=== PATIENT | male | born 1950 | race Caucasian/White ===

== ENCOUNTER 2016-06-09 01:06 | Inpatient (IN) | payer OTHER, MEDICARE ==
[~2016-06-09] VITALS: Ht 180.3 cm; Wt 98.0 kg
[2016-06-09] VITALS (26 sets, daily range): BP systolic 91–142; BP diastolic 56–92; PULSE 80–127; RESP 14–22; TEMP 94.3–101; O2SAT 91–99
[~2016-06-09 01:06] MED LIST: CLOP75 NG; GABA300 PO; HUMSS SQ; LANTUS2P SC; LISI10 PO; MORP30 PO; PERC10TA27 PO; PRAV80 PO
[2016-06-09] MEDS ORDERED: LANTUS2P SQ (01:19)
[2016-06-09] MEDS ORDERED: PERC10TA27 PO (01:19)
[2016-06-09] MEDS ORDERED: PLAV75TA29 PO (01:19)
[2016-06-09] MEDS ORDERED: GABA300C5 PO (01:19)
[2016-06-09] MEDS ORDERED: LISI10TA3 PO (01:19)
[2016-06-09] MEDS ORDERED: PRAV80TA2 PO (01:19)
[2016-06-09] MEDS ORDERED: HUMALOG SQ (01:19)
[2016-06-09] MEDS ORDERED: NITROGLYCERIN 2% OINT 1 GM PACKET TOPICAL ONE (01:30)
[2016-06-09] MEDS ORDERED: LORazepam 2 MG/ML VIAL IM ONE (01:30)
[2016-06-09] MEDS ORDERED: FUROSEMIDE 100 MG/10 ML VIAL IV PUSH ONE (01:30)
[2016-06-09] MEDS ORDERED: ASPIRIN 81 MG CHEW TAB CHEW ONE (01:30)
[2016-06-09 01:34] LABS: AUTOMATED NEUTROPHIL # 16.2 TH/MM3 (1.8-7.7); BASOPHIL # 0.4 TH/MM3 (0-0.2); BASOPHIL % 1.2 % (0.0-2.0); EOSINOPHIL # 0.3 TH/MM3 (0-0.4); EOSINOPHIL % 0.9 % (0.0-4.0); HEMATOCRIT 41.4 % (39.0-51.0); I-STAT POTASSIUM 3.5 MMOL/L (3.5-4.9); LYMPH % 37.1 % (9.0-44.0); LYMPHOCYTE # 10.8 TH/MM3 (1.0-4.8); MEAN CELL VOLUME 96.4 FL (80.0-100.0); MEAN CORPUSCULAR HEMOGLOBIN 31.7 PG (27.0-34.0); MEAN CORPUSCULAR HGB CONC 32.9 % (32.0-36.0); MONO % 5.6 % (0.0-8.0); NEUT % 55.2 % (16.0-70.0); PLATELET COUNT 279 TH/MM3 (150-450); RED BLOOD COUNT 4.29 MIL/MM3 (4.50-5.90); RED CELL DISTRIBUTION WIDTH 13.9 % (11.6-17.2); WHITE BLOOD COUNT 29.2 TH/MM3 (4.0-11.0)
[2016-06-09 01:35] LABS: HEMO FLAGS AUTO DIFF
--- NOTE | 2016-06-09 01:37 | PD ---
HPI Chief Complaint: Respiratory Distress Time Seen by Provider: 01:12 Travel History International Travel<30 days: No Contact w/Intl Traveler<30days: No Traveled to known affect area: No History of Present Illness HPI The patient is a 65 year old male who presents to the [facility] emergency department with a history of being called as a STEMI alert prior to arrival by ambulance services due to a left bundle branch block and shortness of breath with diaphoresis. The patient denies having a history of an irregular heart rhythm. He does however report having a history of 2 prior myocardial infarctions. The patient on arrival to this facility has conversational dyspnea and tripoding. The patient denies having any chest pain. The patient is having difficulty providing much other history. The patient arrives with an O2 saturation in the 60s. The patient initially was refusing to have nasal cannula oxygen or a nonrebreather placed by ambulance services due to anxiety. Once the patient was placed on supplemental oxygen, the patient was able to provide more history and reports that he has had a productive sounding cough although he has not been bringing anything up. He denies having any fevers. He denies having any worsening lower extremity edema. He denies having any known history of congestive heart failure, however from reviewing the electronic medical record, the patient does have a history of a similar presentation with pulmonary edema and shortness of breath requiring use of BiPAP in June 2015. On the EKG done prior to arrival by ambulance services the patient was noted to have a left bundle branch block. The patient reports that he was wearing to go to bed a couple of hours prior to arrival when he had sudden onset of shortness of breath and diaphoresis. [facility] Past Medical History Narrative Medical The patient's past medical history is significant for coronary artery disease, hypertension, diabetes mellitus, history of congestive heart failure, peripheral vascular disease. Anxiety: No Depression: No Cancer: No Cardiac Catheterization: Yes (X2) Cardiovascular Problems: Yes ([place] X 2) High Cholesterol: Yes Chest Pain: Yes Coronary Artery Disease: Yes Diabetes: Yes Patient Takes Glucophage: No Diminished Hearing: No Endocrine: Yes (HYPERPARATHYROIDISM) Genitourinary: Yes (ACUTE KIDNEY INJURY) Hypertension: Yes Immune Disorder: No Musculoskeletal: No Neurologic: No Psychiatric: No Reproductive: No Respiratory: No Integumentary: Yes (NECROTIC RIGHT FOOT) Myocardial Infarction: Yes Thyroid Disease: No Tetanus Vaccination: < 5 Years Influenza Vaccination: No Past Surgical History Narrative Surgical The patient's past surgical history is significant for a hernia repair, appendectomy, femoral popliteal bypass, history of a toe amputation. Abdominal Surgery: Yes (HERNIA REPAIR) Appendectomy: Yes Cardiac Surgery: No Coronary Stent: Yes (X2) Ear Surgery: No Endocrine Surgery: No Eye Surgery: No Genitourinary Surgery: No Gynecologic Surgery: No Oral Surgery: No Thoracic Surgery: No Other Surgery: Yes (SVT CARDIOVERSION, STENT IN RIGHT LEG) Social History Alcohol Use: No Tobacco Use: No (quit 04/23) Substance Use: No Allergies-Medications (Allergen,Severity, Reaction): Coded Allergies: No Known Allergies (Unverified , 06/09/16) Reported Meds & Prescriptions Reported Meds & Active Scripts Active Reported Pravastatin 80 Mg Tab 80 Mg PO HS Percocet (Oxycodone-Acetaminophen) 10-325 mg Tab 1 Tab PO Q6H PRN Lisinopril 10 Mg Tab 10 Mg PO BID Lantus Inj (Insulin Glargine) 1,000 Unit/10 Ml Vial 5 Units SQ HS Humalog Inj (Insulin Human Lispro) 1,000 Unit/10 Ml Vial 5 Units SQ HS Gabapentin 300 Mg Cap 300 Mg PO TID Plavix (Clopidogrel Bisulfate) 75 Mg Tab 75 Mg PO DAILY Review of Systems Except as stated in HPI: all other systems reviewed are Neg General / Constitutional: No: Fever Eyes: No: Visual changes HENT: No: Headaches Cardiovascular: Positive: Dyspnea on exertion, Edema, No: Chest Pain or Discomfort Respiratory: Positive: Cough, Shortness of Breath Gastrointestinal: No: Nausea, Vomiting, Diarrhea, Abdominal Pain Genitourinary: No: Dysuria Musculoskeletal: No: Pain Skin: No Rash Neurologic: Positive: Weakness (generalized weakness related to shortness of breath), No: Focal Abnormalities, Change in Mentation, Slurred Speech, Sensory Disturbance Psychiatric: No: Depression Endocrine: No: Polydipsia Hematologic/Lymphatic: No: Easy Bruising Physical Exam Narrative General: The patient is a well-developed well-nourished male, arrives with respiratory distress, diaphoretic, tripoding. Head and Neck exam: Head is normocephalic atraumatic. Eyes: Pupils are equal round and reactive to light. Nose: Midline septum with pink mucous membranes Mouth: Dentition unremarkable. Moist mucus membranes. Posterior oropharynx is not erythematous. No tonsillar hypertrophy. Uvula midline. Airway patent. Neck: No palpable lymphadenopathy. No nuchal rigidity. No thyromegaly. Cardiovascular: Irregularly irregular with a rate in the low 100s without murmurs, gallops, or rubs. Lungs: Decreased breath sounds in bilateral bases with crackles audible bilaterally. No wheezes or rhonchi. Abdomen: Soft, without tenderness to palpation in all 4 quadrants of the abdomen. No guarding, rebound, or rigidity. Normal bowel sounds are audible. Extremities: No clubbing or cyanosis. The patient has 1+ nonpitting edema. No calf tenderness on palpation. The patient has hyperpigmentation of his extremities consistent with venous stasis changes. Back: No spinous process tenderness to palpation. No costovertebral angle tenderness to palpation. Neurologic Exam: Grossly nonfocal. The patient is moving all extremities with 5 over 5 strength. The patient has no evidence of facial asymmetry. Skin Exam: No rash noted. Intact skin that cool and diaphoretic. Data Data Last Documented VS Vital Signs Date Time Temp Pulse Resp B/P Pulse Ox O2 Delivery O2 Flow Rate FiO2 06/09/16 02:14 80 14 101/59 97 Auto-Vent 06/09/16 01:59 100 06/09/16 01:24 15 06/09/16 01:09 97.8 Orders Troponin I (06/09/16 01:20) Ckmb (Isoenzyme) Profile (06/09/16 01:20) Complete Blood Count With Diff (06/09/16 01:20) I-Stat Profile (06/09/16 01:20) I-Stat Creatinine (06/09/16 01:20) Calcium (06/09/16 01:20) Magnesium (Mg) (06/09/16 01:20) Prothrombin Time / Inr (Pt) (06/09/16 01:20) Act Partial Throm Time (Ptt) (06/09/16 01:20) B-Type Natriuretic Peptide (06/09/16 01:20) Chest, Single Ap (06/09/16 01:20) Electrocardiogram (06/09/16 01:20) Oxygen Administration (06/09/16 01:20) Iv Access Insert/Monitor (06/09/16 01:20) Oximetry (06/09/16 01:20) Hepatic Functional Panel (06/09/16 01:20) Lipase (06/09/16 01:20) Urinalysis - C+S If Indicated (06/09/16 01:20) Ecg Monitoring (06/09/16 01:20) Resp Bipap / Cpap Non Invas Vt (06/09/16 ) Nitroglycerin 2% Oint (Nitroglycerin 2% (06/09/16 01:30) Furosemide Inj (Lasix Inj) (06/09/16 01:30) Aspirin Chew (Aspirin Chew) (06/09/16 01:30) Lorazepam Inj (Ativan Inj) (06/09/16 01:30) Urinary Catheter Insert/Apply (06/09/16 01:27) Ng Gastric Tube Insert/Monitor (06/09/16 01:46) Etomidate Inj (Amidate Inj) (06/09/16 02:00) Succinylcholine Inj (Quelicin Inj) (06/09/16 02:00) Albuterol-Ipratropium Neb (Duoneb Neb) (06/09/16 02:00) Sodium Chloride 0.9% Flush (Ns Flush) (06/09/16 02:00) Restraints Non-Violent DIONNA.Q3H (06/09/16 01:46) Succinylcholine Inj (Quelicin Inj) (06/09/16 01:48) Propofol 1000 Mg/100 Ml Inj (Diprivan 10 (06/09/16 02:00) ^ Infusion (06/09/16 01:48) RASS (06/09/16 01:48) Neurological Rass Scale DIONNA.Q2H (06/09/16 01:48) Etomidate Inj (Amidate Inj) (06/09/16 01:49) Propofol 1000 Mg/100 Ml Inj (Diprivan 10 (06/09/16 01:50) CKMB (06/09/16 01:15) CKMB% (06/09/16 01:15) Chest, Single Ap (06/09/16 02:06) Dopamine Inj Premix (Dopamine Inj Premix (06/09/16 02:25) Admit Order (Ed Use Only) (06/09/16 02:31) Labs Laboratory Tests Test 06/09/16 06/09/16 01:15 01:25 White Blood Count 29.2 TH/MM3 Red Blood Count 4.29 MIL/MM3 Hemoglobin 13.6 GM/DL Bedside Hemoglobin 14.3 G/DL Hematocrit 41.4 % Bedside Hematocrit 42.0 % Mean Corpuscular Volume 96.4 FL Mean Corpuscular Hemoglobin 31.7 PG Mean Corpuscular Hemoglobin 32.9 % Concent Red Cell Distribution Width 13.9 % Platelet Count 279 TH/MM3 Mean Platelet Volume 10.1 FL Neutrophils (%) (Auto) 55.2 % Lymphocytes (%) (Auto) 37.1 % Monocytes (%) (Auto) 5.6 % Eosinophils (%) (Auto) 0.9 % Basophils (%) (Auto) 1.2 % Neutrophils # (Auto) 16.2 TH/MM3 Lymphocytes # (Auto) 10.8 TH/MM3 Monocytes # (Auto) 1.6 TH/MM3 Eosinophils # (Auto) 0.3 TH/MM3 Basophils # (Auto) 0.4 TH/MM3 CBC Comment AUTO DIFF Differential Total Cells 100 Counted Neutrophils % (Manual) 53 % Band Neutrophils % 9 % Lymphocytes % 30 % Monocytes % 7 % Basophils % 1 % Neutrophils # (Manual) 18.1 TH/MM3 Differential Comment FINAL DIFF MANUAL Platelet Estimate NORMAL Platelet Morphology Comment NORMAL Prothrombin Time 10.4 SEC Prothromb Time International 0.9 RATIO Ratio Activated Partial 30.1 SEC Thromboplast Time Bedside Sodium 136 MMOL/L Bedside Potassium 3.5 MMOL/L Bedside Chloride 105 MMOL/L Bedside Blood Urea Nitrogen 23 MG/DL Bedside Creatinine 1.1 MG/DL Bedside Glucose 500 MG/DL Calcium Level 8.2 MG/DL Magnesium Level 2.2 MG/DL Total Bilirubin 0.5 MG/DL Direct Bilirubin 0.1 MG/DL Indirect Bilirubin 0.4 MG/DL Aspartate Amino Transf 157 U/L (AST/SGOT) Alanine Aminotransferase 34 U/L (ALT/SGPT) Alkaline Phosphatase 128 U/L Total Creatine Kinase 773 U/L Creatine Kinase MB 35.8 NG/ML Creatine Kinase MB % 4.6 % Troponin I 18.40 NG/ML B-Type Natriuretic Peptide 580 PG/ML Total Protein 6.5 GM/DL Albumin 3.1 GM/DL Lipase 89 U/L Urine Color YELLOW Urine Turbidity CLEAR Urine pH 6.0 Urine Specific Milam 1.021 Urine Protein 300 mg/dL Urine Glucose (UA) 1000 mg/dL Urine Ketones NEG mg/dL Urine Occult Blood SMALL Urine Nitrite NEG Urine Bilirubin NEG Urine Urobilinogen LESS THAN 2.0 MG/DL Urine Leukocyte Esterase NEG Urine RBC 1 /hpf Urine WBC 2 /hpf Urine Squamous Epithelial <1 /hpf Cells Urine Renal Epithelial Cells <1 /hpf Urine Amorphous Sediment RARE Urine Bacteria OCC /hpf Microscopic Urinalysis Comment CULT NOT INDICATED MDM Medical Decision Making Medical Screen Exam Complete: Yes Emergency Medical Condition: Yes Medical Record Reviewed: Yes Interpretation(s) Last Impressions Chest X-Ray 06/09/16205 Signed Impressions: Service Date/Time: Thursday, June 09, 2016 02:06 - CONCLUSION: 1. Airspace opacities of both bases and the left midlung worsening. 2. Endotracheal tube tip is about 4 cm above the elizabeth. Nasogastric tube courses below the diaphragm, sidehole nor tip included on the study. Anthony Carroll MD Chest X-Ray 06/09/16119 Signed Impressions: Service Date/Time: Thursday, June 09, 2016 01:09 - CONCLUSION: Early/ mild pulmonary edema. Anthony Carroll MD Differential Diagnosis Congestive heart failure exacerbation, versus pneumonia, versus acute coronary syndrome, versus pulmonary edema related to renal failure Narrative Course During the course of the patients emergency department visit, the patients history, examination, and differential diagnosis were reviewed with the patient. The patient had IV access obtained and blood work sent for analysis. The patient was placed on a director of cardiac cath lab with oximetry and blood pressure monitoring. An EKG was done on arrival which revealed atrial fibrillation with RVR, heart rate of 110 with a left bundle branch block appearing similar to a prior EKG with the exception of no atrial fibrillation rate. Prior to arrival ambulance services provided aspirin 162 mg by mouth 1. The patient was given nitroglycerin sublingual 3, morphine 4 mg IV. On arrival the patient is tripoding, dyspneic, O2 saturations in the 60s, however the patient was refusing to wear nasal cannula O2 or mask O2 initially for ambulance services. I applied nasal cannula O2 to the patient as well as a nonrebreather mask and the patient's O2 saturation began to come up. Respiratory therapy was called to place the patient on BiPAP. The patient was provided an additional aspirin 162 mg by mouth, nitroglycerin 1 inch to the chest wall, Lasix 80 mg IV, Ativan 0.5 mg IV for anxiety related to wearing the mask for BiPAP. The patient was monitored closely. The patient was not tolerating BiPAP well. The patient had a rhythm change and a repeat EKG was done. The patient's EKG looked more consistent with a STEMI with a idioventricular rhythm at 51, ST segment elevation in the inferior leads. A call was placed out to the director of home care hospice on-call again at 1:50 AM. The patient' s first and second EKGs images were sent to her for review. She called me back to discuss this. She explained that the patient's EKG findings were most likely related to his respiratory distress. The patient was not tolerating BiPAP well and was prepared for RSI. The patient was intubated without difficulty. The patient was placed on propofol for sedation. The patient's blood pressure dropped into the 80s and his heart rate was in the 40s. The patient was started on dopamine for pressure support and for the bradycardia. The patient had a troponin came back at 2 AM of 18. The director of home care hospice was again called to update her regarding the patient's troponin. She reports that she does not plan to take the patient to the cardiac catheterization lab this evening. The patients laboratory studies were reviewed and remarkable for a white count of 29.2, hemoglobin 13.6, platelets 279 with 53 neutrophils, bands 9, CMP is remarkable for sodium of 136, glucose 500, AST 157, alkaline phosphatase 128, CPK 773 with 4.6 MB percent, troponin I 18.40, BNP 580, lipase 89, PT PTT unremarkable, urinalysis shows 300 protein is without glucose small occult blood occasional bacteria. Radiology studies were reviewed and remarkable for an initial chest x-ray that shows bilateral pulmonary edema. Repeat chest x-ray postintubation shows airspace opacities at both bases and the left midlung that are worsening. Given the patient's elevated white blood cell count and the possibility of an underlying pneumonia, the patient will also be given Rocephin 1 g IV, Zithromax 500 IV. The patient's case was discussed with the mixing operator who did agree to admit the patient for further evaluation and treatment at this time. He did see the patient down in the emergency department. The patient was started on heparin. The patient's blood sugar was reassessed. The patient's blood sugar was in the 467. Basic metabolic profile shows of the patient's CO2 is normal. The patient's beta hydroxybutyrate is negative. The patient was given regular insulin 10 units subcutaneously 1. The patients results were discussed with the patient, including the plan of care. I explained that further testing and/ or monitoring is indicated based on the patients history, examination, and/ or laboratory findings. Therefore, I recommended admission for additional evaluation. The patient expressed understanding and was agreeable with this plan. The patient was admitted to the hospital in critical condition and sent to a bed under the care of the mixing operator. Critical Care Narrative Aggregate critical care time was 44 minutes. Time to perform other separately billable procedures was not included in the critical care time. My time did not include minutes spent treating any other patients simultaneously or on activities that did not directly contribute to the patient's treatment. The services I provided to this patient were to treat and/or prevent clinically significant deterioration that could result in: Cardiovascular collapse, versus respiratory failure I provided critical care services requiring my management, as noted below: Chart data review, documentation time, medication orders and management, vital sign assessments/reviewing monitor data, ordering and reviewing lab tests, ordering and interpreting/reviewing x-rays and diagnostic studies, care of the patient and discussion of the patient with the admitting physicians. Physician Communication Physician Communication At 1:12 AM I spoke to Dr. Elizondo regarding this patient's case as the the patient was called as a STEMI alert prior to arrival by [facility]. While discussing the patient's case with her I did review the patient's electronic medical record. The patient's electronic medical record reveals that the patient does have a history of left bundle branch block and a similar appearing EKG from June 2015. The new finding on this EKG appears to be atrial fibrillation with a heart rate of 110. The STEMI alert was initially canceled as the patient 's ECG appears close to baseline ECG last done at this facility. The patient's case was discussed with Dr. Rodríguez who did see the patient in the emergency department and accept the patient for admission to the intensive care unit. Diagnosis Primary Impression: Myocardial infarction acute Qualified Code: I21.4 - Acute non-ST elevation myocardial infarction (NSTEMI) Additional Impressions: Acute exacerbation of congestive heart failure Qualified Code: I50.9 - Acute on chronic congestive heart failure, unspecified congestive heart failure type Leukocytosis Qualified Code: D72.825 - Bandemia Hyperglycemia Admitting Information Admitting Physician Requests: Admit Mariama Rocha MD Jun 09, 2016 01:36
[2016-06-09 01:38] LABS: BACTERIA, URINE OCC /hpf; BLOOD, URINE SMALL (NEG); COMMENT (UR) CULT NOT INDICATED; CULTURE IF INDICATED CULT NOT INDICATED; GLUCOSE,URINE 1000 mg/dL (NEG); KETONE, URINE NEG (NEG); NITRITE,URINE NEG (NEG); RENAL EPITHELIAL CELLS <1 /hpf; SQUAMOUS EPITHELIAL CELL URINE <1 /hpf (0-5); URINE COLOR YELLOW (YELLW/STRAW)
--- NOTE | 2016-06-09 01:42 | RADRPT ---
EXAM DATE/TIME: 06/09/2016 01:09 [facility] COMPARISON: CHEST SINGLE AP, June 11, 2015, 21:59. INDICATIONS : Stemi alert. MEDICAL HISTORY : Myocardial infarction. Hypercholesterolemia. Hypertension. Coronary artery disease. Angina. Hernia. N ecrotic right foot. SVT cardioversion. Diabetes mellitus. Hyperparathyroidism. SURGICAL HISTORY : Appendectomy. Cardiac stent placement, times 2. Right leg coronary stent. Cardiac catheter. Hernia re pair. ENCOUNTER: Initial ACUITY: 1 day PAIN SCORE: 7/10 LOCATION: Bilateral chest FINDINGS: Mild pulmonary parenchymal opacities are seen, primarily at the bases and most suggestive of mild pul monary edema. No focal lobar consolidation seen. No large effusion. No pneumothorax. Heart size stable, upper limits of normal. CONCLUSION: Early/mild pulmonary edema. Anthony Carroll MD on June 09, 2016 at 1:38 Board Certified Radiologist. This report was verified electronically.
[2016-06-09] MEDS ORDERED: SUCCINYLCHOLINE CHLORIDE 200 MG/10 ML VIAL ONE (01:48)
[2016-06-09 01:49] LABS: APTT (PATIENT) 30.1 SEC (24.3-30.1); INTERNATIONAL NORMALIZED RATIO 0.9 RATIO; PROTHROMBIN TIME - PATIENT 10.4 SEC (9.8-11.6)
[2016-06-09] MEDS ORDERED: ETOMIDATE 40 MG/20 ML VIAL ONE (01:49)
[2016-06-09 01:50] LABS: MAGNESIUM 2.2 MG/DL (1.5-2.5)
[2016-06-09] MEDS ORDERED: PROPOFOL 1000 MG/100 ML INJ 100 ML ONE (01:50)
[2016-06-09 01:53] LABS: INDIRECT BILIRUBIN 0.4 MG/DL (0.0-0.8); TOTAL BILIRUBIN ADULT 0.5 MG/DL (0.2-1.0)
[2016-06-09] MEDS ORDERED: PROPOFOL 1000 MG/100 ML INJ 100 ML IV SCH (02:00)
[2016-06-09] MEDS ORDERED: SUCCINYLCHOLINE CHLORIDE 200 MG/10 ML VIAL IVP ONE (02:00)
[2016-06-09] MEDS ORDERED: ETOMIDATE 20 MG/10 ML VIAL IVP ONE (02:00)
[2016-06-09] MEDS ORDERED: SODIUM CHLORIDE 0.9% FLUSH 5 ML FLUSH IVF PRN ×2 (02:00→15:00)
[2016-06-09 02:11] LABS: CKMB 35.8 NG/ML (0.5-3.6)
[2016-06-09 02:17] LABS: BANDS 9 % (0-6); BASOPHILS 1 % (0-2); NEUTROPHIL # MANUAL DIFF 18.1 TH/MM3 (1.8-7.7); PLATELET ESTIMATE SMEAR NORMAL (NORMAL); PLATELET MORPHOLOGY NORMAL (NORMAL); POLYS (SEG NEUTROPHILS) 53 % (16-70); SCAN/DIFF FINAL DIFF MANUAL; WBC DIFF SAMPLE 100
[2016-06-09] MEDS ORDERED: DOPamine INJ PREMIX 500 ML ONE (02:25)
[2016-06-09] MEDS: RESP: ALBUTEROL 2.5 MG/IPRATROPIUM 0.5 MG NEB (SCH) INH ×2 (02:32→02:37)
[2016-06-09] MEDS ORDERED: RESP: ALBUTEROL 2.5 MG/IPRATROPIUM 0.5 MG NEB (PRN) INH (02:45)
[2016-06-09] MEDS ORDERED: SODIUM CHLORIDE 0.9% FLUSH 5 ML FLUSH IV FLUSH PRN (02:45)
[2016-06-09] MEDS ORDERED: CHLORHEXIDINE GLUCONATE 2 % 1 PACK (2 CLOTHS) TOP PRN (02:45)
[2016-06-09] MEDS ORDERED: MIDAZOLAM 100 MG/ML INJ 100 ML IV SCH (02:45)
[2016-06-09] MEDS ORDERED: MISCELLANEOUS NURSING INFORMATION XX SCH (02:45)
[2016-06-09] MEDS ORDERED: MIDAZOLAM HCL 2 MG/2 ML VIAL IV PRN (02:45)
[2016-06-09] MEDS ORDERED: METOCLOPRAMIDE HCL 10 MG/2 ML VIAL IV PRN (02:45)
[2016-06-09] MEDS ORDERED: ONDANSETRON HCL 4 MG/2 ML VIAL IV PRN (02:45)
--- NOTE | 2016-06-09 02:52 | RADRPT ---
EXAM DATE/TIME: 06/09/2016 02:06 [facility] COMPARISON: No previous studies available for comparison. INDICATIONS : Post intubation. MEDICAL HISTORY : None. SURGICAL HISTORY : None. ENCOUNTER: Subsequent ACUITY: 1 day PAIN SCORE: Non-responsive. LOCATION: Bilateral chest FINDINGS: Patient is now intubated. Endotracheal tube tip is about 4 cm above the elizabeth. There is a nasogastri c tube coursing into the stomach. Worsening bibasilar and left midlung consolidation. CONCLUSION: 1. Airspace opacities of both bases and the left midlung worsening. 2. Endotracheal tube tip is about 4 cm above the elizabeth. Nasogastric tube courses below the diaphragm , sidehole nor tip included on the study. Anthony Carroll MD on June 09, 2016 at 2:49 Board Certified Radiologist. This report was verified electronically.
--- NOTE | 2016-06-09 02:52 | HHI.HP ---
HPI Service Critical Care Medicine Primary Care Physician Vonda [facility] Admission Diagnosis Acute DC, CHF exacerbation, respiratory failure Diagnosis: Travel History International Travel<30 Days: No Contact w/Intl Traveler <30 Da: No Traveled to Known Affected Are: No Review of Systems ROS Unable to obtain, patient is sedated and intubated Past Family Social History Allergies: Coded Allergies: No Known Allergies (Unverified , 06/09/16) Past Medical History HTN, CAD, DM, CHF (Echo 05/11/15 w/ EF 50-55%) PVD Past Surgical History Hernia Repair, Appendectomy, Femoropopliteal Bypass Reported Medications Pravastatin 80 Mg Tab 80 Mg PO HS Percocet (Oxycodone-Acetaminophen) 10-325 mg Tab 1 Tab PO Q6H PRN Lisinopril 10 Mg Tab 10 Mg PO BID Lantus Inj (Insulin Glargine) 1,000 Unit/10 Ml Vial 5 Units SQ HS Humalog Inj (Insulin Human Lispro) 1,000 Unit/10 Ml Vial 5 Units SQ HS Gabapentin 300 Mg Cap 300 Mg PO TID Plavix (Clopidogrel Bisulfate) 75 Mg Tab 75 Mg PO DAILY Active Ordered Medications Current Medications Medications (Trade) Dose Ordered Sig/Yoselin Route PRN Reason Start Time Stop Time Status Last Admin Dose Admin IV Flush 2 ml 2 ml UNSCH PRN IVF FLUSH AFTER USING IV ACCESS 06/09/16 02:00 Propofol 100 ml @ 0 mls/hr TITRATE IV 06/09/16 02:00 Midazolam HCl 100 ml @ 0 mls/hr TITRATE IV 06/09/16 02:45 Sodium Chloride (NS 1000 ml Inj) 1,000 ml @ 84 mls/hr [id number] IV 06/09/16 02:41 UNV IV Flush (NS Flush) 2 ml UNSCH PRN IV FLUSH FLUSH AFTER USING IV ACCESS 06/09/16 02:45 UNV IV Flush (NS Flush) 2 ml BID IV FLUSH 06/09/16 09:00 UNV Acetaminophen (Tylenol) 650 mg Q6H PRN PO PAIN 1-10 AND/OR FEVER >101F 06/09/16 02:45 UNV Morphine Sulfate (Morphine Inj) 2 mg Q2H PRN IV PAIN SCALE 6 TO 10 06/09/16 02:45 UNV Famotidine (Pepcid Inj) 20 mg Q12HR IV PUSH 06/09/16 09:00 UNV Midazolam HCl (Versed Inj) 2 mg Q1H PRN IV SEDATION 06/09/16 02:45 UNV Artificial Tears (Tears Naturale Opth Soln) 1 drop TID EACH EYE 06/09/16 09:00 UNV Ondansetron HCl (Zofran Inj) 4 mg Q6H PRN IV NAUSEA OR VOMITING 06/09/16 02:45 UNV Miscellaneous Information 1 Q361D XX 06/09/16 02:45 UNV Chlorhexidine Gluconate (Chlorhexidine 2% Cloth) 3 pack Taper DAILY@04 TOP 06/09/16 04:00 06/05/17 03:59 UNV Chlorhexidine Gluconate (Chlorhexidine 2% Cloth) 3 pack UNSCH PRN TOP HYGIENIC CARE 06/09/16 02:45 UNV Family History No h/o DM or CAD Social History Negative for alcohol or drugs. Smoker 1ppd. Physical Exam Vital Signs Vital Signs Date Time Temp Pulse Resp B/P Pulse Ox O2 Delivery O2 Flow Rate FiO2 06/09/16 02:46 94.3 101 14 139/78 97 Auto-Vent 06/09/16 02:14 80 14 101/59 97 Auto-Vent 06/09/16 01:50 85 22 124/75 94 BiPAP 06/09/16 01:24 96 Non-Rebreather 15 06/09/16 01:24 22 98 BiPAP 06/09/16 01:19 100 22 91 Non-Rebreather 15 06/09/16 01:09 98.4 110 22 141/89 91 Physical Exam GENERAL: Well-nourished, well-developed patient. SKIN: Warm and dry. HEAD: Normocephalic. EYES: No scleral icterus. No injection or drainage. NECK: Supple, trachea midline. No JVD or lymphadenopathy. CARDIOVASCULAR: Regular rate and rhythm without murmurs, gallops, or rubs. RESPIRATORY: Breath sounds equal bilaterally. No accessory muscle use. GASTROINTESTINAL: Abdomen soft, non-tender, nondistended. MUSCULOSKELETAL: No cyanosis, or edema. BACK: Nontender without obvious deformity. No CVA tenderness. Laboratory Laboratory Tests Test 06/09/16 06/09/16 01:15 01:25 White Blood Count 29.2 Red Blood Count 4.29 Hemoglobin 13.6 Bedside Hemoglobin 14.3 Hematocrit 41.4 Bedside Hematocrit 42.0 Mean Corpuscular Volume 96.4 Mean Corpuscular Hemoglobin 31.7 Mean Corpuscular Hemoglobin 32.9 Concent Red Cell Distribution Width 13.9 Platelet Count 279 Mean Platelet Volume 10.1 Neutrophils (%) (Auto) 55.2 Lymphocytes (%) (Auto) 37.1 Monocytes (%) (Auto) 5.6 Eosinophils (%) (Auto) 0.9 Basophils (%) (Auto) 1.2 Neutrophils # (Auto) 16.2 Lymphocytes # (Auto) 10.8 Monocytes # (Auto) 1.6 Eosinophils # (Auto) 0.3 Basophils # (Auto) 0.4 CBC Comment AUTO DIFF Differential Total Cells 100 Counted Neutrophils % (Manual) 53 Band Neutrophils % 9 Lymphocytes % 30 Monocytes % 7 Basophils % 1 Neutrophils # (Manual) 18.1 Differential Comment FINAL DIFF MANUAL Platelet Estimate NORMAL Platelet Morphology Comment NORMAL Prothrombin Time 10.4 Prothromb Time International 0.9 Ratio Activated Partial 30.1 Thromboplast Time Bedside Sodium 136 Bedside Potassium 3.5 Bedside Chloride 105 Bedside Blood Urea Nitrogen 23 Bedside Creatinine 1.1 Bedside Glucose 500 Calcium Level 8.2 Magnesium Level 2.2 Total Bilirubin 0.5 Direct Bilirubin 0.1 Indirect Bilirubin 0.4 Aspartate Amino Transf 157 (AST/SGOT) Alanine Aminotransferase 34 (ALT/SGPT) Alkaline Phosphatase 128 Total Creatine Kinase 773 Creatine Kinase MB 35.8 Creatine Kinase MB % 4.6 Troponin I 18.40 B-Type Natriuretic Peptide 580 Total Protein 6.5 Albumin 3.1 Lipase 89 Urine Color YELLOW Urine Turbidity CLEAR Urine pH 6.0 Urine Specific [place] 1.021 Urine Protein 300 Urine Glucose (UA) 1000 Urine Ketones NEG Urine Occult Blood SMALL Urine Nitrite NEG Urine Bilirubin NEG Urine Urobilinogen LESS THAN 2.0 Urine Leukocyte Esterase NEG Urine RBC 1 Urine WBC 2 Urine Squamous Epithelial <1 Cells Urine Renal Epithelial Cells <1 Urine Amorphous Sediment RARE Urine Bacteria OCC Microscopic Urinalysis Comment CULT NOT INDICATED Result Diagram: 06/09/16114 Imaging Last 24 hours Impressions Chest X-Ray 06/09/16119 Signed Impressions: Service Date/Time: Thursday, June 09, 2016 01:09 - CONCLUSION: Early/ mild pulmonary edema. MD Marcos Harvey Jan MD Jun 09, 2016 02:52
[2016-06-09] MEDS ORDERED: HEPARIN-D5W INJ 250 ML IV SCH ×2 (03:00→17:30)
[2016-06-09] MEDS ORDERED: SODIUM BICARBONATE 8.4% INJ 50 MEQ/50 ML SYR IV PUSH ONE ×2 (03:15)
[2016-06-09 03:28] LABS: BLOOD GAS BASE EXCESS -9.5 mmol/L (-2-2); BLOOD GAS CARBOXYHEMOGLOBIN 4.4 % (0-4); BLOOD GAS HCO3 19 mmol/L (22-26); BLOOD GAS METHEMOGLOBIN 2.3 % (0-2); BLOOD GAS O2 HGB SATURATION 93 % (90-100); BLOOD GAS OXYGEN CONTENT 18.5 Vol % (12.0-20.0); BLOOD GAS PCO2 61 mmHg (38-42); BLOOD GAS PO2 260 mmHG (61-120); BLOOD GAS TOTAL HGB 13.8 G/DL (12.0-16.0); CRITICAL VALUE YES; FIO2 100 %; OXYGEN DEVICE VENTILATOR; TEMP CORR TO 98.6
[2016-06-09 03:29] LABS: NUMBER OF ARTERIAL PUNCTURES 0; STAT YES
[2016-06-09] MEDS: CHLORHEXIDINE GLUCONATE 2 % 1 PACK (2 CLOTHS) TOP SCH (04:00)
[2016-06-09] MEDS: SODIUM CHLOR 0.9% 1000 ML INJ 1,000 ML IV SCH ×3 (04:17→21:01)
[2016-06-09] MEDS ORDERED: INSULIN HUMAN REGULAR 1,000 UNITS/10 ML VIAL SQ ONE (05:30)
[2016-06-09 06:04] LABS: HEMATOCRIT 36.6 % (39.0-51.0); MEAN CORPUSCULAR HEMOGLOBIN 31.1 PG (27.0-34.0); MEAN CORPUSCULAR HGB CONC 33.8 % (32.0-36.0); PLATELET COUNT 207 TH/MM3 (150-450); RED BLOOD COUNT 3.98 MIL/MM3 (4.50-5.90); RED CELL DISTRIBUTION WIDTH 13.1 % (11.6-17.2); REVIEW FLAG FINAL; WHITE BLOOD COUNT 23.2 TH/MM3 (4.0-11.0)
[2016-06-09 06:16] LABS: BETA-HYDROXYBUTYRATE 0.27 MMOL/L (0.00-0.39); BICARBONATE 23.1 MEQ/L (21.0-32.0)
[2016-06-09 06:34] LABS: BLOOD GAS BASE EXCESS -2.8 mmol/L (-2-2); BLOOD GAS CARBOXYHEMOGLOBIN 2.7 % (0-4); BLOOD GAS HCO3 22 mmol/L (22-26); BLOOD GAS O2 HGB SATURATION 95 % (90-100); BLOOD GAS OXYGEN CONTENT 17.6 Vol % (12.0-20.0); BLOOD GAS PCO2 41 mmHg (38-42); BLOOD GAS PO2 169 mmHG (61-120); TEMP CORR TO 98.6
[2016-06-09 06:35] LABS: CRITICAL VALUE NO; OXYGEN DEVICE VENTILATOR; VENT SETTINGS AC14/600 5 PEEP
[2016-06-09 06:36] LABS: DRAW SITE RT RADIAL; FIO2 80 %; NUMBER OF ARTERIAL PUNCTURES 1; STAT NO; ULNAR PULSE PRESENT
[2016-06-09 06:42] LABS: VENT SETTINGS AC/14/500 5 PEEP
[2016-06-09] MEDS ORDERED: AZITHROMYCIN INJ 500 MG in SODIUM CHLOR 0.9% 250 ML INJ 250 ML IV ONE (06:45)
[2016-06-09] MEDS ORDERED: cefTRIAXone INJ 1,000 MG in SODIUM CHLORIDE 0.9% INJ 100 ML IV ONE (06:45)
[2016-06-09] MEDS ORDERED: INSULIN REGULAR (IV INFUSION) 100 UNITS in SODIUM CHLORIDE 0.9% INJ 99 ML IV SCH (07:45)
[2016-06-09] MEDS ORDERED: MISC INFORMATION XX ONE ×2 (07:45→15:00)
[2016-06-09] MEDS ORDERED: DEXTROSE 50% IN WATER 50 ML VIAL(D50) IV PUSH PRN (07:45)
[2016-06-09 08:09] LABS: APTT (PATIENT) 30.8 SEC (24.3-30.1)
[2016-06-09] MEDS: DOCUSATE SODIUM 100 MG/10 ML UDC G-TUBE SCH ×2 (09:00→21:01)
[2016-06-09] MEDS ORDERED: HEPARIN SODIUM - IV 10,000 UNITS/10 ML VIAL IV PRN ×4 (09:00→23:30)
[2016-06-09] MEDS ORDERED: ASPIRIN 325 MG TAB TUBE SCH (09:00)
[2016-06-09] MEDS ORDERED: SODIUM CHLORIDE 0.9% FLUSH 5 ML FLUSH IV FLUSH SCH (09:00)
[2016-06-09] MEDS: ARTIFICIAL TEARS OPTH SOLN 15 ML BTL EACH EYE SCH ×3 (09:00→18:00)
[2016-06-09] MEDS: FAMOTIDINE 20 MG/2 ML VIAL IV PUSH SCH ×2 (09:00→21:56)
--- NOTE | 2016-06-09 09:15 | PD.PROCEDR ---
Central Line Procedure REASON FOR PROCEDURE Central venous access PROCEDURE PERFORMED Central line placement: R subclavian CVL CONSENT Emergency procedure for cardiogenic shock, pressor administration ANESTHESIA Local injection of 1% Lidocaine DESCRIPTION OF THE PROCEDURE The patient was placed in supine, mild Trendelenburg position. The area was exposed and cleansed with ChloraPrep, times two. Large sterile drape was used to cover the patient, with the site exposed, under sterile conditions including cap, face mask, sterile gown, and sterile gloves. On single attempt, the introducer needle was inserted with negative pressure in syringe and venous flash was obtained. The guide wire was then advanced without any restriction and the needle was removed. The dilator was used without any complications. Using Seldinger technique the 20 CM 7F triple lumen catheter was advanced over the guide wire to a depth of 17 centimeters. The guide wire was removed. All ports were aspirated with dark venous blood return and flushed easily with sterile saline. All ports were capped. Antibiotic disc was placed around central line at puncture site. The central line was secured to the skin with two interrupted 2.0 silk sutures. The area was bandaged with sterile see- through central line bandage. COMPLICATIONS: No apparent complications ESTIMATED BLOOD LOSS: Less than 1 cc. Barry Cruz MD Jun 09, 2016 09:15
--- NOTE | 2016-06-09 10:15 | RADRPT ---
EXAM DATE/TIME: 06/09/2016 09:29 [place] COMPARISON: CHEST SINGLE AP, May 26, 2016, 20:32. INDICATIONS : Dyspnea. MEDICAL HISTORY : Hypertension. Myocardial infarction. Pneumonia. SURGICAL HISTORY : CABG. ENCOUNTER: Subsequent ACUITY: 3 days PAIN SCORE: 0/10 LOCATION: Chest FINDINGS: ET tube, nasogastric tube and central venous catheter are in good position. Bibasilar parenchymal ch anges are noted. There is no pneumothorax. CONCLUSION: Right subclavian line in good position without pneumothorax. Nima Treadwell MD FACR on June 09, 2016 at 10:10 Board Certified Radiologist. This report was verified electronically.
--- NOTE | 2016-06-09 10:24 | MB ---
cc: FREDO ALVAREZ DATE OF CONSULTATION 06/09/2016 DATE OF 1950 REASON FOR CONSULTATION Elevated troponin's/Chest Pain/Respiratory failure HISTORY OF PRESENT ILLNESS 65-year-old male with a past medical history significant for coronary artery disease, hypertension, diabetes, severe peripheral vascular disease, left bundle branch block who came from home via [facility] around 2AM with complaints of shortness of breath. The patient denied chest pain or palpitations however per record had significantly SOB. In the emergency department, the patient SOB got worst, labored breathing despite O2 supplementation. He went into flash pulmonary edema and he was started on BiPaP, however he did not tolerated the BiPAP and was emergently intubated. EKG showing complete AV block high exit block and ST elevation in II, III and AvF. First troponin was 18. The director of exhibit development authorization nurse was consulted for emergent LHC/PCI but case was decline. Thus interventional cardiology has been re-consulted for further evaluation and management. Currently he remains critically ill, hemodynamically unstable on dopamine, and troponin's continue to trend up. REVIEW OF SYSTEMS Unobtainable. PAST MEDICAL HISTORY 1. Coronary artery disease 2. PCI's in the past 3. Hypertension 4. Diabetes 5. Congestive heart failure 6. Peripheral vascular disease 7. He has a recent echocardiogram showing a normal LV systolic function with an estimated ejection fraction of 60% 8. Hypothyroidism 9. Necrotic right foot. PAST SURGICAL HISTORY 1. Hernia repair 2. Appendectomy 3. Coronary stents 4. A stent in the both leg. SOCIAL HISTORY He is a former smoker and no history of alcohol or illicit drug use. ALLERGIES NO KNOWN DRUG ALLERGIES. HOME MEDICATIONS 1. Plavix 75 mg p.o. daily 2. Gabapentin 300 mg p.o. t.i.d. 3. Insulin subc 4. Lisinopril 10 mg p.o. daily 5. Percocet p.r.n. for pain 6. Pravastatin 80 mg p.o. daily PHYSICAL EXAM VITAL SIGNS: Temperature 96, pulse 87, blood pressure 131/71. He is on low- dose dopamine. He is vented and intubated. GENERAL: He is sedated, intubated in no acute distress. NECK: No JVD or carotid bruits. HEART: Regular rate and rhythm. No murmurs, rubs or gallops appreciated. LUNGS: Vented. No wheezes, rhonchi or rales. ABDOMEN: Obese. Positive bowel sounds, soft, nontender, and nondistended. EXTREMITIES: No cyanosis or edema. Warm to touch, decrease pulses throughout. LABORATORY DATA CBC white count 23, hemoglobin 12, hematocrit 36, platelet count 207, INR of 0.9. Chemistries, sodium 138, potassium 4, chloride 103, BUN 24, creatinine 1.38, troponins 18 and 38. Chest x-ray showed bilateral pulmonary edema. EKG sinus rhythm with a left bundle branch block. An echocardiogram done last year on May 11 shows normal LV systolic function with an EF of 50-37%. He has elevated PA pressures. There is no wall motion abnormalities. ASSESSMENT/PLAN 65-year-old male who presented with acute onset of shortness of breath found to be in pulmonary edema, now with elevated troponin's. EKG shows inferior ST elevation and questionable 3 degree high AV block. He is critically ill, Killip Class III and MARINO (STEMI) score is 9. Overall mortality high. Hypotensive on dopamine. I think at this point given his worsening clinical status and hemodynamic compromise we should take him immediately to the medical laboratory technical officer for emergent PCI. Bedside 2Decho done, shows significant LV systolic dysfunction with estimated EF 30% and inferior wall hypokinesis. Keep aggressive medical management for CAD and supportive management. Patient has a AV dissociation on EKG will need TVP immediate insertion. The case has been discussed with the director news and an echocardiogram should be performed stat. Recommendations: 1. Emergent LHC/PCI will need Impella LV assist device 2. Emergent Transvenous pacemaker insertion 2. Continue supportive therapy 3. Stat 2Decho 4. Continue Heparin drip Thank you for the opportunity to take part in the care of this patient. We will follow with you. MD MARIA LUISA Sales/CARLITOS /9:51 AM /10:10 AM SAVANNAH
[2016-06-09] MEDS ORDERED: HEPARIN-NS/PF INJ 500 ML ONE (11:44)
[2016-06-09] MEDS ORDERED: HEPARIN SODIUM - IV 10,000 UNITS/10 ML VIAL ONE ×2 (12:21→13:15)
--- NOTE | 2016-06-09 12:30 | HHI.CCPN ---
Subjective Remarks/Hospital Course 65 year old with past medical history is significant for coronary artery disease , hypertension, diabetes mellitus, history of congestive heart failure, peripheral vascular disease who was brought o the [facility] emergency department as a STEMI alert prior to arrival by ambulance services due to a left bundle branch block and shortness of breath with diaphoresis. Initial oxygen saturation was in the 60s, patient was very anxious. Chest x- ray showed pulmonary edema Initially placed on BiPAP with no significant improvement, and later was intubated and placed on mechanical ventilation. Patient ruled in for non-ST elevation MT with a troponin of 18. His blood sugar was in the 500s. Cardiology was consulted. Aspirin and IV heparin started, for cardiogenic shock patient was placed on dopamine CCM re evaluation: I evaluated the patient in the ED. Patient remains in shock on dopamine. I placed a left subclavian central line. Repeat troponin came back at 39. I discussed with Dr. Lay. He will take the patient for cardiac catheter given acute severe MT with cardiogenic shock and pulmonary edema. Patient was also started on insulin infusion. WBC count 23.2, most likely stress related. The patient insistence output the white count I will start on empiric Zosyn, send blood urine and sputum culture Objective Vital Signs Date Time Temp Pulse Resp B/P Pulse Ox O2 Delivery O2 Flow Rate FiO2 06/09/16 11:30 99.7 80 14 98/56 96 Ventilator 06/09/16 08:02 60 06/09/16 01:24 15 Result Diagram: 06/09/16 0545 06/09/16 0530 Other Results Laboratory Tests Test 06/09/16 06/09/16 02:50 06:20 Blood Gas Puncture Site RT RADIAL Blood Gas Patient Temperature 98.6 98.6 Blood Gas HCO3 19 mmol/L 22 mmol/L (22-26) (22-26) Blood Gas Base Excess -9.5 mmol/L -2.8 mmol/L (-2-2) (-2-2) Blood Gas Oxygen Saturation 93 % (90-100) 95 % (90-100) Arterial Blood pH 7.11 7.35 (7.380-7.420) (7.380-7.420) Arterial Blood Partial 61 mmHg (38-42) 41 mmHg (38-42) Pressure CO2 Arterial Blood Partial 260 mmHG 169 mmHG Pressure O2 (61-120) (61-120) Arterial Blood Oxygen Content 18.5 Vol % 17.6 Vol % (12.0-20.0) (12.0-20.0) Arterial Blood 4.4 % (0-4) 2.7 % (0-4) Carboxyhemoglobin Arterial Blood Methemoglobin 2.3 % (0-2) 2.0 % (0-2) Blood Gas Hemoglobin 13.8 G/DL 13.0 G/DL (12.0-16.0) (12.0-16.0) Oxygen Delivery Device VENTILATOR VENTILATOR Blood Gas Ventilator Setting AC/14/500 5 AC14/600 5 PEEP PEEP Blood Gas Inspired Oxygen 100 % 80 % Imaging Last 24 hours Impressions Chest X-Ray 06/09/16 0120 Signed Impressions: Service Date/Time: Thursday, June 09, 2016 01:09 - CONCLUSION: Early/ mild pulmonary edema. Anthony Carroll MD Objective Remarks GENERAL: Well-nourished, well-developed patient, critically ill intubated sedated SKIN: Warm and dry. HEAD: Normocephalic. EYES: No scleral icterus. No injection or drainage. NECK: Supple, trachea midline. No JVD or lymphadenopathy. CARDIOVASCULAR: Regular rate and rhythm without murmurs, gallops, or rubs. RESPIRATORY: Breath sounds equal bilaterally. No accessory muscle use. GASTROINTESTINAL: Abdomen soft, non-tender, nondistended. MUSCULOSKELETAL: No cyanosis, or edema. BACK: Nontender without obvious deformity. No CVA tenderness. NEURO: Intubated sedated with propofol. Moves extremities on holding sedation A/P Assessment and Plan Assessment and plan (by system Neuro: -Continue propofol and when necessary fentanyl for sedation and ventilator synchrony -No sedation hold until clinically more stable, cardiac catheterization completed Resp: Acute hypoxemic respiratory failure Pulmonary edema -Intubated for severe hypoxemia, continue with assist control mechanical ventilation -Unable to diurese due to hypotension. -No weaning until hemodynamically stable -DuoNeb every 6 hours and when necessary, ventilator bundle CVS NSTEMI Acute pulmonary edema Cardiogenic shock History of CAD History of peripheral arterial disease History of hypertension History of CHF - LBBB - old, latest troponin 39. Discussed with cardiology Dr. Lay, plan for cardiac catheterization and probable IABP placement - Holding beta blockers and MARGUERITE inhibitor due to shock - Continue IV heparin and aspirin - Dopamine to keep map above 65 - Further recommendation after cardiac catheterization - Previous Echo 05/11/15 w/ EF 50-55%. repeat Echo STAT GI: -IV Protonix, nothing by mouth -Start tube feeds in 24 hours if not extubated : Acute kidney insufficiency -Most likely ATN, Monitor renal function closely, IV Lasix once hemodynamically stable ENDO: DM with severe hyperglycemia -Placed on critical care IV insulin infusion per protocol -Electrolyte replacement per protocol DVT/GI prophylaxis - Heparin gtt/ Pepcid Critical Care: The total critical care time was 35 minutes. Time to perform other separately billable procedures was not included in the critical care time. Dispo: Patient is in very critical condition with acute MT causing cardiogenic shock, severely elevated troponin of 39. Most likely will need an emergency cardiac catheterization, possible PIC along with intra-aortic balloon pump placement. Barry Cruz MD Jun 09, 2016 12:30
[2016-06-09] MEDS ORDERED: MIDAZOLAM HCL 5 MG/5 ML VIAL ONE (13:19)
[2016-06-09] MEDS ORDERED: POTASSIUM CHLOR 40 MEQ PREMIX 100 ML IV PRN ×2 (14:15)
[2016-06-09] MEDS ORDERED: POTASSIUM PHOSPHATE MONOBASIC 500 MG TAB PO PRN (14:15)
[2016-06-09] MEDS ORDERED: POTASSIUM CL 40 MEQ/30 ML LIQ UDC PO/TUBE PRN ×2 (14:15)
[2016-06-09] MEDS ORDERED: MAGNESIUM SULFATE INJ 2 GM in SODIUM CHLORIDE 0.9% INJ 96 ML IV PRN (14:15)
[2016-06-09] MEDS ORDERED: POTASSIUM PHOSPHATE MONOBASIC 500 MG TAB PO/TUBE PRN (14:15)
[2016-06-09] MEDS ORDERED: MAGNESIUM OXIDE 400 MG TAB PO PRN (14:15)
[2016-06-09] MEDS ORDERED: SODIUM PHOSPHATE INJ 30 MMOL in SODIUM CHLOR 0.9% 250 ML INJ 240 ML IV PRN (14:15)
[2016-06-09] MEDS ORDERED: POTASSIUM PHOSPHATE INJ 30 MMOL in SODIUM CHLOR 0.9% 250 ML INJ 250 ML IV PRN (14:15)
[2016-06-09] MEDS ORDERED: POTASSIUM CHLOR 20 MEQ PREMIX 100 ML IV PRN ×2 (14:15)
[2016-06-09] MEDS ORDERED: MAGNESIUM SULFATE INJ 4 GM in SODIUM CHLORIDE 0.9% INJ 92 ML IV PRN (14:15)
[2016-06-09 14:24] LABS: BLOOD GAS BASE EXCESS -3.6 mmol/L (-2-2); BLOOD GAS CARBOXYHEMOGLOBIN 1.4 % (0-4); BLOOD GAS HCO3 21 mmol/L (22-26); BLOOD GAS METHEMOGLOBIN 1.2 % (0-2); BLOOD GAS O2 HGB SATURATION 96 % (90-100); BLOOD GAS OXYGEN CONTENT 15.8 Vol % (12.0-20.0); BLOOD GAS PCO2 38 mmHg (38-42); BLOOD GAS PO2 125 mmHg (61-120); BLOOD GAS TOTAL HGB 11.5 G/DL (12.0-16.0); CRITICAL VALUE NO; OXYGEN DEVICE VENTILATOR; TEMP CORR TO 98.6
[2016-06-09 14:25] LABS: DRAW SITE ALINE; FIO2 70 %; STAT YES; VENT SETTINGS AC14/600/5PEEP
[2016-06-09] MEDS ORDERED: TICAGRELOR 90 MG TAB PO ONE ×2 (14:36→15:30)
[2016-06-09] MEDS ORDERED: HEPARIN-D5W INJ 250 ML ONE (14:55)
[2016-06-09] MEDS: PIPERACIL-TAZO 3.375 GM PREMIX 50 ML IV SCH ×2 (15:00→21:56)
--- NOTE | 2016-06-09 15:24 | EKG ---
Date Performed: 06/09/2016 Time Performed: 01:09:39 PTAGE: 65 years EKG: ATRIAL FIBRILLATION WITH RAPID VENTRICULAR RESPONSE LEFT BUNDLE BRANCH BLOCK Compared to PREVIOUS TRACING , there is now evidence of an acute inferior infarction with an irregula r rhythm, cannot exclude atrial fibrillation ABNORMAL ECG INTERPRETATION BASED ON A DEFAULT AGE OF 40 YEARS PREVIOUS TRACIN06/11/2015 21.50 DOCTOR: Kirill Navarrete Interpretating Date/Time 06/09/2016 15:23:38
--- NOTE | 2016-06-09 15:25 | EKG ---
Date Performed: 06/09/2016 Time Performed: 01:38:22 PTAGE: 65 years EKG: IDIOVENTRICULAR RHYTHM MARKED ST ELEVATION, CONSIDER INFERIOR INJURY Acute inferior infarct ion, extending into the anterior wall. Clinical correlation is recommended PREVIOUS TRACING : 06/11/2015 21.50 DOCTOR: Kirill Navarrete Interpretating Date/Time 06/09/2016 15:24:15
--- NOTE | 2016-06-09 15:27 | EKG ---
Date Performed: 06/09/2016 Time Performed: 02:52:01 PTAGE: 65 years EKG: SINUS TACHYCARDIA WITH FIRST DEGREE AV BLOCK LEFT BUNDLE BRANCH BLOCK MARKED ST ELEVATION, CONSIDER INFERIOR INJURY Evidence of acute infarction extending into the lateral wall Underlying rhyt hm may be paced Clinical correlation is recommended PREVIOUS TRACING : 06/09/2016 01.38 DOCTOR: Kirill Navarrete Interpretating Date/Time 06/09/2016 15:25:41
[2016-06-09] MEDS ORDERED: IOHEXOL 350 MG/ML 100 ML BTL (for Cath Lab) OTHER ONE (16:12)
[2016-06-09] MEDS ORDERED: fentaNYL DRIP 250 ML ONE (16:19)
--- NOTE | 2016-06-09 17:18 | MA ---
cc: FREDO ALVAREZ DATE 06/09/2016 DATE OF 1950 PROCEDURES PERFORMED 1. Left heart catheterization. 2. Transvenous pacemaker placement thru the right femoral vein 3. Insertion of External Heart Assist System into the Heart, Percutaneous Approach 4. PCI / JOSÉ LUIS to distal right coronary artery. 5. PCI / JOSÉ LUIS to PDA. INDICATIONS FOR PROCEDURE 1. ST elevation myocardial infarction. 2. Cardiogenic shock. 3. Severe LV systolic dysfunction. 4. Elevated LVEDP 5. Assistance with Cardiac Output using Impeller Pump, Continuous. DESCRIPTION OF PROCEDURE The patient was emergently taken to the labor expediter in the setting of ST elevation inferior AL and hemodynamic compromise, on pressors, mechanically ventilated. Right and left groins were prepped and draped in sterile fashion. Using 1% lidocaine for local anesthesia and a micropuncture kit, a 6-Grenadian sheath was inserted into the right common femoral artery. Right common femoral artery angiography was performed to confirm positioning of the sheath. Then the right femoral vein access was obtained with a micropuncture kit and a 6-Grenadian sheath was inserted. Then temporary pacemaker was floated into the right ventricle. There was adequate capture and sensing, testing. Then using 1% lidocaine and a micropuncture kit, we got access into the left common femoral artery and then we put an 8-Grenadian sheath, followed by serial dilation with 10Fr, 12Fr then a 14-Grenadian sheath was inserted for Impella insertion. The Impella was successfully introduced over a wire to the left ventricle with adequate hemodynamics. Then selective right and left coronary angiography was performed with a JR-4 diagnostic catheter and a JL-4 diagnostic catheter. Angiography was performed in multiple views. The patient had acute occlusion of the right coronary artery distally with MARINO 0 flow. Thus we proceeded to fix this artery. We used IV heparin for anticoagulation. The right coronary artery was engaged with a JR-4 guide. Then the vessel was wired with a ChoICE PT extra- support over a 1.5 over the wire balloon. This successfully crossed the lesion and anchored the wire distally in the PDA. This was followed by several balloon inflations in the valgus area with a 2.0 balloon, 2.5 and a 3.0 balloons. There was successful reperfusion of the artery. This was followed by insertion and deployment of 3.0x30mm drug-eluting stent in the distal portion of the RCA and [id number] drug-eluting stent in the PDA. The stents were postdilated with a stent balloon to high atmospheres. Final angiographic views revealed good stent opposition and expansion with MARINO III flow and good myocardial blush. TMP 3. The patient tolerated the present procedure well without complications. Estimated blood loss less than 70 mL. Total contrast used 100 cc. The right side femoral artery access site was closed with a Perclose device. The pacemaker in the venous site was kept in and the Impella was also kept in. RESULTS: Left ventricle. The left ventricular pressure was 78/42 with an LVEDP of 22. The aortic pressure was 75/55 with a mean of 64. Left ventriculogram was not done. However, today's echo shows an ejection fraction of 30%. ANGIOGRAPHIC RESULTS 1. The right coronary artery dominant vessel. It has an acute 100% present occlusion distally within a stent. It has MARINO 0 flow. 2. The left main has a 30% percent lesion distally. It is calcified and MARINO III flow. 3. The LAD is a transapical vessel. It has minimal luminal irregularities throughout. It has 40% lesion proximally. It has what appears to be a stent after the first septal which has some ISR of about the 50%.The first diagonal has 80% lesion, however, this vessel is small. It has MARINO III flow. The second diagonal is patent with MARINO-III flow. The third diagonal is also patent with MARINO-III flow. 4. The left circumflex artery has 30% lesion proximally. It has minimal luminal irregularities. It has MARINO III flow and has ISR of the stent proximally of about 30%. CONCLUSION 1. STEMI. Culprit lesion right coronary artery and PDA . 2. Successful PCI / JOSÉ LUIS to RCA and PDA. 3. Successful insertion of Impella assist device. 4. Successful insertion of transvenous temporary pacemaker. 5. LV systolic dysfunction. 6. Elevated LVEDP. RECOMMENDATIONS 1. Admit to CCU/ICU 2. Continue aggressive medical management for CAD as permitted by blood pressure and heart rate. 3. Wean off dopamine as much as possible. 4. Continue Impella Assist device for 24 hours. 5. Continue transvenous pacemaker. 6. Continue dual antiplatelet agent with aspirin and Brilinta per ACC/AHA guidelines. The patient remains critical. The case has been discussed with ambulance attendant. MD MARIA LUISA Sales/GIO /2:58 PM /4:36 PM SAVANNAH
[2016-06-09] MEDS ORDERED: WATE OTHER PRN ×2 (17:30)
[2016-06-09] MEDS ORDERED: DEXTROSE 5% OTHER PRN ×2 (17:30)
[2016-06-09] MEDS ORDERED: HEPARIN OTHER PRN ×2 (17:30)
[2016-06-09 17:43] LABS: AUTOMATED NEUTROPHIL # 12.7 TH/MM3 (1.8-7.7); BASOPHIL # 0.1 TH/MM3 (0-0.2); BASOPHIL % 0.8 % (0.0-2.0); EOSINOPHIL % 0.1 % (0.0-4.0); HEMATOCRIT 34.2 % (39.0-51.0); HEMO FLAGS DIFF FINAL; LYMPH % 11.6 % (9.0-44.0); LYMPHOCYTE # 1.8 TH/MM3 (1.0-4.8); MEAN CELL VOLUME 91.7 FL (80.0-100.0); MEAN CORPUSCULAR HEMOGLOBIN 30.9 PG (27.0-34.0); MEAN CORPUSCULAR HGB CONC 33.6 % (32.0-36.0); MONO % 7.3 % (0.0-8.0); NEUT % 80.2 % (16.0-70.0); PLATELET COUNT 168 TH/MM3 (150-450); RED BLOOD COUNT 3.73 MIL/MM3 (4.50-5.90); RED CELL DISTRIBUTION WIDTH 13.3 % (11.6-17.2); WHITE BLOOD COUNT 15.8 TH/MM3 (4.0-11.0)
[2016-06-09 17:48] LABS: APTT (PATIENT) 70.9 SEC (24.3-30.1); PROTHROMBIN TIME - PATIENT 11.2 SEC (9.8-11.6)
[2016-06-09] MEDS ORDERED: SODIUM CHLORID 0.9% 500 ML INJ 500 ML IV ONE (18:15)
[2016-06-09 18:22] LABS: BICARBONATE 24.6 MEQ/L (21.0-32.0)
[2016-06-09] MEDS ORDERED: VANCOMYCIN 1,000 MG/NS 250 ML IV ONE ×2 (18:30)
[2016-06-09 18:33] LABS: POTASSIUM 3.8 MEQ/L (3.5-5.1)
[2016-06-09 18:45] LABS: CALCIUM-PROTEIN CORRECTED 8.1 MG/DL (8.5-10.1)
[2016-06-09 19:37] LABS: APTT (PATIENT) 44.8 SEC (24.3-30.1)
[2016-06-09] MEDS ORDERED: DEXTROSE 5% IV SCH ×2 (20:00)
[2016-06-09] MEDS ORDERED: WATE IV SCH ×2 (20:00)
[2016-06-09] MEDS ORDERED: HEPARIN IV SCH ×2 (20:00)
[2016-06-09 20:15] LABS: ALKALINE PHOSPHATASE 102 U/L (45-117); INDIRECT BILIRUBIN 0.4 MG/DL (0.0-0.8); TOTAL BILIRUBIN ADULT 0.5 MG/DL (0.2-1.0)
[2016-06-09 20:37] LABS: ALT (GPT) 55 U/L (12-78); AST (GOT) 448 U/L (15-37)
[2016-06-09] MEDS ORDERED: SODIUM CHLORID 0.9% 500 ML INJ 500 ML IV SCH (20:40)
[2016-06-09] MEDS: TICAGRELOR 90 MG TAB PO SCH (21:00)
[2016-06-09] MEDS: MIDAZOLAM 100 MG/ML INJ 100 ML IV SCH (21:02)
[2016-06-09] MEDS: SODIUM CHLORIDE 0.9% FLUSH 5 ML FLUSH IVF SCH (21:02)
[2016-06-09] MEDS: ACETAMINOPHEN 325 MG TAB PO PRN (21:02)
--- NOTE | 2016-06-09 21:02 | EC ---
Study Study Date:06/09/2016 STUDY CONCLUSIONS SUMMARY - Left ventricle: The cavity size was mildly dilated. Wall thickness was increased in a pattern of mild LVH. Systolic function was moderately reduced. The estimated ejection fraction was 35%. Hypokinesis of the anteroseptal myocardium. - Mitral valve: Mild regurgitation. - Right ventricle: The cavity size was mildly dilated. Wall thickness was normal. If LV function is below 40, please consider prescribing an ACEI or ARB or document rationale for non-use. PROCEDURE DATA STUDY STATUS: Elective. Procedure: Transthoracic echocardiography. Image quality was good. Scanning was performed from the parasternal, apical, and subcostal acoustic windows. Study completion: The patient tolerated the procedure well. Transthoracic echocardiography. M-mode, complete 2D, complete spectral Doppler, and color Doppler. Height: Height: 71in. Weight: Weight: 219.5lb. Body mass index: BMI: 30.7kg/m^2. Body surface area: BSA: 2.2m^2. Patient status: Inpatient. CARDIAC ANATOMY LEFT VENTRICLE: The cavity size was mildly dilated. Wall thickness was increased in a pattern of mild LVH. Systolic function was moderately reduced. The estimated ejection fraction was 35%. Regional wall motion abnormalities: Hypokinesis of the anteroseptal myocardium. AORTIC VALVE: Trileaflet; mildly thickened, mildly calcified leaflets. Doppler: Transvalvular velocity was within the normal range. There was no stenosis. No regurgitation. Valve area: 1.71cm^2(VTI). Indexed valve area: 0.78cm^2/m^2 (VTI). Valve area: 1.78cm^2 (Vmax). Indexed valve area: 0.81cm^2/m^2 (Vmax). Mean gradient: 3mm Hg (S). AORTA: Aortic root: The aortic root was normal in size. MITRAL VALVE: Structurally normal valve. Doppler: Transvalvular velocity was within the normal range. There was no evidence for stenosis. Mild regurgitation. Peak gradient: 3mm Hg (D). LEFT ATRIUM: The atrium was normal in size. RIGHT VENTRICLE: The cavity size was mildly dilated. Wall thickness was normal. PULMONIC VALVE: Doppler: Transvalvular velocity was within the normal range. There was no evidence for stenosis. No regurgitation. TRICUSPID VALVE: Structurally normal valve. Doppler: Transvalvular velocity was within the normal range. Trace regurgitation. PULMONARY ARTERY: The main pulmonary artery was normal-sized. Systolic pressure was within the normal range. RIGHT ATRIUM: The atrium was normal in size. PERICARDIUM: There was no pericardial effusion. SYSTEMIC VEINS: Inferior vena cava: The vessel was normal in size. Patient weight: 219.5lb _Ejection fraction:_ 65-75% _Fractional shortening:_ 32% up to 5Kg 5-11.5Kg 11.6-22.9Kg 23-45Kg 45-57Kg Aortic Root 7-13 <17 13-22 17-27 17-27 LA diam 6-13 <23 24-38 33-47 37-40 RVID 10-17 7-15 7-15 7-18 8-17 LVIDd 12-22 <32 24-38 33-47 37-40 LVPW 2-4 3-6 5-7 6-8 7-8 IVS 2-4 3-6 5-7 6-8 7-8 BASIC MEASUREMENTS ADULT NORMAL Left ventricle LV internal dimension, ED, chordal *55.9 mm 43-52 level, PLAX LV internal dimension, ES, chordal *45.8 mm 23-38 level, PLAX Fractional shortening, chordal level, *18 % >29 PLAX LV posterior wall thickness, ED 12.1 mm IVS/LVPW ratio, ED 1 <1.3 Volume, ED, MOD, 1-plane 158 ml Volume, ES, MOD, 1-plane 125 ml Ejection fraction, MOD, 1-plane 21 % Stroke volume, MOD, 1-plane 33 ml Volume index, ED, MOD, 1-plane 72 ml/m^2 Volume index, ES, MOD, 1-plane 57 ml/m^2 Stroke index, MOD, 1-plane 15 ml/m^2 Volume, ED, MOD, 2-plane 169 ml Volume, ES, MOD, 2-plane 124 ml Ejection fraction, MOD, 2-plane 27 % Stroke volume, MOD, 2-plane 45 ml Volume index, ED, MOD, 2-plane 77 ml/m^2 Volume index, ES, MOD, 2-plane 56 ml/m^2 Stroke index, MOD, 2-plane 20.5 ml/m^2 Ventricular septum Septal thickness, ED 12.1 mm Aortic valve Leaflet separation 21 mm 15-26 Aorta Root diameter, ED 32 mm BASIC MEASUREMENTS ADULT NORMAL Aortic valve Leaflet separation 21 mm 15-26 DOPPLER MEASUREMENTS ADULT NORMAL Aortic valve Peak velocity, S 112 cm/s Mean velocity, S 84.7 cm/s VTI, S 17.1 cm Mean gradient, S 3 mm Hg Valve area, VTI 1.71 cm^2 Valve area index, VTI 0.78 cm^2/m^2 Valve area, Vmax 1.78 cm^2 Valve area index, Vmax 0.81 cm^2/m^2 Mitral valve Peak E-wave velocity 87.9 cm/s Peak A-wave velocity 32.6 cm/s Deceleration time 183 ms 150-230 Peak gradient, D 3 mm Hg Peak E/A ratio 2.7 Pulmonic valve Peak velocity, S 80.5 cm/s LEGEND: Mean values are shown as u=mean value. Asterisk (*) em values outside specified normal range. Prepared and signed by Luis Carlos Moffett [id number]
[2016-06-09] MEDS ORDERED: DOPamine 800 MG/D5W PREMIX 500 ML IV SCH (21:15)
[2016-06-10] VITALS (18 sets, daily range): BP systolic 84–128; BP diastolic 47–63; PULSE 62–106; RESP 16–23; TEMP 98.6–100.7; O2SAT 95–99
[2016-06-10 01:40] LABS: APTT (PATIENT) 56.2 SEC (24.3-30.1)
[2016-06-10] MEDS: PIPERACIL-TAZO 3.375 GM PREMIX 50 ML IV SCH ×4 (03:23→21:58)
[2016-06-10] MEDS: CHLORHEXIDINE GLUCONATE 2 % 1 PACK (2 CLOTHS) TOP SCH (03:24)
[2016-06-10] MEDS: SODIUM CHLOR 0.9% 1000 ML INJ 1,000 ML IV SCH ×2 (03:24→06:23)
[2016-06-10 04:43] LABS: AUTOMATED NEUTROPHIL # 11.4 TH/MM3 (1.8-7.7); BASOPHIL # 0.1 TH/MM3 (0-0.2); BASOPHIL % 0.7 % (0.0-2.0); EOSINOPHIL % 0.2 % (0.0-4.0); HEMATOCRIT 29.8 % (39.0-51.0); HEMO FLAGS DIFF FINAL; LYMPH % 13.2 % (9.0-44.0); LYMPHOCYTE # 1.9 TH/MM3 (1.0-4.8); MEAN CELL VOLUME 91.1 FL (80.0-100.0); MEAN CORPUSCULAR HEMOGLOBIN 32.3 PG (27.0-34.0); MEAN CORPUSCULAR HGB CONC 35.5 % (32.0-36.0); NEUT % 77.9 % (16.0-70.0); PLATELET COUNT 136 TH/MM3 (150-450); RED BLOOD COUNT 3.27 MIL/MM3 (4.50-5.90); RED CELL DISTRIBUTION WIDTH 13.4 % (11.6-17.2); WHITE BLOOD COUNT 14.6 TH/MM3 (4.0-11.0)
[2016-06-10 05:14] LABS: BICARBONATE 20.1 MEQ/L (21.0-32.0); INDIRECT BILIRUBIN 0.8 MG/DL (0.0-0.8); MAGNESIUM 1.6 MG/DL (1.5-2.5); POTASSIUM 3.7 MEQ/L (3.5-5.1); TOTAL BILIRUBIN ADULT 0.9 MG/DL (0.2-1.0)
[2016-06-10 06:24] LABS: CALCIUM-PROTEIN CORRECTED 8.1 MG/DL (8.5-10.1)
[2016-06-10] MEDS: MIDAZOLAM 100 MG/ML INJ 100 ML IV SCH (07:34)
[2016-06-10] MEDS: ACETAMINOPHEN 325 MG TAB PO PRN (07:36)
[2016-06-10 08:48] LABS: PROTHROMBIN TIME - PATIENT 10.7 SEC (9.8-11.6)
[2016-06-10] MEDS: ARTIFICIAL TEARS OPTH SOLN 15 ML BTL EACH EYE SCH ×3 (09:00→17:48)
[2016-06-10 09:17] LABS: APTT (PATIENT) 45.2 SEC (24.3-30.1)
[2016-06-10] MEDS ORDERED: CALCIUM CHLORIDE 10% SOLN 1 GRAM/10 ML SYR ONE (09:22)
--- NOTE | 2016-06-10 09:23 | PD.CARD.PN ---
Subjective Subjective Remarks Critically Sedated Intubated Impella On Dopamine Objective Medications Current Medications Medications (Trade) Dose Ordered Sig/Yoselin Route Start Time Stop Time Status Last Admin Propofol 100 ml @ 0 mls/hr TITRATE IV 06/09/16 02:00 (NS 1000 ml Inj) 1,000 ml @ 84 mls/hr [id number] IV 06/09/16 02:41 06/10/16 06:23 (Tylenol) 650 mg Q6H PRN PO 06/09/16 02:45 06/09/16 21:02 (Morphine Inj) 2 mg Q2H PRN IV 06/09/16 02:45 (Pepcid Inj) 20 mg Q12HR IV PUSH 06/09/16 09:00 06/09/16 21:56 (Versed Inj) 2 mg Q1H PRN IV 06/09/16 02:45 (Tears Naturale Opth Soln) 1 drop TID EACH EYE 06/09/16 09:00 (Zofran Inj) 4 mg Q6H PRN IV 06/09/16 02:45 (Reglan Inj) 10 mg Q6H PRN IV 06/09/16 02:45 (Colace Liq) 100 mg Q12H G-TUBE 06/09/16 09:00 06/09/16 21:01 Miscellaneous Information 1 [id number] XX 06/09/16 02:45 (Chlorhexidine 2% Cloth) 3 pack Taper DAILY@04 TOP 06/09/16 04:00 06/05/17 03:59 06/10/16 03:24 Chlorhexidine Gluconate 3 pack 3 pack UNSCH PRN TOP 06/09/16 02:45 Midazolam HCl 100 ml @ 0 mls/hr TITRATE IV 06/09/16 02:45 06/10/16 07:34 (NovoLIN R (IV INFUSION)/NS Inj) 100 ml @ 0 mls/hr TITRATE IV 06/09/16 07:45 06/09/16 16:23 Dextrose 25 ml 25 ml UNSCH PRN IV PUSH 06/09/16 07:45 06/09/16 21:19 Potassium Chloride 100 ml @ 50 mls/hr Q2H PRN IV 06/09/16 14:15 (KCl 20 Meq Premix Inj) 100 ml @ 50 mls/hr Q2H PRN IV 06/09/16 14:15 Potassium Chloride 40 meq 40 meq UNSCH PRN PO/TUBE 06/09/16 14:15 Potassium Chloride 100 ml @ 25 mls/hr UNSCH PRN IV 06/09/16 14:15 Potassium Chloride 100 ml @ 50 mls/hr Q2H PRN IV 06/09/16 14:15 (Magnesium Sulfate Inj/NS Inj) 100 ml @ 50 mls/hr UNSCH PRN IV 06/09/16 14:15 Magnesium Oxide 800 mg 800 mg UNSCH PRN PO 06/09/16 14:15 (Magnesium Sulfate Inj/NS Inj) 100 ml @ 50 mls/hr UNSCH PRN IV 06/09/16 14:15 06/10/16 05:36 Potassium Phosphate 2000 mg 2,000 mg Q4H PRN PO 06/09/16 14:15 (Sodium Phosphate Inj/NS 250 ml Inj) 250 ml @ 42 mls/hr UNSCH PRN IV 06/09/16 14:15 (KCl 40 Meq/30 ml Liq) 40 meq UNSCH PRN PO/TUBE 06/09/16 14:15 Potassium Phosphate 2000 mg 2,000 mg UNSCH PRN PO/TUBE 06/09/16 14:15 Potassium Phosphate 30 mmol/ Sodium Chloride 260 ml @ 42 mls/hr UNSCH PRN IV 06/09/16 14:15 (Zosyn 3.375 Gm Premix) 50 ml @ 100 mls/hr Q6H IV 06/09/16 15:00 06/10/16 03:23 (NS Flush) 2 ml UNSCH PRN IVF 06/09/16 15:00 (NS Flush) 2 ml BID IVF 06/09/16 21:00 06/09/16 21:02 (Aspirin Chew) 81 mg DAILY PO 06/10/16 09:00 Ticagrelor 90 mg 90 mg BID PO 06/09/16 21:00 Fentanyl Citrate 250 ml @ 0 mls/hr TITRATE IV 06/09/16 17:15 (Heparin-D5W Inj) 250 ml @ 12 mls/hr TITRATE IV 06/09/16 17:30 (Heparin Inj) 5,000 units UNSCH PRN IV 06/09/16 23:30 Heparin Sodium (Porcine) 2500 units 2,500 units UNSCH PRN IV 06/09/16 23:30 Heparin Sodium (Porcine) 54844 units/Dextrose 502.5 ml @ 0 mls/hr UNSCH PRN OTHER 06/09/16 17:30 06/09/16 17:48 (DOPamine INJ PREMIX) 500 ml @ 0 mls/hr TITRATE IV 06/09/16 21:15 06/09/16 21:19 Vital Signs / I&O Vital Signs Date Time Temp Pulse Resp B/P Pulse Ox O2 Delivery O2 Flow Rate FiO2 06/10/16 07:49 98.6 71 16 84/63 98 06/10/16 07:49 72 06/10/16 07:47 71 06/10/16 07:46 60 06/10/16 07:30 98 60 06/10/16 04:00 60 06/10/16 04:00 99 06/10/16 04:00 99.1 92 16 99/62 98 06/10/16 04:00 92 06/10/16 03:07 98 60 06/10/16 00:00 60 06/10/16 00:00 102 06/10/16 00:00 99 06/10/16 00:00 100.7 106 20 113/61 97 06/09/16 23:44 97 60 06/09/16 20:30 99 06/09/16 20:15 98 60 06/09/16 20:00 90 06/09/16 20:00 60 06/09/16 20:00 91 06/09/16 20:00 101.0 91 18 102/63 98 91/56 06/09/16 18:00 96 06/09/16 16:20 92 06/09/16 15:30 99.4 82 19 134/92 97 06/09/16 15:30 82 06/09/16 15:30 60 06/09/16 15:25 95 60 06/09/16 11:50 96 06/09/16 11:30 99.7 80 14 98/56 96 Ventilator 06/09/16 10:49 96 60 I/O 06/09/16 06/09/16 06/09/16 06/10/16 06/10/16 06/10/16 07:00 15:00 23:00 07:00 15:00 23:00 Intake Total 700 ml 3388 ml Output Total 1000 ml 480 ml Balance -300 ml 2908 ml Intake Oral 700 ml 0 ml IV Total 3388 ml Output Urine Total 1000 ml 280 ml Gastric Drainage Total 200 ml # Bowel Movements 0 Physical Exam GENERAL: Sedated, intubated. SKIN: Warm and dry. HEAD: Normocephalic. EYES: No scleral icterus. No injection or drainage. NECK: Supple, trachea midline. No JVD or lymphadenopathy. CARDIOVASCULAR: Regular rate and rhythm without murmurs, gallops, or rubs. RESPIRATORY: Breath sounds equal bilaterally. No accessory muscle use. GASTROINTESTINAL: Abdomen soft, non-tender, nondistended. EXTREMITIES: No cyanosis, or edema. Laboratory Laboratory Tests Test 06/09/16 06/09/16 06/09/16 06/09/16 14:05 16:57 18:44 23:00 Blood Gas Puncture Site ÁNGEL Blood Gas Patient Temperature 98.6 Blood Gas HCO3 21 mmol/L Blood Gas Base Excess -3.6 mmol/L Blood Gas Oxygen Saturation 96 % Arterial Blood pH 7.36 Arterial Blood Partial 38 mmHg Pressure CO2 Arterial Blood Partial 125 mmHg Pressure O2 Arterial Blood Oxygen Content 15.8 Vol % Arterial Blood 1.4 % Carboxyhemoglobin Arterial Blood Methemoglobin 1.2 % Blood Gas Hemoglobin 11.5 G/DL Oxygen Delivery Device VENTILATOR Blood Gas Ventilator Setting AC14/600/5PEEP Blood Gas Inspired Oxygen 70 % White Blood Count 15.8 TH/MM3 Red Blood Count 3.73 MIL/MM3 Hemoglobin 11.5 GM/DL Hematocrit 34.2 % Mean Corpuscular Volume 91.7 FL Mean Corpuscular Hemoglobin 30.9 PG Mean Corpuscular Hemoglobin 33.6 % Concent Red Cell Distribution Width 13.3 % Platelet Count 168 TH/MM3 Mean Platelet Volume 10.0 FL Neutrophils (%) (Auto) 80.2 % Lymphocytes (%) (Auto) 11.6 % Monocytes (%) (Auto) 7.3 % Eosinophils (%) (Auto) 0.1 % Basophils (%) (Auto) 0.8 % Neutrophils # (Auto) 12.7 TH/MM3 Lymphocytes # (Auto) 1.8 TH/MM3 Monocytes # (Auto) 1.2 TH/MM3 Eosinophils # (Auto) 0.0 TH/MM3 Basophils # (Auto) 0.1 TH/MM3 CBC Comment DIFF FINAL Differential Comment Prothrombin Time 11.2 SEC Prothromb Time International 1.0 RATIO Ratio Activated Partial 70.9 SEC 44.8 SEC Thromboplast Time Sodium Level 140 MEQ/L Potassium Level 3.8 MEQ/L Chloride Level 107 MEQ/L Carbon Dioxide Level 24.6 MEQ/L Anion Gap 8 MEQ/L Blood Urea Nitrogen 28 MG/DL Creatinine 1.68 MG/DL Estimat Glomerular Filtration 41 ML/MIN Rate Random Glucose 231 MG/DL Calcium Level 7.3 MG/DL Protein Corrected Calcium 8.1 MG/DL Phosphorus Level 3.5 MG/DL Magnesium Level 1.9 MG/DL Total Bilirubin 0.5 MG/DL Direct Bilirubin 0.1 MG/DL Indirect Bilirubin 0.4 MG/DL Aspartate Amino Transf 448 U/L (AST/SGOT) Alanine Aminotransferase 55 U/L (ALT/SGPT) Alkaline Phosphatase 102 U/L Troponin I GREATER THAN 40.00 NG/ML Total Protein 5.7 GM/DL Albumin 2.4 GM/DL Nasal Screen MRSA (PCR) NEGATIVE Test 06/10/16 06/10/16 06/10/16 01:00 04:25 08:00 Activated Partial 56.2 SEC Thromboplast Time White Blood Count 14.6 TH/MM3 Red Blood Count 3.27 MIL/MM3 Hemoglobin 10.6 GM/DL Hematocrit 29.8 % Mean Corpuscular Volume 91.1 FL Mean Corpuscular Hemoglobin 32.3 PG Mean Corpuscular Hemoglobin 35.5 % Concent Red Cell Distribution Width 13.4 % Platelet Count 136 TH/MM3 Mean Platelet Volume 9.9 FL Neutrophils (%) (Auto) 77.9 % Lymphocytes (%) (Auto) 13.2 % Monocytes (%) (Auto) 8.0 % Eosinophils (%) (Auto) 0.2 % Basophils (%) (Auto) 0.7 % Neutrophils # (Auto) 11.4 TH/MM3 Lymphocytes # (Auto) 1.9 TH/MM3 Monocytes # (Auto) 1.2 TH/MM3 Eosinophils # (Auto) 0.0 TH/MM3 Basophils # (Auto) 0.1 TH/MM3 CBC Comment DIFF FINAL Differential Comment Sodium Level 143 MEQ/L Potassium Level 3.7 MEQ/L Chloride Level 114 MEQ/L Carbon Dioxide Level 20.1 MEQ/L Anion Gap 9 MEQ/L Blood Urea Nitrogen 33 MG/DL Creatinine 1.77 MG/DL Estimat Glomerular Filtration 39 ML/MIN Rate Random Glucose 146 MG/DL Calcium Level 7.1 MG/DL Protein Corrected Calcium 8.1 MG/DL Phosphorus Level 3.2 MG/DL Magnesium Level 1.6 MG/DL Total Bilirubin 0.9 MG/DL Direct Bilirubin 0.1 MG/DL Indirect Bilirubin 0.8 MG/DL Aspartate Amino Transf 528 U/L (AST/SGOT) Alanine Aminotransferase 54 U/L (ALT/SGPT) Alkaline Phosphatase 85 U/L Total Protein 5.2 GM/DL Albumin 2.0 GM/DL Prothrombin Time 10.7 SEC Prothromb Time International 1.0 RATIO Ratio Imaging Last Impressions Chest X-Ray 06/09/16 0206 Signed Impressions: Service Date/Time: Thursday, June 09, 2016 02:06 - CONCLUSION: 1. Airspace opacities of both bases and the left midlung worsening. 2. Endotracheal tube tip is about 4 cm above the elizabeth. Nasogastric tube courses below the diaphragm, sidehole nor tip included on the study. Anthony Carroll MD Assessment and Plan Problem List: (1) Myocardial infarction acute Assessment and Plan: Afebrile and hemodynamically stable Successful Impella removal this AM Continue supportive care Cont DAPT with ASA and Brillinta Wean off Dopamine as tolerated by BP Avoid electrolytes abnormalities Replete Calcium Cont broad spectrum antibiotics with Zosyn, 1gm of Vanco given yesterday EKG high AV block, keep TVP for now Get Chest Xray now MV management per Super[employer] (2) Acute exacerbation of congestive heart failure (3) PAD (peripheral artery disease) (4) Hyperglycemia (5) HTN (hypertension) (6) Tobacco abuse (7) DM (diabetes mellitus), type 2, uncontrolled Problem Qualifiers (1) Myocardial infarction acute: (2) Acute exacerbation of congestive heart failure: Qualified Code: I50.9 - Acute on chronic congestive heart failure, unspecified congestive heart failure type Rosanne-Gonsalo Moctezuma MD Jun 10, 2016 09:23
[2016-06-10] MEDS: ASPIRIN 81 MG CHEW TAB PO SCH (09:28)
[2016-06-10] MEDS: TICAGRELOR 90 MG TAB PO SCH ×2 (09:28→21:58)
[2016-06-10] MEDS: DOCUSATE SODIUM 100 MG/10 ML UDC G-TUBE SCH ×2 (09:28→21:58)
[2016-06-10] MEDS: FAMOTIDINE 20 MG/2 ML VIAL IV PUSH SCH ×2 (09:28→21:58)
[2016-06-10] MEDS: SODIUM CHLORIDE 0.9% FLUSH 5 ML FLUSH IVF SCH ×2 (09:30→21:58)
[2016-06-10] MEDS ORDERED: CALCIUM CHLORIDE 10% SOLN 1 GRAM/10 ML SYR IV ONE (10:15)
--- NOTE | 2016-06-10 10:23 | RADRPT ---
EXAM DATE/TIME: 06/10/2016 09:38 [facility] COMPARISON: CHEST SINGLE AP, June 09, 2016, 9:29. INDICATIONS : Short of breath. MEDICAL HISTORY : None. SURGICAL HISTORY : Coronary artery stent. ENCOUNTER: Initial ACUITY: 1 day PAIN SCORE: Non-responsive. LOCATION: Bilateral chest FINDINGS: A single view of the chest demonstrates minimal perihilar densities. No consolidation or effusion. Th e right subclavian, endotracheal tube and endotracheal tube are stable position. The cardiomediastina l contours are unremarkable. Osseous structures are intact. CONCLUSION: Lungs are almost clear with minimal perihilar densities improved from previous study. Hugh Byers MD on June 10, 2016 at 10:21 Board Certified Radiologist. This report was verified electronically.
[2016-06-10] MEDS ORDERED: SODIUM CHLORID 0.9% 500 ML INJ 500 ML IV ONE (10:30)
[2016-06-10] MEDS ORDERED: BUMETANIDE INJ 1 MG/4 ML VIAL IV PUSH ONE (11:00)
--- NOTE | 2016-06-10 11:06 | HHI.CCPN ---
Subjective Remarks/Hospital Course 65 year old with past medical history is significant for coronary artery disease , hypertension, diabetes mellitus, history of congestive heart failure, peripheral vascular disease who was brought o the [facility] emergency department as a STEMI alert prior to arrival by ambulance services due to a left bundle branch block and shortness of breath with diaphoresis. Initial oxygen saturation was in the 60s, patient was very anxious. Chest x- ray showed pulmonary edema Initially placed on BiPAP with no significant improvement, and later was intubated and placed on mechanical ventilation. Patient ruled in for non-ST elevation CT with a troponin of 18. His blood sugar was in the 500s. Cardiology was consulted. Aspirin and IV heparin started, for cardiogenic shock patient was placed on dopamine CCM re evaluation: I evaluated the patient in the ED. Patient remains in shock on dopamine. I placed a left subclavian central line. Repeat troponin came back at 39. I discussed with Dr. Lay. He will take the patient for cardiac catheter given acute severe CT with cardiogenic shock and pulmonary edema. Patient was also started on insulin infusion. WBC count 23.2, most likely stress related. The patient insistence output the white count I will start on empiric Zosyn, send blood urine and sputum culture SUBJ 06/10/16: Patient underwent cardiac catheterization and PCI with stent placement by Dr. Lay along with temporary transvenous pacemaker placement, and Impella placement.(PCI / JOSÉ LUIS to right coronary artery, PCI / JOSÉ LUIS to PDA). CVP 17 today, 7 kg wt gain with UO 30-40 ml per hour. Give Bumex 1 mg IV x1 Objective Vital Signs Date Time Temp Pulse Resp B/P Pulse Ox O2 Delivery O2 Flow Rate FiO2 06/10/16 10:11 97 45 06/10/16 07:49 98.6 71 16 84/63 06/09/16 11:30 Ventilator 06/09/16 01:24 15.00 Intake and Output 06/09/16 06/09/16 06/10/16 08:00 16:00 00:00 Intake Total 700 ml Output Total 1000 ml Balance -300 ml Result Diagram: 06/10/16 0425 06/10/16 0425 Other Results Laboratory Tests Test 06/09/16 14:05 Blood Gas Puncture Site ÁNGEL Blood Gas Patient Temperature 98.6 Blood Gas HCO3 21 mmol/L (22-26) Blood Gas Base Excess -3.6 mmol/L (-2-2) Blood Gas Oxygen Saturation 96 % (90-100) Arterial Blood pH 7.36 (7.380-7.420) Arterial Blood Partial 38 mmHg (38-42) Pressure CO2 Arterial Blood Partial 125 mmHg Pressure O2 (61-120) Arterial Blood Oxygen Content 15.8 Vol % (12.0-20.0) Arterial Blood 1.4 % (0-4) Carboxyhemoglobin Arterial Blood Methemoglobin 1.2 % (0-2) Blood Gas Hemoglobin 11.5 G/DL (12.0-16.0) Oxygen Delivery Device VENTILATOR Blood Gas Ventilator Setting AC14/600/5PEEP Blood Gas Inspired Oxygen 70 % Imaging Last 24 hours Impressions Chest X-Ray 06/09/16 0120 Signed Impressions: Service Date/Time: Tuesday, June 09, 2016 01:09 - CONCLUSION: Early/ mild pulmonary edema. Anthony Carroll MD Objective Remarks GENERAL: Well-nourished, well-developed patient, critically ill intubated heavily sedated SKIN: Warm and dry. HEAD: Normocephalic. EYES: No scleral icterus. No injection or drainage. NECK: Supple, trachea midline. No JVD or lymphadenopathy. CARDIOVASCULAR: Appears to be in junctional rhythm with only intermittent P waves, not paced RESPIRATORY: Breath sounds equal bilaterally. No accessory muscle use. GASTROINTESTINAL: Abdomen soft, non-tender, nondistended. MUSCULOSKELETAL: No cyanosis, or edema. No bleeding bilateral groin BACK: Nontender without obvious deformity. No CVA tenderness. NEURO: Intubated sedated with propofol. Moves extremities on holding sedation ( No sedation vacation for 3 hours as impella was just removed) A/P Assessment and Plan Assessment and plan (by system Neuro: -Continue propofol and when necessary fentanyl for sedation and ventilator synchrony -No sedation hold for 4 hours after Impella removal Resp: Acute hypoxemic respiratory failure Pulmonary edema -Intubated for severe hypoxemia, continue with assist control mechanical ventilation -Discontinue IV fluids, Bumex 1 mg 1 -DuoNeb every 6 hours and when necessary, ventilator bundle CVS STEMI Acute pulmonary edema Cardiogenic shock Status post Impella, and temporary pacer placement History of CAD History of peripheral arterial disease History of hypertension History of CHF - DTIC elevation CT and acute cardiogenic shock and respiratory failure patient was taken for emergency, underwent PCI with JOSÉ LUIS to RCA and PDA - s/p Impella and temp pacer placement. Impella removed today - Holding beta blockers and MARGUERITE inhibitor due to shock - Continue Brilinta and aspirin. DC IV Heparin - Dopamine to keep map above 65 - Previous Echo 05/11/15 w/ EF 50-55%. 06/09/16-Echo- Systolic function was moderately reduced. EF 35%. GI: -IV Protonix, nothing by mouth : Acute kidney insufficiency -Most likely ATN, Monitor renal function closely, IV Bumex 1 mg x1 ENDO: DM with severe hyperglycemia -Critical care IV insulin infusion per protocol -Electrolyte replacement per protocol DVT/GI prophylaxis - Heparin gtt-DC / Pepcid. Start Lovenox 30 mg sq daily Critical Care: The total critical care time was 35 minutes. Time to perform other separately billable procedures was not included in the critical care time. Dispo: Patient is in very critical condition with acute CT causing cardiogenic shock Barry Cruz MD Jun 10, 2016 11:06 Barry Cruz MD Jun 10, 2016 11:06
--- NOTE | 2016-06-10 11:58 | ECHLIM ---
Study Study Date:06/09/2016 STUDY CONCLUSIONS SUMMARY LEFT VENTRICLE: The cavity size was normal. Wall thickness was normal. Systolic function was severely reduced. The estimated ejection fraction was in the range of 25% to 30%. Diffuse hypokinesis. Impella Assits Device in good position. Ao-LV If LV function is below 40, please consider prescribing an ACEI or ARB or document rationale for non-use. PROCEDURE DATA Procedure: Transthoracic echocardiography. Image quality was good. Scanning was performed from the parasternal, apical, and subcostal acoustic windows. Study completion: The patient tolerated the procedure well. Transthoracic echocardiography. M-mode, limited 2D, limited spectral Doppler, and color Doppler. CARDIAC ANATOMY LEFT VENTRICLE: The cavity size was normal. Wall thickness was normal. Systolic function was severely reduced. The estimated ejection fraction was in the range of 25% to 30%. Diffuse hypokinesis. AORTIC VALVE: Trileaflet; normal thickness leaflets. Doppler: Transvalvular velocity was within the normal range. There was no stenosis. No regurgitation. AORTA: Aortic root: The aortic root was normal in size. MITRAL VALVE: Structurally normal valve. Doppler: Transvalvular velocity was within the normal range. There was no evidence for stenosis. No regurgitation. LEFT ATRIUM: The atrium was normal in size. RIGHT VENTRICLE: The cavity size was normal. Wall thickness was normal. PULMONIC VALVE: Doppler: Transvalvular velocity was within the normal range. There was no evidence for stenosis. No regurgitation. TRICUSPID VALVE: Structurally normal valve. Doppler: Transvalvular velocity was within the normal range. No regurgitation. PULMONARY ARTERY: The main pulmonary artery was normal-sized. Systolic pressure was within the normal range. RIGHT ATRIUM: The atrium was normal in size. PERICARDIUM: There was no pericardial effusion. SYSTEMIC VEINS: Inferior vena cava: The vessel was normal in size. Prepared and signed by Gonsalo Fu [id number]
[2016-06-10 12:54] LABS: BLOOD GAS BASE EXCESS -9.1 mmol/L (-2-2); BLOOD GAS CARBOXYHEMOGLOBIN 1.7 % (0-4); BLOOD GAS HCO3 16 mmol/L (22-26); BLOOD GAS METHEMOGLOBIN 1.5 % (0-2); BLOOD GAS O2 HGB SATURATION 93 % (90-100); BLOOD GAS OXYGEN CONTENT 15.9 Vol % (12.0-20.0); BLOOD GAS PCO2 32 mmHg (38-42); BLOOD GAS PO2 89 mmHg (61-120); CRITICAL VALUE YES; OXYGEN DEVICE VENTILATOR; TEMP CORR TO 98.6
[2016-06-10 12:55] LABS: DRAW SITE ART LINE; FIO2 45 %; NUMBER OF ARTERIAL PUNCTURES 0; STAT NO; ULNAR PULSE PRESENT; VENT SETTINGS CPAP/PEEP5/PS5
[2016-06-10] MEDS ORDERED: SODIUM BICARBONATE 8.4% INJ 50 ML ONE ×2 (13:07→17:51)
[2016-06-10] MEDS ORDERED: LORazepam 2 MG/ML VIAL ONE ×2 (16:29→16:40)
[2016-06-10] MEDS ORDERED: DEXMEDETOMIDINE INJ 50 ML ONE (16:38)
[2016-06-10] MEDS ORDERED: ETOMIDATE 20 MG/10 ML VIAL ONE ×2 (16:43→16:46)
--- NOTE | 2016-06-10 16:59 | PD.PROCEDR ---
Procedure Note Procedure After the risks and benefits were discussed the following procedure was performed: INTUBATION: The patient was put in optimal position for the procedure. Rapid sequence intubation was initiated by me using 20 milligrams of etomidate IV and 50 milligrams of rocuronium IV. DL with mac 4 blade Grade 1 view. The patient was intubated with a 8 cuffed endotracheal tube. Tube placement was confirmed by visualization of the tube and balloon passing through the cords, capnometry and subsequent chest x-ray. Breath sounds were equal and well aerated bilaterally postintubation. No breath sounds over stomach. Patient tolerated procedure well. Barry Cruz MD Jun 10, 2016 16:59
[2016-06-10] MEDS ORDERED: ETOMIDATE 20 MG/10 ML VIAL IV PUSH ONE ×2 (17:15→18:30)
[2016-06-10] MEDS ORDERED: ROCURONIUM INJ 50 MG/5 ML VIAL IV ONE ×2 (17:15→18:30)
[2016-06-10] MEDS ORDERED: GLUCAGON 1 MG/ML VIAL OTHER PRN (17:45)
[2016-06-10] MEDS ORDERED: DEXTROSE 50% IN WATER 50 ML VIAL(D50) IV PUSH PRN (17:45)
[2016-06-10] MEDS: LOW DOSE INSULIN NOVOLOG SUPPLEMENTAL SCALE SQ SCH (17:49)
--- NOTE | 2016-06-10 18:00 | RADRPT ---
EXAM DATE/TIME: 06/10/2016 17:08 [facility] COMPARISON: CHEST SINGLE AP, June 10, 2016, 9:38. INDICATIONS : Post intubation. MEDICAL HISTORY : Cardiovascular disease. SURGICAL HISTORY : CABG. ENCOUNTER: Subsequent ACUITY: 2 days PAIN SCORE: Non-responsive. LOCATION: Bilateral chest FINDINGS: Single AP view of the chest. Endotracheal tube is in place with the tip 4 cm above the elizabeth. Mild b ilateral pulmonary vasculature indistinctness. Lungs otherwise clear. No evidence of pleural effusion or pneumothorax. Cardiomediastinal silhouette within normal limits. CONCLUSION: Endotracheal tube in place. Mild pulmonary vascular congestion. Mir Reyna MD on June 10, 2016 at 17:54 Board Certified Radiologist. This report was verified electronically.
[2016-06-10] MEDS ORDERED: DEXMEDETOMIDINE 200 MCG/50 ML NS IV SCH (18:30)
[2016-06-10] MEDS ORDERED: LORazepam 2 MG/ML VIAL IV ONE ×2 (18:30)
--- NOTE | 2016-06-10 18:46 | PQ ---
Physician Query Response Document PATIENT: DIMPLE NASCIMENTO : 1950 ADMIT DATE: 06/09/2016 2:32 AM DISCH DATE: RESPONDING PROVIDER #: sjohn QUERY TEXT: CHF Acuity and Type Congestive Heart Failure is documented in the Medical Record. Please document the type and acuity (in cludes probable or suspected) Such as: Type: -- Systolic -- Diastolic -- Combined -- Other, please specify Acuity: -- Acute -- Chronic -- Acute on chronic -- Other, please specify The patient's Clinical Indicators include: PER PROGRESS NOTE 06/10/16 CVS STEMI Acute pulmonary edema Cardiogenic shock Status post Impella, and temporary pacer placement History of CHF- Previous Echo 05/11/15 w/ EF 50-55%. 06/09/16-Echo- Systolic function was moderately re duced. EF 35%. Query created by: Tabitha Culp on 06/10/2016 2:19 PM RESPONSE TEXT: Acute systolic heart failure with pulmonary edema Electronically signed by: Barry Cruz MD 06/10/2016 6:42 PM
--- NOTE | 2016-06-10 20:25 | MB ---
cc: MITCH SHEN M.D. DATE OF CONSULTATION 06/10/16 REASON FOR CONSULTATION AV block, myocardial infarction. HISTORY OF PRESENT ILLNESS Mr. Peralta is a 65-year-old gentleman with history of chronic smoking, just quit smoking a couple of months ago, high blood pressure, hyperlipidemia, diabetes mellitus, neuropathy, previous episode of ischemia, admitted to the emergency room due to acute GA. He had an inferior GA. Left heart catheterization done by Dr. Lay. The patient has complete AV block and stent was placed at the RCA and a temporary pacer was inserted. The patient, less than 48 hours after the procedure, continued with AV block. I was consulted for evaluation and management. The chart was reviewed. The patient was evaluated. Most information obtained from medical record because the patient is disoriented. ALLERGIES None reported. SOCIAL HISTORY As mentioned before, the patient just quit smoking less than a month ago. FAMILY HISTORY Noncontributory to his current medical condition. MEDICATIONS 1. Pravachol at home 80 mg a day. 2. Percocet. 3. Lisinopril 10 mg twice a day 4. Lantus Humalog 5. Neurontin. 6. Plavix. Here in the hospital he was on 1. Dopamine that has been DC'd. 2. Piperacillin Tazobactam 3. Potassium 4. Vancomycin REVIEW OF SYSTEMS Currently the patient refers no chest pain. The patient is disoriented. He is restrained. PHYSICAL EXAMINATION GENERAL: Alert, disoriented on restraint VITAL SIGNS: Blood pressure 190/47, pulse 62, respiratory rate 18 LUNGS: Ventilated. CARDIOVASCULAR: S1-S2 regular. There is a mild systolic ejection murmur. ABDOMEN: Soft. No mass. No bruit. EXTREMITIES: No edema. There is some central line in the right subclavian area. CARDIOLOGY STUDIES Electrocardiogram showed junctional rhythm. Apparent AV dissociation is what was seen on the monitor. Left bundle-branch block. LABORATORY DATA Hemoglobin is 10.6, white blood cell 14.6, potassium 3.7, creatinine 1.77. troponin is greater than 40. INR 1.0, APTT 45.2. ASSESSMENT AND RECOMMENDATIONS Mr. Peralta has AV block in the setting of inferior GA. He is doing better. He is not pacing right now. The gentleman is completely disoriented, white blood cell count is high. He has a temporary pacemaker for backup. At this point, my recommendation is observation for the next 24-48 hours. Also, if there is no sign of infection and there is continuous AV block then permanent pacemaker will be considered but at this point is observation. Repeat EKG daily. Case discussed with ____. I will follow him during hospitalization. MD MOHINDER Hicks/ /5:59 PM /8:10 PM
[2016-06-11] VITALS (15 sets, daily range): BP systolic 109–140; BP diastolic 47–58; PULSE 56–70; RESP 20–22; TEMP 97.6–98.6; O2SAT 96–100
[2016-06-11] MEDS: LOW DOSE INSULIN NOVOLOG SUPPLEMENTAL SCALE SQ SCH ×4 (00:39→18:03)
[2016-06-11] MEDS: SODIUM CHLOR 0.9% 1000 ML INJ 1,000 ML IV SCH (00:40)
[2016-06-11] MEDS: CHLORHEXIDINE GLUCONATE 2 % 1 PACK (2 CLOTHS) TOP SCH (03:48)
[2016-06-11] MEDS: PIPERACIL-TAZO 3.375 GM PREMIX 50 ML IV SCH ×4 (03:48→22:22)
[2016-06-11] MEDS: MIDAZOLAM 100 MG/ML INJ 100 ML IV SCH ×2 (03:49→17:22)
[2016-06-11 04:35] LABS: AUTOMATED NEUTROPHIL # 9.9 TH/MM3 (1.8-7.7); BASOPHIL # 0.1 TH/MM3 (0-0.2); BASOPHIL % 0.8 % (0.0-2.0); EOSINOPHIL # 0.1 TH/MM3 (0-0.4); EOSINOPHIL % 0.7 % (0.0-4.0); HEMATOCRIT 26.3 % (39.0-51.0); HEMO FLAGS DIFF FINAL; LYMPH % 12.2 % (9.0-44.0); LYMPHOCYTE # 1.5 TH/MM3 (1.0-4.8); MEAN CELL VOLUME 91.6 FL (80.0-100.0); MEAN CORPUSCULAR HEMOGLOBIN 31.4 PG (27.0-34.0); MEAN CORPUSCULAR HGB CONC 34.2 % (32.0-36.0); MONO % 6.3 % (0.0-8.0); PLATELET COUNT 120 TH/MM3 (150-450); RED BLOOD COUNT 2.88 MIL/MM3 (4.50-5.90); RED CELL DISTRIBUTION WIDTH 13.6 % (11.6-17.2); WHITE BLOOD COUNT 12.3 TH/MM3 (4.0-11.0)
[2016-06-11 05:04] LABS: CALCIUM-PROTEIN CORRECTED 8.4 MG/DL (8.5-10.1); MAGNESIUM 2.2 MG/DL (1.5-2.5); POTASSIUM 3.6 MEQ/L (3.5-5.1); TOTAL BILIRUBIN ADULT 0.6 MG/DL (0.2-1.0)
--- NOTE | 2016-06-11 06:19 | RADRPT ---
EXAM DATE/TIME: 06/11/2016 05:02 [facility] COMPARISON: CHEST SINGLE AP, June 10, 2016, 17:08. INDICATIONS : Shortness of breath. MEDICAL HISTORY : Cardiovascular disease. SURGICAL HISTORY : CABG. ENCOUNTER: Subsequent ACUITY: 3 days PAIN SCORE: Non-responsive. LOCATION: Bilateral chest FINDINGS: Portable AP views of the chest demonstrate a normal-sized cardiac silhouette. ETT, NG tube, and right subclavian central line remain present. There are stable small bibasilar pleural-parenchymal opaciti es. No pneumothorax is visualized. Bones and soft tissues demonstrate no acute finding. CONCLUSION: Stable chest x-ray with bibasilar opacities representing pleural effusions with associated volume los s and/or airspace consolidation. Anthony Tai MD on June 11, 2016 at 6:17 Board Certified Radiologist. This report was verified electronically.
--- NOTE | 2016-06-11 06:50 | EKG ---
Date Performed: 06/10/2016 Time Performed: 07:44:50 PTAGE: 65 years EKG: Sinus rhythm . Short AR interval Left bundle branch block Abnormal ECG PREVIOUS TRACING : 06/09/2016 07.38 Compared to prior tracing no significant change DOCTOR: Dale Shaikh Interpretating Date/Time 06/11/2016 06:46:55
--- NOTE | 2016-06-11 07:15 | EKG ---
Date Performed: 06/09/2016 Time Performed: 07:38:22 PTAGE: 65 years EKG: Probable Ventricular pacemaker rhythm ABNORMAL ECG PREVIOUS TRACING : 06/09/2016 02.52 DOCTOR: Dale Shaikh Interpretating Date/Time 06/11/2016 07:13:13
[2016-06-11] MEDS ORDERED: DOBUTamine PREMIX DRIP 250 ML ONE (08:03)
[2016-06-11] MEDS: DOBUTamine PREMIX DRIP 250 ML IV SCH (08:13)
[2016-06-11] MEDS ORDERED: methylPREDNISolone SOD SUCC 125 MG/2 ML VIAL IV PUSH ONE (08:30)
--- NOTE | 2016-06-11 08:48 | HHI.CCPN ---
Subjective Remarks/Hospital Course 65 year old with past medical history is significant for coronary artery disease , hypertension, diabetes mellitus, history of congestive heart failure, peripheral vascular disease who was brought o the [facility] emergency department as a STEMI alert prior to arrival by ambulance services due to a left bundle branch block and shortness of breath with diaphoresis. Initial oxygen saturation was in the 60s, patient was very anxious. Chest x- ray showed pulmonary edema Initially placed on BiPAP with no significant improvement, and later was intubated and placed on mechanical ventilation. Patient ruled in for non-ST elevation RI with a troponin of 18. His blood sugar was in the 500s. Cardiology was consulted. Aspirin and IV heparin started, for cardiogenic shock patient was placed on dopamine CCM re evaluation: I evaluated the patient in the ED. Patient remains in shock on dopamine. I placed a left subclavian central line. Repeat troponin came back at 39. I discussed with Dr. Lya. He will take the patient for cardiac catheter given acute severe RI with cardiogenic shock and pulmonary edema. Patient was also started on insulin infusion. WBC count 23.2, most likely stress related. The patient insistence output the white count I will start on empiric Zosyn, send blood urine and sputum culture SUBJ 06/10/16: Patient underwent cardiac catheterization and PCI with stent placement by Dr. Lay along with temporary transvenous pacemaker placement, and Impella placement.(PCI / JOSÉ LUIS to right coronary artery, PCI / JOSÉ LUIS to PDA). CVP 17 today, 7 kg wt gain with UO 30-40 ml per hour. Give Bumex 1 mg IV x1 06/11/16: Patient was extubated yesterday but emergently reintubated for acute hypoxemic respiratory failure at 5 PM. Overnight intermittent third-degree heart block, requiring temporary pacing. I have changed from dopamine to dobutamine today as a EF is only 25-30%. Dr. Rodríguez has seen for possible permanent pacemaker placement. Will d/w Dr. Lay about timing. Active smoker until recently, started on IV Solu-Medrol and breathing treatments Objective Vital Signs Date Time Temp Pulse Resp B/P Pulse Ox O2 Delivery O2 Flow Rate FiO2 06/11/16 08:20 99 40 06/11/16 07:21 97.7 66 20 126/58 06/10/16 13:56 Simple Mask 6.00 Intake and Output 06/10/16 06/10/16 06/11/16 08:00 16:00 00:00 Intake Total 3388 ml 1740 ml Output Total 480 ml 600 ml Balance 2908 ml 1140 ml Result Diagram: 06/11/16 0400 06/11/16 0400 Other Results Laboratory Tests Test 06/10/16 12:48 Blood Gas Puncture Site ART LINE Blood Gas Patient Temperature 98.6 Blood Gas HCO3 16 mmol/L (22-26) Blood Gas Base Excess -9.1 mmol/L (-2-2) Blood Gas Oxygen Saturation 93 % (90-100) Arterial Blood pH 7.32 (7.380-7.420) Arterial Blood Partial 32 mmHg (38-42) Pressure CO2 Arterial Blood Partial 89 mmHg Pressure O2 (61-120) Arterial Blood Oxygen Content 15.9 Vol % (12.0-20.0) Arterial Blood 1.7 % (0-4) Carboxyhemoglobin Arterial Blood Methemoglobin 1.5 % (0-2) Blood Gas Hemoglobin 12.0 G/DL (12.0-16.0) Oxygen Delivery Device VENTILATOR Blood Gas Ventilator Setting CPAP/PEEP5/PS5 Blood Gas Inspired Oxygen 45 % Imaging Last 24 hours Impressions Chest X-Ray 06/09/16 0120 Signed Impressions: Service Date/Time: Thursday, June 09, 2016 01:09 - CONCLUSION: Early/ mild pulmonary edema. Anthony Carroll MD Objective Remarks GENERAL: Well-nourished, well-developed patient, critically ill intubated heavily sedated with Versed and fentanyl SKIN: Warm and dry. HEAD: Normocephalic. EYES: No scleral icterus. No injection or drainage. ENT: Orotracheally intubated NECK: Supple, trachea midline. No JVD or lymphadenopathy. CARDIOVASCULAR: Appears to be in first-degree heart block today. Rhythm strips reveal intermittent third-degree heart block RESPIRATORY: Breath sounds equal bilaterally. No accessory muscle use. GASTROINTESTINAL: Abdomen soft, non-tender, nondistended. MUSCULOSKELETAL: No cyanosis, or edema. No bleeding bilateral groin BACK: Nontender without obvious deformity. No CVA tenderness. NEURO: Intubated sedated with Versed and fentanyl. Moves extremities on holding sedation A/P Assessment and Plan Assessment and plan (by system) Neuro: -Continue Versed and fentanyl for sedation and ventilator synchrony -Daily sedation vacation Resp: Acute hypoxemic respiratory failure Pulmonary edema -Intubated for severe hypoxemia in ER, extubated 06/10, but failed towards evening requiring reintubation-developed severe hypoxemia -Continue with assist control mechanical ventilation, daily CPAP trials -Continue Bumex 0.5 mg every 12 along with IV albumin 25 g every 12 for 3 days -DuoNeb every 6 hours and when necessary, ventilator bundle -IV Solu-Medrol 125 mg 1 and 60 every 12 -Start empiric cefepime 1 g every 12 CVS STEMI Acute pulmonary edema Cardiogenic shock Intermittent third-degree heart block Severe ischemic cardiomyopathy Status post Impella (removed 06/10), and temporary pacer placement History of CAD History of peripheral arterial disease History of hypertension History of CHF - ST elevation RI and acute cardiogenic shock and respiratory failure - s/p PCI with JOSÉ LUIS to RCA and PDA - s/p Impella removed 06/10 and temp pacer placement. - Discontinue dopamine, start dobutamine 2.5 g per KG per minute - Holding beta blockers and MARGUERITE inhibitor due to shock, third-degree heart block - Dr. Marcos seo for PPM placement - Continue Brilinta and aspirin. Lovenox 30 mg sq 24 - Previous Echo 05/11/15 w/ EF 50-55%. 06/09/16-Echo- Systolic function was sev reduced. EF 25-30%. GI: -IV Protonix, nothing by mouth, start tube feeds with Glucerna : Acute kidney injury Fluid overload -Most likely ATN, Monitor renal function closely, IV Bumex 0.5 mg q12 with IV Albumin for 3 days ID: MRSA in sputum, bilateral lung infiltrates indicating pneumonia. -Start Zyvox 600 mg IV every 12. Avoid vancomycin due to renal failure -Continue Cefepime ENDO: DM with severe hyperglycemia -Scheduled Levemir with sliding scale insulin -Electrolyte replacement per protocol DVT/GI prophylaxis - Pepcid. Lovenox 30 mg sq daily Critical Care: The total critical care time was 45 minutes. Time to perform other separately billable procedures was not included in the critical care time. Dispo: Patient is in very critical condition with acute RI causing cardiogenic shock, now with recurrent respiratory failure, cardiogenic shock Barry Cruz MD Jun 11, 2016 08:48
[2016-06-11] MEDS: TICAGRELOR 90 MG TAB PO SCH ×2 (09:00→22:23)
[2016-06-11] MEDS: BENEPROTEIN POWDER 1 PACK G-TUBE SCH ×3 (09:00→17:47)
[2016-06-11] MEDS: ARTIFICIAL TEARS OPTH SOLN 15 ML BTL EACH EYE SCH ×2 (09:00→17:47)
--- NOTE | 2016-06-11 09:07 | PD.CARD.PN ---
Subjective Subjective Remarks Extubated yesterday evening but emergently reintubated for acute hypoxemic respiratory failure in the afternoon. Intermittently third-degree heart block, requiring temporary pacing. Objective Medications Current Medications Medications (Trade) Dose Ordered Sig/Yoselin Route Start Time Stop Time Status Last Admin (Tylenol) 650 mg Q6H PRN PO 06/09/16 02:45 06/09/16 21:02 (Morphine Inj) 2 mg Q2H PRN IV 06/09/16 02:45 (Pepcid Inj) 20 mg Q12HR IV PUSH 06/09/16 09:00 06/10/16 21:58 (Versed Inj) 2 mg Q1H PRN IV 06/09/16 02:45 (Tears Naturale Opth Soln) 1 drop TID EACH EYE 06/09/16 09:00 (Zofran Inj) 4 mg Q6H PRN IV 06/09/16 02:45 (Reglan Inj) 10 mg Q6H PRN IV 06/09/16 02:45 (Colace Liq) 100 mg Q12H G-TUBE 06/09/16 09:00 06/10/16 21:58 Miscellaneous Information 1 Q361D XX 06/09/16 02:45 (Chlorhexidine 2% Cloth) 3 pack Taper DAILY@04 TOP 06/09/16 04:00 06/05/17 03:59 06/11/16 03:48 Chlorhexidine Gluconate 3 pack 3 pack UNSCH PRN TOP 06/09/16 02:45 Midazolam HCl 100 ml @ 0 mls/hr TITRATE IV 06/09/16 02:45 06/11/16 03:49 Potassium Chloride 100 ml @ 50 mls/hr Q2H PRN IV 06/09/16 14:15 (KCl 20 Meq Premix Inj) 100 ml @ 50 mls/hr Q2H PRN IV 06/09/16 14:15 Potassium Chloride 40 meq 40 meq UNSCH PRN PO/TUBE 06/09/16 14:15 Potassium Chloride 100 ml @ 25 mls/hr UNSCH PRN IV 06/09/16 14:15 Potassium Chloride 100 ml @ 50 mls/hr Q2H PRN IV 06/09/16 14:15 06/10/16 13:29 (Magnesium Sulfate Inj/NS Inj) 100 ml @ 50 mls/hr UNSCH PRN IV 06/09/16 14:15 Magnesium Oxide 800 mg 800 mg UNSCH PRN PO 06/09/16 14:15 (Magnesium Sulfate Inj/NS Inj) 100 ml @ 50 mls/hr UNSCH PRN IV 06/09/16 14:15 06/10/16 05:36 Potassium Phosphate 2000 mg 2,000 mg Q4H PRN PO 06/09/16 14:15 (Sodium Phosphate Inj/NS 250 ml Inj) 250 ml @ 42 mls/hr UNSCH PRN IV 06/09/16 14:15 (KCl 40 Meq/30 ml Liq) 40 meq UNSCH PRN PO/TUBE 06/09/16 14:15 Potassium Phosphate 2000 mg 2,000 mg UNSCH PRN PO/TUBE 06/09/16 14:15 Potassium Phosphate 30 mmol/ Sodium Chloride 260 ml @ 42 mls/hr UNSCH PRN IV 06/09/16 14:15 (Zosyn 3.375 Gm Premix) 50 ml @ 100 mls/hr Q6H IV 06/09/16 15:00 06/11/16 03:48 (NS Flush) 2 ml UNSCH PRN IVF 06/09/16 15:00 (NS Flush) 2 ml BID IVF 06/09/16 21:00 06/10/16 21:58 (Aspirin Chew) 81 mg DAILY PO 06/10/16 09:00 06/10/16 09:28 Ticagrelor 90 mg 90 mg BID PO 06/09/16 21:00 06/10/16 21:58 (fentaNYL DRIP) 250 ml @ 0 mls/hr TITRATE IV 06/09/16 17:15 (D50w (Vial) Inj) 25 ml UNSCH PRN IV PUSH 06/10/16 17:45 (Glucagon Inj) 1 mg UNSCH PRN OTHER 06/10/16 17:45 Insulin Aspart 1 1 Q6HR SQ 06/10/16 18:00 06/11/16 06:00 (DOBUTamine PREMIX DRIP) 250 ml @ 16.53 mls/ hr Q15H8M IV 06/11/16 08:13 06/11/16 08:13 (Albumin 25% Inj) 25 gm Q12H IV 06/11/16 09:00 06/13/16 08:59 (Bumex Inj) 0.5 mg BID@09,18 IV PUSH 06/11/16 09:00 06/13/16 08:59 (KCl 40 Meq/30 ml Liq) 40 meq DAILY NG 06/11/16 09:00 (Beneprotein Powder) 1 pack TID G-TUBE 06/11/16 09:00 Methylprednisolone Sodium Succinate 60 mg 60 mg Q12HR IV PUSH 06/11/16 21:00 (Maxipime Inj/NS Inj) 100 ml @ 200 mls/hr Q12H IV 06/11/16 09:00 Vital Signs / I&O Vital Signs Date Time Temp Pulse Resp B/P Pulse Ox O2 Delivery O2 Flow Rate FiO2 06/11/16 08:20 99 40 06/11/16 07:21 97.7 66 20 126/58 100 06/11/16 07:19 66 06/11/16 07:18 55 06/11/16 07:14 66 06/11/16 04:50 97 55 06/11/16 04:30 80 06/11/16 04:00 70 06/11/16 04:00 55 06/11/16 04:00 98.6 69 20 109/58 98 06/11/16 00:00 55 06/11/16 00:00 78 06/11/16 00:00 70 06/11/16 00:00 98.3 70 20 113/57 99 06/10/16 23:40 99 55 06/10/16 20:00 78 06/10/16 20:00 99.8 78 20 122/60 97 06/10/16 20:00 55 06/10/16 20:00 78 06/10/16 19:34 95 55 06/10/16 17:16 100 06/10/16 17:00 99 100 06/10/16 15:05 62 06/10/16 15:05 62 06/10/16 15:04 99.1 62 23 119/47 97 06/10/16 13:56 97 Simple Mask 6.00 06/10/16 13:05 97 Nasal Cannula 5.00 06/10/16 13:05 97 Nasal Cannula 5 06/10/16 12:15 97 45 06/10/16 12:15 45 06/10/16 11:11 67 06/10/16 11:11 67 06/10/16 11:10 45 06/10/16 11:09 98.7 67 16 128/57 97 06/10/16 10:11 97 45 I/O 06/10/16 06/10/16 06/10/16 06/11/16 06/11/16 06/11/16 07:00 15:00 23:00 07:00 15:00 23:00 Intake Total 3388 ml 1740 ml 921 ml Output Total 480 ml 600 ml 615 ml Balance 2908 ml 1140 ml 306 ml Intake Oral 0 ml 0 ml IV Total 3388 ml 1740 ml 921 ml Output Urine Total 280 ml 550 ml 565 ml Gastric Drainage Total 200 ml 50 ml 50 ml # Bowel Movements 0 0 0 Physical Exam GENERAL: Sedated, intubated. SKIN: Warm and dry. HEAD: Normocephalic. EYES: No scleral icterus. No injection or drainage. NECK: Supple, trachea midline. No JVD or lymphadenopathy. CARDIOVASCULAR: Regular rate and rhythm without murmurs, gallops, or rubs. RESPIRATORY: Breath sounds equal bilaterally. No accessory muscle use. GASTROINTESTINAL: Abdomen soft, non-tender, nondistended. EXTREMITIES: No cyanosis, or edema. Laboratory Laboratory Tests Test 06/10/16 06/11/16 12:48 04:00 Blood Gas Puncture Site ART LINE Blood Gas Patient Temperature 98.6 Blood Gas HCO3 16 mmol/L Blood Gas Base Excess -9.1 mmol/L Blood Gas Oxygen Saturation 93 % Arterial Blood pH 7.32 Arterial Blood Partial 32 mmHg Pressure CO2 Arterial Blood Partial 89 mmHg Pressure O2 Arterial Blood Oxygen Content 15.9 Vol % Arterial Blood 1.7 % Carboxyhemoglobin Arterial Blood Methemoglobin 1.5 % Blood Gas Hemoglobin 12.0 G/DL Oxygen Delivery Device VENTILATOR Blood Gas Ventilator Setting CPAP/PEEP5/PS5 Blood Gas Inspired Oxygen 45 % White Blood Count 12.3 TH/MM3 Red Blood Count 2.88 MIL/MM3 Hemoglobin 9.0 GM/DL Hematocrit 26.3 % Mean Corpuscular Volume 91.6 FL Mean Corpuscular Hemoglobin 31.4 PG Mean Corpuscular Hemoglobin 34.2 % Concent Red Cell Distribution Width 13.6 % Platelet Count 120 TH/MM3 Mean Platelet Volume 10.4 FL Neutrophils (%) (Auto) 80.0 % Lymphocytes (%) (Auto) 12.2 % Monocytes (%) (Auto) 6.3 % Eosinophils (%) (Auto) 0.7 % Basophils (%) (Auto) 0.8 % Neutrophils # (Auto) 9.9 TH/MM3 Lymphocytes # (Auto) 1.5 TH/MM3 Monocytes # (Auto) 0.8 TH/MM3 Eosinophils # (Auto) 0.1 TH/MM3 Basophils # (Auto) 0.1 TH/MM3 CBC Comment DIFF FINAL Differential Comment Sodium Level 146 MEQ/L Potassium Level 3.6 MEQ/L Chloride Level 116 MEQ/L Carbon Dioxide Level 21.0 MEQ/L Anion Gap 9 MEQ/L Blood Urea Nitrogen 38 MG/DL Creatinine 1.93 MG/DL Estimat Glomerular Filtration 35 ML/MIN Rate Random Glucose 205 MG/DL Calcium Level 7.3 MG/DL Protein Corrected Calcium 8.4 MG/DL Magnesium Level 2.2 MG/DL Total Bilirubin 0.6 MG/DL Aspartate Amino Transf 144 U/L (AST/SGOT) Alanine Aminotransferase 38 U/L (ALT/SGPT) Alkaline Phosphatase 103 U/L Total Protein 5.1 GM/DL Albumin 1.9 GM/DL Imaging Last Impressions Chest X-Ray 06/11/16 0600 Signed Impressions: Service Date/Time: Saturday, June 11, 2016 05:02 - CONCLUSION: Stable chest x-ray with bibasilar opacities representing pleural effusions with associated volume loss and/or airspace consolidation. Anthony Tai MD Assessment and Plan Problem List: (1) Myocardial infarction acute Assessment and Plan: Afebrile. WBC's trending down. (acute phase reactant) elevation likely due to NE Cont DAPT with ASA and Brillinta EP consult for PPM Hemoglobin down. No signs of active bleeding. Transfuse 1 unit of PRBC's Aggressive medical management for CAD. Start Lipitor liver enzymes trending down. Off BB due to 3 degree AV Block and ACEi due to TITO (2) Acute exacerbation of congestive heart failure (3) PAD (peripheral artery disease) (4) Hyperglycemia (5) HTN (hypertension) (6) Tobacco abuse (7) DM (diabetes mellitus), type 2, uncontrolled Problem Qualifiers (1) Myocardial infarction acute: (2) Acute exacerbation of congestive heart failure: Qualified Code: I50.9 - Acute on chronic congestive heart failure, unspecified congestive heart failure type Lay-Gonsalo Moctezuma MD Jun 11, 2016 09:07
[2016-06-11] MEDS: ALBUMIN HUMAN 25% 25 GM/100 ML BAGP IV SCH ×2 (09:19→22:21)
[2016-06-11] MEDS: fentaNYL 2,500 MCG/NS 250 ML IV SCH (09:19)
[2016-06-11] MEDS: CEFEPIME INJ 1,000 MG in SODIUM CHLORIDE 0.9% INJ 100 ML IV SCH ×2 (09:20→22:21)
[2016-06-11] MEDS: ASPIRIN 81 MG CHEW TAB PO SCH (09:20)
[2016-06-11] MEDS: POTASSIUM CL 40 MEQ/30 ML LIQ UDC NG SCH (09:20)
[2016-06-11] MEDS: DOCUSATE SODIUM 100 MG/10 ML UDC G-TUBE SCH ×2 (09:21→22:21)
[2016-06-11] MEDS: FAMOTIDINE 20 MG/2 ML VIAL IV PUSH SCH ×2 (09:21→22:22)
[2016-06-11] MEDS: BUMETANIDE INJ 1 MG/4 ML VIAL IV PUSH SCH ×2 (09:21→17:47)
[2016-06-11] MEDS: SODIUM CHLORIDE 0.9% FLUSH 5 ML FLUSH IVF SCH ×2 (09:23→22:23)
[2016-06-11] MEDS: RESP: ALBUTEROL 2.5 MG/IPRATROPIUM 0.5 MG NEB (SCH) NEB ×3 (12:00→20:18)
--- NOTE | 2016-06-11 12:25 | PD.CARD.PN ---
Subjective Subjective Remarks Intubated, sedated for acute hypoxemia respiratory failure last night. Transvenous pacer, intermittent pacing, intermittent 3rd degree HB. Objective Medications Current Medications Medications (Trade) Dose Ordered Sig/Yoselin Route Start Time Stop Time Status Last Admin (Tylenol) 650 mg Q6H PRN PO 06/09/16 02:45 06/09/16 21:02 (Morphine Inj) 2 mg Q2H PRN IV 06/09/16 02:45 (Versed Inj) 2 mg Q1H PRN IV 06/09/16 02:45 (Tears Naturale Opth Soln) 1 drop TID EACH EYE 06/09/16 09:00 (Zofran Inj) 4 mg Q6H PRN IV 06/09/16 02:45 (Reglan Inj) 10 mg Q6H PRN IV 06/09/16 02:45 (Colace Liq) 100 mg Q12H G-TUBE 06/09/16 09:00 06/11/16 09:21 Miscellaneous Information 1 Q361D XX 06/09/16 02:45 (Chlorhexidine 2% Cloth) 3 pack Taper DAILY@04 TOP 06/09/16 04:00 06/05/17 03:59 06/11/16 03:48 Chlorhexidine Gluconate 3 pack 3 pack UNSCH PRN TOP 06/09/16 02:45 Midazolam HCl 100 ml @ 0 mls/hr TITRATE IV 06/09/16 02:45 06/11/16 03:49 Potassium Chloride 100 ml @ 50 mls/hr Q2H PRN IV 06/09/16 14:15 (KCl 20 Meq Premix Inj) 100 ml @ 50 mls/hr Q2H PRN IV 06/09/16 14:15 Potassium Chloride 40 meq 40 meq UNSCH PRN PO/TUBE 06/09/16 14:15 Potassium Chloride 100 ml @ 25 mls/hr UNSCH PRN IV 06/09/16 14:15 Potassium Chloride 100 ml @ 50 mls/hr Q2H PRN IV 06/09/16 14:15 06/10/16 13:29 (Magnesium Sulfate Inj/NS Inj) 100 ml @ 50 mls/hr UNSCH PRN IV 06/09/16 14:15 Magnesium Oxide 800 mg 800 mg UNSCH PRN PO 06/09/16 14:15 (Magnesium Sulfate Inj/NS Inj) 100 ml @ 50 mls/hr UNSCH PRN IV 06/09/16 14:15 06/10/16 05:36 Potassium Phosphate 2000 mg 2,000 mg Q4H PRN PO 06/09/16 14:15 (Sodium Phosphate Inj/NS 250 ml Inj) 250 ml @ 42 mls/hr UNSCH PRN IV 06/09/16 14:15 (KCl 40 Meq/30 ml Liq) 40 meq UNSCH PRN PO/TUBE 06/09/16 14:15 Potassium Phosphate 2000 mg 2,000 mg UNSCH PRN PO/TUBE 06/09/16 14:15 Potassium Phosphate 30 mmol/ Sodium Chloride 260 ml @ 42 mls/hr UNSCH PRN IV 06/09/16 14:15 (Zosyn 3.375 Gm Premix) 50 ml @ 100 mls/hr Q6H IV 06/09/16 15:00 06/11/16 09:20 (NS Flush) 2 ml UNSCH PRN IVF 06/09/16 15:00 (NS Flush) 2 ml BID IVF 06/09/16 21:00 06/11/16 09:23 (Aspirin Chew) 81 mg DAILY PO 06/10/16 09:00 06/11/16 09:20 Ticagrelor 90 mg 90 mg BID PO 06/09/16 21:00 06/11/16 09:00 (fentaNYL DRIP) 250 ml @ 0 mls/hr TITRATE IV 06/09/16 17:15 06/11/16 09:19 (D50w (Vial) Inj) 25 ml UNSCH PRN IV PUSH 06/10/16 17:45 (Glucagon Inj) 1 mg UNSCH PRN OTHER 06/10/16 17:45 Insulin Aspart 1 1 Q6HR SQ 06/10/16 18:00 06/11/16 06:00 (DOBUTamine PREMIX DRIP) 250 ml @ 16.53 mls/ hr Q15H8M IV 06/11/16 08:13 06/11/16 08:13 (Albumin 25% Inj) 25 gm Q12H IV 06/11/16 09:00 06/13/16 08:59 06/11/16 09:19 (Bumex Inj) 0.5 mg BID@09,18 IV PUSH 06/11/16 09:00 06/13/16 08:59 06/11/16 09:21 (KCl 40 Meq/30 ml Liq) 40 meq DAILY NG 06/11/16 09:00 06/11/16 09:20 (Beneprotein Powder) 1 pack TID G-TUBE 06/11/16 09:00 Methylprednisolone Sodium Succinate 60 mg 60 mg Q12HR IV PUSH 06/11/16 21:00 (Maxipime Inj/NS Inj) 100 ml @ 200 mls/hr Q12H IV 06/11/16 09:00 06/11/16 09:20 (Lipitor) 80 mg DAILY PO 06/12/16 09:00 (Pepcid Inj) 10 mg Q12HR IV PUSH 06/11/16 21:00 Vital Signs / I&O Vital Signs Date Time Temp Pulse Resp B/P Pulse Ox O2 Delivery O2 Flow Rate FiO2 06/11/16 11:11 100 40 06/11/16 11:00 40 06/11/16 11:00 67 06/11/16 11:00 98.0 67 22 117/53 96 06/11/16 08:20 99 40 06/11/16 07:21 97.7 66 20 126/58 100 06/11/16 07:19 66 06/11/16 07:18 55 06/11/16 07:14 66 06/11/16 04:50 97 55 06/11/16 04:30 80 06/11/16 04:00 70 06/11/16 04:00 55 06/11/16 04:00 98.6 69 20 109/58 98 06/11/16 00:00 55 06/11/16 00:00 78 06/11/16 00:00 70 06/11/16 00:00 98.3 70 20 113/57 99 06/10/16 23:40 99 55 06/10/16 20:00 78 06/10/16 20:00 99.8 78 20 122/60 97 06/10/16 20:00 55 06/10/16 20:00 78 06/10/16 19:34 95 55 06/10/16 17:16 100 06/10/16 17:00 99 100 06/10/16 15:05 62 06/10/16 15:05 62 06/10/16 15:04 99.1 62 23 119/47 97 06/10/16 13:56 97 Simple Mask 6.00 06/10/16 13:05 97 Nasal Cannula 5.00 06/10/16 13:05 97 Nasal Cannula 5 06/10/16 12:15 97 45 06/10/16 12:15 45 I/O 06/10/16 06/10/16 06/10/16 06/11/16 06/11/16 06/11/16 07:00 15:00 23:00 07:00 15:00 23:00 Intake Total 3388 ml 1740 ml 921 ml Output Total 480 ml 600 ml 615 ml Balance 2908 ml 1140 ml 306 ml Intake Oral 0 ml 0 ml IV Total 3388 ml 1740 ml 921 ml Output Urine Total 280 ml 550 ml 565 ml Gastric Drainage Total 200 ml 50 ml 50 ml # Bowel Movements 0 0 0 Physical Exam GENERAL: Well-nourished,obese, well-developed patient. SKIN: Warm and damp. HEAD: Normocephalic. EYES: No scleral icterus. No injection or drainage. NECK: Supple, trachea midline, orally intubated. CARDIOVASCULAR: Irregular rhythm, controlled rate, without murmurs, gallops, or rubs. RESPIRATORY: Breath sounds diminished, equal bilaterally. Mechanically ventilated GASTROINTESTINAL: Abdomen soft, nondistended. Hypoactive BS. EXTREMITIES: No cyanosis, generalized edema NEUROLOGICAL: Intubated, sedated, ventilated. Laboratory Laboratory Tests Test 06/10/16 06/11/16 12:48 04:00 Blood Gas Puncture Site ART LINE Blood Gas Patient Temperature 98.6 Blood Gas HCO3 16 mmol/L Blood Gas Base Excess -9.1 mmol/L Blood Gas Oxygen Saturation 93 % Arterial Blood pH 7.32 Arterial Blood Partial 32 mmHg Pressure CO2 Arterial Blood Partial 89 mmHg Pressure O2 Arterial Blood Oxygen Content 15.9 Vol % Arterial Blood 1.7 % Carboxyhemoglobin Arterial Blood Methemoglobin 1.5 % Blood Gas Hemoglobin 12.0 G/DL Oxygen Delivery Device VENTILATOR Blood Gas Ventilator Setting CPAP/PEEP5/PS5 Blood Gas Inspired Oxygen 45 % White Blood Count 12.3 TH/MM3 Red Blood Count 2.88 MIL/MM3 Hemoglobin 9.0 GM/DL Hematocrit 26.3 % Mean Corpuscular Volume 91.6 FL Mean Corpuscular Hemoglobin 31.4 PG Mean Corpuscular Hemoglobin 34.2 % Concent Red Cell Distribution Width 13.6 % Platelet Count 120 TH/MM3 Mean Platelet Volume 10.4 FL Neutrophils (%) (Auto) 80.0 % Lymphocytes (%) (Auto) 12.2 % Monocytes (%) (Auto) 6.3 % Eosinophils (%) (Auto) 0.7 % Basophils (%) (Auto) 0.8 % Neutrophils # (Auto) 9.9 TH/MM3 Lymphocytes # (Auto) 1.5 TH/MM3 Monocytes # (Auto) 0.8 TH/MM3 Eosinophils # (Auto) 0.1 TH/MM3 Basophils # (Auto) 0.1 TH/MM3 CBC Comment DIFF FINAL Differential Comment Sodium Level 146 MEQ/L Potassium Level 3.6 MEQ/L Chloride Level 116 MEQ/L Carbon Dioxide Level 21.0 MEQ/L Anion Gap 9 MEQ/L Blood Urea Nitrogen 38 MG/DL Creatinine 1.93 MG/DL Estimat Glomerular Filtration 35 ML/MIN Rate Random Glucose 205 MG/DL Calcium Level 7.3 MG/DL Protein Corrected Calcium 8.4 MG/DL Magnesium Level 2.2 MG/DL Total Bilirubin 0.6 MG/DL Aspartate Amino Transf 144 U/L (AST/SGOT) Alanine Aminotransferase 38 U/L (ALT/SGPT) Alkaline Phosphatase 103 U/L Total Protein 5.1 GM/DL Albumin 1.9 GM/DL Imaging Last 48 hours Impressions Chest X-Ray 06/11/16 0600 Signed Impressions: Service Date/Time: Saturday, June 11, 2016 05:02 - CONCLUSION: Stable chest x-ray with bibasilar opacities representing pleural effusions with associated volume loss and/or airspace consolidation. Anthony Tai MD Chest X-Ray 06/10/16 0000 Signed Impressions: Service Date/Time: June 17:08 - CONCLUSION: Endotracheal tube in place. Mild pulmonary vascular congestion. Mir Reyna MD Chest X-Ray 06/10/16 0000 Signed Impressions: Service Date/Time: June 09:38 - CONCLUSION: Lungs are almost clear with minimal perihilar densities improved from previous study. Hugh Byers MD Assessment and Plan Problem List: (1) Myocardial infarction acute Assessment and Plan: S/P PCI by Dr. Fu, on ASA, Brillinta. No BB d/t 3rd degree AVB, no ACEI d/t renal compromise. (2) AV block, complete Assessment and Plan: Intermittent, managed with transvenous pacer. WBC trending down, likely acute reactive. Solumedrol being initiated. BB on hold due to AVB. Monitor at this time, per my d/w Dr. Rodríguez. Problem Qualifiers (1) Myocardial infarction acute: Nicole Farias Jun 11, 2016 12:25
[2016-06-11] MEDS: LINEZOLID 600 MG PREMIX 300 ML IV SCH (12:54)
[2016-06-11 14:36] LABS: ALT (GPT) 32 U/L (12-78); ANION GAP 13 MEQ/L (5-15); AST (GOT) 88 U/L (15-37); BICARBONATE 17.6 MEQ/L (21.0-32.0); BLOOD UREA NITROGEN 41 MG/DL (7-18); CHLORIDE 115 MEQ/L (98-107); GLOMERULAR FILTRATION RATE 33 ML/MIN (>89); SODIUM (NA) 146 MEQ/L (136-145)
[2016-06-11 14:38] LABS: ALKALINE PHOSPHATASE 98 U/L (45-117); TOTAL BILIRUBIN ADULT 0.7 MG/DL (0.2-1.0)
--- NOTE | 2016-06-11 14:49 | EKG ---
Date Performed: 06/11/2016 Time Performed: 09:26:30 PTAGE: 65 years EKG: Accelerated idioventricular rhythm Complete heart block Compared to previous tracing the hi gh grade AV block and periods of complete heart block are a new finding. The wide QRS complex was pre viously noted so the escape rhythm may be a junctional rhythm. The tracing continues to be consistent with an inferior wall infarct of indeterminate age. Clinical correlation to assess the serial change s will be important. Abnormal ECG PREVIOUS TRACING : 06/10/2016 07.44 DOCTOR: Doris Tavera Interpretating Date/Time 06/11/2016 14:48:41
[2016-06-11] MEDS: INSULIN DETEMIR 100 UNITS/ML VIAL SQ SCH (15:37)
--- NOTE | 2016-06-11 18:05 | PD.CONS ---
HPI Service Nephrology Consult Requested By Dr. Cruz Reason for Consult [facility] Phys[facility] History of Present Illness Patient is a 65 year old white male with Diabetes, hypertension, who has a heart attack STEMI, underwent heart catheterization with stent to RCA and PDA, he has EF 25-30% Cardiogenic shock, urine output is low, Bumex was ordered, he is passing low urine for now, Na 146, creatinine 2, Intubated, Temp pacing Review of Systems ROS Limitations: Clinical Condition Past Family Social History Allergies: Coded Allergies: *MDRO Multi-Drug Resistant Organism (Verified Allergy, Unknown, 06/11/16) Past Medical History DM HTN Smoking cigarettes, CAD, PVD Past Surgical History Hernia Repair, Appendectomy, Femoropopliteal Bypass Reported Medications Reported Meds & Active Scripts Active Reported Pravastatin 80 Mg Tab 80 Mg PO HS Percocet (Oxycodone-Acetaminophen) 10-325 mg Tab 1 Tab PO Q6H PRN Lisinopril 10 Mg Tab 10 Mg PO BID Lantus Inj (Insulin Glargine) 1,000 Unit/10 Ml Vial 5 Units SQ HS Humalog Inj (Insulin Human Lispro) 1,000 Unit/10 Ml Vial 5 Units SQ HS Gabapentin 300 Mg Cap 300 Mg PO TID Plavix (Clopidogrel Bisulfate) 75 Mg Tab 75 Mg PO DAILY Active Ordered Medications Current Medications Medications (Trade) Dose Ordered Sig/Yoselin Route Start Time Stop Time Status Last Admin (Tylenol) 650 mg Q6H PRN PO 06/09/16 02:45 06/09/16 21:02 (Morphine Inj) 2 mg Q2H PRN IV 06/09/16 02:45 (Versed Inj) 2 mg Q1H PRN IV 06/09/16 02:45 (Tears Naturale Opth Soln) 1 drop TID EACH EYE 06/09/16 09:00 (Zofran Inj) 4 mg Q6H PRN IV 06/09/16 02:45 (Reglan Inj) 10 mg Q6H PRN IV 06/09/16 02:45 (Colace Liq) 100 mg Q12H G-TUBE 06/09/16 09:00 06/11/16 09:21 Miscellaneous Information 1 Q361D XX 06/09/16 02:45 (Chlorhexidine 2% Cloth) 3 pack Taper DAILY@04 TOP 06/09/16 04:00 06/05/17 03:59 06/11/16 03:48 Chlorhexidine Gluconate 3 pack 3 pack UNSCH PRN TOP 06/09/16 02:45 Midazolam HCl 100 ml @ 0 mls/hr TITRATE IV 06/09/16 02:45 06/11/16 17:22 Potassium Chloride 100 ml @ 50 mls/hr Q2H PRN IV 06/09/16 14:15 (KCl 20 Meq Premix Inj) 100 ml @ 50 mls/hr Q2H PRN IV 06/09/16 14:15 Potassium Chloride 40 meq 40 meq UNSCH PRN PO/TUBE 06/09/16 14:15 Potassium Chloride 100 ml @ 25 mls/hr UNSCH PRN IV 06/09/16 14:15 Potassium Chloride 100 ml @ 50 mls/hr Q2H PRN IV 06/09/16 14:15 06/10/16 13:29 (Magnesium Sulfate Inj/NS Inj) 100 ml @ 50 mls/hr UNSCH PRN IV 06/09/16 14:15 Magnesium Oxide 800 mg 800 mg UNSCH PRN PO 06/09/16 14:15 (Magnesium Sulfate Inj/NS Inj) 100 ml @ 50 mls/hr UNSCH PRN IV 06/09/16 14:15 06/10/16 05:36 Potassium Phosphate 2000 mg 2,000 mg Q4H PRN PO 06/09/16 14:15 (Sodium Phosphate Inj/NS 250 ml Inj) 250 ml @ 42 mls/hr UNSCH PRN IV 06/09/16 14:15 (KCl 40 Meq/30 ml Liq) 40 meq UNSCH PRN PO/TUBE 06/09/16 14:15 Potassium Phosphate 2000 mg 2,000 mg UNSCH PRN PO/TUBE 06/09/16 14:15 Potassium Phosphate 30 mmol/ Sodium Chloride 260 ml @ 42 mls/hr UNSCH PRN IV 06/09/16 14:15 (Zosyn 3.375 Gm Premix) 50 ml @ 100 mls/hr Q6H IV 06/09/16 15:00 06/11/16 15:38 (NS Flush) 2 ml UNSCH PRN IVF 06/09/16 15:00 (NS Flush) 2 ml BID IVF 06/09/16 21:00 06/11/16 09:23 (Aspirin Chew) 81 mg DAILY PO 06/10/16 09:00 06/11/16 09:20 Ticagrelor 90 mg 90 mg BID PO 06/09/16 21:00 06/11/16 09:00 (fentaNYL DRIP) 250 ml @ 0 mls/hr TITRATE IV 06/09/16 17:15 06/11/16 09:19 (D50w (Vial) Inj) 25 ml UNSCH PRN IV PUSH 06/10/16 17:45 (Glucagon Inj) 1 mg UNSCH PRN OTHER 06/10/16 17:45 Insulin Aspart 1 1 Q6HR SQ 06/10/16 18:00 06/11/16 12:47 (DOBUTamine PREMIX DRIP) 250 ml @ 16.53 mls/ hr Q15H8M IV 06/11/16 08:13 06/11/16 08:13 (Albumin 25% Inj) 25 gm Q12H IV 06/11/16 09:00 06/13/16 08:59 06/11/16 09:19 (Bumex Inj) 0.5 mg BID@09,18 IV PUSH 06/11/16 09:00 06/13/16 08:59 06/11/16 09:21 (KCl 40 Meq/30 ml Liq) 40 meq DAILY NG 06/11/16 09:00 06/11/16 09:20 (Beneprotein Powder) 1 pack TID G-TUBE 06/11/16 09:00 06/11/16 12:54 Methylprednisolone Sodium Succinate 60 mg 60 mg Q12HR IV PUSH 06/11/16 21:00 (Maxipime Inj/NS Inj) 100 ml @ 200 mls/hr Q12H IV 06/11/16 09:00 06/11/16 09:20 (Lipitor) 80 mg DAILY PO 06/12/16 09:00 Famotidine 10 mg 10 mg Q12HR IV PUSH 06/11/16 21:00 (Zyvox 600 Mg Premix) 300 ml @ 300 mls/hr Q12H IV 06/11/16 13:00 06/11/16 12:54 (Levemir Inj) 20 units Q12H SQ 06/11/16 16:00 06/11/16 15:37 Family History Father of heart attack Social History Smoking positive Physical Exam Vital Signs [facility] Pulse Ox O2 Delivery O2 Flow Rate FiO2 06/11/16 17:02 98 40 06/11/16 15:49 58 06/11/16 15:35 59 06/11/16 15:00 40 06/11/16 15:00 97.6 59 20 111/47 98 06/11/16 15:00 67 06/11/16 11:11 100 40 06/11/16 11:00 62 06/11/16 11:00 40 06/11/16 11:00 67 06/11/16 11:00 98.0 67 22 117/53 96 06/11/16 08:20 99 40 06/11/16 07:21 97.7 66 20 126/58 100 06/11/16 07:19 66 06/11/16 07:18 55 06/11/16 07:14 66 06/11/16 04:50 97 55 06/11/16 04:30 80 06/11/16 04:00 70 06/11/16 04:00 55 06/11/16 04:00 98.6 69 20 109/58 98 06/11/16 00:00 55 06/11/16 00:00 78 06/11/16 00:00 70 06/11/16 00:00 98.3 70 20 113/57 99 06/10/16 23:40 99 55 06/10/16 20:00 78 06/10/16 20:00 99.8 78 20 122/60 97 06/10/16 20:00 55 06/10/16 20:00 78 06/10/16 19:34 95 55 Physical Exam GENERAL: Well-nourished, well-developed intubated patient. SKIN: Warm and dry. HEAD: Normocephalic. EYES: No scleral icterus. No injection or drainage. NECK: Supple, trachea midline. No JVD or lymphadenopathy. CARDIOVASCULAR: Regular rate and rhythm without murmurs, gallops, or rubs. RESPIRATORY: Breath sounds equal bilaterally. No accessory muscle use. GASTROINTESTINAL: Abdomen soft, non-tender, nondistended. EXTREMITIES: No cyanosis, or edema. Rt toe partial amputation NEUROLOGICAL:sedated Laboratory Laboratory Tests Test 06/11/16 06/11/16 04:00 13:20 White Blood Count 12.3 Red Blood Count 2.88 Hemoglobin 9.0 Hematocrit 26.3 Mean Corpuscular Volume 91.6 Mean Corpuscular Hemoglobin 31.4 Mean Corpuscular Hemoglobin 34.2 Concent Red Cell Distribution Width 13.6 Platelet Count 120 Mean Platelet Volume 10.4 Neutrophils (%) (Auto) 80.0 Lymphocytes (%) (Auto) 12.2 Monocytes (%) (Auto) 6.3 Eosinophils (%) (Auto) 0.7 Basophils (%) (Auto) 0.8 Neutrophils # (Auto) 9.9 Lymphocytes # (Auto) 1.5 Monocytes # (Auto) 0.8 Eosinophils # (Auto) 0.1 Basophils # (Auto) 0.1 CBC Comment DIFF FINAL Differential Comment Sodium Level 146 146 Potassium Level 3.6 4.0 Chloride Level 116 115 Carbon Dioxide Level 21.0 17.6 Anion Gap 9 13 Blood Urea Nitrogen 38 41 Creatinine 1.93 2.03 Estimat Glomerular Filtration 35 33 Rate Random Glucose 205 272 Calcium Level 7.3 7.6 Protein Corrected Calcium 8.4 Magnesium Level 2.2 Total Bilirubin 0.6 0.7 Aspartate Amino Transf 144 88 (AST/SGOT) Alanine Aminotransferase 38 32 (ALT/SGPT) Alkaline Phosphatase 103 98 Total Protein 5.1 5.1 Albumin 1.9 2.2 Date/Time Procedure Status Source Growth 06/11/16 10:45 Gram Stain - Final Resulted Sputum Endotracheal 06/11/16 10:45 Sputum Culture Resulted Sputum Endotracheal Pending 06/10/16 01:05 Aerobic Blood Culture - Preliminary Resulted Blood Peripheral NO GROWTH IN 1 DAY 06/10/16 01:05 Anaerobic Blood Culture - Final Resulted Blood Peripheral QNS - SEE AEROBE REPORT 06/09/16 01:25 Urine Culture - Final Complete Urine Catheterized Urine NO GROWTH IN 48 HOURS. Result Diagram: 06/11/16 0400 06/11/16 1320 Imaging Last Impressions Chest X-Ray 06/11/16 0600 Signed Impressions: Service Date/Time: Saturday, June 11, 2016 05:02 - CONCLUSION: Stable chest x-ray with bibasilar opacities representing pleural effusions with associated volume loss and/or airspace consolidation. Anthony Tai MD Assessment and Plan Problem List: (1) TITO (acute kidney injury) Plan: at this point he is on Cardiac medications Dobutamine, BP better, UOP low due to Dye, cardiogenic shock he received Bumex 0.5 mg q 12 will observe for improvement (2) Acute respiratory failure Plan: on Vent (3) Myocardial infarction acute Plan: as above Stent RCA/PDA (4) DM (diabetes mellitus), type 2, uncontrolled Plan: Follow BG (5) PNA (pneumonia) Plan: on Zyvox Problem Qualifiers (1) Acute respiratory failure: Qualified Code: J96.01 - Acute respiratory failure with hypoxia (2) Myocardial infarction acute: (3) PNA (pneumonia): Tete Monreal MD Jun 11, 2016 18:05
[2016-06-11] MEDS ORDERED: methylPREDNISolone SOD SUCC 125 MG/2 ML VIAL IV PUSH SCH (21:00)
[2016-06-12] VITALS (13 sets, daily range): BP systolic 119–171; BP diastolic 52–77; PULSE 54–69; RESP 17–20; TEMP 97.5–98.2; O2SAT 91–97
[2016-06-12] MEDS: RESP: ALBUTEROL 2.5 MG/IPRATROPIUM 0.5 MG NEB (SCH) NEB ×7 (00:11→23:52)
[2016-06-12] MEDS: DOBUTamine PREMIX DRIP 250 ML IV SCH (00:20)
[2016-06-12] MEDS: LINEZOLID 600 MG PREMIX 300 ML IV SCH ×2 (00:33→12:53)
[2016-06-12] MEDS: LOW DOSE INSULIN NOVOLOG SUPPLEMENTAL SCALE SQ SCH ×2 (00:33→05:28)
[2016-06-12] MEDS: PIPERACIL-TAZO 3.375 GM PREMIX 50 ML IV SCH ×4 (03:06→21:31)
[2016-06-12] MEDS: CHLORHEXIDINE GLUCONATE 2 % 1 PACK (2 CLOTHS) TOP SCH (03:07)
[2016-06-12] MEDS: INSULIN DETEMIR 100 UNITS/ML VIAL SQ SCH (03:07)
[2016-06-12 04:41] LABS: AUTOMATED NEUTROPHIL # 8.5 TH/MM3 (1.8-7.7); BASOPHIL % 0.3 % (0.0-2.0); HEMATOCRIT 25.2 % (39.0-51.0); HEMO FLAGS DIFF FINAL; LYMPH % 4.7 % (9.0-44.0); LYMPHOCYTE # 0.4 TH/MM3 (1.0-4.8); MEAN CELL VOLUME 92.7 FL (80.0-100.0); MEAN CORPUSCULAR HEMOGLOBIN 31.7 PG (27.0-34.0); MEAN CORPUSCULAR HGB CONC 34.2 % (32.0-36.0); MONO % 2.4 % (0.0-8.0); NEUT % 92.6 % (16.0-70.0); PLATELET COUNT 117 TH/MM3 (150-450); RED BLOOD COUNT 2.72 MIL/MM3 (4.50-5.90); RED CELL DISTRIBUTION WIDTH 13.7 % (11.6-17.2); WHITE BLOOD COUNT 9.1 TH/MM3 (4.0-11.0)
[2016-06-12 05:05] LABS: ALKALINE PHOSPHATASE 95 U/L (45-117); ALT (GPT) 29 U/L (12-78); ANION GAP 11 MEQ/L (5-15); AST (GOT) 46 U/L (15-37); BICARBONATE 18.1 MEQ/L (21.0-32.0); BLOOD UREA NITROGEN 44 MG/DL (7-18); CHLORIDE 114 MEQ/L (98-107); GLOMERULAR FILTRATION RATE 27 ML/MIN (>89); MAGNESIUM 2.2 MG/DL (1.5-2.5); POTASSIUM 3.8 MEQ/L (3.5-5.1); SODIUM (NA) 143 MEQ/L (136-145); TOTAL BILIRUBIN ADULT 0.5 MG/DL (0.2-1.0)
--- NOTE | 2016-06-12 05:54 | RADRPT ---
EXAM DATE/TIME: 06/12/2016 04:53 [facility] COMPARISON: CHEST SINGLE AP, June 11, 2016, 5:02. INDICATIONS : Shortness of breath, possible pulmonary disease. MEDICAL HISTORY : Cardiovascular disease. SURGICAL HISTORY : CABG. ENCOUNTER: Subsequent ACUITY: 4 - 6 days PAIN SCORE: Non-responsive. LOCATION: Bilateral chest FINDINGS: Portable AP view of the chest demonstrates cardiac silhouette size at the upper limits for normal. Ri ght subclavian central line, ETT, and nasogastric tube remain present. There is stable bibasilar pleu ral-parenchymal opacity. No pneumothorax is visualized. CONCLUSION: Stable chest x-ray with bibasilar opacities consistent with small pleural effusions with associated v olume loss and/or airspace consolidation. Anthony Tai MD on June 12, 2016 at 5:52 Board Certified Radiologist. This report was verified electronically.
[2016-06-12] MEDS ORDERED: MISC INFORMATION XX ONE (06:30)
[2016-06-12] MEDS ORDERED: DEXTROSE 50% IN WATER 50 ML VIAL(D50) IV PUSH PRN (06:30)
--- NOTE | 2016-06-12 06:33 | HHI.CCPN ---
Subjective Remarks/Hospital Course 65 year old with past medical history is significant for coronary artery disease , hypertension, diabetes mellitus, history of congestive heart failure, peripheral vascular disease who was brought o the [facility] emergency department as a STEMI alert prior to arrival by ambulance services due to a left bundle branch block and shortness of breath with diaphoresis. Initial oxygen saturation was in the 60s, patient was very anxious. Chest x- ray showed pulmonary edema Initially placed on BiPAP with no significant improvement, and later was intubated and placed on mechanical ventilation. Patient ruled in for non-ST elevation TN with a troponin of 18. His blood sugar was in the 500s. Cardiology was consulted. Aspirin and IV heparin started, for cardiogenic shock patient was placed on dopamine CCM re evaluation: I evaluated the patient in the ED. Patient remains in shock on dopamine. I placed a left subclavian central line. Repeat troponin came back at 39. I discussed with Dr. Lay. He will take the patient for cardiac catheter given acute severe TN with cardiogenic shock and pulmonary edema. Patient was also started on insulin infusion. WBC count 23.2, most likely stress related. The patient insistence output the white count I will start on empiric Zosyn, send blood urine and sputum culture SUBJ 06/10/16: Patient underwent cardiac catheterization and PCI with stent placement by Dr. Lay along with temporary transvenous pacemaker placement, and Impella placement.(PCI / JOSÉ LUIS to right coronary artery, PCI / JOSÉ LUIS to PDA). CVP 17 today, 7 kg wt gain with UO 30-40 ml per hour. Give Bumex 1 mg IV x1 06/11/16: Patient was extubated yesterday but emergently reintubated for acute hypoxemic respiratory failure at 5 PM. Overnight intermittent third-degree heart block, requiring temporary pacing. I have changed from dopamine to dobutamine today as a EF is only 25-30%. Dr. Rodríguez has seen for possible permanent pacemaker placement. Will d/w Dr. Lay about timing. Active smoker until recently, started on IV Solu-Medrol and breathing treatments 06/12: Remains in third-degree heart block, dobutamine 1.5 mcg/kg/m. Urine Output adequate but creatinine has climbed to 2.5. Blood sugar in 400s, I will place back on IV insulin protocol Objective Vital Signs Date Time Temp Pulse Resp B/P Pulse Ox O2 Delivery O2 Flow Rate FiO2 06/12/16 03:05 97 40 06/12/16 03:00 57 06/12/16 03:00 98.2 20 143/72 153/63 06/10/16 13:56 Simple Mask 6.00 Intake and Output 06/11/16 06/11/16 06/12/16 08:00 16:00 00:00 Intake Total 921 ml 970 ml Output Total 615 ml 290 ml Balance 306 ml 680 ml Result Diagram: 06/12/16 0403 06/12/16 0403 Imaging Last 24 hours Impressions Chest X-Ray 06/09/16 0120 Signed Impressions: Service Date/Time: Thursday, June 09, 2016 01:09 - CONCLUSION: Early/ mild pulmonary edema. Anthony Carroll MD Objective Remarks GENERAL: Well-nourished, well-developed patient, critically ill intubated heavily sedated with Versed and fentanyl SKIN: Warm and dry. HEAD: Normocephalic. EYES: No scleral icterus. No injection or drainage. ENT: Orotracheally intubated NECK: Supple, trachea midline. No JVD or lymphadenopathy. CARDIOVASCULAR: Intermittent third-degree heart block. No murmurs RESPIRATORY: Breath sounds equal bilaterally. No accessory muscle use. GASTROINTESTINAL: Abdomen soft, non-tender, nondistended. MUSCULOSKELETAL: No cyanosis, or edema. No bleeding bilateral groin BACK: Nontender without obvious deformity. No CVA tenderness. NEURO: Intubated sedated with Versed and fentanyl. Moves extremities on holding sedation Urinary Catheter: Yes Assessment to: Continue Vascular Central Line Catheter: Yes Assessment to: Continue A/P Assessment and Plan Assessment and plan (by system) Neuro: -Continue Versed and fentanyl for sedation and ventilator synchrony -Daily sedation vacation Resp: Acute hypoxemic respiratory failure Pulmonary edema -Intubated for severe hypoxemia in ER, extubated 06/10, but failed towards evening requiring reintubation due to severe hypoxemia -Continue with assist control mechanical ventilation, daily CPAP trials -Increase Bumex 1 mg every 12 along with IV albumin 25 g every 12 for 3 days -DuoNeb every 6 hours and when necessary, ventilator bundle -IV Solu-Medrol 40 every 12 -Cefepime 1 g every 12, Zyvox 600 q12 CVS STEMI Acute pulmonary edema Cardiogenic shock Third-degree heart block Severe ischemic cardiomyopathy Status post Impella (removed 06/10), and temporary pacer placement History of CAD History of peripheral arterial disease History of hypertension History of CHF - ST elevation TN and acute cardiogenic shock and respiratory failure - s/p PCI with JOSÉ LUIS to RCA and PDA - s/p Impella removed 06/10 and temp pacer placement. - Discontinue the vitamin, start dopamine 2 g per KG per minute - Holding beta blockers and MARGUERITE inhibitor due to shock, third-degree heart block - Dr. Rodríguez following for PPM placement - Continue Brilinta and aspirin. Lovenox 30 mg sq 24 - Previous Echo 05/11/15 w/ EF 50-55%. 06/09/16-Echo- Systolic function was sev reduced. EF 25-30%. GI: -IV Protonix, tube feeds with Glucerna : Acute kidney injury Fluid overload -Most likely ATN, Monitor renal function closely, IV Bumex 1 mg q12 with IV Albumin for 3 days ID: MRSA in sputum, bilateral lung infiltrates indicating pneumonia. -Zyvox 600 mg IV every 12. Avoid vancomycin due to renal failure -Continue Cefepime ENDO: DM with severe hyperglycemia -IV insulin per ICU protocol, algorithm 3 -Electrolyte replacement per protocol DVT/GI prophylaxis - Pepcid. Lovenox 30 mg sq daily Critical Care: The total critical care time was 45 minutes. Time to perform other separately billable procedures was not included in the critical care time. Dispo: Patient is in very critical condition with acute TN causing cardiogenic shock, now with recurrent respiratory failure, cardiogenic shock Barry Cruz MD Jun 12, 2016 06:33
[2016-06-12] MEDS ORDERED: TERBUTALINE INJ 1 MG/ML AMP SQ PRN (06:45)
[2016-06-12] MEDS ORDERED: DOPamine INJ PREMIX 500 ML IV SCH (06:45)
[2016-06-12] MEDS: BENEPROTEIN POWDER 1 PACK G-TUBE SCH ×3 (09:00→18:31)
[2016-06-12] MEDS: FAMOTIDINE 20 MG/2 ML VIAL IV PUSH SCH ×2 (09:00→21:29)
[2016-06-12] MEDS: ARTIFICIAL TEARS OPTH SOLN 15 ML BTL EACH EYE SCH ×3 (09:00→18:00)
--- NOTE | 2016-06-12 09:59 | PD.CARD.PN ---
Subjective Subjective Remarks The chart was reviewed. The patient is intubated, sedated and on dopamine. The temporary pacemaker does not appear to be working and he is in complete heart block with a good escape rhythm. I did speak with this morning who states that we should just follow his rhythm. Objective Medications Reviewed Vital Signs / I&O Vital Signs Date Time Temp Pulse Resp B/P Pulse Ox O2 Delivery O2 Flow Rate FiO2 06/12/16 07:55 92 50 06/12/16 03:05 97 40 06/12/16 03:00 40 06/12/16 03:00 57 06/12/16 03:00 57 06/12/16 03:00 98.2 57 20 143/72 97 153/63 06/11/16 23:27 97 40 06/11/16 23:00 56 06/11/16 23:00 40 06/11/16 23:00 97.6 56 20 140/57 97 06/11/16 23:00 56 06/11/16 20:18 97 40 06/11/16 19:00 40 06/11/16 19:00 97.7 56 20 136/54 97 06/11/16 19:00 56 06/11/16 17:02 98 40 06/11/16 15:49 58 06/11/16 15:35 59 06/11/16 15:00 40 06/11/16 15:00 97.6 59 20 111/47 98 06/11/16 15:00 67 06/11/16 11:11 100 40 06/11/16 11:00 62 06/11/16 11:00 40 06/11/16 11:00 67 06/11/16 11:00 98.0 67 22 117/53 96 I/O 06/11/16 06/11/16 06/11/16 06/12/16 06/12/16 06/12/16 07:00 15:00 23:00 07:00 15:00 23:00 Intake Total 921 ml 970 ml 1269 ml Output Total 615 ml 290 ml 450 ml Balance 306 ml 680 ml 819 ml Intake Oral 0 ml IV Total 921 ml 830 ml 1009 ml Tube Feeding 80 ml 200 ml Tube Irrigant 60 ml 60 ml Output Urine Total 565 ml 290 ml 450 ml Gastric Drainage Total 50 ml # Bowel Movements 0 0 0 Physical Exam GENERAL: Intubated/sedated. SKIN: Warm and dry. NECK: JVD normal - less than or equal to 5 cm H20. CARDIOVASCULAR: Regular rate and rhythm without murmurs, gallops, or rubs. RESPIRATORY: Normal breath sounds - equal bilaterally. No accessory muscle use. No wheezes, rales or rubs. PERIPHERY: No cyanosis, or edema. Laboratory Laboratory Tests Test 06/11/16 06/12/16 13:20 04:03 Sodium Level 146 MEQ/L 143 MEQ/L Potassium Level 4.0 MEQ/L 3.8 MEQ/L Chloride Level 115 MEQ/L 114 MEQ/L Carbon Dioxide Level 17.6 MEQ/L 18.1 MEQ/L Anion Gap 13 MEQ/L 11 MEQ/L Blood Urea Nitrogen 41 MG/DL 44 MG/DL Creatinine 2.03 MG/DL 2.41 MG/DL Estimat Glomerular Filtration 33 ML/MIN 27 ML/MIN Rate Random Glucose 272 MG/DL 444 MG/DL Calcium Level 7.6 MG/DL 7.5 MG/DL Total Bilirubin 0.7 MG/DL 0.5 MG/DL Aspartate Amino Transf 88 U/L 46 U/L (AST/SGOT) Alanine Aminotransferase 32 U/L 29 U/L (ALT/SGPT) Alkaline Phosphatase 98 U/L 95 U/L Total Protein 5.1 GM/DL 5.5 GM/DL Albumin 2.2 GM/DL 2.3 GM/DL White Blood Count 9.1 TH/MM3 Red Blood Count 2.72 MIL/MM3 Hemoglobin 8.6 GM/DL Hematocrit 25.2 % Mean Corpuscular Volume 92.7 FL Mean Corpuscular Hemoglobin 31.7 PG Mean Corpuscular Hemoglobin 34.2 % Concent Red Cell Distribution Width 13.7 % Platelet Count 117 TH/MM3 Mean Platelet Volume 10.8 FL Neutrophils (%) (Auto) 92.6 % Lymphocytes (%) (Auto) 4.7 % Monocytes (%) (Auto) 2.4 % Eosinophils (%) (Auto) 0.0 % Basophils (%) (Auto) 0.3 % Neutrophils # (Auto) 8.5 TH/MM3 Lymphocytes # (Auto) 0.4 TH/MM3 Monocytes # (Auto) 0.2 TH/MM3 Eosinophils # (Auto) 0.0 TH/MM3 Basophils # (Auto) 0.0 TH/MM3 CBC Comment DIFF FINAL Differential Comment Magnesium Level 2.2 MG/DL Imaging Last 48 hours Impressions Chest X-Ray 06/12/16 0000 Signed Impressions: Service Date/Time: Sunday, June 12, 2016 04:53 - CONCLUSION: Stable chest x-ray with bibasilar opacities consistent with small pleural effusions with associated volume loss and/or airspace consolidation. Anthony Tai MD Chest X-Ray 06/11/16 0600 Signed Impressions: Service Date/Time: Saturday, June 11, 2016 05:02 - CONCLUSION: Stable chest x-ray with bibasilar opacities representing pleural effusions with associated volume loss and/or airspace consolidation. Anthony Tai MD Assessment and Plan Assessment and Plan Problems: ST elevation PA with temporary hemodynamic support and stenting. Moderate left ventricular dysfunction. Complete heart block Acute on chronic kidney failure. Worsening anemia Recommendations: Continue present medical management with supportive care. There is a good chance the patient will not survive this. I did speak with the production drilling machine operator who would only put in the permanent pacemaker if the situation stabilizes. If he does develop worsening bradycardia, Dr. Elizondo is my interventional backup this weekend and she would need to change out the temporary pacemaker in the catheterization lab. Robel Whitten MD Jun 12, 2016 09:59
[2016-06-12] MEDS: POTASSIUM CL 40 MEQ/30 ML LIQ UDC NG SCH (11:03)
[2016-06-12] MEDS: TICAGRELOR 90 MG TAB PO SCH ×2 (11:04→21:29)
[2016-06-12] MEDS: SODIUM CHLORIDE 0.9% FLUSH 5 ML FLUSH IVF SCH ×2 (11:04→21:28)
[2016-06-12] MEDS: ALBUMIN HUMAN 25% 25 GM/100 ML BAGP IV SCH ×2 (11:06→21:29)
[2016-06-12] MEDS: DOCUSATE SODIUM 100 MG/10 ML UDC G-TUBE SCH ×2 (11:07→21:28)
[2016-06-12] MEDS: BUMETANIDE INJ 1 MG/4 ML VIAL IV PUSH SCH ×2 (11:07→21:28)
[2016-06-12] MEDS: CEFEPIME INJ 1,000 MG in SODIUM CHLORIDE 0.9% INJ 100 ML IV SCH ×2 (11:07→21:28)
[2016-06-12] MEDS: ATORVASTATIN 80 MG TAB PO SCH (11:08)
[2016-06-12] MEDS: ASPIRIN 81 MG CHEW TAB PO SCH (11:08)
[2016-06-12] MEDS: methylPREDNISolone SOD SUCC 40 MG/1 ML VIAL IV PUSH SCH ×2 (11:12→21:28)
--- NOTE | 2016-06-12 12:18 | HHI.NPPN ---
Subjective Additional Remarks Intubated, sedated Objective Data Data 06/11/16 06/12/16 19:00 07:00 Intake Total 970 ml 1269 ml Output Total 290 ml 450 ml Balance 680 ml 819 ml IV Total 830 ml 1009 ml Tube Feeding 80 ml 200 ml Tube Irrigant 60 ml 60 ml Output Urine Total 290 ml 450 ml # Bowel Movements 0 0 Vital Signs Date Time Temp Pulse Resp B/P Pulse Ox O2 Delivery O2 Flow Rate FiO2 06/12/16 07:55 92 50 06/12/16 03:05 97 40 06/12/16 03:00 40 06/12/16 03:00 57 06/12/16 03:00 57 06/12/16 03:00 98.2 57 20 143/72 97 153/63 06/11/16 23:27 97 40 06/11/16 23:00 56 06/11/16 23:00 40 06/11/16 23:00 97.6 56 20 140/57 97 06/11/16 23:00 56 06/11/16 20:18 97 40 06/11/16 19:00 40 06/11/16 19:00 97.7 56 20 136/54 97 06/11/16 19:00 56 06/11/16 17:02 98 40 06/11/16 15:49 58 06/11/16 15:35 59 06/11/16 15:00 40 06/11/16 15:00 97.6 59 20 111/47 98 06/11/16 15:00 65 -: 06/12/16 0403 06/12/16 0403 Physical Exam General Appearance: Well Developed, No Acute Distress Neck Neck Exam: Neck Supple Pulmonary Resp Exam: Decreased Bases Cardiology CV Exam: Regular Gastrointestinal/Abdomen GI Exam: Soft Integumentary Skin Exam: Dry, Intact Extremeties Extremities Exam: No Edema Neurologic Neuro Exam: Sedated Assessment/Plan Problem List: (1) TITO (acute kidney injury) Plan: Creatinine 2.0 -> 2.4 UOP 1.1L -> 740 cc/ 24 hours TITO likely due to hypotension/ cardiogenic shock at this point he is on Dobutamine Bumex dosing increased this morning to 1mg IV q12, agree with diuresis as tolerated Will add albumin will observe for improvement (2) Acute respiratory failure Plan: on Vent (3) Myocardial infarction acute Plan: as above Stent RCA/PDA (4) DM (diabetes mellitus), type 2, uncontrolled Plan: Follow BG - hyperglycemia today and on IV insulin now (5) PNA (pneumonia) Plan: on Zyvox Problem Qualifiers (1) Acute respiratory failure: Qualified Code: J96.01 - Acute respiratory failure with hypoxia (2) Myocardial infarction acute: (3) DM (diabetes mellitus), type 2, uncontrolled: Qualified Code: E11.8 - Uncontrolled type 2 diabetes mellitus with complication , unspecified rodent exterminator insulin use status (4) PNA (pneumonia): Mathieu Batista MD Jun 12, 2016 12:18
[2016-06-12] MEDS: INSULIN REGULAR (IV INFUSION) 100 UNITS in SODIUM CHLORIDE 0.9% INJ 99 ML IV SCH ×2 (12:39→19:17)
[2016-06-12] MEDS: fentaNYL 2,500 MCG/NS 250 ML IV SCH (13:28)
[2016-06-12 16:24] LABS: MAGNESIUM 2.3 MG/DL (1.5-2.5); POTASSIUM 3.6 MEQ/L (3.5-5.1)
[2016-06-13] VITALS (15 sets, daily range): BP systolic 103–125; BP diastolic 64–78; PULSE 59–72; RESP 16–20; TEMP 97.6–98.6; O2SAT 95–100
[2016-06-13] MEDS: LINEZOLID 600 MG PREMIX 300 ML IV SCH ×2 (02:58→12:19)
[2016-06-13] MEDS: CHLORHEXIDINE GLUCONATE 2 % 1 PACK (2 CLOTHS) TOP SCH (03:18)
[2016-06-13] MEDS: RESP: ALBUTEROL 2.5 MG/IPRATROPIUM 0.5 MG NEB (SCH) NEB ×5 (03:40→20:23)
[2016-06-13] MEDS: PIPERACIL-TAZO 3.375 GM PREMIX 50 ML IV SCH ×4 (04:13→20:47)
--- NOTE | 2016-06-13 04:17 | RADRPT ---
EXAM DATE/TIME: 06/13/2016 03:18 [facility] COMPARISON: CHEST SINGLE AP, June 12, 2016, 4:53. INDICATIONS : Shortness of breath, possible pulmonary disease. MEDICAL HISTORY : Cardiovascular disease. SURGICAL HISTORY : CABG. ENCOUNTER: Subsequent ACUITY: 1 week PAIN SCORE: Non-responsive. LOCATION: Bilateral chest FINDINGS: Portable AP view of the chest demonstrates cardiac silhouette size at the upper limits for normal. ET T, nasogastric tube, and right subclavian central line remain present. There are stable bibasilar ple ural-parenchymal opacities. No pneumothorax is visualized. CONCLUSION: Stable chest x-ray with bilateral pleural effusions with associated volume loss and/or consolidation. Anthony Tai MD on June 13, 2016 at 4:14 Board Certified Radiologist. This report was verified electronically.
[2016-06-13] MEDS: MIDAZOLAM 100 MG/ML INJ 100 ML IV SCH (05:34)
[2016-06-13 06:04] LABS: AUTOMATED NEUTROPHIL # 13.5 TH/MM3 (1.8-7.7); BASOPHIL % 0.2 % (0.0-2.0); HEMATOCRIT 25.1 % (39.0-51.0); HEMO FLAGS DIFF FINAL; LYMPH % 4.1 % (9.0-44.0); LYMPHOCYTE # 0.6 TH/MM3 (1.0-4.8); MEAN CELL VOLUME 92.6 FL (80.0-100.0); MEAN CORPUSCULAR HEMOGLOBIN 31.4 PG (27.0-34.0); MONO % 3.2 % (0.0-8.0); NEUT % 92.5 % (16.0-70.0); PLATELET COUNT 114 TH/MM3 (150-450); RED BLOOD COUNT 2.71 MIL/MM3 (4.50-5.90); RED CELL DISTRIBUTION WIDTH 13.5 % (11.6-17.2); WHITE BLOOD COUNT 14.6 TH/MM3 (4.0-11.0)
[2016-06-13 06:15] LABS: ALKALINE PHOSPHATASE 84 U/L (45-117); ALT (GPT) 21 U/L (12-78); ANION GAP 8 MEQ/L (5-15); AST (GOT) 19 U/L (15-37); BICARBONATE 22.1 MEQ/L (21.0-32.0); BLOOD UREA NITROGEN 50 MG/DL (7-18); CHLORIDE 119 MEQ/L (98-107); GLOMERULAR FILTRATION RATE 25 ML/MIN (>89); MAGNESIUM 2.3 MG/DL (1.5-2.5); SODIUM (NA) 149 MEQ/L (136-145); TOTAL BILIRUBIN ADULT 0.4 MG/DL (0.2-1.0)
--- NOTE | 2016-06-13 06:20 | HHI.CCPN ---
Subjective Remarks/Hospital Course 65 year old with past medical history is significant for coronary artery disease , hypertension, diabetes mellitus, history of congestive heart failure, peripheral vascular disease who was brought o the [facility] emergency department as a STEMI alert prior to arrival by ambulance services due to a left bundle branch block and shortness of breath with diaphoresis. Initial oxygen saturation was in the 60s, patient was very anxious. Chest x- ray showed pulmonary edema Initially placed on BiPAP with no significant improvement, and later was intubated and placed on mechanical ventilation. Patient ruled in for non-ST elevation TN with a troponin of 18. His blood sugar was in the 500s. Cardiology was consulted. Aspirin and IV heparin started, for cardiogenic shock patient was placed on dopamine CCM re evaluation: I evaluated the patient in the ED. Patient remains in shock on dopamine. I placed a left subclavian central line. Repeat troponin came back at 39. I discussed with Dr. Lay. He will take the patient for cardiac catheter given acute severe TN with cardiogenic shock and pulmonary edema. Patient was also started on insulin infusion. WBC count 23.2, most likely stress related. The patient insistence output the white count I will start on empiric Zosyn, send blood urine and sputum culture SUBJ 06/10/16: Patient underwent cardiac catheterization and PCI with stent placement by Dr. Lay along with temporary transvenous pacemaker placement, and Impella placement.(PCI / JOSÉ LUIS to right coronary artery, PCI / JOSÉ LUIS to PDA). CVP 17 today, 7 kg wt gain with UO 30-40 ml per hour. Give Bumex 1 mg IV x1 06/11/16: Patient was extubated yesterday but emergently reintubated for acute hypoxemic respiratory failure at 5 PM. Overnight intermittent third-degree heart block, requiring temporary pacing. I have changed from dopamine to dobutamine today as a EF is only 25-30%. Dr. Rodríguez has seen for possible permanent pacemaker placement. Will d/w Dr. Lay about timing. Active smoker until recently, started on IV Solu-Medrol and breathing treatments 06/12: Remains in third-degree heart block, dobutamine 1.5 mcg/kg/m. Urine Output adequate but creatinine has climbed to 2.5. Blood sugar in 400s, I will place back on IV insulin protocol 06/13: Patient gets very agitated when sedation is lower, remains on Versed 7 mg per hour, fentanyl 120 g per hour. Dopamine to dobutamine hypertension. Remains in third-degree heart block now pacer capturing, back rate 58 bpm. Urine output 1.5 L in 24 hours, positive fluid balance. Change Bumex to Bumex infusion-will discuss with nephrology Objective Vital Signs Date Time Temp Pulse Resp B/P Pulse Ox O2 Delivery O2 Flow Rate FiO2 06/13/16 04:02 95 40 06/13/16 04:00 72 06/13/16 04:00 98.0 20 125/74 Arterial Line 06/10/16 13:56 Simple Mask 6.00 Intake and Output 06/12/16 06/12/16 06/13/16 08:00 16:00 00:00 Intake Total 1269 ml 1050 ml Output Total 450 ml 850 ml Balance 819 ml 200 ml Result Diagram: 06/13/16 0514 06/13/16 0514 Imaging Last 24 hours Impressions Chest X-Ray 06/09/16 0120 Signed Impressions: Service Date/Time: Thursday, June 09, 2016 01:09 - CONCLUSION: Early/ mild pulmonary edema. Anthony Carroll MD Objective Remarks GENERAL: Well-nourished, well-developed patient, critically ill intubated heavily sedated with Versed and fentanyl SKIN: Warm and dry. HEAD: Normocephalic. EYES: No scleral icterus. No injection or drainage. ENT: Orotracheally intubated NECK: Supple, trachea midline. No JVD or lymphadenopathy. CARDIOVASCULAR: Intermittent third-degree heart block. No murmurs. Temporary pacemaker, pacing at 50 bpm RESPIRATORY: Breath sounds equal bilaterally. No accessory muscle use. GASTROINTESTINAL: Abdomen soft, non-tender, nondistended. MUSCULOSKELETAL: No cyanosis, trace edema. No bleeding bilateral groin BACK: Nontender without obvious deformity. No CVA tenderness. NEURO: Intubated sedated with Versed and fentanyl. Moves extremities on holding sedation. not following commands A/P Assessment and Plan Assessment and plan (by system) Neuro: -Continue Versed and fentanyl for sedation and ventilator synchrony -Daily sedation vacation -Use Precedex only after PPM implant Resp: Acute hypoxemic respiratory failure Pulmonary edema -Intubated for severe hypoxemia in ER, extubated 06/10, but failed towards evening requiring reintubation due to severe hypoxemia -Continue with assist control mechanical ventilation, daily CPAP trials -DuoNeb every 6 hours and when necessary, ventilator bundle -IV Solu-Medrol 40 every 12 -Cefepime 1 g every 12, Zyvox 600 q12 -CT chest today CVS STEMI Acute pulmonary edema Cardiogenic shock Third-degree heart block Severe ischemic cardiomyopathy Status post Impella (removed 06/10), and temporary pacer placement History of CAD History of peripheral arterial disease History of hypertension History of CHF - ST elevation TN and acute cardiogenic shock and respiratory failure, s/p PCI with JOSÉ LUIS to RCA and PDA - s/p Impella removed 06/10 and temp pacer placement. - Off dopamine due to hypertension. Paced at 50 bts per min - Holding beta blockers and MARGUERITE inhibitor due to shock, third-degree heart block - Dr. Rodríguez following for PPM placement - Continue Brilinta and aspirin. Lovenox 30 mg sq 24 - 06/09/16-Echo- Systolic function was sev reduced. EF 25-30%. Previous Echo w/ EF 50-55%. - Bumex 1 mg every 12 along with IV albumin 25 g every 12-additional 1mg IV x1 now GI: -IV Protonix, tube feeds with Glucerna. Free water flushes : Acute kidney injury Fluid overload -Most likely ATN, Monitor renal function closely, IV Bumex 1 mg q12 with IV Albumin for 3 days -Consider Bumex gtt-d/w nephrology ID: MRSA in sputum, bilateral lung infiltrates indicating pneumonia. -Zyvox 600 mg IV every 12. Avoid vancomycin due to renal failure. Continue Cefepime ENDO: DM with severe hyperglycemia -IV insulin per ICU protocol, algorithm 3 -Electrolyte replacement per protocol DVT/GI prophylaxis - Pepcid. Lovenox 30 mg sq daily Critical Care: The total critical care time was 45 minutes. Time to perform other separately billable procedures was not included in the critical care time. Dispo: Patient is in very critical condition with acute TN causing cardiogenic shock, now with recurrent respiratory failure, cardiogenic shock Barry Cruz MD Jun 13, 2016 06:20
[2016-06-13] MEDS ORDERED: BUMETANIDE INJ 1 MG/4 ML VIAL IV PUSH ONE (08:15)
[2016-06-13] MEDS: ARTIFICIAL TEARS OPTH SOLN 15 ML BTL EACH EYE SCH ×3 (09:00→18:00)
[2016-06-13] MEDS: BENEPROTEIN POWDER 1 PACK G-TUBE SCH ×3 (09:00→18:35)
--- NOTE | 2016-06-13 09:02 | PD.CARD.PN ---
Subjective Subjective Remarks Intubated and sedated. Telemetry reveals probable second-degree AV block with intermittent pacemaker capture now. Chart reviewed. Objective Medications Reviewed Vital Signs / I&O Vital Signs Date Time Temp Pulse Resp B/P Pulse Ox O2 Delivery O2 Flow Rate FiO2 06/13/16 04:02 95 40 06/13/16 04:00 72 06/13/16 04:00 98.0 72 20 125/74 95 Arterial Line 06/13/16 04:00 65 06/13/16 04:00 50 06/13/16 01:00 95 40 06/12/16 23:54 69 06/12/16 23:54 50 06/12/16 23:54 59 06/12/16 23:54 98.1 59 20 143/77 96 124/64 06/12/16 21:57 96 40 06/12/16 19:48 91 50 06/12/16 19:48 50 06/12/16 19:39 65 06/12/16 19:39 98.0 65 17 119/71 95 131/52 06/12/16 19:30 50 06/12/16 19:00 68 06/12/16 16:00 63 06/12/16 16:00 50 06/12/16 16:00 97.9 63 20 151/65 96 06/12/16 15:46 92 50 06/12/16 15:25 50 06/12/16 12:14 97 50 06/12/16 12:00 97.5 56 20 143/66 97 06/12/16 12:00 56 06/12/16 12:00 50 I/O 06/12/16 06/12/16 06/12/16 06/13/16 06/13/16 06/13/16 07:00 15:00 23:00 07:00 15:00 23:00 Intake Total 1269 ml 1050 ml 2092 ml Output Total 450 ml 850 ml 650 ml Balance 819 ml 200 ml 1442 ml IV Total 1009 ml 794 ml 2042 ml Tube Feeding 200 ml 26 ml 50 ml Tube Irrigant 60 ml 230 ml Output Urine Total 450 ml 850 ml 650 ml # Bowel Movements 0 0 0 Physical Exam GENERAL: Intubated/sedated. SKIN: Warm and dry. NECK: JVD normal - less than or equal to 5 cm H20. CARDIOVASCULAR: Regular rate and rhythm without murmurs, gallops, or rubs. RESPIRATORY: Normal breath sounds - equal bilaterally. No accessory muscle use. No wheezes, rales or rubs. PERIPHERY: No cyanosis. Trace edema. Laboratory Laboratory Tests Test 06/12/16 06/13/16 15:45 05:14 Potassium Level 3.6 MEQ/L 4.0 MEQ/L Magnesium Level 2.3 MG/DL 2.3 MG/DL White Blood Count 14.6 TH/MM3 Red Blood Count 2.71 MIL/MM3 Hemoglobin 8.5 GM/DL Hematocrit 25.1 % Mean Corpuscular Volume 92.6 FL Mean Corpuscular Hemoglobin 31.4 PG Mean Corpuscular Hemoglobin 34.0 % Concent Red Cell Distribution Width 13.5 % Platelet Count 114 TH/MM3 Mean Platelet Volume 11.3 FL Neutrophils (%) (Auto) 92.5 % Lymphocytes (%) (Auto) 4.1 % Monocytes (%) (Auto) 3.2 % Eosinophils (%) (Auto) 0.0 % Basophils (%) (Auto) 0.2 % Neutrophils # (Auto) 13.5 TH/MM3 Lymphocytes # (Auto) 0.6 TH/MM3 Monocytes # (Auto) 0.5 TH/MM3 Eosinophils # (Auto) 0.0 TH/MM3 Basophils # (Auto) 0.0 TH/MM3 CBC Comment DIFF FINAL Differential Comment Sodium Level 149 MEQ/L Chloride Level 119 MEQ/L Carbon Dioxide Level 22.1 MEQ/L Anion Gap 8 MEQ/L Blood Urea Nitrogen 50 MG/DL Creatinine 2.57 MG/DL Estimat Glomerular Filtration 25 ML/MIN Rate Random Glucose 132 MG/DL Calcium Level 7.5 MG/DL Total Bilirubin 0.4 MG/DL Aspartate Amino Transf 19 U/L (AST/SGOT) Alanine Aminotransferase 21 U/L (ALT/SGPT) Alkaline Phosphatase 84 U/L Total Protein 5.4 GM/DL Albumin 2.5 GM/DL Imaging Last 48 hours Impressions Chest X-Ray 06/13/16 0500 Signed Impressions: Service Date/Time: Monday, June 13, 2016 03:18 - CONCLUSION: Stable chest x-ray with bilateral pleural effusions with associated volume loss and/or consolidation. Anthony Tai MD Chest X-Ray 06/12/16 0000 Signed Impressions: Service Date/Time: Sunday, June 12, 2016 04:53 - CONCLUSION: Stable chest x-ray with bibasilar opacities consistent with small pleural effusions with associated volume loss and/or airspace consolidation. Anthony Tai MD Assessment and Plan Assessment and Plan Problems: ST elevation [place] with temporary hemodynamic support and stenting. Moderate left ventricular dysfunction. Complete heart block--now second-degree. Acute on chronic kidney failure. Worsening anemia Fluid overload Recommendations: Continue present medical management with supportive care. There is a good chance the patient will not survive this. I did speak with the machine grainer who would only put in the permanent pacemaker if the situation stabilizes. Dr. Lay will return tomorrow. Robel Whitten MD Jun 13, 2016 09:02
[2016-06-13 09:56] LABS: BLOOD GAS BASE EXCESS -5.5 mmol/L (-2-2); BLOOD GAS CARBOXYHEMOGLOBIN 1.3 % (0-4); BLOOD GAS HCO3 19 mmol/L (22-26); BLOOD GAS METHEMOGLOBIN 1.2 % (0-2); BLOOD GAS O2 HGB SATURATION 96 % (90-100); BLOOD GAS OXYGEN CONTENT 12.3 Vol % (12.0-20.0); BLOOD GAS PCO2 31 mmHg (38-42); BLOOD GAS PO2 121 mmHg (61-120); BLOOD GAS TOTAL HGB 8.9 G/DL (12.0-16.0); TEMP CORR TO 98.6
[2016-06-13 09:57] LABS: CRITICAL VALUE NO; DRAW SITE LT RADIAL; FIO2 40 %; NUMBER OF ARTERIAL PUNCTURES 1; OXYGEN DEVICE VENTILATOR; STAT NO; ULNAR PULSE PRESENT; VENT SETTINGS AC16/600/5PEEP
[2016-06-13] MEDS: DOCUSATE SODIUM 100 MG/10 ML UDC G-TUBE SCH ×2 (10:44→20:46)
[2016-06-13] MEDS: BUMETANIDE INJ 1 MG/4 ML VIAL IV PUSH SCH (10:44)
[2016-06-13] MEDS: TICAGRELOR 90 MG TAB PO SCH ×2 (10:45→20:47)
[2016-06-13] MEDS: methylPREDNISolone SOD SUCC 40 MG/1 ML VIAL IV PUSH SCH ×2 (10:45→20:47)
[2016-06-13] MEDS: ASPIRIN 81 MG CHEW TAB PO SCH (10:45)
[2016-06-13] MEDS: CEFEPIME INJ 1,000 MG in SODIUM CHLORIDE 0.9% INJ 100 ML IV SCH ×2 (10:45→20:47)
[2016-06-13] MEDS: ATORVASTATIN 80 MG TAB PO SCH (10:46)
[2016-06-13] MEDS: FAMOTIDINE 20 MG/2 ML VIAL IV PUSH SCH ×2 (10:49→21:09)
[2016-06-13] MEDS: SODIUM CHLORIDE 0.9% FLUSH 5 ML FLUSH IVF SCH ×2 (10:49→20:47)
[2016-06-13] MEDS: POTASSIUM CL 40 MEQ/30 ML LIQ UDC NG SCH (10:50)
--- NOTE | 2016-06-13 10:58 | HHI.NPPN ---
Subjective Additional Remarks Intubated, sedated Objective Data Data 06/12/16 06/13/16 19:00 07:00 Intake Total 1050 ml 2092 ml Output Total 850 ml 650 ml Balance 200 ml 1442 ml IV Total 794 ml 2042 ml Tube Feeding 26 ml 50 ml Tube Irrigant 230 ml Output Urine Total 850 ml 650 ml # Bowel Movements 0 0 Vital Signs Date Time Temp Pulse Resp B/P Pulse Ox O2 Delivery O2 Flow Rate FiO2 06/13/16 09:15 97 40 06/13/16 04:02 95 40 06/13/16 04:00 72 06/13/16 04:00 98.0 72 20 125/74 95 Arterial Line 06/13/16 04:00 65 06/13/16 04:00 50 06/13/16 01:00 95 40 06/12/16 23:54 69 06/12/16 23:54 50 06/12/16 23:54 59 06/12/16 23:54 98.1 59 20 143/77 96 124/64 06/12/16 21:57 96 40 06/12/16 19:48 91 50 06/12/16 19:48 50 06/12/16 19:39 65 06/12/16 19:39 98.0 65 17 119/71 95 131/52 06/12/16 19:30 50 06/12/16 19:00 68 06/12/16 16:00 63 06/12/16 16:00 50 06/12/16 16:00 97.9 63 20 151/65 96 06/12/16 15:46 92 50 06/12/16 15:25 50 06/12/16 12:14 97 50 06/12/16 12:00 97.5 56 20 143/66 97 06/12/16 12:00 56 06/12/16 12:00 50 -: 06/13/16 0514 06/13/16 0514 Physical Exam General Appearance: Well Developed, No Acute Distress Neck Neck Exam: Neck Supple Pulmonary Resp Exam: Decreased Bases Cardiology CV Exam: Regular Gastrointestinal/Abdomen GI Exam: Soft Integumentary Skin Exam: Dry, Intact Extremeties Extremities Exam: No Edema Neurologic Neuro Exam: Sedated Assessment/Plan Problem List: (1) TITO (acute kidney injury) Plan: Creatinine 2.0 -> 2.4 -> 2.5 UOP 740cc -> 1500cc/ 24 hours after started in bumex 1mg IV q12 yesterday - still in positive fluid balance. TITO likely due to hypotension/ cardiogenic shock at this point he is on Dobutamine Will further increase bumex to 0.5mg/ hour. Will add albumin will observe for improvement (2) Acute respiratory failure Plan: on Vent (3) Myocardial infarction acute Plan: as above Stent RCA/PDA (4) DM (diabetes mellitus), type 2, uncontrolled Plan: Follow BG - hyperglycemia today and on IV insulin now (5) PNA (pneumonia) Plan: on Zyvox Problem Qualifiers (1) Acute respiratory failure: Qualified Code: J96.01 - Acute respiratory failure with hypoxia (2) Myocardial infarction acute: (3) DM (diabetes mellitus), type 2, uncontrolled: Qualified Code: E11.8 - Uncontrolled type 2 diabetes mellitus with complication , unspecified senior care insulin use status (4) PNA (pneumonia): Mathieu Batista MD Jun 13, 2016 10:58
--- NOTE | 2016-06-13 12:16 | EKG ---
Date Performed: 06/12/2016 Time Performed: 06:30:18 PTAGE: 65 years EKG: Possible idioventricular rhythm with slow ventricular response Possible faulty V2 - omitted from analysis IV conduction defect Anterolateral ST-T changes may be due to myocardial ischemia Low QRS voltages in limb leads Since previous tracing, no significant change noted Abnormal ECG PREVIOUS TRACING : 06/11/2016 09.26 DOCTOR: Kirill Navarrete Interpretating Date/Time 06/13/2016 12:15:33
[2016-06-13] MEDS: ALBUMIN HUMAN 25% 25 GM/100 ML BAGP IV SCH ×2 (12:18→23:34)
[2016-06-13] MEDS: fentaNYL 2,500 MCG/NS 250 ML IV SCH (12:18)
[2016-06-13] MEDS ORDERED: BUMETANIDE INJ 100 ML IV SCH (13:00)
--- NOTE | 2016-06-13 17:56 | RADRPT ---
EXAM DATE/TIME: 06/13/2016 16:26 [facility] COMPARISON: CT THORAX W/O CONTRAST, May 19, 2015, 23:29. INDICATIONS : Short of breath, effusion. RADIATION DOSE: 8.56 CTDIvol (mGy) MEDICAL HISTORY : Cardiovascular disease. Hypertension. Diabetes mellitus type 2. SURGICAL HISTORY : None. ENCOUNTER: Initial ACUITY: 1 day PAIN SCALE: 5/10 LOCATION: Bilateral chest TECHNIQUE: Volumetric scanning of the chest was performed. Using automated exposure control and adjustment of t he mA and/or kV according to patient size, radiation dose was kept as low as reasonably achievable to obtain optimal diagnostic quality images. FINDINGS: Endotracheal tube tip is in satisfactory position above the elizabeth. NG is seen with the tip in the fahad dy of the stomach. Right central line in superior vena cava. Severe coronary artery calcifications pr esent. There are moderate-sized bilateral pleural effusions and basilar dependent atelectasis in the lungs. No pneumothorax. There is anasarca. Free fluid is present in the upper abdomen. CONCLUSION: 1. Moderate bilateral pleural effusions with basilar dependent atelectasis and consolidation in the l ungs. No adenopathy. Anterior portion of the lungs are relatively clear. 2. Anasarca with ascites in the upper abdomen. 3. Endotracheal tube, nasogastric tube and right central line in satisfactory position. 4. Severe coronary artery calcifications. Manuelito Lay MD on June 13, 2016 at 17:49 Board Certified Radiologist. This report was verified electronically.
[2016-06-14] VITALS (21 sets, daily range): BP systolic 103–164; BP diastolic 64–94; PULSE 51–70; RESP 16; TEMP 96.6–97.9; O2SAT 92–100
[2016-06-14] MEDS: RESP: ALBUTEROL 2.5 MG/IPRATROPIUM 0.5 MG NEB (SCH) NEB ×6 (01:20→21:25)
[2016-06-14] MEDS: LINEZOLID 600 MG PREMIX 300 ML IV SCH ×2 (01:58→13:15)
--- NOTE | 2016-06-14 03:55 | RADRPT ---
EXAM DATE/TIME: 06/14/2016 03:14 [facility] COMPARISON: CHEST SINGLE AP, June 13, 2016, 3:18. INDICATIONS : Respiratory disease. MEDICAL HISTORY : Cardiovascular disease. Hypertension. Diabetes mellitus type 2. SURGICAL HISTORY : None. ENCOUNTER: Subsequent ACUITY: 4 - 6 days PAIN SCORE: Non-responsive. LOCATION: Bilateral chest FINDINGS: Endotracheal tube is present and the tip terminates 2.2 cm above the elizabeth. NG tube courses beneath the diaphragm, distal tip overlies expect location of the gastric fundus, side port at the EG junctio n. There is patchy airspace disease bilaterally greatest in the left lower lobe, unchanged. Small eff usions are suspected. Aortic calcification and degenerative changes of the spine. Right subclavian li ne tip overlies the SVC. CONCLUSION: No significant change has occurred. Porter Holm MD on June 14, 2016 at 3:53 Board Certified Radiologist. This report was verified electronically.
[2016-06-14] MEDS: CHLORHEXIDINE GLUCONATE 2 % 1 PACK (2 CLOTHS) TOP SCH (04:00)
[2016-06-14 04:15] LABS: BLOOD GAS BASE EXCESS -10.3 mmol/L (-2-2); BLOOD GAS HCO3 16 mmol/L (22-26); BLOOD GAS O2 HGB SATURATION 94 % (90-100); BLOOD GAS OXYGEN CONTENT 14.6 Vol % (12.0-20.0); BLOOD GAS PCO2 41 mmHg (38-42); BLOOD GAS PO2 102 mmHg (61-120); BLOOD GAS TOTAL HGB 10.9 G/DL (12.0-16.0); CRITICAL VALUE YES; DRAW SITE RT RADIAL; FIO2 100 %; NUMBER OF ARTERIAL PUNCTURES 2; OXYGEN DEVICE VENTILATOR; STAT YES; TEMP CORR TO 98.6; ULNAR PULSE PRESENT; VENT SETTINGS AC 16/600/10PEEP
[2016-06-14] MEDS ORDERED: AMIODARONE INJ 450 MG in DEXTROSE 5% IN WATE(EXCEL) INJ 241 ML IV SCH ×2 (04:15)
[2016-06-14] MEDS ORDERED: AMIODARONE INJ 150 MG in DEXTROSE 5% IN WATER 100ML INJ 97 ML IV ONE ×2 (04:15)
[2016-06-14] MEDS ORDERED: LIDOCAINE/D5W INJ 500 ML ONE (04:19)
[2016-06-14] MEDS: LIDOCAINE/D5W INJ 500 ML IV SCH ×2 (04:23→17:38)
[2016-06-14] MEDS ORDERED: SODIUM BICARBONATE 8.4% INJ 50 ML ONE ×3 (04:29→06:40)
[2016-06-14] MEDS ORDERED: SODIUM BICARBONATE 8.4% INJ 50 MEQ/50 ML SYR IV PUSH ONE ×2 (04:30→06:30)
[2016-06-14] MEDS: PIPERACIL-TAZO 3.375 GM PREMIX 50 ML IV SCH ×3 (05:22→19:00)
[2016-06-14] MEDS: PROPOFOL 1000 MG/100 ML INJ 100 ML IV SCH ×2 (05:22→17:38)
[2016-06-14] MEDS: INSULIN REGULAR (IV INFUSION) 100 UNITS in SODIUM CHLORIDE 0.9% INJ 99 ML IV SCH ×2 (05:29→16:05)
[2016-06-14 06:04] LABS: BLOOD GAS BASE EXCESS -8.3 mmol/L (-2-2); BLOOD GAS CARBOXYHEMOGLOBIN 1.2 % (0-4); BLOOD GAS HCO3 17 mmol/L (22-26); BLOOD GAS METHEMOGLOBIN 1.3 % (0-2); BLOOD GAS O2 HGB SATURATION 95 % (90-100); BLOOD GAS OXYGEN CONTENT 13.7 Vol % (12.0-20.0); BLOOD GAS PCO2 39 mmHg (38-42); BLOOD GAS PO2 111 mmHg (61-120); BLOOD GAS TOTAL HGB 10.1 G/DL (12.0-16.0); TEMP CORR TO 98.6
[2016-06-14 06:06] LABS: CRITICAL VALUE YES; DRAW SITE RT RADIAL; FIO2 85 %; NUMBER OF ARTERIAL PUNCTURES 1; OXYGEN DEVICE VENTILATOR; STAT NO; ULNAR PULSE PRESENT; VENT SETTINGS AC 16/600/10PEEP
[2016-06-14] MEDS: MIDAZOLAM 100 MG/ML INJ 100 ML IV SCH ×2 (06:27→15:40)
[2016-06-14] MEDS ORDERED: MIDAZOLAM HCL 5 MG/ML VIAL (1 ML) ONE (06:34)
[2016-06-14] MEDS ORDERED: ROCURONIUM INJ 50 MG/5 ML VIAL ONE (06:35)
[2016-06-14 07:02] LABS: AUTOMATED NEUTROPHIL # 14.1 TH/MM3 (1.8-7.7); BASOPHIL # 0.1 TH/MM3 (0-0.2); BASOPHIL % 0.4 % (0.0-2.0); HEMATOCRIT 29.8 % (39.0-51.0); LYMPH % 3.6 % (9.0-44.0); LYMPHOCYTE # 0.6 TH/MM3 (1.0-4.8); MEAN CELL VOLUME 94.2 FL (80.0-100.0); MONO % 6.2 % (0.0-8.0); NEUT % 89.8 % (16.0-70.0); PLATELET COUNT 143 TH/MM3 (150-450); RED BLOOD COUNT 3.16 MIL/MM3 (4.50-5.90); RED CELL DISTRIBUTION WIDTH 13.9 % (11.6-17.2); WHITE BLOOD COUNT 15.7 TH/MM3 (4.0-11.0)
[2016-06-14 07:04] LABS: HEMO FLAGS AUTO DIFF
[2016-06-14] MEDS: fentaNYL 2,500 MCG/NS 250 ML IV SCH ×2 (07:17→17:38)
[2016-06-14 07:23] LABS: BICARBONATE 24.5 MEQ/L (21.0-32.0); CALCIUM-PROTEIN CORRECTED 8.3 MG/DL (8.5-10.1); MAGNESIUM 2.2 MG/DL (1.5-2.5); TOTAL BILIRUBIN ADULT 0.3 MG/DL (0.2-1.0)
[2016-06-14 07:43] LABS: BANDS 6 % (0-6); NEUTROPHIL # MANUAL DIFF 14.1 TH/MM3 (1.8-7.7); PLATELET ESTIMATE SMEAR NORMAL (NORMAL); PLATELET MORPHOLOGY NORMAL (NORMAL); POLYS (SEG NEUTROPHILS) 84 % (16-70); SCAN/DIFF FINAL DIFF MANUAL; WBC DIFF SAMPLE 100
[2016-06-14] MEDS: SODIUM BICARBONATE 8.4% INJ 150 MEQ in WATER STERILE FOR INJ 850 ML IV SCH ×2 (08:00→22:18)
--- NOTE | 2016-06-14 08:08 | HHI.CCPN ---
Subjective Remarks/Hospital Course 65 year old with past medical history is significant for coronary artery disease , hypertension, diabetes mellitus, history of congestive heart failure, peripheral vascular disease who was brought o the [facility] emergency department as a STEMI alert prior to arrival by ambulance services due to a left bundle branch block and shortness of breath with diaphoresis. Initial oxygen saturation was in the 60s, patient was very anxious. Chest x- ray showed pulmonary edema Initially placed on BiPAP with no significant improvement, and later was intubated and placed on mechanical ventilation. Patient ruled in for non-ST elevation ME with a troponin of 18. His blood sugar was in the 500s. Cardiology was consulted. Aspirin and IV heparin started, for cardiogenic shock patient was placed on dopamine CCM re evaluation: I evaluated the patient in the ED. Patient remains in shock on dopamine. I placed a left subclavian central line. Repeat troponin came back at 39. I discussed with Dr. Lay. He will take the patient for cardiac catheter given acute severe ME with cardiogenic shock and pulmonary edema. Patient was also started on insulin infusion. WBC count 23.2, most likely stress related. The patient insistence output the white count I will start on empiric Zosyn, send blood urine and sputum culture SUBJ 06/10/16: Patient underwent cardiac catheterization and PCI with stent placement by Dr. Lay along with temporary transvenous pacemaker placement, and Impella placement.(PCI / JOSÉ LUIS to right coronary artery, PCI / JOSÉ LUIS to PDA). CVP 17 today, 7 kg wt gain with UO 30-40 ml per hour. Give Bumex 1 mg IV x1 06/11/16: Patient was extubated yesterday but emergently reintubated for acute hypoxemic respiratory failure at 5 PM. Overnight intermittent third-degree heart block, requiring temporary pacing. I have changed from dopamine to dobutamine today as a EF is only 25-30%. Dr. Rodríguez has seen for possible permanent pacemaker placement. Will d/w Dr. Lay about timing. Active smoker until recently, started on IV Solu-Medrol and breathing treatments 06/12: Remains in third-degree heart block, dobutamine 1.5 mcg/kg/m. Urine Output adequate but creatinine has climbed to 2.5. Blood sugar in 400s, I will place back on IV insulin protocol 06/13: Patient gets very agitated when sedation is lower, remains on Versed 7 mg per hour, fentanyl 120 g per hour. Dopamine to dobutamine hypertension. Remains in third-degree heart block now pacer capturing, back rate 58 bpm. Urine output 1.5 L in 24 hours, positive fluid balance. Change Bumex to Bumex infusion-will discuss with nephrology 06/14: Sustained VTAC, placed on lidocaine infusion. (Amio not used due to intermittent CHB). While I was rounding patient developed sev agitation with desaturation. NM paralysis with Rocuronium given. i will add propofol for vent synchrony. Will d/w Dr. Lay about PPM vs further plan. Diuresing well on Bumex gtt Objective Vital Signs Date Time Temp Pulse Resp B/P Pulse Ox O2 Delivery O2 Flow Rate FiO2 06/14/16 07:16 95 90 06/14/16 03:00 69 06/14/16 03:00 97.6 16 164/94 06/10/16 13:56 Simple Mask 6.00 Intake and Output 06/13/16 06/13/16 06/14/16 08:00 16:00 00:00 Intake Total 2092 ml 700 ml Output Total 650 ml 900 ml Balance 1442 ml -200 ml Result Diagram: 06/14/16 0645 06/14/16 0645 Other Results Microbiology Date/Time Procedure Status Source Growth 06/11/16 10:45 Gram Stain - Final Complete Sputum Endotracheal 06/11/16 10:45 Sputum Culture - Final Complete Sputum Endotracheal RARE GROWTH NORMAL RESPIRATORY ANTHONY Laboratory Tests Test 06/13/16 06/14/16 06/14/16 09:41 04:02 05:52 Blood Gas Puncture Site LT RADIAL RT RADIAL RT RADIAL Blood Gas Patient Temperature 98.6 98.6 98.6 Blood Gas HCO3 19 mmol/L 16 mmol/L 17 mmol/L (22-26) (22-26) (22-26) Blood Gas Base Excess -5.5 mmol/L -10.3 mmol/L -8.3 mmol/L (-2-2) (-2-2) (-2-2) Blood Gas Oxygen Saturation 96 % (90-100) 94 % (90-100) 95 % (90-100) Arterial Blood pH 7.40 7.22 7.27 (7.380-7.420) (7.380-7.420) (7.380-7.420) Arterial Blood Partial 31 mmHg (38-42) 41 mmHg (38-42) 39 mmHg (38-42) Pressure CO2 Arterial Blood Partial 121 mmHg 102 mmHg 111 mmHg Pressure O2 (61-120) (61-120) (61-120) Arterial Blood Oxygen Content 12.3 Vol % 14.6 Vol % 13.7 Vol % (12.0-20.0) (12.0-20.0) (12.0-20.0) Arterial Blood 1.3 % (0-4) 1.0 % (0-4) 1.2 % (0-4) Carboxyhemoglobin Arterial Blood Methemoglobin 1.2 % (0-2) 1.0 % (0-2) 1.3 % (0-2) Blood Gas Hemoglobin 8.9 G/DL 10.9 G/DL 10.1 G/DL (12.0-16.0) (12.0-16.0) (12.0-16.0) Oxygen Delivery Device VENTILATOR VENTILATOR VENTILATOR Blood Gas Ventilator Setting AC16/600/5PEEP AC AC 16/600/10PEEP 16/600/10PEEP Blood Gas Inspired Oxygen 40 % 100 % 85 % Imaging Last 24 hours Impressions Chest X-Ray 06/09/16 0120 Signed Impressions: Service Date/Time: Thursday, June 09, 2016 01:09 - CONCLUSION: Early/ mild pulmonary edema. Anthony Carroll MD Objective Remarks GENERAL: Well-nourished, well-developed patient, critically ill intubated heavily sedated with Versed and fentanyl, became agitated, with agonal breathing while on vent SKIN: Warm and dry. HEAD: Normocephalic. EYES: No scleral icterus. No injection or drainage. ENT: Orotracheally intubated NECK: Supple, trachea midline. No JVD or lymphadenopathy. CARDIOVASCULAR: Aflutter with junctional escape rhythm. No murmurs. Temporary pacemaker, intermittency pacing RESPIRATORY: Breath sounds equal bilaterally. No accessory muscle use. GASTROINTESTINAL: Abdomen soft, non-tender, nondistended. MUSCULOSKELETAL: No cyanosis, trace edema. No bleeding bilateral groin BACK: Nontender without obvious deformity. No CVA tenderness. NEURO: Intubated sedated with Versed and fentanyl. Moves extremities on holding sedation. not following commands. NM paralysis given for sev agitation causing vent dyssynchrony Urinary Catheter: Yes Assessment to: Continue Vascular Central Line Catheter: Yes Assessment to: Continue A/P Assessment and Plan Assessment and plan (by system) Neuro: -Continue Versed and fentanyl for sedation and ventilator synchrony, add propofol due to severe agitation -Intermittent NM paralysis -No sedation vacation Resp: Acute hypoxemic respiratory failure Pulmonary edema -Intubated for severe hypoxemia in ER, extubated 06/10, but failed towards evening requiring reintubation due to severe hypoxemia -Continue with assist control mechanical ventilation, daily CPAP trials -DuoNeb every 6 hours and when necessary, ventilator bundle -IV Solu-Medrol 40 every 12-change to qd -Cefepime 1 g every 12, Zyvox 600 q12 -CT chest 06/[address] effusion, basilar consolidation CVS STEMI Acute pulmonary edema Acute systolic heart failure Cardiogenic shock VTAC Third-degree heart block A Flutter Severe ischemic cardiomyopathy Status post Impella (removed 06/10), and temporary pacer placement History of CAD History of peripheral arterial disease History of hypertension History of CHF - ST elevation ME and acute cardiogenic shock and respiratory failure, s/p PCI with JOSÉ LUIS to RCA and PDA and temp pacer placement. 06/09/16 - s/p Impella removed 06/10 - Started on Lidocaine for VTAC 2 night - Holding beta blockers and MARGUERITE inhibitor due to shock, third-degree heart block - Dr. Rodríguez following fo possible PPM placement - Continue Brilinta and aspirin. Lovenox 30 mg sq 24 - 06/09/16-Echo- Systolic function was sev reduced. EF 25-30%. Previous Echo w/ EF 50-55%. Get limited echo today - Bumex gtt 0.5 mg per hour GI: -IV Protonix, tube feeds with Glucerna-hold tube feeds due to hemodynamic instability. Free water flushes : Acute kidney injury Fluid overload -Most likely ATN, Monitor renal function closely, IV Bumex 0.5mg per hour, IV Albumin -Bicarb gtt 70 ml per hour ID: MRSA in sputum, bilateral lung infiltrates indicating pneumonia. -Zyvox 600 mg IV every 12. Avoid vancomycin due to renal failure. Continue Cefepime ENDO: DM with severe hyperglycemia -IV insulin per ICU protocol, algorithm 3 -Electrolyte replacement per protocol DVT/GI prophylaxis - Pepcid. Lovenox 30 mg sq daily Critical Care: The total critical care time was 78 minutes. Time to perform other separately billable procedures was not included in the critical care time. Dispo: Patient is in very critical condition with acute ME causing cardiogenic shock, now with recurrent respiratory failure, systolic heart failure and renal failure, [facility] Barry Cruz MD Jun 14, 2016 08:08
[2016-06-14 08:36] LABS: BLOOD GAS CARBOXYHEMOGLOBIN 1.1 % (0-4); BLOOD GAS HCO3 21 mmol/L (22-26); BLOOD GAS METHEMOGLOBIN 1.3 % (0-2); BLOOD GAS O2 HGB SATURATION 97 % (90-100); BLOOD GAS PCO2 32 mmHg (38-42); BLOOD GAS PO2 190 mmHg (61-120); BLOOD GAS TOTAL HGB 12.2 G/DL (12.0-16.0); TEMP CORR TO 98.6
[2016-06-14 08:37] LABS: CRITICAL VALUE NO; DRAW SITE RT RADIAL; FIO2 90 %; NUMBER OF ARTERIAL PUNCTURES 1; OXYGEN DEVICE VENTILATOR; STAT NO; VENT SETTINGS PC/AC
[2016-06-14] MEDS: ARTIFICIAL TEARS OPTH SOLN 15 ML BTL EACH EYE SCH ×3 (09:00→18:00)
[2016-06-14] MEDS: BENEPROTEIN POWDER 1 PACK G-TUBE SCH ×3 (09:00→18:00)
[2016-06-14] MEDS: FAMOTIDINE 20 MG/2 ML VIAL IV PUSH SCH ×2 (09:00→22:05)
--- NOTE | 2016-06-14 09:01 | PD.CARD.PN ---
Subjective Subjective Remarks Over the weekend events noted Run of VT started on Lidocaine Good urine output on Bumex Objective Medications Current Medications Medications (Trade) Dose Ordered Sig/Yoselin Route Start Time Stop Time Status Last Admin (Tylenol) 650 mg Q6H PRN PO 06/09/16 02:45 06/09/16 21:02 (Morphine Inj) 2 mg Q2H PRN IV 06/09/16 02:45 (Versed Inj) 2 mg Q1H PRN IV 06/09/16 02:45 (Tears Naturale Opth Soln) 1 drop TID EACH EYE 06/09/16 09:00 06/13/16 18:00 (Zofran Inj) 4 mg Q6H PRN IV 06/09/16 02:45 (Reglan Inj) 10 mg Q6H PRN IV 06/09/16 02:45 (Colace Liq) 100 mg Q12H G-TUBE 06/09/16 09:00 06/13/16 20:46 Miscellaneous Information 1 Q361D XX 06/09/16 02:45 (Chlorhexidine 2% Cloth) Taper DAILY@04 TOP 06/09/16 04:00 06/05/17 03:59 06/14/16 04:00 Chlorhexidine Gluconate 3 pack 3 pack UNSCH PRN TOP 06/09/16 02:45 (Versed Inj) 100 ml @ 0 mls/hr TITRATE IV 06/09/16 02:45 06/14/16 06:27 (NS Flush) 2 ml UNSCH PRN IVF 06/09/16 15:00 (NS Flush) 2 ml BID IVF 06/09/16 21:00 06/13/16 20:47 (Aspirin Chew) 81 mg DAILY PO 06/10/16 09:00 06/13/16 10:45 Ticagrelor 90 mg 90 mg BID PO 06/09/16 21:00 06/13/16 20:47 (fentaNYL DRIP) 250 ml @ 0 mls/hr TITRATE IV 06/09/16 17:15 06/14/16 07:17 (KCl 40 Meq/30 ml Liq) 40 meq DAILY NG 06/11/16 09:00 06/13/16 10:50 Protein 1 pack 1 pack TID G-TUBE 06/11/16 09:00 06/13/16 18:35 (Maxipime Inj/NS Inj) 100 ml @ 200 mls/hr Q12H IV 06/11/16 09:00 06/13/16 20:47 (Lipitor) 80 mg DAILY PO 06/12/16 09:00 06/13/16 10:46 Famotidine 10 mg 10 mg Q12HR IV PUSH 06/11/16 21:00 06/13/16 21:09 Linezolid 300 ml @ 300 mls/hr Q12H IV 06/11/16 13:00 06/14/16 01:58 (NovoLIN R (IV INFUSION)/NS Inj) 100 ml @ 0 mls/hr TITRATE IV 06/12/16 06:30 06/14/16 05:29 Dextrose 25 ml 25 ml UNSCH PRN IV PUSH 06/12/16 06:30 (DOPamine INJ PREMIX) 500 ml @ 0 mls/hr TITRATE IV 06/12/16 06:45 Terbutaline Sulfate 1 mg 1 mg UNSCH PRN SQ 06/12/16 06:45 (Bumex Inj) 100 ml @ 2 mls/hr CONTINUOUS IV 06/13/16 13:00 Albumin Human 25 gm 25 gm Q12H IV 06/13/16 11:00 06/13/16 23:34 (Lidocaine/D5W Inj) 500 ml @ 30 mls/hr [id number] IV 06/14/16 04:23 06/14/16 04:23 (fentaNYL INJ) 50 mcg Q1H PRN IV PUSH 06/14/16 04:30 06/14/16 04:39 Fentanyl Citrate 100 mcg 100 mcg Q1H PRN IV PUSH 06/14/16 04:30 (Diprivan 1000 Mg/100ml Inj) 100 ml @ 0 mls/hr TITRATE IV 06/14/16 05:30 06/14/16 05:22 Methylprednisolone Sodium Succinate 40 mg 40 mg DAILY IV PUSH 06/14/16 09:00 Sodium Bicarbonate 150 meq/Sterile Water 1,000 ml @ 70 mls/hr [id number] IV 06/14/16 08:00 Propofol 100 ml @ 0 mls/hr TITRATE IV 06/14/16 08:00 (Zosyn 3.375 Gm Premix) 50 ml @ 100 mls/hr Q8H IV 06/14/16 11:00 Vital Signs / I&O Vital Signs Date Time Temp Pulse Resp B/P Pulse Ox O2 Delivery O2 Flow Rate FiO2 06/14/16 08:43 99 80 06/14/16 07:56 90 06/14/16 07:55 69 06/14/16 07:54 59 06/14/16 07:53 96.6 63 16 103/64 99 06/14/16 07:16 95 90 06/14/16 05:00 97 85 06/14/16 04:31 95 100 06/14/16 03:48 92 100 06/14/16 03:00 69 06/14/16 03:00 97.6 59 16 164/94 97 06/14/16 03:00 40 06/14/16 03:00 59 06/14/16 01:15 94 40 06/13/16 23:04 60 06/13/16 23:04 59 06/13/16 23:04 97.6 59 16 125/78 97 06/13/16 23:00 50 06/13/16 22:49 96 40 06/13/16 20:23 98 40 06/13/16 19:47 97.9 59 16 107/73 97 06/13/16 19:47 59 06/13/16 19:00 50 06/13/16 19:00 59 06/13/16 16:58 100 100 06/13/16 15:49 95 35 06/13/16 15:00 62 06/13/16 15:00 98.6 62 20 113/66 95 06/13/16 15:00 35 06/13/16 15:00 62 06/13/16 12:58 96 35 06/13/16 11:40 95 35 06/13/16 11:00 72 06/13/16 11:00 50 06/13/16 11:00 98.4 72 20 103/64 95 06/13/16 11:00 69 06/13/16 09:15 97 40 I/O 06/13/16 06/13/16 06/13/16 06/14/16 06/14/16 06/14/16 07:00 15:00 23:00 07:00 15:00 23:00 Intake Total 2092 ml 700 ml 1130 ml Output Total 650 ml 900 ml 1400 ml Balance 1442 ml -200 ml -270 ml IV Total 2042 ml 280 ml 1130 ml Tube Feeding 50 ml 320 ml Tube Irrigant 100 ml Output Urine Total 650 ml 900 ml 1400 ml # Bowel Movements 0 0 1 Physical Exam GENERAL: Sedated, intubated. SKIN: Warm and dry. HEAD: Normocephalic. EYES: No scleral icterus. No injection or drainage. NECK: Supple, trachea midline. No JVD or lymphadenopathy. CARDIOVASCULAR: Regular rate and rhythm without murmurs, gallops, or rubs. RESPIRATORY: Breath sounds equal bilaterally. No accessory muscle use. GASTROINTESTINAL: Abdomen soft, non-tender, nondistended. EXTREMITIES: No cyanosis, +2 edema. Laboratory Laboratory Tests Test 06/13/16 06/14/16 06/14/16 06/14/16 09:41 04:02 05:52 06:45 Blood Gas Puncture Site LT RADIAL RT RADIAL RT RADIAL Blood Gas Patient Temperature 98.6 98.6 98.6 Blood Gas HCO3 19 mmol/L 16 mmol/L 17 mmol/L Blood Gas Base Excess -5.5 mmol/L -10.3 mmol/L -8.3 mmol/L Blood Gas Oxygen Saturation 96 % 94 % 95 % Arterial Blood pH 7.40 7.22 7.27 Arterial Blood Partial 31 mmHg 41 mmHg 39 mmHg Pressure CO2 Arterial Blood Partial 121 mmHg 102 mmHg 111 mmHg Pressure O2 Arterial Blood Oxygen Content 12.3 Vol % 14.6 Vol % 13.7 Vol % Arterial Blood 1.3 % 1.0 % 1.2 % Carboxyhemoglobin Arterial Blood Methemoglobin 1.2 % 1.0 % 1.3 % Blood Gas Hemoglobin 8.9 G/DL 10.9 G/DL 10.1 G/DL Oxygen Delivery Device VENTILATOR VENTILATOR VENTILATOR Blood Gas Ventilator Setting AC16/600/5PEEP AC AC 16/600/10PEEP 16/600/10PEEP Blood Gas Inspired Oxygen 40 % 100 % 85 % White Blood Count 15.7 TH/MM3 Red Blood Count 3.16 MIL/MM3 Hemoglobin 9.8 GM/DL Hematocrit 29.8 % Mean Corpuscular Volume 94.2 FL Mean Corpuscular Hemoglobin 31.0 PG Mean Corpuscular Hemoglobin 33.0 % Concent Red Cell Distribution Width 13.9 % Platelet Count 143 TH/MM3 Mean Platelet Volume 10.6 FL Neutrophils (%) (Auto) 89.8 % Lymphocytes (%) (Auto) 3.6 % Monocytes (%) (Auto) 6.2 % Eosinophils (%) (Auto) 0.0 % Basophils (%) (Auto) 0.4 % Neutrophils # (Auto) 14.1 TH/MM3 Lymphocytes # (Auto) 0.6 TH/MM3 Monocytes # (Auto) 1.0 TH/MM3 Eosinophils # (Auto) 0.0 TH/MM3 Basophils # (Auto) 0.1 TH/MM3 CBC Comment AUTO DIFF Differential Total Cells 100 Counted Neutrophils % (Manual) 84 % Band Neutrophils % 6 % Lymphocytes % 5 % Monocytes % 5 % Neutrophils # (Manual) 14.1 TH/MM3 Differential Comment FINAL DIFF MANUAL Platelet Estimate NORMAL Platelet Morphology Comment NORMAL Sodium Level 152 MEQ/L Potassium Level 4.0 MEQ/L Chloride Level 116 MEQ/L Carbon Dioxide Level 24.5 MEQ/L Anion Gap 12 MEQ/L Blood Urea Nitrogen 53 MG/DL Creatinine 2.70 MG/DL Estimat Glomerular Filtration 24 ML/MIN Rate Random Glucose 206 MG/DL Lactic Acid Level 2.6 mmol/L Calcium Level 7.4 MG/DL Protein Corrected Calcium 8.3 MG/DL Magnesium Level 2.2 MG/DL Total Bilirubin 0.3 MG/DL Aspartate Amino Transf 25 U/L (AST/SGOT) Alanine Aminotransferase 24 U/L (ALT/SGPT) Alkaline Phosphatase 81 U/L Total Protein 5.5 GM/DL Albumin 2.8 GM/DL Test 06/14/16 08:22 Blood Gas Puncture Site RT RADIAL Blood Gas Patient Temperature 98.6 Blood Gas HCO3 21 mmol/L Blood Gas Base Excess -3.0 mmol/L Blood Gas Oxygen Saturation 97 % Arterial Blood pH 7.43 Arterial Blood Partial 32 mmHg Pressure CO2 Arterial Blood Partial 190 mmHg Pressure O2 Arterial Blood Oxygen Content 17.0 Vol % Arterial Blood 1.1 % Carboxyhemoglobin Arterial Blood Methemoglobin 1.3 % Blood Gas Hemoglobin 12.2 G/DL Oxygen Delivery Device VENTILATOR Blood Gas Ventilator Setting PC/AC Blood Gas Inspired Oxygen 90 % Imaging Last Impressions Chest X-Ray 06/14/16 0600 Signed Impressions: Service Date/Time: Tuesday, June 14, 2016 03:14 - CONCLUSION: No significant change has occurred. Porter Holm MD Chest CT 06/13/16 0000 Signed Impressions: Service Date/Time: Monday, June 13, 2016 16:26 - CONCLUSION: 1. Moderate bilateral pleural effusions with basilar dependent atelectasis and consolidation in the lungs. No adenopathy. Anterior portion of the lungs are relatively clear. 2. Anasarca with ascites in the upper abdomen. 3. Endotracheal tube, nasogastric tube and right central line in satisfactory position. 4. Severe coronary artery calcifications. Manuelito Lay MD Assessment and Plan Problem List: (1) Myocardial infarction acute Assessment and Plan: s/p PCI RCA in the setting of STEMI Critically ill Intubated Intermittent 3 degree AV Block Continue current supportive management Schedule for AICD/PPM today with Dr. Rodríguez (2) AV block, complete Problem Qualifiers (1) Myocardial infarction acute: Gonsalo Fu MD Jun 14, 2016 09:01
[2016-06-14] MEDS: TICAGRELOR 90 MG TAB PO SCH ×2 (09:17→21:00)
[2016-06-14] MEDS: POTASSIUM CL 40 MEQ/30 ML LIQ UDC NG SCH (09:18)
[2016-06-14] MEDS: CEFEPIME INJ 1,000 MG in SODIUM CHLORIDE 0.9% INJ 100 ML IV SCH ×2 (09:18→22:06)
[2016-06-14] MEDS: ATORVASTATIN 80 MG TAB PO SCH (09:18)
[2016-06-14] MEDS: methylPREDNISolone SOD SUCC 40 MG/1 ML VIAL IV PUSH SCH (09:18)
[2016-06-14] MEDS: DOCUSATE SODIUM 100 MG/10 ML UDC G-TUBE SCH ×2 (09:18→22:05)
[2016-06-14] MEDS: ASPIRIN 81 MG CHEW TAB PO SCH (09:18)
[2016-06-14] MEDS: ALBUMIN HUMAN 25% 25 GM/100 ML BAGP IV SCH ×2 (09:19→22:05)
[2016-06-14] MEDS: SODIUM CHLORIDE 0.9% FLUSH 5 ML FLUSH IVF SCH ×2 (10:20→22:07)
--- NOTE | 2016-06-14 10:29 | HHI.PR ---
Subjective Remarks On mechanical ventilation Objective Vital Signs Date Time Temp Pulse Resp B/P Pulse Ox O2 Delivery O2 Flow Rate FiO2 06/14/16 09:17 99 70 06/14/16 08:43 99 80 06/14/16 07:56 90 06/14/16 07:55 69 06/14/16 07:54 59 06/14/16 07:53 96.6 63 16 103/64 99 06/14/16 07:16 95 90 06/14/16 05:00 97 85 06/14/16 04:31 95 100 06/14/16 03:48 92 100 06/14/16 03:00 69 06/14/16 03:00 97.6 59 16 164/94 97 06/14/16 03:00 40 06/14/16 03:00 59 06/14/16 01:15 94 40 06/13/16 23:04 60 06/13/16 23:04 59 06/13/16 23:04 97.6 59 16 125/78 97 06/13/16 23:00 50 06/13/16 22:49 96 40 06/13/16 20:23 98 40 06/13/16 19:47 97.9 59 16 107/73 97 06/13/16 19:47 59 06/13/16 19:00 50 06/13/16 19:00 59 06/13/16 16:58 100 100 06/13/16 15:49 95 35 06/13/16 15:00 62 06/13/16 15:00 98.6 62 20 113/66 95 06/13/16 15:00 35 06/13/16 15:00 62 06/13/16 12:58 96 35 06/13/16 11:40 95 35 06/13/16 11:00 72 06/13/16 11:00 50 06/13/16 11:00 98.4 72 20 103/64 95 06/13/16 11:00 69 I/O 06/13/16 06/13/16 06/13/16 06/14/16 06/14/16 06/14/16 07:00 15:00 23:00 07:00 15:00 23:00 Intake Total 2092 ml 700 ml 1130 ml Output Total 650 ml 900 ml 1400 ml Balance 1442 ml -200 ml -270 ml IV Total 2042 ml 280 ml 1130 ml Tube Feeding 50 ml 320 ml Tube Irrigant 100 ml Output Urine Total 650 ml 900 ml 1400 ml # Bowel Movements 0 0 1 Result Diagram: 06/14/16 0645 06/14/16 0645 Imaging Sedated, on mechanical ventilation, with a temporary pacer Lungs: ventilated Heart: S1, S2 irregular Abdomen: obese , no mass Ext: no edema Last Impressions Chest X-Ray 06/14/16 0600 Signed Impressions: Service Date/Time: Tuesday, June 14, 2016 03:14 - CONCLUSION: No significant change has occurred. Porter Holm MD Chest CT 06/13/16 0000 Signed Impressions: Service Date/Time: Monday, June 13, 2016 16:26 - CONCLUSION: 1. Moderate bilateral pleural effusions with basilar dependent atelectasis and consolidation in the lungs. No adenopathy. Anterior portion of the lungs are relatively clear. 2. Anasarca with ascites in the upper abdomen. 3. Endotracheal tube, nasogastric tube and right central line in satisfactory position. 4. Severe coronary artery calcifications. Manuelito Lay MD Current Medications Medications (Trade) Dose Ordered Sig/Yoselin Route Start Time Stop Time Status Last Admin (Tylenol) 650 mg Q6H PRN PO 06/09/16 02:45 06/09/16 21:02 (Morphine Inj) 2 mg Q2H PRN IV 06/09/16 02:45 (Versed Inj) 2 mg Q1H PRN IV 06/09/16 02:45 (Tears Naturale Opth Soln) 1 drop TID EACH EYE 06/09/16 09:00 06/13/16 18:00 (Zofran Inj) 4 mg Q6H PRN IV 06/09/16 02:45 (Reglan Inj) 10 mg Q6H PRN IV 06/09/16 02:45 (Colace Liq) 100 mg Q12H G-TUBE 06/09/16 09:00 06/14/16 09:18 Miscellaneous Information 1 Q361D XX 06/09/16 02:45 (Chlorhexidine 2% Cloth) Taper DAILY@04 TOP 06/09/16 04:00 06/05/17 03:59 06/14/16 04:00 Chlorhexidine Gluconate 3 pack 3 pack UNSCH PRN TOP 06/09/16 02:45 (Versed Inj) 100 ml @ 0 mls/hr TITRATE IV 06/09/16 02:45 06/14/16 06:27 (NS Flush) 2 ml UNSCH PRN IVF 06/09/16 15:00 (NS Flush) 2 ml BID IVF 06/09/16 21:00 06/13/16 20:47 (Aspirin Chew) 81 mg DAILY PO 06/10/16 09:00 06/14/16 09:18 Ticagrelor 90 mg 90 mg BID PO 06/09/16 21:00 06/14/16 09:17 (fentaNYL DRIP) 250 ml @ 0 mls/hr TITRATE IV 06/09/16 17:15 06/14/16 07:17 (KCl 40 Meq/30 ml Liq) 40 meq DAILY NG 06/11/16 09:00 06/14/16 09:18 Protein 1 pack 1 pack TID G-TUBE 06/11/16 09:00 06/13/16 18:35 (Maxipime Inj/NS Inj) 100 ml @ 200 mls/hr Q12H IV 06/11/16 09:00 06/14/16 09:18 (Lipitor) 80 mg DAILY PO 06/12/16 09:00 06/14/16 09:18 Famotidine 10 mg 10 mg Q12HR IV PUSH 06/11/16 21:00 06/13/16 21:09 Linezolid 300 ml @ 300 mls/hr Q12H IV 06/11/16 13:00 06/14/16 01:58 (NovoLIN R (IV INFUSION)/NS Inj) 100 ml @ 0 mls/hr TITRATE IV 06/12/16 06:30 06/14/16 05:29 Dextrose 25 ml 25 ml UNSCH PRN IV PUSH 06/12/16 06:30 (DOPamine INJ PREMIX) 500 ml @ 0 mls/hr TITRATE IV 06/12/16 06:45 Terbutaline Sulfate 1 mg 1 mg UNSCH PRN SQ 06/12/16 06:45 (Bumex Inj) 100 ml @ 2 mls/hr CONTINUOUS IV 06/13/16 13:00 Albumin Human 25 gm 25 gm Q12H IV 06/13/16 11:00 06/14/16 09:19 (Lidocaine/D5W Inj) 500 ml @ 30 mls/hr [id number] IV 06/14/16 04:23 06/14/16 04:23 (fentaNYL INJ) 50 mcg Q1H PRN IV PUSH 06/14/16 04:30 06/14/16 04:39 Fentanyl Citrate 100 mcg 100 mcg Q1H PRN IV PUSH 06/14/16 04:30 (Diprivan 1000 Mg/100ml Inj) 100 ml @ 0 mls/hr TITRATE IV 06/14/16 05:30 06/14/16 05:22 Methylprednisolone Sodium Succinate 40 mg 40 mg DAILY IV PUSH 06/14/16 09:00 06/14/16 09:18 Sodium Bicarbonate 150 meq/Sterile Water 1,000 ml @ 70 mls/hr [id number] IV 06/14/16 08:00 Propofol 100 ml @ 0 mls/hr TITRATE IV 06/14/16 08:00 (Zosyn 3.375 Gm Premix) 50 ml @ 100 mls/hr Q8H IV 06/14/16 11:00 Assessment and Plan Problem List: (1) AV block, complete Status: Acute Plan: Patient continue with AV block. Pacing by a temporary pacer On mechanical ventilation. I discussed the case extensively with Dr Lay and Dr Cruz. They want a device insertion before extubating the patient. Patient currently on IV antibiotic. Dr Cruz cleared the patient. Also there is an issue of ventricular tachycardia requiring IV lidocaine. Patient has an EF of 25%. PA last week. VT happen 4 days post PA. This is not an acute ischemia setting. Case discussed with the managing team. I agree with them. Because ventricular tachycardia happen days after PA, was sustained, requiring treatment, that should be considered as secondary prevention. Because of that a dual chamber ICD will be implanted. Family will be informed and consent will be obtained. (2) CHF (congestive heart failure) Status: Acute Plan: Creat high. MARGUERITE inhibitor cannot be used now. Also because of AV block and low BP, beta jaqueline was not added (3) Ventricular tachycardia Status: Acute Plan: Long episode requiring lidocaine administration Madeline Rodríguez MD Jun 14, 2016 09:44
--- NOTE | 2016-06-14 11:39 | EKG ---
Date Performed: 06/14/2016 Time Performed: 05:41:14 PTAGE: 65 years EKG: Atrial fibrillation Demand pacing IV conduction defect Ant/septal and lateral ST-T changes are nonspecific Low QRS voltages in limb leads Abnormal ECG PREVIOUS TRACING : 06/12/2016 06.30 DOCTOR: Gonsalo Fu Interpretating Date/Time 06/16/2016 08:19:36
[2016-06-14] MEDS ORDERED: EPINEPHrine HCL (1:10,000) 1 MG/10 ML SYRINGE ONE (17:35)
[2016-06-14] MEDS ORDERED: LIDOCAINE HCL 2% 100 MG/5 ML SYRINGE ONE (17:35)
[2016-06-14] MEDS ORDERED: ATROPINE SULFATE 1 MG/10 ML SYRINGE ONE (17:35)
[2016-06-14] MEDS ORDERED: VANCOMYCIN 500 MG VIAL ONE (18:25)
[2016-06-14] MEDS ORDERED: LIDOCAINE HCL 2% 50 ML VIAL ONE (18:25)
[2016-06-14] MEDS ORDERED: VANCOMYCIN HCL 1000 MG VIAL ONE (18:25)
[2016-06-14] MEDS ORDERED: ceFAZolin INJ 1,000 MG VIAL ONE (18:26)
--- NOTE | 2016-06-14 19:02 | ECHLIM ---
Study Study Date:06/14/2016 STUDY CONCLUSIONS SUMMARY LEFT VENTRICLE: The cavity size was normal. Wall thickness was increased in a pattern of mild LVH. Systolic function was severely reduced. The estimated ejection fraction was in the range of 25% to 30%. Diffuse hypokinesis. If LV function is below 40, please consider prescribing an ACEI or ARB or document rationale for non-use. PROCEDURE DATA STUDY STATUS: Elective. Procedure: Transthoracic echocardiography. Image quality was fair. Scanning was performed from the parasternal, apical, and subcostal acoustic windows. Study completion: The patient tolerated the procedure well. Transthoracic echocardiography. M-mode, complete 2D, complete spectral Doppler, and color Doppler. Patient status: Inpatient. CARDIAC ANATOMY LEFT VENTRICLE: The cavity size was normal. Wall thickness was increased in a pattern of mild LVH. Systolic function was severely reduced. The estimated ejection fraction was in the range of 25% to 30%. Diffuse hypokinesis. AORTIC VALVE: Trileaflet; normal thickness leaflets. Doppler: Transvalvular velocity was within the normal range. There was no stenosis. No regurgitation. AORTA: Aortic root: The aortic root was normal in size. MITRAL VALVE: Structurally normal valve. Doppler: Transvalvular velocity was within the normal range. There was no evidence for stenosis. Trace to mild regurgitation. LEFT ATRIUM: The atrium was normal in size. RIGHT VENTRICLE: The cavity size was normal. Wall thickness was normal. PULMONIC VALVE: Doppler: Transvalvular velocity was within the normal range. There was no evidence for stenosis. No regurgitation. TRICUSPID VALVE: Structurally normal valve. Doppler: Transvalvular velocity was within the normal range. No regurgitation. PULMONARY ARTERY: The main pulmonary artery was normal-sized. Systolic pressure was within the normal range. RIGHT ATRIUM: The atrium was normal in size. PERICARDIUM: There wasa very smallpericardial effusion. SYSTEMIC VEINS: Inferior vena cava: The vessel was dilated. BASIC MEASUREMENTS ADULT NORMAL Left ventricle LV internal dimension, ED, chordal level, 51.3 mm 43-52 PLAX LV internal dimension, ES, chordal level, *44.7 mm 23-38 PLAX Fractional shortening, chordal level, PLAX *13 % >29 LV posterior wall thickness, ED 12 mm IVS/LVPW ratio, ED *1.73 <1.3 Ventricular septum Septal thickness, ED 20.8 mm Right ventricle RV internal dimension, ED, PLAX 28.3 mm 19-38 LEGEND: Mean values are shown as u=mean value. Asterisk (*) em values outside specified normal range. Amended Román Rocha [id number]
[2016-06-14] MEDS ORDERED: SODIUM CHLORIDE 0.9% FLUSH 5 ML FLUSH IVF PRN (19:15)
[2016-06-14] MEDS ORDERED: SODIUM CHLORIDE 0.9% FLUSH 5 ML FLUSH IVF SCH (21:00)
--- NOTE | 2016-06-14 22:38 | RADRPT ---
EXAM DATE/TIME: 06/14/2016 21:42 [facility] COMPARISON: CHEST SINGLE AP, June 14, 2016, 3:14. INDICATIONS : Pacemaker insertion. MEDICAL HISTORY : Diabetes mellitus type II. hypertension SURGICAL HISTORY : Pacemaker. ENCOUNTER: Initial ACUITY: 2 days PAIN SCORE: Non-responsive. LOCATION: Bilateral upper chest FINDINGS: A single view of the chest demonstrates endotracheal tube in satisfactory position. NG enters stomach . Right central line in superior vena cava. Pacer lead overlies right atrium and right ventricle. Morgan ateral mostly basilar dependent air space disease. Small effusions. No pneumothorax. CONCLUSION: 1. Support apparatus in satisfactory position. Bilateral mostly basilar airspace disease and small ef fusions. Manuelito Lay MD on June 14, 2016 at 22:36 Board Certified Radiologist. This report was verified electronically.
[2016-06-15] VITALS (18 sets, daily range): BP systolic 131–167; BP diastolic 67–84; PULSE 70–76; RESP 14–19; TEMP 95.9–100.4; O2SAT 95–100
[2016-06-15 00:23] LABS: BLOOD GAS BASE EXCESS -0.3 mmol/L (-2-2); BLOOD GAS CARBOXYHEMOGLOBIN 1.3 % (0-4); BLOOD GAS HCO3 23 mmol/L (22-26); BLOOD GAS METHEMOGLOBIN 1.1 % (0-2); BLOOD GAS O2 HGB SATURATION 95 % (90-100); BLOOD GAS OXYGEN CONTENT 12.1 Vol % (12.0-20.0); BLOOD GAS PCO2 31 mmHg (38-42); BLOOD GAS PO2 88 mmHg (61-120); TEMP CORR TO 98.6
[2016-06-15 00:24] LABS: CRITICAL VALUE NO; DRAW SITE RT RADIAL; FIO2 50 %; NUMBER OF ARTERIAL PUNCTURES 1; OXYGEN DEVICE VENTILATOR; STAT NO; ULNAR PULSE O; VENT SETTINGS PC/AC/
[2016-06-15] MEDS: RESP: ALBUTEROL 2.5 MG/IPRATROPIUM 0.5 MG NEB (SCH) NEB ×6 (00:30→22:23)
[2016-06-15] MEDS: LINEZOLID 600 MG PREMIX 300 ML IV SCH ×3 (00:38→23:56)
[2016-06-15] MEDS: PROPOFOL 1000 MG/100 ML INJ 100 ML IV SCH ×4 (00:38→18:43)
[2016-06-15] MEDS ORDERED: DEXTROSE 50% IN WATER 50 ML VIAL(D50) IV PUSH PRN (03:30)
[2016-06-15] MEDS ORDERED: GLUCAGON 1 MG/ML VIAL OTHER PRN (03:30)
[2016-06-15] MEDS: PIPERACIL-TAZO 3.375 GM PREMIX 50 ML IV SCH ×3 (03:46→18:43)
[2016-06-15] MEDS: MIDAZOLAM 100 MG/ML INJ 100 ML IV SCH (03:47)
[2016-06-15] MEDS: CHLORHEXIDINE GLUCONATE 2 % 1 PACK (2 CLOTHS) TOP SCH (03:47)
[2016-06-15] MEDS: INSULIN NovoLIN REGULAR SUPPLEMENTAL SCALE SQ SCH ×6 (04:25→23:56)
[2016-06-15 04:49] LABS: AUTOMATED NEUTROPHIL # 8.2 TH/MM3 (1.8-7.7); BASOPHIL % 0.2 % (0.0-2.0); EOSINOPHIL % 0.2 % (0.0-4.0); HEMATOCRIT 25.5 % (39.0-51.0); HEMO FLAGS DIFF FINAL; LYMPH % 18.5 % (9.0-44.0); MEAN CELL VOLUME 92.5 FL (80.0-100.0); MEAN CORPUSCULAR HEMOGLOBIN 31.8 PG (27.0-34.0); MEAN CORPUSCULAR HGB CONC 34.4 % (32.0-36.0); NEUT % 76.1 % (16.0-70.0); PLATELET COUNT 115 TH/MM3 (150-450); RED BLOOD COUNT 2.76 MIL/MM3 (4.50-5.90); RED CELL DISTRIBUTION WIDTH 13.9 % (11.6-17.2); WHITE BLOOD COUNT 10.7 TH/MM3 (4.0-11.0)
[2016-06-15 04:54] LABS: ALKALINE PHOSPHATASE 61 U/L (45-117); ALT (GPT) 21 U/L (12-78); ANION GAP 10 MEQ/L (5-15); AST (GOT) 17 U/L (15-37); BICARBONATE 27.9 MEQ/L (21.0-32.0); BLOOD UREA NITROGEN 53 MG/DL (7-18); CHLORIDE 111 MEQ/L (98-107); GLOMERULAR FILTRATION RATE 24 ML/MIN (>89); MAGNESIUM 2.1 MG/DL (1.5-2.5); SODIUM (NA) 149 MEQ/L (136-145); TOTAL BILIRUBIN ADULT 0.4 MG/DL (0.2-1.0)
--- NOTE | 2016-06-15 05:52 | RADRPT ---
EXAM DATE/TIME: 06/15/2016 03:58 [facility] COMPARISON: CHEST SINGLE AP, June 14, 2016, 21:42. INDICATIONS : Shortness of breath. MEDICAL HISTORY : Hypertension. Cardiovascular disease. Diabetes mellitus type II. SURGICAL HISTORY : Pacemaker. ENCOUNTER: Subsequent ACUITY: 1 day PAIN SCORE: Non-responsive. LOCATION: Bilateral chest FINDINGS: Bilateral pleural effusions, lower lobe consolidation and cardiomegaly. Endotracheal tube tip termina angel 2.6 cm above the elizabeth. NG tube courses beneath the diaphragm. Right subclavian line tip overlie s the SVC. There are degenerative changes of the spine. Cardiac pacer/ICD device again seen. CONCLUSION: No significant change has occurred. Porter Holm MD on June 15, 2016 at 5:50 Board Certified Radiologist. This report was verified electronically.
--- NOTE | 2016-06-15 07:25 | HHI.CCPN ---
Subjective Remarks/Hospital Course 65 year old with past medical history is significant for coronary artery disease , hypertension, diabetes mellitus, history of congestive heart failure, peripheral vascular disease who was brought o the [facility] emergency department as a STEMI alert prior to arrival by ambulance services due to a left bundle branch block and shortness of breath with diaphoresis. Initial oxygen saturation was in the 60s, patient was very anxious. Chest x- ray showed pulmonary edema Initially placed on BiPAP with no significant improvement, and later was intubated and placed on mechanical ventilation. Patient ruled in for non-ST elevation AZ with a troponin of 18. His blood sugar was in the 500s. Cardiology was consulted. Aspirin and IV heparin started, for cardiogenic shock patient was placed on dopamine CCM re evaluation: I evaluated the patient in the ED. Patient remains in shock on dopamine. I placed a left subclavian central line. Repeat troponin came back at 39. I discussed with Dr. Lay. He will take the patient for cardiac catheter given acute severe AZ with cardiogenic shock and pulmonary edema. Patient was also started on insulin infusion. WBC count 23.2, most likely stress related. The patient insistence output the white count I will start on empiric Zosyn, send blood urine and sputum culture SUBJ 06/10/16: Patient underwent cardiac catheterization and PCI with stent placement by Dr. Lay along with temporary transvenous pacemaker placement, and Impella placement.(PCI / JOSÉ LUIS to right coronary artery, PCI / JOSÉ LUIS to PDA). CVP 17 today, 7 kg wt gain with UO 30-40 ml per hour. Give Bumex 1 mg IV x1 06/11/16: Patient was extubated yesterday but emergently reintubated for acute hypoxemic respiratory failure at 5 PM. Overnight intermittent third-degree heart block, requiring temporary pacing. I have changed from dopamine to dobutamine today as a EF is only 25-30%. Dr. Rodríguez has seen for possible permanent pacemaker placement. Will d/w Dr. Lay about timing. Active smoker until recently, started on IV Solu-Medrol and breathing treatments 06/12: Remains in third-degree heart block, dobutamine 1.5 mcg/kg/m. Urine Output adequate but creatinine has climbed to 2.5. Blood sugar in 400s, I will place back on IV insulin protocol 06/13: Patient gets very agitated when sedation is lower, remains on Versed 7 mg per hour, fentanyl 120 g per hour. Dopamine to dobutamine hypertension. Remains in third-degree heart block now pacer capturing, back rate 58 bpm. Urine output 1.5 L in 24 hours, positive fluid balance. Change Bumex to Bumex infusion-will discuss with nephrology 06/14: Sustained VTAC, placed on lidocaine infusion. (Amio not used due to intermittent CHB). While I was rounding patient developed sev agitation with desaturation. NM paralysis with Rocuronium given. i will add propofol for vent synchrony. Will d/w Dr. Lay about PPM vs further plan. Diuresing well on Bumex gtt 06/15: Patient received AICD/dual-chamber pacemaker implant yesterday by Dr. Rodríguez. Patient is fully paced at 70 bpm no further episodes of ventricle tachycardia, lidocaine had been discontinued. Remains heavily sedated, chest x- ray shows bilateral effusions. UO excellent on Bumex gtt >7L Objective Vital Signs Date Time Temp Pulse Resp B/P Pulse Ox O2 Delivery O2 Flow Rate FiO2 06/15/16 06:00 70 06/15/16 04:00 98.1 16 146/75 100 06/15/16 03:24 40 Intake and Output 06/14/16 06/14/16 06/15/16 08:00 16:00 00:00 Intake Total 1130 ml 860 ml Output Total 1400 ml 2450 ml 1000 ml Balance -270 ml -2450 ml -140 ml Result Diagram: 06/15/16 0405 06/15/16 0405 Other Results Laboratory Tests Test 06/14/16 06/15/16 08:22 00:09 Blood Gas Puncture Site RT RADIAL RT RADIAL Blood Gas Patient Temperature 98.6 98.6 Blood Gas HCO3 21 mmol/L 23 mmol/L (22-26) (22-26) Blood Gas Base Excess -3.0 mmol/L -0.3 mmol/L (-2-2) (-2-2) Blood Gas Oxygen Saturation 97 % (90-100) 95 % (90-100) Arterial Blood pH 7.43 7.48 (7.380-7.420) (7.380-7.420) Arterial Blood Partial 32 mmHg (38-42) 31 mmHg (38-42) Pressure CO2 Arterial Blood Partial 190 mmHg 88 mmHg Pressure O2 (61-120) (61-120) Arterial Blood Oxygen Content 17.0 Vol % 12.1 Vol % (12.0-20.0) (12.0-20.0) Arterial Blood 1.1 % (0-4) 1.3 % (0-4) Carboxyhemoglobin Arterial Blood Methemoglobin 1.3 % (0-2) 1.1 % (0-2) Blood Gas Hemoglobin 12.2 G/DL 9.0 G/DL (12.0-16.0) (12.0-16.0) Oxygen Delivery Device VENTILATOR VENTILATOR Blood Gas Ventilator Setting PC/AC PC/AC/ Blood Gas Inspired Oxygen 90 % 50 % Imaging Last 24 hours Impressions Chest X-Ray 06/09/16 0120 Signed Impressions: Service Date/Time: Thursday, June 09, 2016 01:09 - CONCLUSION: Early/ mild pulmonary edema. Anthony Carroll MD Objective Remarks GENERAL: Well-nourished, well-developed patient, critically ill intubated heavily sedated with Propofol, Versed and fentanyl SKIN: Warm and dry. HEAD: Normocephalic. EYES: No scleral icterus. No injection or drainage. ENT: Orotracheally intubated NECK: Supple, trachea midline. No JVD or lymphadenopathy. CARDIOVASCULAR: Paced at 70 b beats per minute, no murmurs. L upper chest AICD dressing clean dry RESPIRATORY: Breath sounds equal bilaterally. Diminished breath sounds at the bases. Bilateral pleural effusions on bedside ultrasound GASTROINTESTINAL: Abdomen soft, non-tender, nondistended. MUSCULOSKELETAL: No cyanosis, trace edema. No bleeding bilateral groin BACK: Nontender without obvious deformity. No CVA tenderness. NEURO: Intubated sedated with Propofol Versed and fentanyl. Moves extremities on holding sedation. not following commands. NM paralysis given for severe agitation causing vent dyssynchrony A/P Assessment and Plan Assessment and plan (by system) Neuro: -Continue propofol and fentanyl for sedation and ventilator synchrony, DC Versed -Start Precedex to facilitate ventilator weaning now as patient has AICD/ pacemaker -Start SAT today Resp: Acute hypoxemic respiratory failure Pulmonary edema Bilateral pleural effusions -Intubated for severe hypoxemia on arrival in ER, extubated 2/2, but failed towards evening requiring reintubation due to severe hypoxemia -Continue with assist control mechanical ventilation, daily CPAP trials, starting today -Monseb every 6 hours and when necessary, ventilator bundle -IV Solu-Medrol 40 daily -Zosyn, Zyvox. DC Cefepime -CT chest 06/[address] effusion, basilar consolidation. Check bedside US today for possible thoracentesis CVS STEMI Acute pulmonary edema Acute systolic heart failure [facility] Third-degree heart block A Flutter s/p AICD 06/14/16 Cardiogenic shock-resolved Severe ischemic cardiomyopathy Status post Impella (removed 06/10), and temporary pacer placement History of CAD History of peripheral arterial disease History of hypertension History of CHF - s/p AICD 06/14/[address] Rodríguez. Lidocaine discontinued, no arrhythmia in 24 hours - Admitted with ST elevation AZ and acute cardiogenic shock and respiratory failure, s/p PCI with JOSÉ LUIS to RCA and PDA and temp pacer placement. 06/09/16 - s/p Impella removal 06/10 - Holding beta blockers and MARGUERITE inhibitor due to shock, third-degree heart block. Introducer beta jaqueline at low dose as patient has AICD/PPM today (coreg 3.125 BID) - Continue Brilinta and aspirin. - 06/09/16-Echo- Systolic function was sev reduced. EF 25-30%. Previous Echo w/ EF 50-55%. - Bumex gtt 0.5 mg per hour with excellent UO GI: -IV Protonix, tube feeds with Glucerna. Free water flushes : Acute kidney injury Fluid overload -Most likely ATN, Monitor renal function closely, IV Bumex 0.5mg per hour, IV Albumin -Bicarb gtt 70 ml per hour -UO >7L in 24 hours ID: MRSA in sputum, bilateral lung infiltrates indicating pneumonia. -Zyvox 600 mg IV every 12. Continue Zosyn ENDO: DM with severe hyperglycemia -Medium sliding scale -Electrolyte replacement per protocol DVT/GI prophylaxis - Pepcid. Heparin 5000 sq q12 Critical Care: The total critical care time was 40 minutes. Time to perform other separately billable procedures was not included in the critical care time. Dispo: Patient is in very critical condition with acute AZ with complication including cardiogenic shock, now with recurrent respiratory failure, systolic heart failure and renal failure, [facility] Barry Cruz MD Jun 15, 2016 07:25
[2016-06-15] MEDS: DEXMEDETOMIDINE INJ 50 ML IV SCH ×6 (08:48→22:25)
[2016-06-15] MEDS: POTASSIUM CL 40 MEQ/30 ML LIQ UDC NG SCH (08:48)
[2016-06-15] MEDS: DOCUSATE SODIUM 100 MG/10 ML UDC G-TUBE SCH ×2 (08:48→22:24)
[2016-06-15] MEDS: methylPREDNISolone SOD SUCC 40 MG/1 ML VIAL IV PUSH SCH (08:49)
[2016-06-15] MEDS: CARVEDILOL 3.125 MG TAB PO SCH ×2 (08:49→22:24)
[2016-06-15] MEDS: TICAGRELOR 90 MG TAB PO SCH ×2 (08:49→22:25)
[2016-06-15] MEDS: FAMOTIDINE 20 MG/2 ML VIAL IV PUSH SCH ×2 (08:49→22:24)
[2016-06-15] MEDS: ATORVASTATIN 80 MG TAB PO SCH (08:50)
[2016-06-15] MEDS: INSULIN DETEMIR 100 UNITS/ML VIAL SQ SCH ×2 (08:53→22:31)
[2016-06-15] MEDS: HEPARIN SODIUM - SQ 10,000 UNITS/ML VIAL SQ SCH ×2 (08:53→22:24)
[2016-06-15] MEDS: ASPIRIN 81 MG CHEW TAB PO SCH (08:55)
[2016-06-15] MEDS: ARTIFICIAL TEARS OPTH SOLN 15 ML BTL EACH EYE SCH ×3 (09:00→16:15)
[2016-06-15] MEDS: BENEPROTEIN POWDER 1 PACK G-TUBE SCH ×3 (09:00→16:16)
[2016-06-15] MEDS ORDERED: ATROPINE SULFATE 1 MG/10 ML SYRINGE ONE (09:29)
[2016-06-15] MEDS ORDERED: EPINEPHrine HCL (1:10,000) 1 MG/10 ML SYRINGE ONE (09:29)
[2016-06-15] MEDS: FREE WATER OG SCH ×5 (09:33→23:56)
[2016-06-15] MEDS: SODIUM CHLORIDE 0.9% FLUSH 5 ML FLUSH IVF SCH ×2 (09:34→21:00)
[2016-06-15] MEDS: ACETAMINOPHEN 325 MG TAB PO PRN (10:46)
[2016-06-15] MEDS: fentaNYL 2,500 MCG/NS 250 ML IV SCH (10:47)
[2016-06-15] MEDS: ALBUMIN HUMAN 25% 25 GM/100 ML BAGP IV SCH ×2 (11:21→22:25)
--- NOTE | 2016-06-15 13:01 | PD.CARD.PN ---
Subjective Subjective Remarks s/p AICD/dual-chamber PPM. Paced at 70 bpm No further episodes of ventricle tachycardia Sedated Intubated Good Urine output Objective Medications Current Medications Medications (Trade) Dose Ordered Sig/Yoselin Route Start Time Stop Time Status Last Admin (Tylenol) 650 mg Q6H PRN PO 06/09/16 02:45 06/15/16 10:46 (Morphine Inj) 2 mg Q2H PRN IV 06/09/16 02:45 (Versed Inj) 2 mg Q1H PRN IV 06/09/16 02:45 (Tears Naturale Opth Soln) 1 drop TID EACH EYE 06/09/16 09:00 06/13/16 18:00 (Zofran Inj) 4 mg Q6H PRN IV 06/09/16 02:45 (Reglan Inj) 10 mg Q6H PRN IV 06/09/16 02:45 (Colace Liq) 100 mg Q12H G-TUBE 06/09/16 09:00 06/15/16 08:48 Miscellaneous Information 1 Q361D XX 06/09/16 02:45 (Chlorhexidine 2% Cloth) Taper DAILY@04 TOP 06/09/16 04:00 06/05/17 03:59 06/14/16 04:00 (Chlorhexidine 2% Cloth) 3 pack UNSCH PRN TOP 06/09/16 02:45 (NS Flush) 2 ml UNSCH PRN IVF 06/09/16 15:00 (NS Flush) 2 ml BID IVF 06/09/16 21:00 06/15/16 09:34 (Aspirin Chew) 81 mg DAILY PO 06/10/16 09:00 06/15/16 08:55 Ticagrelor 90 mg 90 mg BID PO 06/09/16 21:00 06/15/16 08:49 (fentaNYL DRIP) 250 ml @ 0 mls/hr TITRATE IV 06/09/16 17:15 06/15/16 10:47 (KCl 40 Meq/30 ml Liq) 40 meq DAILY NG 06/11/16 09:00 06/15/16 08:48 (Beneprotein Powder) 1 pack TID G-TUBE 06/11/16 09:00 06/13/16 18:35 (Lipitor) 80 mg DAILY PO 06/12/16 09:00 06/15/16 08:50 Famotidine 10 mg 10 mg Q12HR IV PUSH 06/11/16 21:00 06/15/16 08:49 (Zyvox 600 Mg Premix) 300 ml @ 300 mls/hr Q12H IV 06/11/16 13:00 06/15/16 00:38 Terbutaline Sulfate 1 mg 1 mg UNSCH PRN SQ 06/12/16 06:45 (Bumex Inj) 100 ml @ 2 mls/hr CONTINUOUS IV 06/13/16 13:00 06/14/16 16:05 (Albumin 25% Inj) 25 gm Q12H IV 06/13/16 11:00 06/15/16 11:21 (fentaNYL INJ) 50 mcg Q1H PRN IV PUSH 06/14/16 04:30 06/14/16 04:39 Methylprednisolone Sodium Succinate 40 mg 40 mg DAILY IV PUSH 06/14/16 09:00 06/15/16 08:49 Propofol 100 ml @ 0 mls/hr TITRATE IV 06/14/16 08:00 06/15/16 08:48 (Zosyn 3.375 Gm Premix) 50 ml @ 100 mls/hr Q8H IV 06/14/16 11:00 06/15/16 11:06 (D50w (Vial) Inj) 25 ml UNSCH PRN IV PUSH 06/15/16 03:30 (Glucagon Inj) 1 mg UNSCH PRN OTHER 06/15/16 03:30 Insulin Human Regular 1 1 Q4HR SQ 06/15/16 04:00 06/15/16 09:33 (Precedex Inj) 50 ml @ 0 mls/hr TITRATE IV 06/15/16 07:15 06/15/16 11:20 (Heparin Inj) 5,000 units Q12HR SQ 06/15/16 09:00 06/15/16 08:53 (Coreg) 3.125 mg Q12HR PO 06/15/16 09:00 06/15/16 08:49 (Levemir Inj) 15 units Q12HR SQ 06/15/16 09:00 06/15/16 08:53 (Free Water) 250 ml Q4HR OG 06/15/16 08:30 06/15/16 09:33 Vital Signs / I&O Vital Signs Date Time Temp Pulse Resp B/P Pulse Ox O2 Delivery O2 Flow Rate FiO2 06/15/16 12:17 97 40 06/15/16 10:00 70 06/15/16 10:00 40 06/15/16 08:33 99 40 06/15/16 08:00 72 06/15/16 08:00 99.5 70 14 131/67 100 06/15/16 07:00 60 06/15/16 06:00 70 06/15/16 04:00 98.1 70 16 146/75 100 06/15/16 04:00 70 06/15/16 03:24 97 40 06/15/16 03:00 50 06/15/16 02:00 70 06/15/16 00:31 98 45 06/15/16 00:00 70 06/15/16 00:00 95.9 70 16 149/80 100 06/14/16 23:00 50 06/14/16 22:00 70 06/14/16 20:00 96.8 70 16 134/76 100 06/14/16 20:00 50 06/14/16 20:00 70 06/14/16 19:55 100 50 06/14/16 19:50 100 100 06/14/16 19:15 100 60 06/14/16 18:00 51 06/14/16 17:07 100 50 06/14/16 16:00 60 06/14/16 16:00 53 06/14/16 16:00 52 06/14/16 16:00 96.8 54 16 126/77 100 I/O 06/14/16 06/14/16 06/14/16 06/15/16 06/15/16 06/15/16 07:00 15:00 23:00 07:00 15:00 23:00 Intake Total 1130 ml 860 ml 1840 ml Output Total 1400 ml 3450 ml 4200 ml Balance -270 ml -2590 ml -2360 ml IV Total 1130 ml 860 ml 1840 ml Output Urine Total 1400 ml 3450 ml 4200 ml # Bowel Movements 1 1 1 Physical Exam GENERAL: Sedated, intubated. SKIN: Warm and dry. HEAD: Normocephalic. EYES: No scleral icterus. No injection or drainage. NECK: Supple, trachea midline. No JVD or lymphadenopathy. CARDIOVASCULAR: Regular rate and rhythm without murmurs, gallops, or rubs. RESPIRATORY: Breath sounds equal bilaterally. No accessory muscle use. GASTROINTESTINAL: Abdomen soft, non-tender, nondistended. EXTREMITIES: No cyanosis, +2 edema. Laboratory Laboratory Tests Test 06/15/16 06/15/16 00:09 04:05 Blood Gas Puncture Site RT RADIAL Blood Gas Patient Temperature 98.6 Blood Gas HCO3 23 mmol/L Blood Gas Base Excess -0.3 mmol/L Blood Gas Oxygen Saturation 95 % Arterial Blood pH 7.48 Arterial Blood Partial 31 mmHg Pressure CO2 Arterial Blood Partial 88 mmHg Pressure O2 Arterial Blood Oxygen Content 12.1 Vol % Arterial Blood 1.3 % Carboxyhemoglobin Arterial Blood Methemoglobin 1.1 % Blood Gas Hemoglobin 9.0 G/DL Oxygen Delivery Device VENTILATOR Blood Gas Ventilator Setting PC/AC/ Blood Gas Inspired Oxygen 50 % White Blood Count 10.7 TH/MM3 Red Blood Count 2.76 MIL/MM3 Hemoglobin 8.8 GM/DL Hematocrit 25.5 % Mean Corpuscular Volume 92.5 FL Mean Corpuscular Hemoglobin 31.8 PG Mean Corpuscular Hemoglobin 34.4 % Concent Red Cell Distribution Width 13.9 % Platelet Count 115 TH/MM3 Mean Platelet Volume 11.4 FL Neutrophils (%) (Auto) 76.1 % Lymphocytes (%) (Auto) 18.5 % Monocytes (%) (Auto) 5.0 % Eosinophils (%) (Auto) 0.2 % Basophils (%) (Auto) 0.2 % Neutrophils # (Auto) 8.2 TH/MM3 Lymphocytes # (Auto) 2.0 TH/MM3 Monocytes # (Auto) 0.5 TH/MM3 Eosinophils # (Auto) 0.0 TH/MM3 Basophils # (Auto) 0.0 TH/MM3 CBC Comment DIFF FINAL Differential Comment Sodium Level 149 MEQ/L Potassium Level 4.0 MEQ/L Chloride Level 111 MEQ/L Carbon Dioxide Level 27.9 MEQ/L Anion Gap 10 MEQ/L Blood Urea Nitrogen 53 MG/DL Creatinine 2.64 MG/DL Estimat Glomerular Filtration 24 ML/MIN Rate Random Glucose 144 MG/DL Calcium Level 7.6 MG/DL Magnesium Level 2.1 MG/DL Total Bilirubin 0.4 MG/DL Aspartate Amino Transf 17 U/L (AST/SGOT) Alanine Aminotransferase 21 U/L (ALT/SGPT) Alkaline Phosphatase 61 U/L Total Protein 5.4 GM/DL Albumin 3.1 GM/DL Imaging Last Impressions Chest X-Ray 06/15/16 0600 Signed Impressions: Service Date/Time: Wednesday, June 15, 2016 03:58 - CONCLUSION: No significant change has occurred. Porter Holm MD Chest CT 06/13/16 0000 Signed Impressions: Service Date/Time: Monday, June 13, 2016 16:26 - CONCLUSION: 1. Moderate bilateral pleural effusions with basilar dependent atelectasis and consolidation in the lungs. No adenopathy. Anterior portion of the lungs are relatively clear. 2. Anasarca with ascites in the upper abdomen. 3. Endotracheal tube, nasogastric tube and right central line in satisfactory position. 4. Severe coronary artery calcifications. Manuelito Lay MD Assessment and Plan Problem List: (1) Myocardial infarction acute Assessment and Plan: Critically ill Off pressors s/p PCI to RCA-PDA s/p PPM Continue BB, DAPT (ASA and Brilinta), Statin Off ACEi given TITO (2) AV block, complete Problem Qualifiers (1) Myocardial infarction acute: Qualified Code: I21.11 - Acute ST elevation myocardial infarction (STEMI) involving right coronary artery Gonsalo Fu MD Jun 15, 2016 13:01
[2016-06-15 13:17] LABS: BLOOD GAS BASE EXCESS 4.2 mmol/L (-2-2); BLOOD GAS CARBOXYHEMOGLOBIN 1.3 % (0-4); BLOOD GAS HCO3 27 mmol/L (22-26); BLOOD GAS METHEMOGLOBIN 0.9 % (0-2); BLOOD GAS O2 HGB SATURATION 96 % (90-100); BLOOD GAS OXYGEN CONTENT 13.2 Vol % (12.0-20.0); BLOOD GAS PCO2 30 mmHg (38-42); BLOOD GAS PO2 106 mmHg (61-120); BLOOD GAS TOTAL HGB 9.6 G/DL (12.0-16.0); CRITICAL VALUE YES; OXYGEN DEVICE VENTILATOR; TEMP CORR TO 98.6; VENT SETTINGS PEEP5/PS5
[2016-06-15 13:18] LABS: FIO2 40 %
[2016-06-15 13:19] LABS: DRAW SITE RT RADIAL; NUMBER OF ARTERIAL PUNCTURES 1; STAT NO; ULNAR PULSE PRESENT
[2016-06-15 14:51] LABS: MAGNESIUM 2.1 MG/DL (1.5-2.5); POTASSIUM 3.8 MEQ/L (3.5-5.1)
--- NOTE | 2016-06-15 16:41 | HHI.NPPN ---
Subjective General Problems: Anemia, Edema Renal Failure: Chronic, Acute Additional Remarks Patient remain Intubated, sedated, on the vent. Objective Data Data 06/14/16 06/15/16 19:00 07:00 Intake Total 2700 ml Output Total 2450 ml 5200 ml Balance -2450 ml -2500 ml IV Total 2700 ml Output Urine Total 2450 ml 5200 ml # Bowel Movements 2 Vital Signs Date Time Temp Pulse Resp B/P Pulse Ox O2 Delivery O2 Flow Rate FiO2 06/15/16 16:37 100 40 06/15/16 15:00 40 06/15/16 14:00 70 06/15/16 12:17 97 40 06/15/16 12:00 76 06/15/16 12:00 100.4 73 19 151/79 95 06/15/16 11:00 40 06/15/16 10:00 70 06/15/16 10:00 40 06/15/16 08:33 99 40 06/15/16 08:00 72 06/15/16 08:00 99.5 70 14 131/67 100 06/15/16 07:00 60 06/15/16 06:00 70 06/15/16 04:00 98.1 70 16 146/75 100 06/15/16 04:00 70 06/15/16 03:24 97 40 06/15/16 03:00 50 06/15/16 02:00 70 06/15/16 00:31 98 45 06/15/16 00:00 70 06/15/16 00:00 95.9 70 16 149/80 100 06/14/16 23:00 50 06/14/16 22:00 70 06/14/16 20:00 96.8 70 16 134/76 100 06/14/16 20:00 50 06/14/16 20:00 70 06/14/16 19:55 100 50 06/14/16 19:50 100 100 06/14/16 19:15 100 60 06/14/16 18:00 51 06/14/16 17:07 100 50 -: 06/15/16 0405 06/15/16 1400 Physical Exam General Appearance Remarks Intubated and sedated. Neck Neck Exam: Neck Supple Pulmonary Resp Exam: No Distress, Decreased Bases, Diminished Breath Sounds Cardiology CV Exam: Regular Gastrointestinal/Abdomen GI Exam: Soft Integumentary Skin Exam: Dry, Intact Extremeties Extremities Exam: Moderate Edema, Pitting Edema, Dependent Edema Neurologic Neuro Exam: Sedated Assessment/Plan Problem List: (1) TITO (acute kidney injury) Plan: BUN and Creatinine almost same. Urine out put is good. On Bumex infusion. BP is stable. Weaning as tolerated. (2) Acute respiratory failure Plan: on Vent (3) Myocardial infarction acute Plan: as above Stent RCA/PDA (4) DM (diabetes mellitus), type 2, uncontrolled Plan: Follow BG - hyperglycemia today and on IV insulin now (5) PNA (pneumonia) Plan: on Zyvox Problem Qualifiers (1) Acute respiratory failure: Qualified Code: J96.01 - Acute respiratory failure with hypoxia (2) Myocardial infarction acute: Qualified Code: I21.11 - Acute ST elevation myocardial infarction (STEMI) involving right coronary artery (3) DM (diabetes mellitus), type 2, uncontrolled: Qualified Code: E11.8 - Uncontrolled type 2 diabetes mellitus with complication , unspecified fdc insulin use status (4) PNA (pneumonia): Shira Valdez MD Jun 15, 2016 16:41
--- NOTE | 2016-06-15 18:28 | HHI.PR ---
Subjective Remarks On mechanical ventilation Objective Vital Signs Date Time Temp Pulse Resp B/P Pulse Ox O2 Delivery O2 Flow Rate FiO2 06/15/16 18:00 70 06/15/16 16:37 100 40 06/15/16 16:00 99.0 70 19 156/80 95 06/15/16 15:00 40 06/15/16 14:00 70 06/15/16 12:17 97 40 06/15/16 12:00 76 06/15/16 12:00 100.4 73 19 151/79 95 06/15/16 11:00 40 06/15/16 10:00 70 06/15/16 10:00 40 06/15/16 08:33 99 40 06/15/16 08:00 72 06/15/16 08:00 99.5 70 14 131/67 100 06/15/16 07:00 60 06/15/16 06:00 70 06/15/16 04:00 98.1 70 16 146/75 100 06/15/16 04:00 70 06/15/16 03:24 97 40 06/15/16 03:00 50 06/15/16 02:00 70 06/15/16 00:31 98 45 06/15/16 00:00 70 06/15/16 00:00 95.9 70 16 149/80 100 06/14/16 23:00 50 06/14/16 22:00 70 06/14/16 20:00 96.8 70 16 134/76 100 06/14/16 20:00 50 06/14/16 20:00 70 06/14/16 19:55 100 50 06/14/16 19:50 100 100 06/14/16 19:15 100 60 I/O 06/14/16 06/14/16 06/14/16 06/15/16 06/15/16 06/15/16 07:00 15:00 23:00 07:00 15:00 23:00 Intake Total 1130 ml 860 ml 1840 ml 1242 ml Output Total 1400 ml 3450 ml 4200 ml 4750 ml Balance -270 ml -2590 ml -2360 ml -3508 ml IV Total 1130 ml 860 ml 1840 ml 622 ml Tube Feeding 120 ml Other 500 ml Output Urine Total 1400 ml 3450 ml 4200 ml 4750 ml # Bowel Movements 1 1 1 Result Diagram: 06/15/16 0405 06/15/16 1400 Imaging Sedated, on mechanical ventilation Lungs: ventilated Heart: S1, S2 regular, no gallop Abdomen: soft, no mass Ext: no edema Chaidez catheter Last Impressions Chest X-Ray 06/15/16 0600 Signed Impressions: Service Date/Time: Wednesday, June 15, 2016 03:58 - CONCLUSION: No significant change has occurred. Porter Holm MD Chest CT 06/13/16 0000 Signed Impressions: Service Date/Time: Monday, June 13, 2016 16:26 - CONCLUSION: 1. Moderate bilateral pleural effusions with basilar dependent atelectasis and consolidation in the lungs. No adenopathy. Anterior portion of the lungs are relatively clear. 2. Anasarca with ascites in the upper abdomen. 3. Endotracheal tube, nasogastric tube and right central line in satisfactory position. 4. Severe coronary artery calcifications. Manuelito Lay MD Active Medications Acetazolamide Sodium (Diamox Inj) 500 mg STAT ONCE IV Last administered on 13:53; Admin Dose 500 MG; Start 06/15/16 at 13:45; Stop 06/15/16 at 13:46; Status DC Atropine Sulfate (Atropine Inj) 1 mg STK-MED ONCE .ROUTE; Start 06/15/16 at 09:29 ; Stop 06/15/16 at 09:30; Status DC Carvedilol (Coreg) 3.125 mg Q12HR PO Last administered on 06/15/16 08:49; Admin Dose 3.125 MG; Start 06/15/16 at 09:00 Dexmedetomidine HCl (Precedex Inj) 50 ml @ 0 mls/hr TITRATE IV Last administered on 06/15/16 15:24; Admin Dose 0 MLS/HR; Start 06/15/16 at 07:15 Dextrose (D50w (Vial) Inj) 25 ml UNSCH PRN IV PUSH; Start 06/15/16 at 03:30 Epinephrine HCl (EPINEPHrine (1:10,000) INJ) 1 mg STK-MED ONCE .ROUTE; Start 06/15/16 at 09:29; Stop 06/15/16 at 09:30; Status DC Glucagon (Glucagon Inj) 1 mg UNSCH PRN OTHER; Start 06/15/16 at 03:30 Heparin Sodium (Porcine) (Heparin Inj) 5,000 units Q12HR SQ Last administered on 06/15/16 08:53; Admin Dose 5,000 UNITS; Start 06/15/16 at 09:00 Insulin Detemir (Levemir Inj) 15 units Q12HR SQ Last administered on 06/15/16 08 :53; Admin Dose 15 UNITS; Start 06/15/16 at 09:00 Insulin Human Regular 1 1 Q4HR SQ Last administered on 06/15/16 16:15; Admin Dose 1; Start 06/15/16 at 04:00 IV Flush (NS Flush) 2 ml BID IVF; Start 06/14/16 at 21:00; Status UNV IV Flush (NS Flush) 2 ml UNSCH PRN IVF; Start 06/14/16 at 19:15; Status UNV Water (Free Water) 250 ml Q4HR OG Last administered on 06/15/16 16:14; Admin Dose 250 ML; Start 06/15/16 at 08:30 Assessment and Plan Problem List: (1) AV block, complete Status: Acute Plan: SP ICD insertion AV pacing Clean surgical wound. Continue with current management. I will be available on a PRN basis. (2) CHF (congestive heart failure) Status: Acute Plan: Coreg added (3) Ventricular tachycardia Status: Acute Plan: No new episode reported Madeline Rodríguez MD Jun 15, 2016 18:28
[2016-06-16] VITALS (19 sets, daily range): BP systolic 148–167; BP diastolic 58–84; PULSE 66–74; RESP 14–23; TEMP 98.8–100.8; O2SAT 94–100
[2016-06-16] MEDS: RESP: ALBUTEROL 2.5 MG/IPRATROPIUM 0.5 MG NEB (SCH) NEB ×5 (00:24→21:32)
[2016-06-16] MEDS: PROPOFOL 1000 MG/100 ML INJ 100 ML IV SCH ×3 (01:07→06:35)
[2016-06-16] MEDS: DEXMEDETOMIDINE INJ 50 ML IV SCH ×8 (01:07→14:18)
[2016-06-16] MEDS: PIPERACIL-TAZO 3.375 GM PREMIX 50 ML IV SCH ×3 (02:52→18:56)
[2016-06-16] MEDS: FREE WATER OG SCH ×6 (03:36→22:28)
[2016-06-16] MEDS: INSULIN NovoLIN REGULAR SUPPLEMENTAL SCALE SQ SCH ×6 (03:41→23:41)
[2016-06-16] MEDS: CHLORHEXIDINE GLUCONATE 2 % 1 PACK (2 CLOTHS) TOP SCH (04:00)
[2016-06-16 06:12] LABS: BLOOD GAS BASE EXCESS 7.9 mmol/L (-2-2); BLOOD GAS CARBOXYHEMOGLOBIN 1.5 % (0-4); BLOOD GAS HCO3 31 mmol/L (22-26); BLOOD GAS METHEMOGLOBIN 1.1 % (0-2); BLOOD GAS O2 HGB SATURATION 92 % (90-100); BLOOD GAS OXYGEN CONTENT 13.7 Vol % (12.0-20.0); BLOOD GAS PCO2 34 mmHg (38-42); BLOOD GAS PO2 69 mmHg (61-120); BLOOD GAS TOTAL HGB 10.5 G/DL (12.0-16.0); TEMP CORR TO 98.6
[2016-06-16 06:13] LABS: CRITICAL VALUE YES; OXYGEN DEVICE VENTILATOR
[2016-06-16 06:14] LABS: DRAW SITE RT RADIAL; FIO2 35 %; NUMBER OF ARTERIAL PUNCTURES 1; STAT YES; ULNAR PULSE PRESENT; VENT SETTINGS PC/AC/
[2016-06-16] MEDS: BUMETANIDE INJ 1 MG/4 ML VIAL IV PUSH SCH ×3 (06:35→22:28)
--- NOTE | 2016-06-16 06:38 | HHI.CCPN ---
Subjective Remarks/Hospital Course 65 year old with past medical history is significant for coronary artery disease , hypertension, diabetes mellitus, history of congestive heart failure, peripheral vascular disease who was brought o the [facility] emergency department as a STEMI alert prior to arrival by ambulance services due to a left bundle branch block and shortness of breath with diaphoresis. Initial oxygen saturation was in the 60s, patient was very anxious. Chest x- ray showed pulmonary edema Initially placed on BiPAP with no significant improvement, and later was intubated and placed on mechanical ventilation. Patient ruled in for non-ST elevation [place] with a troponin of 18. His blood sugar was in the 500s. Cardiology was consulted. Aspirin and IV heparin started, for cardiogenic shock patient was placed on dopamine CCM re evaluation: I evaluated the patient in the ED. Patient remains in shock on dopamine. I placed a left subclavian central line. Repeat troponin came back at 39. I discussed with Dr. Lay. He will take the patient for cardiac catheter given acute severe NY with cardiogenic shock and pulmonary edema. Patient was also started on insulin infusion. WBC count 23.2, most likely stress related. The patient insistence output the white count I will start on empiric Zosyn, send blood urine and sputum culture SUBJ 06/10/16: Patient underwent cardiac catheterization and PCI with stent placement by Dr. Lay along with temporary transvenous pacemaker placement, and Impella placement.(PCI / JOSÉ LUIS to right coronary artery, PCI / JOSÉ LUIS to PDA). CVP 17 today, 7 kg wt gain with UO 30-40 ml per hour. Give Bumex 1 mg IV x1 06/11/16: Patient was extubated yesterday but emergently reintubated for acute hypoxemic respiratory failure at 5 PM. Overnight intermittent third-degree heart block, requiring temporary pacing. I have changed from dopamine to dobutamine today as a EF is only 25-30%. Dr. Rodríguez has seen for possible permanent pacemaker placement. Will d/w Dr. Lay about timing. Active smoker until recently, started on IV Solu-Medrol and breathing treatments 06/12: Remains in third-degree heart block, dobutamine 1.5 mcg/kg/m. Urine Output adequate but creatinine has climbed to 2.5. Blood sugar in 400s, I will place back on IV insulin protocol 06/13: Patient gets very agitated when sedation is lower, remains on Versed 7 mg per hour, fentanyl 120 g per hour. Dopamine to dobutamine hypertension. Remains in third-degree heart block now pacer capturing, back rate 58 bpm. Urine output 1.5 L in 24 hours, positive fluid balance. Change Bumex to Bumex infusion-will discuss with nephrology 06/14: Sustained VTAC, placed on lidocaine infusion. (Amio not used due to intermittent CHB). While I was rounding patient developed sev agitation with desaturation. NM paralysis with Rocuronium given. i will add propofol for vent synchrony. Will d/w Dr. Lay about PPM vs further plan. Diuresing well on Bumex gtt 06/15: Patient received AICD/dual-chamber pacemaker implant yesterday by Dr. Rodríguez. Patient is fully paced at 70 bpm no further episodes of ventricle tachycardia, lidocaine had been discontinued. Remains heavily sedated, chest x- ray shows bilateral effusions. UO excellent on Bumex gtt >7L 06/16: Sedated with propofol and Precedex. Moves all extremities on lightening sedation not following commands. Urine output remains excellent, almost 15 L in 24 hours. I will discontinue Bumex infusion and start scheduled Bumex, also scheduled Diamox for 3 days for metabolic alkalosis. Patient remains fully paced AV sequential pacing. Attempt weaning to extubation Objective Vital Signs Date Time Temp Pulse Resp B/P Pulse Ox O2 Delivery O2 Flow Rate FiO2 06/16/16 06:00 70 06/16/16 04:36 100 35 06/16/16 04:00 99.1 14 166/78 Intake and Output 06/15/16 06/15/16 06/16/16 08:00 16:00 00:00 Intake Total 1840 ml 1242 ml 946 ml Output Total 4200 ml 4750 ml 5200 ml Balance -2360 ml -3508 ml -4254 ml Result Diagram: 06/15/16 0405 06/15/16 1400 Other Results Laboratory Tests Test 06/15/16 06/16/16 12:20 05:56 Blood Gas Puncture Site RT RADIAL RT RADIAL Blood Gas Patient Temperature 98.6 98.6 Blood Gas HCO3 27 mmol/L 31 mmol/L (22-26) (22-26) Blood Gas Base Excess 4.2 mmol/L 7.9 mmol/L (-2-2) (-2-2) Blood Gas Oxygen Saturation 96 % (90-100) 92 % (90-100) Arterial Blood pH 7.56 7.56 (7.380-7.420) (7.380-7.420) Arterial Blood Partial 30 mmHg (38-42) 34 mmHg (38-42) Pressure CO2 Arterial Blood Partial 106 mmHg 69 mmHg Pressure O2 (61-120) (61-120) Arterial Blood Oxygen Content 13.2 Vol % 13.7 Vol % (12.0-20.0) (12.0-20.0) Arterial Blood 1.3 % (0-4) 1.5 % (0-4) Carboxyhemoglobin Arterial Blood Methemoglobin 0.9 % (0-2) 1.1 % (0-2) Blood Gas Hemoglobin 9.6 G/DL 10.5 G/DL (12.0-16.0) (12.0-16.0) Oxygen Delivery Device VENTILATOR VENTILATOR Blood Gas Ventilator Setting PEEP5/PS5 PC/AC/ Blood Gas Inspired Oxygen 40 % 35 % Imaging Last 24 hours Impressions Chest X-Ray 06/09/16 0120 Signed Impressions: Service Date/Time: Thursday, June 09, 2016 01:09 - CONCLUSION: Early/ mild pulmonary edema. Anthony Carroll MD Objective Remarks GENERAL: Well-nourished, well-developed patient, critically ill intubated heavily sedated with Propofol, Precedex SKIN: Warm and dry. HEAD: Normocephalic. EYES: No scleral icterus. No injection or drainage. ENT: Orotracheally intubated NECK: Supple, trachea midline. No JVD or lymphadenopathy. CARDIOVASCULAR: Paced at 70 b beats per minute AV sequential, no murmurs. L upper chest AICD dressing clean dry RESPIRATORY: Breath sounds equal bilaterally. Diminished breath sounds at the bases. Bilateral small pleural effusions on bedside ultrasound 06/15 GASTROINTESTINAL: Abdomen soft, non-tender, nondistended. MUSCULOSKELETAL: No cyanosis, trace edema. No bleeding bilateral groin BACK: Nontender without obvious deformity. No CVA tenderness. NEURO: Intubated sedated with Propofol Precedex. Moves extremities on holding sedation. not following commands. A/P Assessment and Plan Assessment and plan (by system) Neuro: -Continue Precedex and wean propofol to facilitate ventilator synchrony -Use when necessary Ativan and when necessary fentanyl for sedation, anxiety Resp: Acute hypoxemic respiratory failure Pulmonary edema Bilateral pleural effusions -Intubated for severe hypoxemia on arrival in ER, extubated 06/10, but failed towards evening 06/10 requiring reintubation due to severe hypoxemia -Continue with assist control mechanical ventilation, daily CPAP trials -DuoNeb every 6 hours and when necessary, ventilator bundle -IV Solu-Medrol 40 daily-DC 06/18/16 -Zosyn, Zyvox. DCd Cefepime 06/15 -CT chest 06/[address] effusion, basilar consolidation. CVS STEMI Acute systolic heart failure sustained VTAC Third-degree heart block s/p AICD 06/14/16 Cardiogenic shock-resolved Severe ischemic cardiomyopathy Status post Impella (removed 06/10), and temporary pacer placement History of CAD History of peripheral arterial disease History of hypertension History of CHF - s/p AICD 06/14/[address] Rodríguez. Lidocaine discontinued, no arrhythmia in 24 hours - Admitted with ST elevation [place] and acute cardiogenic shock and respiratory failure, s/p PCI with JOSÉ LUIS to RCA and PDA and temp pacer placement. 06/09/16 - s/p Impella removal 06/10 - Holding beta blockers and MARGUERITE inhibitor due to shock, third-degree heart block. Introducer beta jaqueline at low dose as patient has AICD/PPM today (coreg 3.125 BID) - Continue Brilinta and aspirin. - 06/09/16-Echo- Systolic function was sev reduced. EF 25-30%. Previous Echo w/ EF 50-55%. Limited echo 06/14/16 EF 25-30%, diffuse hypokinesis - Bumex gtt 0.5 mg per hour with excellent UO-DC 06/16 start Bumex 1 mg IV q8 and Diamox 500 milligram IV 3 days GI: -IV Protonix, tube feeds with Glucerna. Free water flushes : Acute kidney injury Fluid overload -Most likely ATN, Monitor renal function closely, IV Bumex 0.5mg per hour, IV Albumin -Dc Bumex gtt 06/16 start Bumex 1 mg IV q8 and Diamox 500 milligram IV 3 days -UO >15L in 24 hours -Creat improving 2.5 today ID: MRSA in sputum, bilateral lung infiltrates indicating pneumonia. -Zyvox 600 mg IV every 12. Continue Zosyn ENDO: DM with severe hyperglycemia -Medium sliding scale -Electrolyte replacement per protocol DVT/GI prophylaxis - Pepcid. Heparin 5000 sq q12 Critical Care: The total critical care time was 40 minutes. Time to perform other separately billable procedures was not included in the critical care time. Dispo: Patient remains in very critical condition with acute NY with complication including cardiogenic shock, now with recurrent respiratory failure , systolic heart failure and renal failure, VTAC. s/p AICD with daily attempt to wean Barry Cruz MD Jun 16, 2016 06:37
--- NOTE | 2016-06-16 06:44 | RADRPT ---
EXAM DATE/TIME: 06/16/2016 06:37 [facility] COMPARISON: CHEST SINGLE AP, June 15, 2016, 3:58. INDICATIONS : Shortness of breath. MEDICAL HISTORY : Hypertension. Cardiovascular disease. Diabetes mellitus type II. SURGICAL HISTORY : Pacemaker. ENCOUNTER: Subsequent ACUITY: 4 - 6 days PAIN SCORE: Non-responsive. LOCATION: Bilateral chest FINDINGS: The lung bases are partially excluded. There are bilateral effusions and lower lobe consolidation aga in seen. Endotracheal tube and NG tube again noted. Right subclavian line again seen. Pacer/ICD devic e again noted. CONCLUSION: No significant change has occurred. Porter Holm MD on June 16, 2016 at 6:42 Board Certified Radiologist. This report was verified electronically.
[2016-06-16 06:47] LABS: HEMATOCRIT 30.5 % (39.0-51.0); MEAN CELL VOLUME 91.1 FL (80.0-100.0); MEAN CORPUSCULAR HEMOGLOBIN 31.6 PG (27.0-34.0); MEAN CORPUSCULAR HGB CONC 34.7 % (32.0-36.0); PLATELET COUNT 156 TH/MM3 (150-450); RED BLOOD COUNT 3.35 MIL/MM3 (4.50-5.90); RED CELL DISTRIBUTION WIDTH 13.5 % (11.6-17.2); WHITE BLOOD COUNT 10.9 TH/MM3 (4.0-11.0)
[2016-06-16 06:54] LABS: HEMO FLAGS AUTO DIFF
[2016-06-16 07:09] LABS: ALKALINE PHOSPHATASE 71 U/L (45-117); ALT (GPT) 24 U/L (12-78); ANION GAP 11 MEQ/L (5-15); AST (GOT) 16 U/L (15-37); BICARBONATE 31.4 MEQ/L (21.0-32.0); BLOOD UREA NITROGEN 53 MG/DL (7-18); CHLORIDE 103 MEQ/L (98-107); GLOMERULAR FILTRATION RATE 26 ML/MIN (>89); MAGNESIUM 2.2 MG/DL (1.5-2.5); SODIUM (NA) 145 MEQ/L (136-145); TOTAL BILIRUBIN ADULT 0.7 MG/DL (0.2-1.0)
[2016-06-16 07:40] LABS: EOSINOPHILS 1 % (0-4); NEUTROPHIL # MANUAL DIFF 9.2 TH/MM3 (1.8-7.7); POLYS (SEG NEUTROPHILS) 84 % (16-70); SCAN/DIFF FINAL DIFF MANUAL; WBC DIFF SAMPLE 100
[2016-06-16 07:41] LABS: PLATELET ESTIMATE SMEAR NORMAL (NORMAL); PLATELET MORPHOLOGY NORMAL (NORMAL)
[2016-06-16] MEDS: FAMOTIDINE 20 MG/2 ML VIAL IV PUSH SCH ×2 (08:09→19:53)
[2016-06-16] MEDS: DOCUSATE SODIUM 100 MG/10 ML UDC G-TUBE SCH ×2 (08:09→19:39)
[2016-06-16] MEDS: ASPIRIN 81 MG CHEW TAB PO SCH (08:09)
[2016-06-16] MEDS: ATORVASTATIN 80 MG TAB PO SCH (08:09)
[2016-06-16] MEDS: POTASSIUM CL 40 MEQ/30 ML LIQ UDC NG SCH (08:09)
[2016-06-16] MEDS: methylPREDNISolone SOD SUCC 40 MG/1 ML VIAL IV PUSH SCH (08:09)
[2016-06-16] MEDS: CARVEDILOL 3.125 MG TAB PO SCH ×2 (08:09→19:39)
[2016-06-16] MEDS: TICAGRELOR 90 MG TAB PO SCH ×2 (08:10→19:39)
[2016-06-16] MEDS: ARTIFICIAL TEARS OPTH SOLN 15 ML BTL EACH EYE SCH ×3 (08:11→18:00)
[2016-06-16] MEDS: INSULIN DETEMIR 100 UNITS/ML VIAL SQ SCH ×2 (08:12→19:53)
[2016-06-16] MEDS: HEPARIN SODIUM - SQ 10,000 UNITS/ML VIAL SQ SCH ×2 (08:12→19:53)
[2016-06-16] MEDS: SODIUM CHLORIDE 0.9% FLUSH 5 ML FLUSH IVF SCH ×2 (08:13→19:39)
[2016-06-16] MEDS: BENEPROTEIN POWDER 1 PACK G-TUBE SCH ×3 (08:50→18:00)
[2016-06-16] MEDS: ALBUMIN HUMAN 25% 25 GM/100 ML BAGP IV SCH ×2 (10:25→22:28)
[2016-06-16] MEDS: LINEZOLID 600 MG PREMIX 300 ML IV SCH ×2 (12:11→23:44)
--- NOTE | 2016-06-16 14:50 | PD.CARD.PN ---
Subjective Subjective Remarks no complaints no overnight events V paced extubated this AM Objective Medications Current Medications Medications (Trade) Dose Ordered Sig/Yoselin Route Start Time Stop Time Status Last Admin (Tylenol) 650 mg Q6H PRN PO 06/09/16 02:45 06/15/16 10:46 (Morphine Inj) 2 mg Q2H PRN IV 06/09/16 02:45 (Versed Inj) 2 mg Q1H PRN IV 06/09/16 02:45 (Tears Naturale Opth Soln) 1 drop TID EACH EYE 06/09/16 09:00 06/16/16 13:00 (Zofran Inj) 4 mg Q6H PRN IV 06/09/16 02:45 (Reglan Inj) 10 mg Q6H PRN IV 06/09/16 02:45 (Colace Liq) 100 mg Q12H G-TUBE 06/09/16 09:00 06/16/16 08:09 Miscellaneous Information 1 Q361D XX 06/09/16 02:45 (Chlorhexidine 2% Cloth) Taper DAILY@04 TOP 06/09/16 04:00 06/05/17 03:59 06/14/16 04:00 (Chlorhexidine 2% Cloth) 3 pack UNSCH PRN TOP 06/09/16 02:45 (NS Flush) 2 ml UNSCH PRN IVF 06/09/16 15:00 (NS Flush) 2 ml BID IVF 06/09/16 21:00 06/16/16 08:13 (Aspirin Chew) 81 mg DAILY PO 06/10/16 09:00 06/16/16 08:09 Ticagrelor 90 mg 90 mg BID PO 06/09/16 21:00 06/16/16 08:10 (fentaNYL DRIP) 250 ml @ 0 mls/hr TITRATE IV 06/09/16 17:15 06/15/16 10:47 (KCl 40 Meq/30 ml Liq) 40 meq DAILY NG 06/11/16 09:00 06/16/16 08:09 (Beneprotein Powder) 1 pack TID G-TUBE 06/11/16 09:00 06/16/16 08:50 (Lipitor) 80 mg DAILY PO 06/12/16 09:00 06/16/16 08:09 Famotidine 10 mg 10 mg Q12HR IV PUSH 06/11/16 21:00 06/16/16 08:09 (Zyvox 600 Mg Premix) 300 ml @ 300 mls/hr Q12H IV 06/11/16 13:00 06/16/16 12:11 (Brethine Inj) 1 mg UNSCH PRN SQ 06/12/16 06:45 (Albumin 25% Inj) 25 gm Q12H IV 06/13/16 11:00 06/16/16 10:25 (fentaNYL INJ) 50 mcg Q1H PRN IV PUSH 06/14/16 04:30 06/14/16 04:39 Methylprednisolone Sodium Succinate 40 mg 40 mg DAILY IV PUSH 06/14/16 09:00 06/16/16 08:09 Propofol 100 ml @ 0 mls/hr TITRATE IV 06/14/16 08:00 06/16/16 06:35 (Zosyn 3.375 Gm Premix) 50 ml @ 100 mls/hr Q8H IV 06/14/16 11:00 06/16/16 10:40 (D50w (Vial) Inj) 25 ml UNSCH PRN IV PUSH 06/15/16 03:30 (Glucagon Inj) 1 mg UNSCH PRN OTHER 06/15/16 03:30 Insulin Human Regular 1 1 Q4HR SQ 06/15/16 04:00 06/16/16 13:13 (Precedex Inj) 50 ml @ 0 mls/hr TITRATE IV 06/15/16 07:15 06/16/16 14:18 (Heparin Inj) 5,000 units Q12HR SQ 06/15/16 09:00 06/16/16 08:12 (Coreg) 3.125 mg Q12HR PO 06/15/16 09:00 06/16/16 08:09 (Levemir Inj) 15 units Q12HR SQ 06/15/16 09:00 06/16/16 08:12 (Free Water) 250 ml Q4HR OG 06/15/16 08:30 06/16/16 08:00 (Bumex Inj) 1 mg Q8H IV PUSH 06/16/16 06:30 06/16/16 13:12 (Diamox Inj) 500 mg DAILY IV PUSH 06/16/16 09:00 06/18/16 08:59 06/16/16 08:10 Vital Signs / I&O Vital Signs Date Time Temp Pulse Resp B/P Pulse Ox O2 Delivery O2 Flow Rate FiO2 06/16/16 14:00 70 06/16/16 12:00 100.8 70 23 148/72 99 06/16/16 12:00 71 06/16/16 10:30 100 Nasal Cannula 4.00 06/16/16 10:26 100 Nasal Cannula 4 06/16/16 10:00 70 06/16/16 09:15 35 06/16/16 08:30 Nasal Cannula 35 06/16/16 08:30 35 06/16/16 08:24 97 35 06/16/16 08:00 66 06/16/16 08:00 99.9 70 19 158/75 99 06/16/16 07:00 35 06/16/16 06:00 70 06/16/16 04:36 100 35 06/16/16 04:00 99.1 70 14 166/78 99 06/16/16 04:00 70 06/16/16 03:00 40 06/16/16 02:00 70 06/16/16 00:26 100 35 06/16/16 00:00 98.8 70 14 167/84 100 06/16/16 00:00 70 06/15/16 23:00 40 06/15/16 22:28 100 40 06/15/16 22:00 72 06/15/16 20:00 98.6 71 19 167/84 98 06/15/16 20:00 72 06/15/16 19:00 40 06/15/16 18:00 70 06/15/16 16:37 100 40 06/15/16 16:00 99.0 70 19 156/80 95 06/15/16 15:00 40 I/O 06/15/16 06/15/16 06/15/16 06/16/16 06/16/16 06/16/16 07:00 15:00 23:00 07:00 15:00 23:00 Intake Total 1840 ml 1242 ml 946 ml 1269 ml 1180 ml Output Total 4200 ml 4750 ml 5200 ml 5000 ml 2400 ml Balance -2360 ml -3508 ml -4254 ml -3731 ml -1220 ml IV Total 1840 ml 622 ml 479 ml 524 ml 810 ml Tube Feeding 120 ml 217 ml 245 ml 120 ml Other 500 ml 250 ml 500 ml 250 ml Output Urine Total 4200 ml 4750 ml 5200 ml 5000 ml 2400 ml Tube Feeding Residual Discard 0 ml 0 ml # Bowel Movements 1 0 0 Physical Exam GENERAL: NAD SKIN: Warm and dry. HEAD: Normocephalic. EYES: No scleral icterus. No injection or drainage. NECK: Supple, trachea midline. No JVD or lymphadenopathy. CARDIOVASCULAR: Regular rate and rhythm without murmurs, gallops, or rubs. RESPIRATORY: Breath sounds equal bilaterally. No accessory muscle use. GASTROINTESTINAL: Abdomen soft, non-tender, nondistended. EXTREMITIES: No cyanosis, +2 edema. Laboratory Laboratory Tests Test 06/16/16 06/16/16 06/16/16 00:00 05:56 06:27 White Blood Count 10.9 TH/MM3 Red Blood Count 3.35 MIL/MM3 Hemoglobin 10.6 GM/DL Hematocrit 30.5 % Mean Corpuscular Volume 91.1 FL Mean Corpuscular Hemoglobin 31.6 PG Mean Corpuscular Hemoglobin 34.7 % Concent Red Cell Distribution Width 13.5 % Platelet Count 156 TH/MM3 Mean Platelet Volume 10.5 FL Neutrophils (%) (Auto) % Lymphocytes (%) (Auto) % Monocytes (%) (Auto) % Eosinophils (%) (Auto) % Basophils (%) (Auto) % Neutrophils # (Auto) TH/MM3 Lymphocytes # (Auto) TH/MM3 Monocytes # (Auto) TH/MM3 Eosinophils # (Auto) TH/MM3 Basophils # (Auto) TH/MM3 CBC Comment AUTO DIFF Differential Total Cells 100 Counted Neutrophils % (Manual) 84 % Lymphocytes % 10 % Monocytes % 5 % Eosinophils % 1 % Neutrophils # (Manual) 9.2 TH/MM3 Differential Comment FINAL DIFF MANUAL Platelet Estimate NORMAL Platelet Morphology Comment NORMAL Blood Gas Puncture Site RT RADIAL Blood Gas Patient Temperature 98.6 Blood Gas HCO3 31 mmol/L Blood Gas Base Excess 7.9 mmol/L Blood Gas Oxygen Saturation 92 % Arterial Blood pH 7.56 Arterial Blood Partial 34 mmHg Pressure CO2 Arterial Blood Partial 69 mmHg Pressure O2 Arterial Blood Oxygen Content 13.7 Vol % Arterial Blood 1.5 % Carboxyhemoglobin Arterial Blood Methemoglobin 1.1 % Blood Gas Hemoglobin 10.5 G/DL Oxygen Delivery Device VENTILATOR Blood Gas Ventilator Setting PC/AC/ Blood Gas Inspired Oxygen 35 % Sodium Level 145 MEQ/L Potassium Level 3.0 MEQ/L Chloride Level 103 MEQ/L Carbon Dioxide Level 31.4 MEQ/L Anion Gap 11 MEQ/L Blood Urea Nitrogen 53 MG/DL Creatinine 2.52 MG/DL Estimat Glomerular Filtration 26 ML/MIN Rate Random Glucose 150 MG/DL Calcium Level 8.5 MG/DL Magnesium Level 2.2 MG/DL Total Bilirubin 0.7 MG/DL Aspartate Amino Transf 16 U/L (AST/SGOT) Alanine Aminotransferase 24 U/L (ALT/SGPT) Alkaline Phosphatase 71 U/L Total Protein 6.7 GM/DL Albumin 3.7 GM/DL Imaging Last Impressions Chest X-Ray 06/16/16 0000 Signed Impressions: Service Date/Time: Thursday, June 16, 2016 06:37 - CONCLUSION: No significant change has occurred. Porter Holm MD Chest CT 06/13/16 0000 Signed Impressions: Service Date/Time: Monday, June 13, 2016 16:26 - CONCLUSION: 1. Moderate bilateral pleural effusions with basilar dependent atelectasis and consolidation in the lungs. No adenopathy. Anterior portion of the lungs are relatively clear. 2. Anasarca with ascites in the upper abdomen. 3. Endotracheal tube, nasogastric tube and right central line in satisfactory position. 4. Severe coronary artery calcifications. Manuelito Lay MD Assessment and Plan Problem List: (1) Myocardial infarction acute Assessment and Plan: Cont DAPT (ASA and Brillinta) Cont aggressive medical management for CAD (2) AV block, complete Problem Qualifiers (1) Myocardial infarction acute: Qualified Code: I21.11 - Acute ST elevation myocardial infarction (STEMI) involving right coronary artery Gonsalo Fu MD Jun 16, 2016 14:50
--- NOTE | 2016-06-16 17:05 | HHI.NPPN ---
Subjective General Problems: Anemia, Edema Renal Failure: Chronic, Acute Additional Remarks Patient is more alert, now sitting on chair. Objective Data Data 06/15/16 06/16/16 19:00 07:00 Intake Total 1242 ml 2215 ml Output Total 4750 ml 84916.0 ml Balance -3508 ml -7985.0 ml IV Total 622 ml 1003 ml Tube Feeding 120 ml 462 ml Other 500 ml 750 ml Output Urine Total 4750 ml 48038 ml Tube Feeding Residual Discard 0 ml # Bowel Movements 0 Vital Signs Date Time Temp Pulse Resp B/P Pulse Ox O2 Delivery O2 Flow Rate FiO2 06/16/16 15:23 98 Nasal Cannula 3.00 06/16/16 14:00 70 06/16/16 12:00 100.8 70 23 148/72 99 06/16/16 12:00 71 06/16/16 10:30 100 Nasal Cannula 4.00 06/16/16 10:26 100 Nasal Cannula 4 06/16/16 10:00 70 06/16/16 09:15 35 06/16/16 08:30 Nasal Cannula 35 06/16/16 08:30 35 06/16/16 08:24 97 35 06/16/16 08:00 66 06/16/16 08:00 99.9 70 19 158/75 99 06/16/16 07:00 35 06/16/16 06:00 70 06/16/16 04:36 100 35 06/16/16 04:00 99.1 70 14 166/78 99 06/16/16 04:00 70 06/16/16 03:00 40 06/16/16 02:00 70 06/16/16 00:26 100 35 06/16/16 00:00 98.8 70 14 167/84 100 06/16/16 00:00 70 06/15/16 23:00 40 06/15/16 22:28 100 40 06/15/16 22:00 72 06/15/16 20:00 98.6 71 19 167/84 98 06/15/16 20:00 72 06/15/16 19:00 40 06/15/16 18:00 70 -: 06/16/16 0000 06/16/16 0627 Physical Exam General Appearance: No Acute Distress, Comfortable Neck Neck Exam: Neck Supple Pulmonary Resp Exam: No Distress, Decreased Bases, Diminished Breath Sounds Cardiology CV Exam: Regular Gastrointestinal/Abdomen GI Exam: Soft, Non-Tender, Distended Integumentary Skin Exam: Dry, Intact Extremeties Extremities Exam: Moderate Edema, Pitting Edema, Dependent Edema Neurologic Neuro Exam: Alert, Awake Assessment/Plan Problem List: (1) TITO (acute kidney injury) Plan: BUN and Creatinine almost same. Urine out put is good. On Bumex infusion. BP is stable. K is low and replaced. (2) Acute respiratory failure Plan: on Vent (3) Myocardial infarction acute Plan: as above Stent RCA/PDA (4) DM (diabetes mellitus), type 2, uncontrolled Plan: Follow BG - hyperglycemia today and on IV insulin now (5) PNA (pneumonia) Plan: on Zyvox Problem Qualifiers (1) Acute respiratory failure: Qualified Code: J96.01 - Acute respiratory failure with hypoxia (2) Myocardial infarction acute: Qualified Code: I21.11 - Acute ST elevation myocardial infarction (STEMI) involving right coronary artery (3) DM (diabetes mellitus), type 2, uncontrolled: Qualified Code: E11.8 - Uncontrolled type 2 diabetes mellitus with complication , unspecified [employer] terminal [employer] insulin use status (4) PNA (pneumonia): Shira Valdez MD Jun 16, 2016 17:05 Shira Valdez MD Jun 16, 2016 17:05
[2016-06-16] MEDS: MORPHINE SULFATE 4 MG/ML INJ IV PRN (22:28)
[2016-06-17] VITALS (13 sets, daily range): BP systolic 141–178; BP diastolic 69–86; PULSE 71–81; RESP 14–24; TEMP 98.3–99; O2SAT 98–100
[2016-06-17] MEDS: DEXMEDETOMIDINE INJ 50 ML IV SCH (00:24)
[2016-06-17] MEDS: CHLORHEXIDINE GLUCONATE 2 % 1 PACK (2 CLOTHS) TOP SCH (02:16)
[2016-06-17] MEDS: FREE WATER OG SCH ×6 (02:16→22:08)
[2016-06-17] MEDS: MORPHINE SULFATE 4 MG/ML INJ IV PRN (02:28)
[2016-06-17] MEDS: PIPERACIL-TAZO 3.375 GM PREMIX 50 ML IV SCH (02:29)
[2016-06-17] MEDS ORDERED: AMIODARONE 150 MG/D5W 97 ML BOLUS 10 MINUTES IV ONE ×2 (03:15)
--- NOTE | 2016-06-17 03:51 | RADRPT ---
EXAM DATE/TIME: 06/17/2016 03:05 [place] COMPARISON: CHEST SINGLE AP, June 16, 2016, 6:37. INDICATIONS : Short of breath. MEDICAL HISTORY : Myocardial infarction. Hypercholesterolemia. Hypertension. Coronary SURGICAL HISTORY : Appendectomy. Cardiac stent placement, times 2. Right leg coronary stent. ENCOUNTER: Subsequent ACUITY: 2 weeks PAIN SCORE: Non-responsive. LOCATION: Bilateral chest FINDINGS: Mild interstitial prominence and cardiomegaly. Pacer/ICD device again noted. Subclavian line in satis factory position. CONCLUSION: Improved aeration. Porter Holm MD on June 17, 2016 at 3:50 Board Certified Radiologist. This report was verified electronically.
[2016-06-17] MEDS: INSULIN NovoLIN REGULAR SUPPLEMENTAL SCALE SQ SCH ×6 (03:59→23:41)
[2016-06-17] MEDS: RESP: ALBUTEROL 2.5 MG/IPRATROPIUM 0.5 MG NEB (SCH) NEB ×4 (04:09→20:48)
[2016-06-17 05:09] LABS: AUTOMATED NEUTROPHIL # 9.8 TH/MM3 (1.8-7.7); BASOPHIL % 0.3 % (0.0-2.0); EOSINOPHIL # 0.2 TH/MM3 (0-0.4); EOSINOPHIL % 1.6 % (0.0-4.0); HEMATOCRIT 27.2 % (39.0-51.0); HEMO FLAGS DIFF FINAL; LYMPH % 13.4 % (9.0-44.0); LYMPHOCYTE # 1.7 TH/MM3 (1.0-4.8); MEAN CELL VOLUME 92.6 FL (80.0-100.0); MEAN CORPUSCULAR HEMOGLOBIN 30.9 PG (27.0-34.0); MEAN CORPUSCULAR HGB CONC 33.4 % (32.0-36.0); MONO % 4.8 % (0.0-8.0); NEUT % 79.9 % (16.0-70.0); PLATELET COUNT 142 TH/MM3 (150-450); RED BLOOD COUNT 2.93 MIL/MM3 (4.50-5.90); RED CELL DISTRIBUTION WIDTH 13.5 % (11.6-17.2); WHITE BLOOD COUNT 12.3 TH/MM3 (4.0-11.0)
[2016-06-17] MEDS: BUMETANIDE INJ 1 MG/4 ML VIAL IV PUSH SCH ×3 (05:20→22:07)
[2016-06-17 05:53] LABS: ALT (GPT) 17 U/L (12-78); ANION GAP 11 MEQ/L (5-15); AST (GOT) 22 U/L (15-37); BICARBONATE 29.8 MEQ/L (21.0-32.0); BLOOD UREA NITROGEN 45 MG/DL (7-18); CHLORIDE 107 MEQ/L (98-107); GLOMERULAR FILTRATION RATE 28 ML/MIN (>89); MAGNESIUM 2.1 MG/DL (1.5-2.5); SODIUM (NA) 148 MEQ/L (136-145)
[2016-06-17 05:55] LABS: ALKALINE PHOSPHATASE 71 U/L (45-117); TOTAL BILIRUBIN ADULT 0.6 MG/DL (0.2-1.0)
--- NOTE | 2016-06-17 08:32 | HHI.CCPN ---
Subjective Remarks/Hospital Course 65 year old with past medical history is significant for coronary artery disease , hypertension, diabetes mellitus, history of congestive heart failure, peripheral vascular disease who was brought o the [facility] emergency department as a STEMI alert prior to arrival by ambulance services due to a left bundle branch block and shortness of breath with diaphoresis. Initial oxygen saturation was in the 60s, patient was very anxious. Chest x- ray showed pulmonary edema Initially placed on BiPAP with no significant improvement, and later was intubated and placed on mechanical ventilation. Patient ruled in for non-ST elevation OK with a troponin of 18. His blood sugar was in the 500s. Cardiology was consulted. Aspirin and IV heparin started, for cardiogenic shock patient was placed on dopamine CCM re evaluation: I evaluated the patient in the ED. Patient remains in shock on dopamine. I placed a left subclavian central line. Repeat troponin came back at 39. I discussed with Dr. Lay. He will take the patient for cardiac catheter given acute severe OK with cardiogenic shock and pulmonary edema. Patient was also started on insulin infusion. WBC count 23.2, most likely stress related. The patient insistence output the white count I will start on empiric Zosyn, send blood urine and sputum culture SUBJ 06/10/16: Patient underwent cardiac catheterization and PCI with stent placement by Dr. Lay along with temporary transvenous pacemaker placement, and Impella placement.(PCI / JOSÉ LUIS to right coronary artery, PCI / JOSÉ LUIS to PDA). CVP 17 today, 7 kg wt gain with UO 30-40 ml per hour. Give Bumex 1 mg IV x1 06/11/16: Patient was extubated yesterday but emergently reintubated for acute hypoxemic respiratory failure at 5 PM. Overnight intermittent third-degree heart block, requiring temporary pacing. I have changed from dopamine to dobutamine today as a EF is only 25-30%. Dr. Rodríguez has seen for possible permanent pacemaker placement. Will d/w Dr. Lay about timing. Active smoker until recently, started on IV Solu-Medrol and breathing treatments 06/12: Remains in third-degree heart block, dobutamine 1.5 mcg/kg/m. Urine Output adequate but creatinine has climbed to 2.5. Blood sugar in 400s, I will place back on IV insulin protocol 06/13: Patient gets very agitated when sedation is lower, remains on Versed 7 mg per hour, fentanyl 120 g per hour. Dopamine to dobutamine hypertension. Remains in third-degree heart block now pacer capturing, back rate 58 bpm. Urine output 1.5 L in 24 hours, positive fluid balance. Change Bumex to Bumex infusion-will discuss with nephrology 06/14: Sustained VTAC, placed on lidocaine infusion. (Amio not used due to intermittent CHB). While I was rounding patient developed sev agitation with desaturation. NM paralysis with Rocuronium given. i will add propofol for vent synchrony. Will d/w Dr. Lay about PPM vs further plan. Diuresing well on Bumex gtt 06/15: Patient received AICD/dual-chamber pacemaker implant yesterday by Dr. Rodríguez. Patient is fully paced at 70 bpm no further episodes of ventricle tachycardia, lidocaine had been discontinued. Remains heavily sedated, chest x- ray shows bilateral effusions. UO excellent on Bumex gtt >7L 06/16: Sedated with propofol and Precedex. Moves all extremities on lightening sedation not following commands. Urine output remains excellent, almost 15 L in 24 hours. I will discontinue Bumex infusion and start scheduled Bumex, also scheduled Diamox for 3 days for metabolic alkalosis. Patient remains fully paced AV sequential pacing. Attempt weaning to extubation 06/17: successfully extubated yesterday. continues to do well. off precedex. RASS 0. slightly hypertensive this AM, 180s SBP. continues to diurese well. one episode of wide-complex tachycardia, may be bundle branch block, given 1 dose of amiodarone 150mg with conversion back to paced rhythm. Passed nursing bedside swallow assessment overnight. Objective Vital Signs Date Time Temp Pulse Resp B/P Pulse Ox O2 Delivery O2 Flow Rate FiO2 06/17/16 06:00 78 06/17/16 04:00 98.8 17 141/77 100 06/16/16 20:42 Nasal Cannula 3.00 06/16/16 09:15 35 Intake and Output 06/16/16 06/16/16 06/17/16 08:00 16:00 00:00 Intake Total 1269 ml 1180 ml 150 ml Output Total 5000 ml 2400 ml 2350 ml Balance -3731 ml -1220 ml -2200 ml Result Diagram: 06/17/16 0458 06/17/16 0458 Imaging Last 24 hours Impressions Chest X-Ray 06/09/16 0120 Signed Impressions: Service Date/Time: Thursday, June 09, 2016 01:09 - CONCLUSION: Early/ mild pulmonary edema. Anthony Carroll MD Objective Remarks GENERAL: middle-aged male, lying in bed. awake, alert. SKIN: Warm and dry. HEAD: Normocephalic. EYES: No scleral icterus. No injection or drainage. ENT: mucous membranes moist. NECK: Supple, trachea midline. No JVD CARDIOVASCULAR: Paced at 70 beats per minute AV sequential, no murmurs. L upper chest AICD dressing clean dry RESPIRATORY: Breath sounds equal bilaterally. Diminished breath sounds at the bases. GASTROINTESTINAL: Abdomen soft, non-tender, nondistended. MUSCULOSKELETAL: No cyanosis, trace edema. No bleeding bilateral groin BACK: Nontender without obvious deformity. No CVA tenderness. NEURO: RASS 0, CAM -. follows commands. alert and oriented. A/P Assessment and Plan Assessment and plan (by system) Neuro: -oxycodone, dilaudid prn for pain Resp: Acute hypoxemic respiratory failure- resolving. Pulmonary edema- resolving. Bilateral pleural effusions -Intubated for severe hypoxemia on arrival in ER, extubated 06/10, but failed towards evening 06/10 requiring reintubation due to severe hypoxemia. re- extubated 06/16. -DuoNeb every 6 hours and when necessary -IV Solu-Medrol 40 daily-DC 06/18/16 -Zosyn, Zyvox. DCd Cefepime 06/15 -CT chest 06/[address] effusion, basilar consolidation. - OOB to chair today. could consider ambulation. PT consult. - wean o2 by NC for goal spo2 > 90%. CVS STEMI Acute systolic heart failure sustained VTAC Third-degree heart block s/p AICD 06/14/16 Cardiogenic shock-resolved Severe ischemic cardiomyopathy Status post Impella (removed 06/10), and temporary pacer placement History of CAD History of peripheral arterial disease History of hypertension History of CHF - s/p AICD 06/14/[address] Rodríguez. Lidocaine discontinued, no arrhythmia in 24 hours - Admitted with ST elevation OK and acute cardiogenic shock and respiratory failure, s/p PCI with JOSÉ LUIS to RCA and PDA and temp pacer placement. 06/09/16 - s/p Impella removal 06/10 - increase coreg to 6.25mg q12h given hypertension (and PPM). - Continue Brilinta and aspirin. - 06/09/16-Echo- Systolic function was sev reduced. EF 25-30%. Previous Echo w/ EF 50-55%. Limited echo 06/14/16 EF 25-30%, diffuse hypokinesis - continue Bumex 1 mg IV q8 GI: -IV Protonix, tube feeds with Glucerna. Free water flushes : Acute kidney injury Fluid overload -Most likely ATN, Monitor renal function closely -Continue Bumex 1 mg IV q8 -Creat continues to improve. ID: MRSA in sputum, bilateral lung infiltrates indicating pneumonia. -Zyvox 600 mg, will switch to PO. Plan for 10 day course (anticipated stop date 06/21). d/c zosyn today as cultures have been negative. ENDO: DM with severe hyperglycemia -Medium sliding scale -Electrolyte replacement per protocol DVT/GI prophylaxis - Pepcid. Heparin 5000 sq q12 Dispo: Clinically improving, but has multiple medical problems, and has had a history of decompensations. I think it is prudent to keep him in an ICU setting for at minimum an additional day for observation. Ankit Dao MD Jun 17, 2016 08:32
[2016-06-17] MEDS: ARTIFICIAL TEARS OPTH SOLN 15 ML BTL EACH EYE SCH ×3 (09:00→17:42)
[2016-06-17] MEDS: BENEPROTEIN POWDER 1 PACK G-TUBE SCH ×3 (09:00→17:42)
[2016-06-17] MEDS: DOCUSATE SODIUM 100 MG/10 ML UDC G-TUBE SCH ×3 (09:00→19:38)
[2016-06-17] MEDS: INSULIN DETEMIR 100 UNITS/ML VIAL SQ SCH ×2 (09:00→19:40)
--- NOTE | 2016-06-17 09:23 | PD.CARD.PN ---
Subjective Subjective Remarks no complaints overnight had a run of VT Amio Bolus given Objective Medications Current Medications Medications (Trade) Dose Ordered Sig/Yoselin Route Start Time Stop Time Status Last Admin (Tylenol) 650 mg Q6H PRN PO 06/09/16 02:45 06/15/16 10:46 (Tears Naturale Opth Soln) 1 drop TID EACH EYE 06/09/16 09:00 06/16/16 18:00 (Zofran Inj) 4 mg Q6H PRN IV 06/09/16 02:45 (Reglan Inj) 10 mg Q6H PRN IV 06/09/16 02:45 (Colace Liq) 100 mg Q12H G-TUBE 06/09/16 09:00 06/16/16 08:09 Miscellaneous Information 1 Q361D XX 06/09/16 02:45 (Chlorhexidine 2% Cloth) Taper DAILY@04 TOP 06/09/16 04:00 06/05/17 03:59 06/14/16 04:00 (Chlorhexidine 2% Cloth) 3 pack UNSCH PRN TOP 06/09/16 02:45 (NS Flush) 2 ml UNSCH PRN IVF 06/09/16 15:00 (NS Flush) 2 ml BID IVF 06/09/16 21:00 06/16/16 19:39 (Aspirin Chew) 81 mg DAILY PO 06/10/16 09:00 06/16/16 08:09 (Brilinta) 90 mg BID PO 06/09/16 21:00 06/16/16 08:10 (KCl 40 Meq/30 ml Liq) 40 meq DAILY NG 06/11/16 09:00 06/16/16 08:09 (Beneprotein Powder) 1 pack TID G-TUBE 06/11/16 09:00 06/16/16 08:50 (Lipitor) 80 mg DAILY PO 06/12/16 09:00 06/16/16 08:09 (Brethine Inj) 1 mg UNSCH PRN SQ 06/12/16 06:45 (Albumin 25% Inj) 25 gm Q12H IV 06/13/16 11:00 06/16/16 22:28 (SoluMEDROL INJ) 40 mg DAILY IV PUSH 06/14/16 09:00 06/16/16 08:09 (D50w (Vial) Inj) 25 ml UNSCH PRN IV PUSH 06/15/16 03:30 (Glucagon Inj) 1 mg UNSCH PRN OTHER 06/15/16 03:30 (NovoLIN R SUPPLEMENTAL SCALE) 1 Q4HR SQ 06/15/16 04:00 06/16/16 13:13 (Heparin Inj) 5,000 units Q12HR SQ 06/15/16 09:00 06/16/16 19:53 (Levemir Inj) 15 units Q12HR SQ 06/15/16 09:00 06/16/16 19:53 (Bumex Inj) 1 mg Q8H IV PUSH 06/16/16 06:30 06/17/16 05:20 (Diamox Inj) 500 mg DAILY IV PUSH 06/16/16 09:00 06/18/16 08:59 06/16/16 08:10 (Coreg) 6.25 mg Q12HR PO 06/17/16 09:00 Water 300 ml 300 ml Q4HR OG 06/17/16 08:00 Potassium Chloride 100 ml @ 50 mls/hr Q4H IV 06/17/16 09:00 06/17/16 14:59 (Magnesium Sulfate 1 Gm Premix) 100 ml @ 100 mls/hr Q1H IV 06/17/16 09:00 06/17/16 10:59 (Apresoline Inj) 10 mg Q1H PRN IV PUSH 06/17/16 08:00 (Roxicodone) 5 mg Q4H PRN PO 06/17/16 09:00 (Dilaudid Pf Inj) 0.5 mg Q4H PRN IV PUSH 06/17/16 09:00 (Zyvox) 600 mg Q12HR PO 06/17/16 09:00 06/21/16 22:00 Vital Signs / I&O Vital Signs Date Time Temp Pulse Resp B/P Pulse Ox O2 Delivery O2 Flow Rate FiO2 06/17/16 09:08 100 Nasal Cannula 3.00 06/17/16 06:00 78 06/17/16 04:00 98.8 71 17 141/77 100 06/17/16 04:00 71 06/17/16 02:00 74 06/17/16 00:00 73 06/17/16 00:00 99.0 73 18 150/69 100 06/16/16 22:00 74 06/16/16 20:42 97 Nasal Cannula 3.00 06/16/16 20:00 70 06/16/16 20:00 99.4 70 20 160/58 99 06/16/16 18:00 70 06/16/16 16:00 100.0 70 16 159/75 94 06/16/16 16:00 70 06/16/16 15:23 98 Nasal Cannula 3.00 06/16/16 14:00 70 06/16/16 12:00 100.8 70 23 148/72 99 06/16/16 12:00 71 06/16/16 10:30 100 Nasal Cannula 4.00 06/16/16 10:26 100 Nasal Cannula 4 06/16/16 10:00 70 I/O 06/16/16 06/16/16 06/16/16 06/17/16 06/17/16 06/17/16 07:00 15:00 23:00 07:00 15:00 23:00 Intake Total 1269 ml 1180 ml 150 ml 472 ml Output Total 5000 ml 2400 ml 2350 ml 1400 ml Balance -3731 ml -1220 ml -2200 ml -928 ml Intake Oral 240 ml IV Total 524 ml 810 ml 150 ml 232 ml Tube Feeding 245 ml 120 ml Other 500 ml 250 ml Output Urine Total 5000 ml 2400 ml 1600 ml 1400 ml Stool Total 750 ml 0 ml Tube Feeding Residual Discard 0 ml # Bowel Movements 0 Physical Exam GENERAL: NAD SKIN: Warm and dry. HEAD: Normocephalic. EYES: No scleral icterus. No injection or drainage. NECK: Supple, trachea midline. No JVD or lymphadenopathy. CARDIOVASCULAR: Regular rate and rhythm without murmurs, gallops, or rubs. RESPIRATORY: Breath sounds equal bilaterally. No accessory muscle use. GASTROINTESTINAL: Abdomen soft, non-tender, nondistended. EXTREMITIES: No cyanosis, +2 edema. Laboratory Laboratory Tests Test 06/17/16 04:58 White Blood Count 12.3 TH/MM3 Red Blood Count 2.93 MIL/MM3 Hemoglobin 9.1 GM/DL Hematocrit 27.2 % Mean Corpuscular Volume 92.6 FL Mean Corpuscular Hemoglobin 30.9 PG Mean Corpuscular Hemoglobin 33.4 % Concent Red Cell Distribution Width 13.5 % Platelet Count 142 TH/MM3 Mean Platelet Volume 9.4 FL Neutrophils (%) (Auto) 79.9 % Lymphocytes (%) (Auto) 13.4 % Monocytes (%) (Auto) 4.8 % Eosinophils (%) (Auto) 1.6 % Basophils (%) (Auto) 0.3 % Neutrophils # (Auto) 9.8 TH/MM3 Lymphocytes # (Auto) 1.7 TH/MM3 Monocytes # (Auto) 0.6 TH/MM3 Eosinophils # (Auto) 0.2 TH/MM3 Basophils # (Auto) 0.0 TH/MM3 CBC Comment DIFF FINAL Differential Comment Sodium Level 148 MEQ/L Potassium Level 3.0 MEQ/L Chloride Level 107 MEQ/L Carbon Dioxide Level 29.8 MEQ/L Anion Gap 11 MEQ/L Blood Urea Nitrogen 45 MG/DL Creatinine 2.34 MG/DL Estimat Glomerular Filtration 28 ML/MIN Rate Random Glucose 87 MG/DL Calcium Level 8.4 MG/DL Magnesium Level 2.1 MG/DL Total Bilirubin 0.6 MG/DL Aspartate Amino Transf 22 U/L (AST/SGOT) Alanine Aminotransferase 17 U/L (ALT/SGPT) Alkaline Phosphatase 71 U/L Total Protein 6.5 GM/DL Albumin 3.6 GM/DL Assessment and Plan Problem List: (1) Myocardial infarction acute Assessment and Plan: Cont DAPT Cont aggressive medical management for CAD Start Amio 200mg PO BID Incentive spirometry PT/OT (2) AV block, complete Problem Qualifiers (1) Myocardial infarction acute: Qualified Code: I21.11 - Acute ST elevation myocardial infarction (STEMI) involving right coronary artery Gonsalo Fu MD Jun 17, 2016 09:23
[2016-06-17] MEDS: TICAGRELOR 90 MG TAB PO SCH ×2 (09:49→19:38)
[2016-06-17] MEDS: MAGNESIUM SULFATE 1 GM PREMIX 100 ML IV SCH ×2 (09:49→11:43)
[2016-06-17] MEDS: ASPIRIN 81 MG CHEW TAB PO SCH (09:50)
[2016-06-17] MEDS: LINEZOLID 600 MG TAB PO SCH ×2 (09:50→19:39)
[2016-06-17] MEDS: ATORVASTATIN 80 MG TAB PO SCH (09:50)
[2016-06-17] MEDS: CARVEDILOL 3.125 MG TAB PO SCH ×2 (09:50→19:39)
[2016-06-17] MEDS: SODIUM CHLORIDE 0.9% FLUSH 5 ML FLUSH IVF SCH ×2 (09:50→19:38)
[2016-06-17] MEDS: methylPREDNISolone SOD SUCC 40 MG/1 ML VIAL IV PUSH SCH (09:52)
[2016-06-17] MEDS: HEPARIN SODIUM - SQ 10,000 UNITS/ML VIAL SQ SCH ×2 (09:52→19:39)
[2016-06-17] MEDS: POTASSIUM CL 40 MEQ/30 ML LIQ UDC NG SCH (09:52)
[2016-06-17] MEDS: hydrALAZINE HCL 20 MG/ML VIAL IV PUSH PRN ×2 (09:55→15:58)
[2016-06-17] MEDS: POTASSIUM CHLOR 40 MEQ PREMIX 100 ML IV SCH ×2 (11:43→14:54)
[2016-06-17] MEDS: AMIODARONE 200 MG TAB PO SCH ×2 (11:43→19:39)
[2016-06-17] MEDS: ALBUMIN HUMAN 25% 25 GM/100 ML BAGP IV SCH ×2 (11:44→22:07)
[2016-06-17 18:57] LABS: BICARBONATE 27.5 MEQ/L (21.0-32.0); POTASSIUM 4.1 MEQ/L (3.5-5.1)
[2016-06-17] MEDS: MELATONIN 5 MG TAB PO SCH (19:39)
--- NOTE | 2016-06-17 20:46 | HHI.NPPN ---
Subjective General Problems: Anemia, Edema Renal Failure: Chronic, Acute Additional Remarks Patient is alert, feeling better, breathing improved. Objective Data Data 06/16/16 06/17/16 19:00 07:00 Intake Total 1180 ml 622 ml Output Total 2400 ml 3750 ml Balance -1220 ml -3128 ml Intake Oral 240 ml IV Total 810 ml 382 ml Tube Feeding 120 ml Other 250 ml Output Urine Total 2400 ml 3000 ml Stool Total 750 ml # Bowel Movements 0 Vital Signs Date Time Temp Pulse Resp B/P Pulse Ox O2 Delivery O2 Flow Rate FiO2 06/17/16 20:00 98.6 81 14 172/86 98 06/17/16 20:00 79 06/17/16 18:00 76 06/17/16 16:00 98.3 78 24 178/85 98 06/17/16 16:00 78 06/17/16 14:00 75 06/17/16 12:00 71 06/17/16 12:00 98.4 71 16 165/77 99 06/17/16 10:00 80 06/17/16 09:08 100 Nasal Cannula 3.00 06/17/16 08:00 71 06/17/16 08:00 98.4 71 16 164/77 100 06/17/16 06:00 78 06/17/16 04:00 98.8 71 17 141/77 100 06/17/16 04:00 71 06/17/16 02:00 74 06/17/16 00:00 73 06/17/16 00:00 99.0 73 18 150/69 100 06/16/16 22:00 74 -: 06/17/16 0458 06/17/16 1730 Physical Exam General Appearance: No Acute Distress, Comfortable Neck Neck Exam: Neck Supple Pulmonary Resp Exam: No Distress, Decreased Bases, Diminished Breath Sounds Cardiology CV Exam: Regular Gastrointestinal/Abdomen GI Exam: Soft, Non-Tender, Distended Integumentary Skin Exam: Dry, Intact Extremeties Extremities Exam: Moderate Edema, Pitting Edema, Dependent Edema Neurologic Neuro Exam: Alert, Awake Assessment/Plan Problem List: (1) TITO (acute kidney injury) Plan: BUN and Creatinine improving. Urine out put is good. On Bumex now TID. BP is stable. K is better after replacement. Avoid Nephrotoxins, follow urine out put and BMP. (2) Acute respiratory failure Plan: on Vent (3) Myocardial infarction acute Plan: as above Stent RCA/PDA (4) DM (diabetes mellitus), type 2, uncontrolled Plan: Follow BG - hyperglycemia today and on IV insulin now (5) PNA (pneumonia) Plan: on Zyvox Problem Qualifiers (1) Acute respiratory failure: Qualified Code: J96.01 - Acute respiratory failure with hypoxia (2) Myocardial infarction acute: Qualified Code: I21.11 - Acute ST elevation myocardial infarction (STEMI) involving right coronary artery (3) DM (diabetes mellitus), type 2, uncontrolled: Qualified Code: E11.8 - Uncontrolled type 2 diabetes mellitus with complication , unspecified fdc insulin use status (4) PNA (pneumonia): Shira Valdez MD Jun 17, 2016 20:45
[2016-06-17] MEDS ORDERED: TEMAZEPAM 7.5 MG CAP PO ONE (23:00)
[2016-06-18] VITALS (16 sets, daily range): BP systolic 95–166; BP diastolic 55–90; PULSE 70–81; RESP 12–26; TEMP 98.4–98.7; O2SAT 94–100
[2016-06-18] MEDS: HYDROmorphone HCL PF 1 MG/ML VIAL IV PUSH PRN ×4 (02:06→19:11)
[2016-06-18] MEDS: RESP: ALBUTEROL 2.5 MG/IPRATROPIUM 0.5 MG NEB (SCH) NEB ×4 (03:46→23:29)
[2016-06-18] MEDS: CHLORHEXIDINE GLUCONATE 2 % 1 PACK (2 CLOTHS) TOP SCH (03:52)
[2016-06-18] MEDS: FREE WATER OG SCH ×2 (03:52→08:00)
[2016-06-18] MEDS: INSULIN NovoLIN REGULAR SUPPLEMENTAL SCALE SQ SCH ×5 (04:00→21:36)
[2016-06-18 04:18] LABS: HEMATOCRIT 28.7 % (39.0-51.0); MEAN CELL VOLUME 91.7 FL (80.0-100.0); MEAN CORPUSCULAR HEMOGLOBIN 30.6 PG (27.0-34.0); MEAN CORPUSCULAR HGB CONC 33.4 % (32.0-36.0); PLATELET COUNT 180 TH/MM3 (150-450); RED BLOOD COUNT 3.12 MIL/MM3 (4.50-5.90); RED CELL DISTRIBUTION WIDTH 13.5 % (11.6-17.2); REVIEW FLAG FINAL; WHITE BLOOD COUNT 14.1 TH/MM3 (4.0-11.0)
[2016-06-18 04:44] LABS: BICARBONATE 28.7 MEQ/L (21.0-32.0); POTASSIUM 3.6 MEQ/L (3.5-5.1)
[2016-06-18] MEDS: BUMETANIDE INJ 1 MG/4 ML VIAL IV PUSH SCH ×3 (05:50→21:39)
[2016-06-18] MEDS: BENEPROTEIN POWDER 1 PACK G-TUBE SCH (09:00)
[2016-06-18] MEDS: DOCUSATE SODIUM 100 MG/10 ML UDC G-TUBE SCH ×2 (09:00→20:06)
[2016-06-18] MEDS: ARTIFICIAL TEARS OPTH SOLN 15 ML BTL EACH EYE SCH (09:00)
[2016-06-18] MEDS: POTASSIUM CL 40 MEQ/30 ML LIQ UDC NG SCH (09:23)
[2016-06-18] MEDS: methylPREDNISolone SOD SUCC 40 MG/1 ML VIAL IV PUSH SCH (09:27)
[2016-06-18] MEDS: ASPIRIN 81 MG CHEW TAB PO SCH (09:28)
[2016-06-18] MEDS: LINEZOLID 600 MG TAB PO SCH ×2 (09:28→21:00)
[2016-06-18] MEDS: HEPARIN SODIUM - SQ 10,000 UNITS/ML VIAL SQ SCH ×2 (09:28→20:07)
[2016-06-18] MEDS: CARVEDILOL 3.125 MG TAB PO SCH ×2 (09:29→20:07)
[2016-06-18] MEDS: ATORVASTATIN 80 MG TAB PO SCH (09:29)
[2016-06-18] MEDS: AMIODARONE 200 MG TAB PO SCH ×2 (09:29→20:06)
[2016-06-18] MEDS: TICAGRELOR 90 MG TAB PO SCH ×2 (09:29→20:06)
[2016-06-18] MEDS: SODIUM CHLORIDE 0.9% FLUSH 5 ML FLUSH IVF SCH ×2 (09:30→20:07)
[2016-06-18] MEDS: INSULIN DETEMIR 100 UNITS/ML VIAL SQ SCH ×2 (09:32→20:31)
--- NOTE | 2016-06-18 10:24 | PD.CARD.PN ---
Subjective Subjective Remarks no complaints Objective Medications Current Medications Medications (Trade) Dose Ordered Sig/Yoselin Route Start Time Stop Time Status Last Admin (Tylenol) 650 mg Q6H PRN PO 06/09/16 02:45 06/15/16 10:46 (Tears Naturale Opth Soln) 1 drop TID EACH EYE 06/09/16 09:00 06/16/16 18:00 (Zofran Inj) 4 mg Q6H PRN IV 06/09/16 02:45 06/17/16 20:37 (Reglan Inj) 10 mg Q6H PRN IV 06/09/16 02:45 (Colace Liq) 100 mg Q12H G-TUBE 06/09/16 09:00 06/17/16 19:38 Miscellaneous Information 1 Q361D XX 06/09/16 02:45 (Chlorhexidine 2% Cloth) Taper DAILY@04 TOP 06/09/16 04:00 06/05/17 03:59 06/14/16 04:00 (Chlorhexidine 2% Cloth) 3 pack UNSCH PRN TOP 06/09/16 02:45 (NS Flush) 2 ml UNSCH PRN IVF 06/09/16 15:00 (NS Flush) 2 ml BID IVF 06/09/16 21:00 06/18/16 09:30 (Aspirin Chew) 81 mg DAILY PO 06/10/16 09:00 06/18/16 09:28 (Brilinta) 90 mg BID PO 06/09/16 21:00 06/18/16 09:29 (KCl 40 Meq/30 ml Liq) 40 meq DAILY NG 06/11/16 09:00 06/18/16 09:23 (Beneprotein Powder) 1 pack TID G-TUBE 06/11/16 09:00 06/16/16 08:50 (Lipitor) 80 mg DAILY PO 06/12/16 09:00 06/18/16 09:29 (Brethine Inj) 1 mg UNSCH PRN SQ 06/12/16 06:45 (Albumin 25% Inj) 25 gm Q12H IV 06/13/16 11:00 06/17/16 22:07 (SoluMEDROL INJ) 40 mg DAILY IV PUSH 06/14/16 09:00 06/18/16 09:27 (D50w (Vial) Inj) 25 ml UNSCH PRN IV PUSH 06/15/16 03:30 (Glucagon Inj) 1 mg UNSCH PRN OTHER 06/15/16 03:30 (NovoLIN R SUPPLEMENTAL SCALE) 1 Q4HR SQ 06/15/16 04:00 06/17/16 19:37 (Heparin Inj) 5,000 units Q12HR SQ 06/15/16 09:00 06/18/16 09:28 (Levemir Inj) 15 units Q12HR SQ 06/15/16 09:00 06/18/16 09:32 (Bumex Inj) 1 mg Q8H IV PUSH 06/16/16 06:30 06/18/16 05:50 (Coreg) 6.25 mg Q12HR PO 06/17/16 09:00 06/18/16 09:29 (Free Water) 300 ml Q4HR OG 06/17/16 08:00 (Apresoline Inj) 10 mg Q1H PRN IV PUSH 06/17/16 08:00 06/17/16 15:58 (Roxicodone) 5 mg Q4H PRN PO 06/17/16 09:00 06/17/16 23:00 (Dilaudid Pf Inj) 0.5 mg Q4H PRN IV PUSH 06/17/16 09:00 06/18/16 09:23 (Zyvox) 600 mg Q12HR PO 06/17/16 09:00 06/21/16 22:00 06/18/16 09:28 (Cordarone) 200 mg Q12HR PO 06/17/16 10:00 06/18/16 09:29 (Melatonin) 5 mg HS PO 06/17/16 21:00 06/17/16 19:39 Vital Signs / I&O Vital Signs Date Time Temp Pulse Resp B/P Pulse Ox O2 Delivery O2 Flow Rate FiO2 06/18/16 08:45 100 Nasal Cannula 3.00 06/18/16 08:00 73 06/18/16 06:00 70 06/18/16 04:00 70 06/18/16 04:00 98.6 70 15 149/67 98 06/18/16 02:00 70 06/18/16 00:00 98.6 70 26 151/73 98 06/18/16 00:00 70 06/17/16 22:00 71 06/17/16 20:00 98.6 81 14 172/86 98 06/17/16 20:00 79 06/17/16 18:00 76 06/17/16 16:00 98.3 78 24 178/85 98 06/17/16 16:00 78 06/17/16 14:00 75 06/17/16 12:00 71 06/17/16 12:00 98.4 71 16 165/77 99 I/O 06/17/16 06/17/16 06/17/16 06/18/16 06/18/16 06/18/16 07:00 15:00 23:00 07:00 15:00 23:00 Intake Total 472 ml 1402 ml 360 ml 490 ml Output Total 1400 ml 1900 ml 2100 ml 850 ml Balance -928 ml -498 ml -1740 ml -360 ml Intake Oral 240 ml 920 ml 360 ml 240 ml IV Total 232 ml 382 ml 0 ml 250 ml Albumin 100 ml Output Urine Total 1400 ml 1650 ml 2000 ml 850 ml Stool Total 0 ml 250 ml Emesis 100 ml # Bowel Movements 2 1 Physical Exam GENERAL: NAD SKIN: Warm and dry. HEAD: Normocephalic. EYES: No scleral icterus. No injection or drainage. NECK: Supple, trachea midline. No JVD or lymphadenopathy. CARDIOVASCULAR: Regular rate and rhythm without murmurs, gallops, or rubs. RESPIRATORY: Breath sounds equal bilaterally. No accessory muscle use. GASTROINTESTINAL: Abdomen soft, non-tender, nondistended. EXTREMITIES: No cyanosis, +2 edema. Laboratory Laboratory Tests Test 06/17/16 06/18/16 17:30 03:55 Sodium Level 141 MEQ/L 143 MEQ/L Potassium Level 4.1 MEQ/L 3.6 MEQ/L Chloride Level 103 MEQ/L 106 MEQ/L Carbon Dioxide Level 27.5 MEQ/L 28.7 MEQ/L Anion Gap 11 MEQ/L 8 MEQ/L Blood Urea Nitrogen 36 MG/DL 35 MG/DL Creatinine 2.06 MG/DL 1.96 MG/DL Estimat Glomerular Filtration 32 ML/MIN 34 ML/MIN Rate Random Glucose 229 MG/DL 132 MG/DL Calcium Level 8.2 MG/DL 8.4 MG/DL White Blood Count 14.1 TH/MM3 Red Blood Count 3.12 MIL/MM3 Hemoglobin 9.6 GM/DL Hematocrit 28.7 % Mean Corpuscular Volume 91.7 FL Mean Corpuscular Hemoglobin 30.6 PG Mean Corpuscular Hemoglobin 33.4 % Concent Red Cell Distribution Width 13.5 % Platelet Count 180 TH/MM3 Mean Platelet Volume 9.2 FL Assessment and Plan Problem List: (1) Myocardial infarction acute Assessment and Plan: Cont DAPT with ASA and Brilinta Aggressive medical management for CAD Incentive spirometry Encourage out of bed d/c Chaidez PT/OT (2) AV block, complete Problem Qualifiers (1) Myocardial infarction acute: Qualified Code: I21.11 - Acute ST elevation myocardial infarction (STEMI) involving right coronary artery Gonsalo Fu MD Jun 18, 2016 10:24
[2016-06-18] MEDS: ALBUMIN HUMAN 25% 25 GM/100 ML BAGP IV SCH (11:15)
[2016-06-18] MEDS: hydrALAZINE HCL 20 MG/ML VIAL IV PUSH PRN (11:20)
--- NOTE | 2016-06-18 11:24 | HHI.CCPN ---
Subjective Remarks/Hospital Course 65 year old with past medical history is significant for coronary artery disease , hypertension, diabetes mellitus, history of congestive heart failure, peripheral vascular disease who was brought o the [facility] emergency department as a STEMI alert prior to arrival by ambulance services due to a left bundle branch block and shortness of breath with diaphoresis. Initial oxygen saturation was in the 60s, patient was very anxious. Chest x- ray showed pulmonary edema Initially placed on BiPAP with no significant improvement, and later was intubated and placed on mechanical ventilation. Patient ruled in for non-ST elevation KS with a troponin of 18. His blood sugar was in the 500s. Cardiology was consulted. Aspirin and IV heparin started, for cardiogenic shock patient was placed on dopamine CCM re evaluation: I evaluated the patient in the ED. Patient remains in shock on dopamine. I placed a left subclavian central line. Repeat troponin came back at 39. I discussed with Dr. Lay. He will take the patient for cardiac catheter given acute severe KS with cardiogenic shock and pulmonary edema. Patient was also started on insulin infusion. WBC count 23.2, most likely stress related. The patient insistence output the white count I will start on empiric Zosyn, send blood urine and sputum culture SUBJ 06/10/16: Patient underwent cardiac catheterization and PCI with stent placement by Dr. Lay along with temporary transvenous pacemaker placement, and Impella placement.(PCI / JOSÉ LUIS to right coronary artery, PCI / JOSÉ LUIS to PDA). CVP 17 today, 7 kg wt gain with UO 30-40 ml per hour. Give Bumex 1 mg IV x1 06/11/16: Patient was extubated yesterday but emergently reintubated for acute hypoxemic respiratory failure at 5 PM. Overnight intermittent third-degree heart block, requiring temporary pacing. I have changed from dopamine to dobutamine today as a EF is only 25-30%. Dr. Rodríguez has seen for possible permanent pacemaker placement. Will d/w Dr. Lay about timing. Active smoker until recently, started on IV Solu-Medrol and breathing treatments 06/12: Remains in third-degree heart block, dobutamine 1.5 mcg/kg/m. Urine Output adequate but creatinine has climbed to 2.5. Blood sugar in 400s, I will place back on IV insulin protocol 06/13: Patient gets very agitated when sedation is lower, remains on Versed 7 mg per hour, fentanyl 120 g per hour. Dopamine to dobutamine hypertension. Remains in third-degree heart block now pacer capturing, back rate 58 bpm. Urine output 1.5 L in 24 hours, positive fluid balance. Change Bumex to Bumex infusion-will discuss with nephrology 06/14: Sustained VTAC, placed on lidocaine infusion. (Amio not used due to intermittent CHB). While I was rounding patient developed sev agitation with desaturation. NM paralysis with Rocuronium given. i will add propofol for vent synchrony. Will d/w Dr. Lay about PPM vs further plan. Diuresing well on Bumex gtt 06/15: Patient received AICD/dual-chamber pacemaker implant yesterday by Dr. Rodríguez. Patient is fully paced at 70 bpm no further episodes of ventricle tachycardia, lidocaine had been discontinued. Remains heavily sedated, chest x- ray shows bilateral effusions. UO excellent on Bumex gtt >7L 06/16: Sedated with propofol and Precedex. Moves all extremities on lightening sedation not following commands. Urine output remains excellent, almost 15 L in 24 hours. I will discontinue Bumex infusion and start scheduled Bumex, also scheduled Diamox for 3 days for metabolic alkalosis. Patient remains fully paced AV sequential pacing. Attempt weaning to extubation 06/17: successfully extubated yesterday. continues to do well. off precedex. RASS 0. slightly hypertensive this AM, 180s SBP. continues to diurese well. one episode of wide-complex tachycardia, may be bundle branch block, given 1 dose of amiodarone 150mg with conversion back to paced rhythm. Passed nursing bedside swallow assessment overnight. 06/18: continues to do well and improve clinically. RASS 0. complaints today of peripheral neuropathy in his LEs which is baseline for him. He takes percocet for this at home. He has tried neurontin and lyrica in the past with poor resuts , he states. Objective Vital Signs Date Time Temp Pulse Resp B/P Pulse Ox O2 Delivery O2 Flow Rate FiO2 06/18/16 08:45 100 Nasal Cannula 3.00 06/18/16 08:00 73 06/18/16 04:00 98.6 15 149/67 06/16/16 09:15 35 Intake and Output 06/17/16 06/17/16 06/18/16 08:00 16:00 00:00 Intake Total 472 ml 1402 ml 360 ml Output Total 1400 ml 1900 ml 2100 ml Balance -928 ml -498 ml -1740 ml Result Diagram: 06/18/16 0355 06/18/16 0355 Imaging Last 24 hours Impressions Chest X-Ray 06/09/16 0120 Signed Impressions: Service Date/Time: Thursday, June 09, 2016 01:09 - CONCLUSION: Early/ mild pulmonary edema. Anthony Carroll MD Objective Remarks GENERAL: middle-aged male, lying in bed. awake, alert. SKIN: Warm and dry. HEAD: Normocephalic. EYES: No scleral icterus. No injection or drainage. ENT: mucous membranes moist. NECK: Supple, trachea midline. No JVD CARDIOVASCULAR: Paced at 70 beats per minute AV sequential, no murmurs. L upper chest AICD dressing clean dry RESPIRATORY: Breath sounds equal bilaterally. Diminished breath sounds at the bases. GASTROINTESTINAL: Abdomen soft, non-tender, nondistended. MUSCULOSKELETAL: No cyanosis, trace edema. No bleeding bilateral groin BACK: Nontender without obvious deformity. No CVA tenderness. NEURO: RASS 0, CAM -. follows commands. alert and oriented. A/P Assessment and Plan Assessment and plan (by system) Neuro: Diabetic Peripheral Neuropathy -oxycodone, dilaudid prn for pain. will increase oxy to 10 q4h prn Resp: Acute hypoxemic respiratory failure- resolved. Pulmonary edema- resolved. Bilateral pleural effusions -Intubated for severe hypoxemia on arrival in ER, extubated 06/10, but failed towards evening 06/10 requiring reintubation due to severe hypoxemia. re- extubated 06/16. -DuoNeb every 6 hours and when necessary -IV Solu-Medrol 40 daily-DC 06/18/16 -Zyvox. DCd Cefepime 06/15 -CT chest 06/[address] effusion, basilar consolidation. - OOB to chair today. could consider ambulation. PT consult. - wean o2 by NC for goal spo2 > 90%. CVS STEMI Acute systolic heart failure sustained VTAC Third-degree heart block s/p AICD 06/14/16 Cardiogenic shock-resolved Severe ischemic cardiomyopathy Status post Impella (removed 06/10), and temporary pacer placement History of CAD History of peripheral arterial disease History of hypertension History of CHF - s/p AICD 06/14/[address] Rodríguez. Lidocaine discontinued, no arrhythmia in 24 hours - Admitted with ST elevation KS and acute cardiogenic shock and respiratory failure, s/p PCI with JOSÉ LUIS to RCA and PDA and temp pacer placement. 06/09/16 - s/p Impella removal 06/10 - increase coreg to 12.5mg q12h given hypertension (and PPM). - Continue Brilinta and aspirin. - 06/09/16-Echo- Systolic function was sev reduced. EF 25-30%. Previous Echo w/ EF 50-55%. Limited echo 06/14/16 EF 25-30%, diffuse hypokinesis - continue Bumex 1 mg IV q8 GI: -IV Protonix, tube feeds with Glucerna. Free water flushes : Acute kidney injury Fluid overload -Most likely ATN, Monitor renal function closely -Continue Bumex 1 mg IV q8 -Creat continues to improve. ID: MRSA in sputum, bilateral lung infiltrates indicating pneumonia. -Zyvox 600 mg PO. Plan for 10 day course (anticipated stop date 06/21). ENDO: DM with severe hyperglycemia -Medium sliding scale -Electrolyte replacement per protocol DVT/GI prophylaxis - Pepcid. Heparin 5000 sq q12 Dispo: Clinically improving. will consult hospitalist service and transfer out of ICU. Ankit Dao MD Jun 18, 2016 11:24 Ankit Dao MD Jun 18, 2016 11:24
--- NOTE | 2016-06-18 12:48 | HHI.NPPN ---
Subjective General Problems: Anemia, Edema Renal Failure: Chronic, Acute Additional Remarks Patient is alert, clinically same, not in distress. Objective Data Data 06/17/16 06/18/16 19:00 07:00 Intake Total 1402 ml 850 ml Output Total 1900 ml 2950 ml Balance -498 ml -2100 ml Intake Oral 920 ml 600 ml IV Total 382 ml 250 ml Albumin 100 ml Output Urine Total 1650 ml 2850 ml Stool Total 250 ml Emesis 100 ml # Bowel Movements 2 1 Vital Signs Date Time Temp Pulse Resp B/P Pulse Ox O2 Delivery O2 Flow Rate FiO2 06/18/16 08:45 100 Nasal Cannula 3.00 06/18/16 08:00 73 06/18/16 06:00 70 06/18/16 04:00 70 06/18/16 04:00 98.6 70 15 149/67 98 06/18/16 02:00 70 06/18/16 00:00 98.6 70 26 151/73 98 06/18/16 00:00 70 06/17/16 22:00 71 06/17/16 20:00 98.6 81 14 172/86 98 06/17/16 20:00 79 06/17/16 18:00 76 06/17/16 16:00 98.3 78 24 178/85 98 06/17/16 16:00 78 06/17/16 14:00 75 -: 06/18/16 0355 06/18/16 0355 Physical Exam General Appearance: No Acute Distress, Comfortable Neck Neck Exam: Neck Supple Pulmonary Resp Exam: No Distress, Decreased Bases, Diminished Breath Sounds Cardiology CV Exam: Regular Gastrointestinal/Abdomen GI Exam: Soft, Non-Tender, Distended Integumentary Skin Exam: Dry, Intact Extremeties Extremities Exam: Moderate Edema, Pitting Edema, Dependent Edema Neurologic Neuro Exam: Alert, Awake Assessment/Plan Problem List: (1) TITO (acute kidney injury) Plan: BUN and Creatinine improving. Urine out put is good. On Bumex now TID. BP is stable. Avoid Nephrotoxins, Continue Bumex and follow the urine out put and BMP. (2) Acute respiratory failure Plan: on Vent (3) Myocardial infarction acute Plan: as above Stent RCA/PDA (4) DM (diabetes mellitus), type 2, uncontrolled Plan: Follow BG - hyperglycemia today and on IV insulin now (5) PNA (pneumonia) Plan: on Zyvox Problem Qualifiers (1) Acute respiratory failure: Qualified Code: J96.01 - Acute respiratory failure with hypoxia (2) Myocardial infarction acute: Qualified Code: I21.11 - Acute ST elevation myocardial infarction (STEMI) involving right coronary artery (3) DM (diabetes mellitus), type 2, uncontrolled: Qualified Code: E11.8 - Uncontrolled type 2 diabetes mellitus with complication , 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
[2016-06-18] MEDS: MELATONIN 5 MG TAB PO SCH (21:00)
[2016-06-19] VITALS (26 sets, daily range): BP systolic 134–169; BP diastolic 83–90; PULSE 70–73; RESP 18–20; TEMP 98.2–98.6; O2SAT 94–97
[2016-06-19] MEDS: HYDROmorphone HCL PF 1 MG/ML VIAL IV PUSH PRN ×6 (00:27→20:57)
[2016-06-19] MEDS: CHLORHEXIDINE GLUCONATE 2 % 1 PACK (2 CLOTHS) TOP SCH (04:00)
[2016-06-19] MEDS: INSULIN NovoLIN REGULAR SUPPLEMENTAL SCALE SQ SCH ×6 (04:06→21:13)
[2016-06-19] MEDS: RESP: ALBUTEROL 2.5 MG/IPRATROPIUM 0.5 MG NEB (SCH) NEB ×4 (04:32→20:05)
[2016-06-19 04:57] LABS: HEMATOCRIT 30.5 % (39.0-51.0); MEAN CELL VOLUME 91.3 FL (80.0-100.0); MEAN CORPUSCULAR HEMOGLOBIN 31.3 PG (27.0-34.0); MEAN CORPUSCULAR HGB CONC 34.2 % (32.0-36.0); PLATELET COUNT 193 TH/MM3 (150-450); RED BLOOD COUNT 3.34 MIL/MM3 (4.50-5.90); RED CELL DISTRIBUTION WIDTH 13.2 % (11.6-17.2); REVIEW FLAG FINAL; WHITE BLOOD COUNT 15.1 TH/MM3 (4.0-11.0)
[2016-06-19 05:22] LABS: BICARBONATE 23.7 MEQ/L (21.0-32.0); POTASSIUM 3.6 MEQ/L (3.5-5.1)
[2016-06-19] MEDS: BUMETANIDE INJ 1 MG/4 ML VIAL IV PUSH SCH ×3 (05:58→20:57)
[2016-06-19] MEDS: DOCUSATE SODIUM 100 MG/10 ML UDC G-TUBE SCH ×2 (07:50→20:59)
[2016-06-19] MEDS: POTASSIUM CL 40 MEQ/30 ML LIQ UDC NG SCH (07:50)
[2016-06-19] MEDS: ASPIRIN 81 MG CHEW TAB PO SCH (07:51)
[2016-06-19] MEDS: AMIODARONE 200 MG TAB PO SCH ×2 (07:51→20:59)
[2016-06-19] MEDS: CARVEDILOL 3.125 MG TAB PO SCH ×2 (07:52→20:58)
[2016-06-19] MEDS: ATORVASTATIN 80 MG TAB PO SCH (07:52)
[2016-06-19] MEDS: HEPARIN SODIUM - SQ 10,000 UNITS/ML VIAL SQ SCH ×2 (07:52→20:59)
[2016-06-19] MEDS: SODIUM CHLORIDE 0.9% FLUSH 5 ML FLUSH IVF SCH ×2 (07:54→20:59)
[2016-06-19] MEDS: methylPREDNISolone SOD SUCC 40 MG/1 ML VIAL IV PUSH SCH (07:54)
[2016-06-19] MEDS: LINEZOLID 600 MG TAB PO SCH ×2 (08:08→20:59)
[2016-06-19] MEDS: TICAGRELOR 90 MG TAB PO SCH ×2 (08:09→20:59)
--- NOTE | 2016-06-19 08:27 | PD.CARD.PN ---
Subjective Subjective Remarks complaints of diarrhea not tolerating diet Denies chest pain or SOB Objective Medications Current Medications Medications (Trade) Dose Ordered Sig/Yoselin Route Start Time Stop Time Status Last Admin (Tylenol) 650 mg Q6H PRN PO 06/09/16 02:45 06/15/16 10:46 (Zofran Inj) 4 mg Q6H PRN IV 06/09/16 02:45 06/17/16 20:37 (Reglan Inj) 10 mg Q6H PRN IV 06/09/16 02:45 (Colace Liq) 100 mg Q12H G-TUBE 06/09/16 09:00 06/18/16 20:06 Miscellaneous Information 1 Q361D XX 06/09/16 02:45 (Chlorhexidine 2% Cloth) Taper DAILY@04 TOP 06/09/16 04:00 06/05/17 03:59 06/14/16 04:00 (Chlorhexidine 2% Cloth) 3 pack UNSCH PRN TOP 06/09/16 02:45 (NS Flush) 2 ml UNSCH PRN IVF 06/09/16 15:00 (NS Flush) 2 ml BID IVF 06/09/16 21:00 06/19/16 07:54 (Aspirin Chew) 81 mg DAILY PO 06/10/16 09:00 06/19/16 07:51 (Brilinta) 90 mg BID PO 06/09/16 21:00 06/19/16 08:09 (KCl 40 Meq/30 ml Liq) 40 meq DAILY NG 06/11/16 09:00 06/19/16 07:50 (Lipitor) 80 mg DAILY PO 06/12/16 09:00 06/19/16 07:52 (Brethine Inj) 1 mg UNSCH PRN SQ 06/12/16 06:45 (SoluMEDROL INJ) 40 mg DAILY IV PUSH 06/14/16 09:00 06/19/16 07:54 (D50w (Vial) Inj) 25 ml UNSCH PRN IV PUSH 06/15/16 03:30 (Glucagon Inj) 1 mg UNSCH PRN OTHER 06/15/16 03:30 (NovoLIN R SUPPLEMENTAL SCALE) 1 Q4HR SQ 06/15/16 04:00 06/19/16 04:06 (Heparin Inj) 5,000 units Q12HR SQ 06/15/16 09:00 06/19/16 07:52 (Levemir Inj) 15 units Q12HR SQ 06/15/16 09:00 06/18/16 20:31 (Bumex Inj) 1 mg Q8H IV PUSH 06/16/16 06:30 06/19/16 05:58 (Apresoline Inj) 10 mg Q1H PRN IV PUSH 06/17/16 08:00 06/18/16 11:20 (Dilaudid Pf Inj) 0.5 mg Q4H PRN IV PUSH 06/17/16 09:00 06/19/16 08:09 (Zyvox) 600 mg Q12HR PO 06/17/16 09:00 06/21/16 22:00 06/19/16 08:08 (Cordarone) 200 mg Q12HR PO 06/17/16 10:00 06/19/16 07:51 (Melatonin) 5 mg HS PO 06/17/16 21:00 06/17/16 19:39 (Coreg) 12.5 mg Q12HR PO 06/18/16 21:00 06/19/16 07:52 (Roxicodone) 10 mg Q4H PRN PO 06/18/16 11:45 06/19/16 08:08 Vital Signs / I&O Vital Signs Date Time Temp Pulse Resp B/P Pulse Ox O2 Delivery O2 Flow Rate FiO2 06/19/16 06:00 73 06/19/16 05:00 72 06/19/16 04:00 72 06/19/16 04:00 98.5 72 18 150/89 97 06/19/16 04:00 Nasal Cannula 2.00 06/19/16 03:00 70 06/19/16 02:00 71 06/19/16 01:00 72 06/19/16 00:00 Nasal Cannula 2.00 06/19/16 00:00 98.2 73 18 144/90 97 06/19/16 00:00 73 06/18/16 23:29 97 Nasal Cannula 2.00 06/18/16 23:00 72 06/18/16 22:00 72 06/18/16 21:00 70 06/18/16 20:00 98.4 74 20 147/87 96 06/18/16 20:00 74 06/18/16 18:51 80 12 166/90 97 06/18/16 16:00 98.7 71 20 138/65 94 06/18/16 16:00 71 06/18/16 14:00 70 06/18/16 12:00 98.4 72 15 95/55 98 06/18/16 12:00 72 06/18/16 10:00 78 06/18/16 08:45 100 Nasal Cannula 3.00 I/O 06/18/16 06/18/16 06/18/16 06/19/16 06/19/16 06/19/16 07:00 15:00 23:00 07:00 15:00 23:00 Intake Total 490 ml 1480 ml 482 ml Output Total 850 ml 900 ml 700 ml Balance -360 ml 580 ml -218 ml Intake Oral 240 ml 1480 ml 480 ml IV Total 250 ml 0 ml 2 ml Output Urine Total 850 ml 900 ml 600 ml Stool Total 100 ml # Bowel Movements 0 Physical Exam GENERAL: NAD SKIN: Warm and dry. HEAD: Normocephalic. EYES: No scleral icterus. No injection or drainage. NECK: Supple, trachea midline. No JVD or lymphadenopathy. CARDIOVASCULAR: Regular rate and rhythm without murmurs, gallops, or rubs. RESPIRATORY: Breath sounds equal bilaterally. No accessory muscle use. GASTROINTESTINAL: Abdomen soft, non-tender, nondistended. EXTREMITIES: No cyanosis, +2 edema. Laboratory Laboratory Tests Test 06/19/16 03:53 White Blood Count 15.1 TH/MM3 Red Blood Count 3.34 MIL/MM3 Hemoglobin 10.4 GM/DL Hematocrit 30.5 % Mean Corpuscular Volume 91.3 FL Mean Corpuscular Hemoglobin 31.3 PG Mean Corpuscular Hemoglobin 34.2 % Concent Red Cell Distribution Width 13.2 % Platelet Count 193 TH/MM3 Mean Platelet Volume 9.2 FL Sodium Level 143 MEQ/L Potassium Level 3.6 MEQ/L Chloride Level 108 MEQ/L Carbon Dioxide Level 23.7 MEQ/L Anion Gap 11 MEQ/L Blood Urea Nitrogen 38 MG/DL Creatinine 1.68 MG/DL Estimat Glomerular Filtration 41 ML/MIN Rate Random Glucose 147 MG/DL Calcium Level 8.8 MG/DL Imaging Last Impressions Chest X-Ray 06/17/16 0600 Signed Impressions: Service Date/Time: June 03:05 - CONCLUSION: Improved aeration. Porter Holm MD Chest CT 06/13/16 0000 Signed Impressions: Service Date/Time: Monday, June 13, 2016 16:26 - CONCLUSION: 1. Moderate bilateral pleural effusions with basilar dependent atelectasis and consolidation in the lungs. No adenopathy. Anterior portion of the lungs are relatively clear. 2. Anasarca with ascites in the upper abdomen. 3. Endotracheal tube, nasogastric tube and right central line in satisfactory position. 4. Severe coronary artery calcifications. Manuelito Lay MD Assessment and Plan Problem List: (1) Myocardial infarction acute Assessment and Plan: Stable from CV standpoint Cont DAPT ASA and Brilinta Cont aggressive medical management for CAD Start Protonix Clear liquid diet and advance as tolerated Send stools for C Diff. Refer to Cardiac Rehab when ready to discharge (2) AV block, complete Problem Qualifiers (1) Myocardial infarction acute: Qualified Code: I21.11 - Acute ST elevation myocardial infarction (STEMI) involving right coronary artery Gonsalo Fu MD Jun 19, 2016 08:27
[2016-06-19] MEDS: INSULIN DETEMIR 100 UNITS/ML VIAL SQ SCH ×2 (09:00→20:57)
--- NOTE | 2016-06-19 09:29 | HHI.PR ---
Subjective Remarks Follow up STEMI, CHF, heart block. Patient denies chest pain, dyspnea. Has had some diarrhea. Reports significant pain in both lower extremities from diabetic neuropathy. Objective Vitals Vital Signs Date Time Temp Pulse Resp B/P Pulse Ox O2 Delivery O2 Flow Rate FiO2 06/19/16 08:39 18 06/19/16 08:39 18 06/19/16 08:00 Nasal Cannula 2.00 06/19/16 08:00 98.2 70 18 160/85 94 06/19/16 06:00 73 06/19/16 05:00 72 06/19/16 04:00 72 06/19/16 04:00 98.5 72 18 150/89 97 06/19/16 04:00 Nasal Cannula 2.00 06/19/16 03:00 70 06/19/16 02:00 71 06/19/16 01:00 72 06/19/16 00:00 Nasal Cannula 2.00 06/19/16 00:00 98.2 73 18 144/90 97 06/19/16 00:00 73 06/18/16 23:29 97 Nasal Cannula 2.00 06/18/16 23:00 72 06/18/16 22:00 72 06/18/16 21:00 70 06/18/16 20:00 98.4 74 20 147/87 96 06/18/16 20:00 74 06/18/16 18:51 80 12 166/90 97 06/18/16 16:00 98.7 71 20 138/65 94 06/18/16 16:00 71 06/18/16 14:00 70 06/18/16 12:00 98.4 72 15 95/55 98 06/18/16 12:00 72 06/18/16 10:00 78 I/O 06/18/16 06/18/16 06/18/16 06/19/16 06/19/16 06/19/16 07:00 15:00 23:00 07:00 15:00 23:00 Intake Total 490 ml 1480 ml 482 ml Output Total 850 ml 900 ml 700 ml Balance -360 ml 580 ml -218 ml Intake Oral 240 ml 1480 ml 480 ml IV Total 250 ml 0 ml 2 ml Output Urine Total 850 ml 900 ml 600 ml Stool Total 100 ml # Bowel Movements 0 Result Diagram: 06/19/16 0353 06/19/16 0353 Imaging Last Impressions Chest X-Ray 06/17/16 0600 Signed Impressions: Service Date/Time: June 03:05 - CONCLUSION: Improved aeration. Porter Holm MD Chest CT 06/13/16 0000 Signed Impressions: Service Date/Time: Monday, June 13, 2016 16:26 - CONCLUSION: 1. Moderate bilateral pleural effusions with basilar dependent atelectasis and consolidation in the lungs. No adenopathy. Anterior portion of the lungs are relatively clear. 2. Anasarca with ascites in the upper abdomen. 3. Endotracheal tube, nasogastric tube and right central line in satisfactory position. 4. Severe coronary artery calcifications. Manuelito Lay MD Objective Remarks General: No acute distress. Heart: Regular rate and rhythm. No murmur. Lungs: Breath sounds decreased in both bases. No wheezes, rales, or rhonchi. Breathing is nonlabored. Abdomen: Soft, nontender, nondistended. Extremities: No lower extremity edema. Psych: Alert and oriented. Procedures 06/09/16 Central line placement 06/09/16 cardiac catheterization 06/10/16 orotracheal intubation Urinary Catheter: No Vascular Central Line Catheter: No A/P Problem List: (1) Ventricular tachycardia ICD Code: I47.2 Status: Acute (2) Acute exacerbation of congestive heart failure ICD Code: I50.9 Status: Acute (3) TITO (acute kidney injury) ICD Code: N17.9 Status: Acute (4) Acute respiratory failure ICD Code: J96.00 Status: Resolved (5) AV block, complete ICD Code: I44.2 Status: Acute (6) PNA (pneumonia) ICD Code: J18.9 Status: Acute (7) DM (diabetes mellitus), type 2, uncontrolled ICD Code: E11.65 Status: Chronic (8) HTN (hypertension) ICD Code: I10 Status: Chronic Assessment and Plan 1. Acute respiratory failure: Resolved. Extubated 06/16/16. Continue duo nebs. 2. STEMI, acute systolic congestive heart failure, severe ischemic cardiomyopathy: Appreciate cardiology recommendations. Status post cardiac catheterization with stenting to RCA. Continue Brilinta, aspirin. Continue Bumex. Most recent echocardiogram shows ejection fraction 25-30%. 3. Third-degree heart block: Status post AICD placement on 06/14/16. 4. Diabetes mellitus with peripheral neuropathy: Monitor Accu-Cheks and cover with sliding scale insulin. 5. Acute kidney injury: Creatinine improving. Patient is on Bumex. Monitor labs. 6. Pneumonia, sputum culture positive for MRSA: Continue Zyvox, stop date . 7. GI prophylaxis: Pepcid. 8. DVT prophylaxis: Heparin. Discharge Planning Will need SNF/rehab at discharge. Problem Qualifiers (1) Acute exacerbation of congestive heart failure: Qualified Code: I50.9 - Acute on chronic congestive heart failure, unspecified congestive heart failure type (2) Acute respiratory failure: Qualified Code: J96.01 - Acute respiratory failure with hypoxia (3) PNA (pneumonia): (4) DM (diabetes mellitus), type 2, uncontrolled: Qualified Code: E11.8 - Uncontrolled type 2 diabetes mellitus with complication , unspecified care home insulin use status Cayetano Rajput MD Jun 19, 2016 09:29
[2016-06-19] MEDS: PANTOPRAZOLE SOD 40 MG DELAYED RELEASE TAB PO SCH (09:49)
[2016-06-19 12:24] LABS: C. DIFF EPI 027 PRESUMPTIVE NEGATIVE (NEGATIVE); C. DIFF TOXIN PCR NEGATIVE (NEGATIVE)
--- NOTE | 2016-06-19 13:39 | HHI.NPPN ---
Subjective General Problems: Anemia, Edema Renal Failure: Chronic, Acute Additional Remarks Patient is alert, feeling better, not eating well, no SOB. Objective Data Data 06/18/16 06/19/16 19:00 07:00 Intake Total 1480 ml 482 ml Output Total 900 ml 700 ml Balance 580 ml -218 ml Intake Oral 1480 ml 480 ml IV Total 0 ml 2 ml Output Urine Total 900 ml 600 ml Stool Total 100 ml # Bowel Movements 0 Vital Signs Date Time Temp Pulse Resp B/P Pulse Ox O2 Delivery O2 Flow Rate FiO2 06/19/16 11:58 70 06/19/16 11:00 98.4 70 18 134/84 95 06/19/16 10:00 70 06/19/16 09:00 72 06/19/16 08:39 18 06/19/16 08:39 18 06/19/16 08:00 Nasal Cannula 2.00 06/19/16 08:00 98.2 70 18 160/85 94 06/19/16 08:00 70 06/19/16 07:00 71 06/19/16 06:00 73 06/19/16 05:00 72 06/19/16 04:00 72 06/19/16 04:00 98.5 72 18 150/89 97 06/19/16 04:00 Nasal Cannula 2.00 06/19/16 03:00 70 06/19/16 02:00 71 06/19/16 01:00 72 06/19/16 00:00 Nasal Cannula 2.00 06/19/16 00:00 98.2 73 18 144/90 97 06/19/16 00:00 73 06/18/16 23:29 97 Nasal Cannula 2.00 06/18/16 23:00 72 06/18/16 22:00 72 06/18/16 21:00 70 06/18/16 20:00 98.4 74 20 147/87 96 06/18/16 20:00 74 06/18/16 18:51 80 12 166/90 97 06/18/16 16:00 98.7 71 20 138/65 94 06/18/16 16:00 71 06/18/16 14:00 70 -: 06/19/16 0353 06/19/16 0353 Physical Exam General Appearance: No Acute Distress, Comfortable Neck Neck Exam: Neck Supple Pulmonary Resp Exam: No Distress, Decreased Bases, Diminished Breath Sounds Cardiology CV Exam: Regular Gastrointestinal/Abdomen GI Exam: Soft, Non-Tender, Distended Integumentary Skin Exam: Dry, Intact Extremeties Extremities Exam: Moderate Edema, Pitting Edema, Dependent Edema Neurologic Neuro Exam: Alert, Awake Assessment/Plan Problem List: (1) TITO (acute kidney injury) Plan: Urine out put is good. On Bumex 1 mg TID. BP is stable. Avoid Nephrotoxins, Continue Bumex and follow the urine out put and BMP. Creatinine continue to improve. Encourage oral intake. (2) Acute respiratory failure Plan: on Vent (3) Myocardial infarction acute Plan: as above Stent RCA/PDA (4) DM (diabetes mellitus), type 2, uncontrolled Plan: Follow BG - hyperglycemia today and on IV insulin now (5) PNA (pneumonia) Plan: on Zyvox Problem Qualifiers (1) Acute respiratory failure: Qualified Code: J96.01 - Acute respiratory failure with hypoxia (2) Myocardial infarction acute: Qualified Code: I21.11 - Acute ST elevation myocardial infarction (STEMI) involving right coronary artery (3) DM (diabetes mellitus), type 2, uncontrolled: Qualified Code: E11.8 - Uncontrolled type 2 diabetes mellitus with complication , unspecified terminal gauger insulin use status (4) PNA (pneumonia): Shira Valdez MD Jun 19, 2016 13:39
[2016-06-19] MEDS: MELATONIN 5 MG TAB PO SCH (20:58)
[2016-06-20] VITALS (25 sets, daily range): BP systolic 126–155; BP diastolic 73–86; PULSE 70–73; RESP 18–20; TEMP 97.9–98.9; O2SAT 96–98
[2016-06-20] MEDS: HYDROmorphone HCL PF 1 MG/ML VIAL IV PUSH PRN ×5 (00:54→23:05)
[2016-06-20] MEDS: INSULIN NovoLIN REGULAR SUPPLEMENTAL SCALE SQ SCH ×7 (04:00→23:04)
[2016-06-20] MEDS: CHLORHEXIDINE GLUCONATE 2 % 1 PACK (2 CLOTHS) TOP SCH (04:00)
[2016-06-20] MEDS: RESP: ALBUTEROL 2.5 MG/IPRATROPIUM 0.5 MG NEB (SCH) NEB (04:45)
[2016-06-20] MEDS: BUMETANIDE INJ 1 MG/4 ML VIAL IV PUSH SCH ×3 (05:38→23:04)
[2016-06-20 07:01] LABS: MEAN CELL VOLUME 91.2 FL (80.0-100.0); MEAN CORPUSCULAR HEMOGLOBIN 30.9 PG (27.0-34.0); MEAN CORPUSCULAR HGB CONC 33.9 % (32.0-36.0); PLATELET COUNT 196 TH/MM3 (150-450); RED CELL DISTRIBUTION WIDTH 13.2 % (11.6-17.2); REVIEW FLAG FINAL; WHITE BLOOD COUNT 16.3 TH/MM3 (4.0-11.0)
[2016-06-20 07:22] LABS: BICARBONATE 23.9 MEQ/L (21.0-32.0); POTASSIUM 3.8 MEQ/L (3.5-5.1)
--- NOTE | 2016-06-20 08:50 | HHI.PR ---
Subjective Remarks Follow up leukocytosis, CHF, diabetes with neuropathy. Still having significant pain in both lower extremities from the neuropathy. Denies chest pain or dyspnea. Denies nausea or vomiting. Still coughing. Objective Vitals Vital Signs Date Time Temp Pulse Resp B/P Pulse Ox O2 Delivery O2 Flow Rate FiO2 06/20/16 06:00 70 06/20/16 05:00 73 06/20/16 04:00 98.6 70 20 155/86 96 06/20/16 04:00 70 06/20/16 04:00 Nasal Cannula 2.00 06/20/16 03:00 71 06/20/16 02:00 73 06/20/16 01:00 72 06/20/16 00:00 98.2 70 18 141/79 98 06/20/16 00:00 Nasal Cannula 2.00 06/20/16 00:00 70 06/19/16 23:00 71 06/19/16 22:00 73 06/19/16 21:00 72 06/19/16 20:07 94 Nasal Cannula 2.00 06/19/16 20:00 70 06/19/16 20:00 98.5 70 20 157/83 97 06/19/16 20:00 Nasal Cannula 2.00 06/19/16 18:00 70 06/19/16 17:00 70 06/19/16 16:19 95 Nasal Cannula 2.00 06/19/16 16:00 70 06/19/16 16:00 98.6 70 18 169/90 95 06/19/16 15:00 70 06/19/16 14:00 70 06/19/16 13:31 5 06/19/16 13:31 5 06/19/16 13:00 70 06/19/16 12:00 70 06/19/16 11:58 70 06/19/16 11:00 98.4 70 18 134/84 95 06/19/16 10:00 70 06/19/16 09:00 72 I/O 06/19/16 06/19/16 06/19/16 06/20/16 06/20/16 06/20/16 07:00 15:00 23:00 07:00 15:00 23:00 Intake Total 482 ml 0 ml 720 ml 490 ml Output Total 700 ml 1000 ml 780 ml Balance -218 ml 0 ml -280 ml -290 ml Intake Oral 480 ml 0 ml 720 ml 480 ml IV Total 2 ml 10 ml Output Urine Total 600 ml 950 ml 750 ml Stool Total 100 ml 50 ml 30 ml Result Diagram: 06/20/16 0555 06/20/16 0555 Imaging Last Impressions Chest X-Ray 06/17/16 0600 Signed Impressions: Service Date/Time: June 03:05 - CONCLUSION: Improved aeration. Porter Holm MD Chest CT 06/13/16 0000 Signed Impressions: Service Date/Time: Monday, June 13, 2016 16:26 - CONCLUSION: 1. Moderate bilateral pleural effusions with basilar dependent atelectasis and consolidation in the lungs. No adenopathy. Anterior portion of the lungs are relatively clear. 2. Anasarca with ascites in the upper abdomen. 3. Endotracheal tube, nasogastric tube and right central line in satisfactory position. 4. Severe coronary artery calcifications. Manuelito Lay MD Objective Remarks General: No acute distress. Heart: Regular rate and rhythm. No murmur. Lungs: Breath sounds decreased in both bases. No wheezes, rales, or rhonchi. Breathing is nonlabored. Abdomen: Soft, nontender, nondistended. Extremities: No lower extremity edema. Psych: Alert and oriented. Procedures 06/09/16 Central line placement 06/09/16 cardiac catheterization 06/10/16 orotracheal intubation 06/14/16 AICD placement Urinary Catheter: No Vascular Central Line Catheter: No A/P Problem List: (1) Ventricular tachycardia ICD Code: I47.2 Status: Acute (2) Acute exacerbation of congestive heart failure ICD Code: I50.9 Status: Acute (3) TITO (acute kidney injury) ICD Code: N17.9 Status: Acute (4) Acute respiratory failure ICD Code: J96.00 Status: Resolved (5) AV block, complete ICD Code: I44.2 Status: Acute (6) PNA (pneumonia) ICD Code: J18.9 Status: Acute (7) DM (diabetes mellitus), type 2, uncontrolled ICD Code: E11.65 Status: Chronic (8) HTN (hypertension) ICD Code: I10 Status: Chronic Assessment and Plan 1. Acute respiratory failure: Resolved. Extubated 06/16/16. Continue duo nebs. 2. STEMI, acute systolic congestive heart failure, severe ischemic cardiomyopathy: Appreciate cardiology recommendations. Status post cardiac catheterization with stenting to RCA. Continue Brilinta, aspirin. Continue Bumex. Most recent echocardiogram (06/14/16) shows ejection fraction 25-30%. 3. Third-degree heart block: Status post AICD placement on 06/14/16. 4. Diabetes mellitus with peripheral neuropathy: Monitor Accu-Cheks and cover with sliding scale insulin. Continue pain control with oxycodone, Dilaudid as needed. 5. Acute kidney injury: Creatinine improving. Patient is on Bumex. Monitor labs. 6. Pneumonia, sputum culture positive for MRSA: Continue Zyvox, stop date . 7. GI prophylaxis: Pepcid. 8. DVT prophylaxis: Heparin. Discharge Planning Will need SNF/rehab at discharge, possibly next 1-2 days. Problem Qualifiers (1) Acute exacerbation of congestive heart failure: Qualified Code: I50.9 - Acute on chronic congestive heart failure, unspecified congestive heart failure type (2) Acute respiratory failure: Qualified Code: J96.01 - Acute respiratory failure with hypoxia (3) PNA (pneumonia): (4) DM (diabetes mellitus), type 2, uncontrolled: Qualified Code: E11.8 - Uncontrolled type 2 diabetes mellitus with complication , unspecified [place] insulin use status Cayetano Rajput MD Jun 20, 2016 08:50
[2016-06-20] MEDS: DOCUSATE SODIUM 100 MG/10 ML UDC G-TUBE SCH ×3 (09:00→19:55)
--- NOTE | 2016-06-20 09:01 | PD.CARD.PN ---
Subjective Subjective Remarks no complaints chest pain free ambulating with a walker Objective Medications Current Medications Medications (Trade) Dose Ordered Sig/Yoselin Route Start Time Stop Time Status Last Admin (Tylenol) 650 mg Q6H PRN PO 06/09/16 02:45 06/15/16 10:46 (Zofran Inj) 4 mg Q6H PRN IV 06/09/16 02:45 06/17/16 20:37 (Reglan Inj) 10 mg Q6H PRN IV 06/09/16 02:45 (Colace Liq) 100 mg Q12H G-TUBE 06/09/16 09:00 06/18/16 20:06 Miscellaneous Information 1 Q361D XX 06/09/16 02:45 (Chlorhexidine 2% Cloth) Taper DAILY@04 TOP 06/09/16 04:00 06/05/17 03:59 06/14/16 04:00 (Chlorhexidine 2% Cloth) 3 pack UNSCH PRN TOP 06/09/16 02:45 (NS Flush) 2 ml UNSCH PRN IVF 06/09/16 15:00 (NS Flush) 2 ml BID IVF 06/09/16 21:00 06/19/16 20:59 (Aspirin Chew) 81 mg DAILY PO 06/10/16 09:00 06/19/16 07:51 (Brilinta) 90 mg BID PO 06/09/16 21:00 06/19/16 20:59 (KCl 40 Meq/30 ml Liq) 40 meq DAILY NG 06/11/16 09:00 06/19/16 07:50 (Lipitor) 80 mg DAILY PO 06/12/16 09:00 06/19/16 07:52 (Brethine Inj) 1 mg UNSCH PRN SQ 06/12/16 06:45 (SoluMEDROL INJ) 40 mg DAILY IV PUSH 06/14/16 09:00 06/19/16 07:54 (D50w (Vial) Inj) 25 ml UNSCH PRN IV PUSH 06/15/16 03:30 (Glucagon Inj) 1 mg UNSCH PRN OTHER 06/15/16 03:30 (NovoLIN R SUPPLEMENTAL SCALE) 1 Q4HR SQ 06/15/16 04:00 06/19/16 21:13 (Heparin Inj) 5,000 units Q12HR SQ 06/15/16 09:00 06/19/16 20:59 (Levemir Inj) 15 units Q12HR SQ 06/15/16 09:00 06/19/16 20:57 (Bumex Inj) 1 mg Q8H IV PUSH 06/16/16 06:30 06/20/16 05:38 (Apresoline Inj) 10 mg Q1H PRN IV PUSH 06/17/16 08:00 06/18/16 11:20 (Dilaudid Pf Inj) 0.5 mg Q4H PRN IV PUSH 06/17/16 09:00 06/20/16 05:00 (Zyvox) 600 mg Q12HR PO 06/17/16 09:00 06/21/16 22:00 06/19/16 20:59 (Cordarone) 200 mg Q12HR PO 06/17/16 10:00 06/19/16 20:59 (Melatonin) 5 mg HS PO 06/17/16 21:00 06/19/16 20:58 (Coreg) 12.5 mg Q12HR PO 06/18/16 21:00 06/19/16 20:58 (Roxicodone) 10 mg Q4H PRN PO 06/18/16 11:45 06/20/16 04:59 (Protonix) 40 mg DAILY PO 06/19/16 09:00 06/19/16 09:49 Vital Signs / I&O Vital Signs Date Time Temp Pulse Resp B/P Pulse Ox O2 Delivery O2 Flow Rate FiO2 06/20/16 08:00 70 06/20/16 07:15 70 06/20/16 07:15 98.9 70 18 143/80 96 06/20/16 07:15 96 Room Air 06/20/16 06:00 70 06/20/16 05:00 73 06/20/16 04:00 98.6 70 20 155/86 96 06/20/16 04:00 70 06/20/16 04:00 Nasal Cannula 2.00 06/20/16 03:00 71 06/20/16 02:00 73 06/20/16 01:00 72 06/20/16 00:00 98.2 70 18 141/79 98 06/20/16 00:00 Nasal Cannula 2.00 06/20/16 00:00 70 06/19/16 23:00 71 06/19/16 22:00 73 06/19/16 21:00 72 06/19/16 20:07 94 Nasal Cannula 2.00 06/19/16 20:00 70 06/19/16 20:00 98.5 70 20 157/83 97 06/19/16 20:00 Nasal Cannula 2.00 06/19/16 18:00 70 06/19/16 17:00 70 06/19/16 16:19 95 Nasal Cannula 2.00 06/19/16 16:00 70 06/19/16 16:00 98.6 70 18 169/90 95 06/19/16 15:00 70 06/19/16 14:00 70 06/19/16 13:31 5 06/19/16 13:31 5 06/19/16 13:00 70 06/19/16 12:00 70 06/19/16 11:58 70 06/19/16 11:00 98.4 70 18 134/84 95 06/19/16 10:00 70 06/19/16 09:00 72 I/O 06/19/16 06/19/16 06/19/16 06/20/16 06/20/16 06/20/16 07:00 15:00 23:00 07:00 15:00 23:00 Intake Total 482 ml 0 ml 720 ml 490 ml Output Total 700 ml 1000 ml 780 ml Balance -218 ml 0 ml -280 ml -290 ml Intake Oral 480 ml 0 ml 720 ml 480 ml IV Total 2 ml 10 ml Output Urine Total 600 ml 950 ml 750 ml Stool Total 100 ml 50 ml 30 ml Physical Exam GENERAL: NAD SKIN: Warm and dry. HEAD: Normocephalic. EYES: No scleral icterus. No injection or drainage. NECK: Supple, trachea midline. No JVD or lymphadenopathy. CARDIOVASCULAR: Regular rate and rhythm without murmurs, gallops, or rubs. RESPIRATORY: Breath sounds equal bilaterally. No accessory muscle use. GASTROINTESTINAL: Abdomen soft, non-tender, nondistended. EXTREMITIES: No cyanosis, +2 edema. Laboratory Laboratory Tests Test 06/19/16 06/20/16 09:00 05:55 Stool C. difficile Toxin (PCR) NEGATIVE Stl C. difficile Toxin PRESUMPTIVE Epiderm 027 NEGATIVE White Blood Count 16.3 TH/MM3 Red Blood Count 3.40 MIL/MM3 Hemoglobin 10.5 GM/DL Hematocrit 31.0 % Mean Corpuscular Volume 91.2 FL Mean Corpuscular Hemoglobin 30.9 PG Mean Corpuscular Hemoglobin 33.9 % Concent Red Cell Distribution Width 13.2 % Platelet Count 196 TH/MM3 Mean Platelet Volume 8.6 FL Sodium Level 143 MEQ/L Potassium Level 3.8 MEQ/L Chloride Level 109 MEQ/L Carbon Dioxide Level 23.9 MEQ/L Anion Gap 10 MEQ/L Blood Urea Nitrogen 43 MG/DL Creatinine 1.62 MG/DL Estimat Glomerular Filtration 43 ML/MIN Rate Random Glucose 133 MG/DL Calcium Level 8.7 MG/DL Assessment and Plan Problem List: (1) Myocardial infarction acute Assessment and Plan: Stable from CV standpoint Cont DAPT ASA and Brilinta Cont aggressive medical management for CAD Encourage ambulation and Incentive spirometry Refer to Cardiac Rehab when ready to discharge Sign off Follow up with me as outpatient (2) AV block, complete Problem Qualifiers (1) Myocardial infarction acute: Qualified Code: I21.11 - Acute ST elevation myocardial infarction (STEMI) involving right coronary artery Gonsalo Fu MD Jun 20, 2016 09:01
[2016-06-20] MEDS: methylPREDNISolone SOD SUCC 40 MG/1 ML VIAL IV PUSH SCH (10:29)
[2016-06-20] MEDS: SODIUM CHLORIDE 0.9% FLUSH 5 ML FLUSH IVF SCH ×2 (10:29→19:55)
[2016-06-20] MEDS: TICAGRELOR 90 MG TAB PO SCH ×2 (10:30→19:55)
[2016-06-20] MEDS: LINEZOLID 600 MG TAB PO SCH ×2 (10:30→19:54)
[2016-06-20] MEDS: POTASSIUM CL 40 MEQ/30 ML LIQ UDC NG SCH (10:30)
[2016-06-20] MEDS: ASPIRIN 81 MG CHEW TAB PO SCH (10:30)
[2016-06-20] MEDS: AMIODARONE 200 MG TAB PO SCH ×2 (10:31→19:55)
[2016-06-20] MEDS: ATORVASTATIN 80 MG TAB PO SCH (10:31)
[2016-06-20] MEDS: PANTOPRAZOLE SOD 40 MG DELAYED RELEASE TAB PO SCH (10:31)
[2016-06-20] MEDS: CARVEDILOL 3.125 MG TAB PO SCH ×2 (10:31→19:54)
[2016-06-20] MEDS: HEPARIN SODIUM - SQ 10,000 UNITS/ML VIAL SQ SCH ×2 (10:35→19:56)
[2016-06-20] MEDS: INSULIN DETEMIR 100 UNITS/ML VIAL SQ SCH ×2 (10:36→19:56)
--- NOTE | 2016-06-20 19:03 | HHI.NPPN ---
Subjective General Problems: Anemia, Edema Renal Failure: Chronic, Acute Additional Remarks Patient is alert, no SOB, clinically same. Objective Data Data 06/19/16 06/20/16 19:00 07:00 Intake Total 720 ml 490 ml Output Total 1000 ml 780 ml Balance -280 ml -290 ml Intake Oral 720 ml 480 ml IV Total 10 ml Output Urine Total 950 ml 750 ml Stool Total 50 ml 30 ml Vital Signs Date Time Temp Pulse Resp B/P Pulse Ox O2 Delivery O2 Flow Rate FiO2 06/20/16 18:00 70 06/20/16 17:00 70 06/20/16 16:00 70 06/20/16 15:00 70 06/20/16 15:00 98.0 70 18 152/79 96 06/20/16 14:00 70 06/20/16 13:00 70 06/20/16 12:00 70 06/20/16 11:00 97.9 70 18 126/84 97 06/20/16 11:00 70 06/20/16 10:05 97 21 06/20/16 10:00 70 06/20/16 09:00 70 06/20/16 08:00 70 06/20/16 07:15 70 06/20/16 07:15 98.9 70 18 143/80 96 06/20/16 07:15 96 Room Air 06/20/16 06:00 70 06/20/16 05:00 73 06/20/16 04:00 98.6 70 20 155/86 96 06/20/16 04:00 70 06/20/16 04:00 Nasal Cannula 2.00 06/20/16 03:00 71 06/20/16 02:00 73 06/20/16 01:00 72 06/20/16 00:00 98.2 70 18 141/79 98 06/20/16 00:00 Nasal Cannula 2.00 06/20/16 00:00 70 06/19/16 23:00 71 06/19/16 22:00 73 06/19/16 21:00 72 06/19/16 20:07 94 Nasal Cannula 2.00 06/19/16 20:00 70 06/19/16 20:00 98.5 70 20 157/83 97 06/19/16 20:00 Nasal Cannula 2.00 -: 06/20/16 0555 06/20/16 0555 Physical Exam General Appearance: No Acute Distress, Comfortable Neck Neck Exam: Neck Supple Pulmonary Resp Exam: No Distress, Decreased Bases, Diminished Breath Sounds Cardiology CV Exam: Regular Gastrointestinal/Abdomen GI Exam: Soft, Non-Tender, Distended Integumentary Skin Exam: Dry, Intact Extremeties Extremities Exam: Moderate Edema, Pitting Edema, Dependent Edema Neurologic Neuro Exam: Alert, Awake Assessment/Plan Problem List: (1) TITO (acute kidney injury) Plan: Urine out put is good. On Bumex 1 mg TID. BP is stable. Avoid Nephrotoxins, Continue Bumex and follow the urine out put and BMP. Creatinine almost same. Avoid Nephrotoxins. Follow BMP. (2) Acute respiratory failure Plan: on Vent (3) Myocardial infarction acute Plan: as above Stent RCA/PDA (4) DM (diabetes mellitus), type 2, uncontrolled Plan: Follow BG - hyperglycemia today and on IV insulin now (5) PNA (pneumonia) Plan: on Zyvox Problem Qualifiers (1) Acute respiratory failure: Qualified Code: J96.01 - Acute respiratory failure with hypoxia (2) Myocardial infarction acute: Qualified Code: I21.11 - Acute ST elevation myocardial infarction (STEMI) involving right coronary artery (3) DM (diabetes mellitus), type 2, uncontrolled: Qualified Code: E11.8 - Uncontrolled type 2 diabetes mellitus with complication , unspecified [facility] insulin use status (4) PNA (pneumonia): Shira Valdez MD Jun 20, 2016 19:03
[2016-06-20] MEDS: MELATONIN 5 MG TAB PO SCH (19:55)
[2016-06-21] VITALS (23 sets, daily range): BP systolic 141–164; BP diastolic 71–87; PULSE 69–72; RESP 18–20; TEMP 98.2–98.6; O2SAT 97–99
[2016-06-21] MEDS: HYDROmorphone HCL PF 1 MG/ML VIAL IV PUSH PRN ×4 (03:52→17:04)
[2016-06-21] MEDS: INSULIN NovoLIN REGULAR SUPPLEMENTAL SCALE SQ SCH ×5 (04:00→23:08)
[2016-06-21] MEDS: CHLORHEXIDINE GLUCONATE 2 % 1 PACK (2 CLOTHS) TOP SCH (04:00)
[2016-06-21] MEDS: BUMETANIDE INJ 1 MG/4 ML VIAL IV PUSH SCH ×2 (05:33→15:18)
[2016-06-21 07:27] LABS: BICARBONATE 27.4 MEQ/L (21.0-32.0); POTASSIUM 3.8 MEQ/L (3.5-5.1)
[2016-06-21 07:28] LABS: HEMATOCRIT 30.2 % (39.0-51.0); MEAN CELL VOLUME 90.9 FL (80.0-100.0); MEAN CORPUSCULAR HEMOGLOBIN 30.6 PG (27.0-34.0); MEAN CORPUSCULAR HGB CONC 33.6 % (32.0-36.0); PLATELET COUNT 197 TH/MM3 (150-450); RED BLOOD COUNT 3.32 MIL/MM3 (4.50-5.90); RED CELL DISTRIBUTION WIDTH 13.4 % (11.6-17.2); REVIEW FLAG FINAL; WHITE BLOOD COUNT 14.7 TH/MM3 (4.0-11.0)
[2016-06-21] MEDS: LINEZOLID 600 MG TAB PO SCH ×2 (08:08→23:06)
[2016-06-21] MEDS: CARVEDILOL 3.125 MG TAB PO SCH ×2 (08:09→23:06)
[2016-06-21] MEDS: ATORVASTATIN 80 MG TAB PO SCH (08:09)
[2016-06-21] MEDS: INSULIN DETEMIR 100 UNITS/ML VIAL SQ SCH (08:09)
[2016-06-21] MEDS: ASPIRIN 81 MG CHEW TAB PO SCH (08:09)
[2016-06-21] MEDS: AMIODARONE 200 MG TAB PO SCH ×2 (08:09→23:07)
[2016-06-21] MEDS: DOCUSATE SODIUM 100 MG/10 ML UDC G-TUBE SCH (08:10)
[2016-06-21] MEDS: SODIUM CHLORIDE 0.9% FLUSH 5 ML FLUSH IVF SCH ×2 (08:10→21:00)
[2016-06-21] MEDS: methylPREDNISolone SOD SUCC 40 MG/1 ML VIAL IV PUSH SCH (08:10)
[2016-06-21] MEDS: PANTOPRAZOLE SOD 40 MG DELAYED RELEASE TAB PO SCH (08:10)
[2016-06-21] MEDS: HEPARIN SODIUM - SQ 10,000 UNITS/ML VIAL SQ SCH ×2 (08:11→23:06)
[2016-06-21] MEDS: POTASSIUM CL 40 MEQ/30 ML LIQ UDC NG SCH (08:19)
[2016-06-21] MEDS: TICAGRELOR 90 MG TAB PO SCH ×2 (08:20→23:07)
--- NOTE | 2016-06-21 09:23 | HHI.PR ---
Subjective Remarks The patient was sitting up in a chair. He said he was doing a lot better. He wants to go home incentive to rehabilitation. He says he has been ambulating. He has been having some diarrhea. No acute complaints at this time. Objective Vitals Vital Signs Date Time Temp Pulse Resp B/P Pulse Ox O2 Delivery O2 Flow Rate FiO2 06/21/16 08:00 98.4 70 18 164/87 97 06/21/16 06:01 72 06/21/16 05:00 71 06/21/16 04:00 Room Air 06/21/16 04:00 98.3 70 20 145/74 97 06/21/16 04:00 70 06/21/16 03:00 71 06/21/16 02:00 72 06/21/16 01:00 71 06/21/16 00:00 70 06/20/16 23:56 98.0 70 18 133/75 97 06/20/16 23:56 Room Air 06/20/16 23:00 71 06/20/16 22:00 70 06/20/16 21:00 70 06/20/16 20:00 98.2 70 18 154/73 96 06/20/16 20:00 Room Air 06/20/16 20:00 70 06/20/16 18:00 70 06/20/16 17:00 70 06/20/16 16:00 70 06/20/16 15:00 70 06/20/16 15:00 98.0 70 18 152/79 96 06/20/16 14:00 70 06/20/16 13:00 70 06/20/16 12:00 70 06/20/16 11:00 97.9 70 18 126/84 97 06/20/16 11:00 70 06/20/16 10:05 97 21 06/20/16 10:00 70 I/O 06/20/16 06/20/16 06/20/16 06/21/16 06/21/16 06/21/16 07:00 15:00 23:00 07:00 15:00 23:00 Intake Total 490 ml 600 ml 490 ml Output Total 780 ml 1100 ml 700 ml Balance -290 ml -500 ml -210 ml Intake Oral 480 ml 600 ml 480 ml IV Total 10 ml 10 ml Output Urine Total 750 ml 1100 ml 700 ml Stool Total 30 ml # Bowel Movements 0 0 Result Diagram: 06/21/16 0440 06/21/16 0440 Imaging Last Impressions Chest X-Ray 06/17/16 0600 Signed Impressions: Service Date/Time: June 03:05 - CONCLUSION: Improved aeration. Porter Holm MD Chest CT 06/13/16 0000 Signed Impressions: Service Date/Time: Monday, June 13, 2016 16:26 - CONCLUSION: 1. Moderate bilateral pleural effusions with basilar dependent atelectasis and consolidation in the lungs. No adenopathy. Anterior portion of the lungs are relatively clear. 2. Anasarca with ascites in the upper abdomen. 3. Endotracheal tube, nasogastric tube and right central line in satisfactory position. 4. Severe coronary artery calcifications. Manuelito Lay MD Objective Remarks General: No acute distress, resting comfortably. Heent: NC, AT. Heart: Regular rate and rhythm. No murmur. Lungs: Breath sounds decreased in both bases. No wheezes, rales, or rhonchi. Breathing is nonlabored. Abdomen: Soft, nontender, nondistended. Extremities: No lower extremity edema. Neuro: No gross deficits. Psych: Mood and affect appropriate. Procedures 06/09/16 Central line placement 06/09/16 cardiac catheterization 06/10/16 orotracheal intubation 06/14/16 AICD placement Medications and IVs Current Medications Medications (Trade) Dose Ordered Sig/Yoselin Route Start Time Stop Time Status Last Admin (Tylenol) 650 mg Q6H PRN PO 06/09/16 02:45 06/15/16 10:46 (Zofran Inj) 4 mg Q6H PRN IV 06/09/16 02:45 06/17/16 20:37 (Reglan Inj) 10 mg Q6H PRN IV 06/09/16 02:45 (Colace Liq) 100 mg Q12H G-TUBE 06/09/16 09:00 06/21/16 08:10 Miscellaneous Information 1 Q361D XX 06/09/16 02:45 (Chlorhexidine 2% Cloth) Taper DAILY@04 TOP 06/09/16 04:00 06/05/17 03:59 06/14/16 04:00 (Chlorhexidine 2% Cloth) 3 pack UNSCH PRN TOP 06/09/16 02:45 (NS Flush) 2 ml UNSCH PRN IVF 06/09/16 15:00 (NS Flush) 2 ml BID IVF 06/09/16 21:00 06/21/16 08:10 (Aspirin Chew) 81 mg DAILY PO 06/10/16 09:00 06/21/16 08:09 (Brilinta) 90 mg BID PO 06/09/16 21:00 06/21/16 08:20 (KCl 40 Meq/30 ml Liq) 40 meq DAILY NG 06/11/16 09:00 06/21/16 08:19 (Lipitor) 80 mg DAILY PO 06/12/16 09:00 06/21/16 08:09 (Brethine Inj) 1 mg UNSCH PRN SQ 06/12/16 06:45 (SoluMEDROL INJ) 40 mg DAILY IV PUSH 06/14/16 09:00 06/21/16 08:10 (D50w (Vial) Inj) 25 ml UNSCH PRN IV PUSH 06/15/16 03:30 (Glucagon Inj) 1 mg UNSCH PRN OTHER 06/15/16 03:30 (NovoLIN R SUPPLEMENTAL SCALE) 1 Q4HR SQ 06/15/16 04:00 06/20/16 20:08 (Heparin Inj) 5,000 units Q12HR SQ 06/15/16 09:00 06/21/16 08:11 (Levemir Inj) 15 units Q12HR SQ 06/15/16 09:00 06/21/16 08:09 (Bumex Inj) 1 mg Q8H IV PUSH 06/16/16 06:30 06/21/16 05:33 (Apresoline Inj) 10 mg Q1H PRN IV PUSH 06/17/16 08:00 06/18/16 11:20 (Dilaudid Pf Inj) 0.5 mg Q4H PRN IV PUSH 06/17/16 09:00 06/21/16 08:10 (Zyvox) 600 mg Q12HR PO 06/17/16 09:00 06/21/16 22:00 06/21/16 08:08 (Cordarone) 200 mg Q12HR PO 06/17/16 10:00 06/21/16 08:09 (Melatonin) 5 mg HS PO 06/17/16 21:00 06/20/16 19:55 (Coreg) 12.5 mg Q12HR PO 06/18/16 21:00 06/21/16 08:09 (Roxicodone) 10 mg Q4H PRN PO 06/18/16 11:45 06/21/16 08:09 (Protonix) 40 mg DAILY PO 06/19/16 09:00 06/21/16 08:10 A/P Problem List: (1) Ventricular tachycardia ICD Code: I47.2 Status: Acute (2) Acute exacerbation of congestive heart failure ICD Code: I50.9 Status: Acute (3) TITO (acute kidney injury) ICD Code: N17.9 Status: Acute (4) Acute respiratory failure ICD Code: J96.00 Status: Resolved (5) AV block, complete ICD Code: I44.2 Status: Acute (6) PNA (pneumonia) ICD Code: J18.9 Status: Acute (7) DM (diabetes mellitus), type 2, uncontrolled ICD Code: E11.65 Status: Chronic (8) HTN (hypertension) ICD Code: I10 Status: Chronic Assessment and Plan Acute respiratory failure Resolved. Extubated 06/16/16. - Continue duo nebs and oxygen as needed. Currently on room air. - incentive spirometry. - encourage ambulation. PT/OT. STEMI/ Acute systolic congestive heart failure/ Severe ischemic cardiomyopathy Appreciate cardiology recommendations. Status post cardiac catheterization with stenting to RCA. Most recent echocardiogram (06/14/16) shows ejection fraction 25- 30%. - Continue Brilinta, aspirin, Bumex. - follow up with cardiology as an outpt. Cleared for discharge. Third-degree heart block Status post AICD placement on 06/14/16. - monitor on telemetry. Diabetes mellitus With peripheral neuropathy. - Monitor Accu-Cheks and cover with sliding scale insulin. - increase Levemir to 25 units daily, 15 units HS. Acute kidney injury Appreciate nephrology consult. Creatinine improving. - Patient is on Bumex. - Monitor labs and avoid nephrotoxic agents. Pneumonia Sputum culture positive for MRSA. - Continued on Zyvox, stop date 06/21/16. DVT prophylaxis: Heparin. Discharge Planning Anticipate d/c with [facility] in 1-2 days. Problem Qualifiers (1) Acute exacerbation of congestive heart failure: Qualified Code: I50.9 - Acute on chronic congestive heart failure, unspecified congestive heart failure type (2) Acute respiratory failure: Qualified Code: J96.01 - Acute respiratory failure with hypoxia (3) PNA (pneumonia): (4) DM (diabetes mellitus), type 2, uncontrolled: Qualified Code: E11.8 - Uncontrolled type 2 diabetes mellitus with complication , unspecified [facility] insulin use status Spencer Dominguez DO Jun 21, 2016 09:22
--- NOTE | 2016-06-21 17:16 | HHI.NPPN ---
Subjective General Problems: Anemia, Edema Renal Failure: Chronic, Acute Additional Remarks Patient is alert, no SOB, clinically same. Objective Data Data 06/20/16 06/21/16 19:00 07:00 Intake Total 600 ml 490 ml Output Total 1100 ml 700 ml Balance -500 ml -210 ml Intake Oral 600 ml 480 ml IV Total 10 ml Output Urine Total 1100 ml 700 ml # Bowel Movements 0 0 Vital Signs Date Time Temp Pulse Resp B/P Pulse Ox O2 Delivery O2 Flow Rate FiO2 06/21/16 17:05 98.4 70 20 162/86 99 06/21/16 12:00 98.6 70 20 141/71 97 06/21/16 09:30 18 06/21/16 09:00 20 06/21/16 08:00 98.4 70 18 164/87 97 06/21/16 06:01 72 06/21/16 05:00 71 06/21/16 04:00 Room Air 06/21/16 04:00 98.3 70 20 145/74 97 06/21/16 04:00 70 06/21/16 03:00 71 06/21/16 02:00 72 06/21/16 01:00 71 06/21/16 00:00 70 06/20/16 23:56 98.0 70 18 133/75 97 06/20/16 23:56 Room Air 06/20/16 23:00 71 06/20/16 22:00 70 06/20/16 21:00 70 06/20/16 20:00 98.2 70 18 154/73 96 06/20/16 20:00 Room Air 06/20/16 20:00 70 06/20/16 18:00 70 -: 06/21/16 0440 06/21/16 0440 Physical Exam General Appearance: No Acute Distress, Comfortable Neck Neck Exam: Neck Supple Pulmonary Resp Exam: No Distress, Decreased Bases, Diminished Breath Sounds Cardiology CV Exam: Regular Gastrointestinal/Abdomen GI Exam: Soft, Non-Tender, Distended Integumentary Skin Exam: Dry, Intact Extremeties Extremities Exam: Moderate Edema, Pitting Edema, Dependent Edema Neurologic Neuro Exam: Alert, Awake Assessment/Plan Problem List: (1) TITO (acute kidney injury) Plan: Urine out put is good. cr 1.6 stable agree with dc planning rehab On Bumex 1 mg TID may change to po BP is stable. Avoid Nephrotoxins, Nephrology to follow PRN (2) Acute respiratory failure Plan: on Vent (3) Myocardial infarction acute Plan: as above Stent RCA/PDA (4) DM (diabetes mellitus), type 2, uncontrolled Plan: Follow BG - hyperglycemia today and on IV insulin now (5) PNA (pneumonia) Plan: on Zyvox Problem Qualifiers (1) Acute respiratory failure: Qualified Code: J96.01 - Acute respiratory failure with hypoxia (2) Myocardial infarction acute: Qualified Code: I21.11 - Acute ST elevation myocardial infarction (STEMI) involving right coronary artery (3) DM (diabetes mellitus), type 2, uncontrolled: Qualified Code: E11.8 - Uncontrolled type 2 diabetes mellitus with complication , unspecified [facility] long term care insulin use status (4) PNA (pneumonia): Tete Monreal MD Jun 21, 2016 17:16
[2016-06-21] MEDS: BUMETANIDE 1 MG TAB PO SCH (18:19)
[2016-06-21] MEDS ORDERED: INSULIN DETEMIR 100 UNITS/ML VIAL SQ SCH (21:00)
[2016-06-21] MEDS: MELATONIN 5 MG TAB PO SCH (23:08)
[2016-06-22] VITALS (8 sets, daily range): BP systolic 135–188; BP diastolic 68–88; PULSE 70; RESP 18–20; TEMP 98.2–98.6; O2SAT 97–99
[2016-06-22] MEDS: INSULIN NovoLIN REGULAR SUPPLEMENTAL SCALE SQ SCH ×4 (00:50→13:24)
[2016-06-22 04:57] LABS: HEMATOCRIT 28.9 % (39.0-51.0); MEAN CELL VOLUME 90.1 FL (80.0-100.0); MEAN CORPUSCULAR HGB CONC 34.4 % (32.0-36.0); PLATELET COUNT 197 TH/MM3 (150-450); RED BLOOD COUNT 3.21 MIL/MM3 (4.50-5.90); RED CELL DISTRIBUTION WIDTH 12.8 % (11.6-17.2); REVIEW FLAG FINAL; WHITE BLOOD COUNT 15.2 TH/MM3 (4.0-11.0)
[2016-06-22 05:11] LABS: BICARBONATE 26.2 MEQ/L (21.0-32.0); MAGNESIUM 2.2 MG/DL (1.5-2.5); POTASSIUM 3.6 MEQ/L (3.5-5.1)
[2016-06-22] MEDS: POTASSIUM CL 40 MEQ/30 ML LIQ UDC NG SCH (08:29)
[2016-06-22] MEDS: ASPIRIN 81 MG CHEW TAB PO SCH (08:30)
[2016-06-22] MEDS: BUMETANIDE 1 MG TAB PO SCH (08:30)
[2016-06-22] MEDS: TICAGRELOR 90 MG TAB PO SCH (08:30)
[2016-06-22] MEDS: PANTOPRAZOLE SOD 40 MG DELAYED RELEASE TAB PO SCH (08:31)
[2016-06-22] MEDS: CARVEDILOL 3.125 MG TAB PO SCH (08:31)
[2016-06-22] MEDS: ATORVASTATIN 80 MG TAB PO SCH (08:31)
[2016-06-22] MEDS: AMIODARONE 200 MG TAB PO SCH (08:31)
[2016-06-22] MEDS: HEPARIN SODIUM - SQ 10,000 UNITS/ML VIAL SQ SCH (08:31)
[2016-06-22] MEDS: SODIUM CHLORIDE 0.9% FLUSH 5 ML FLUSH IVF SCH (08:33)
[2016-06-22] MEDS: HYDROmorphone HCL PF 1 MG/ML VIAL IV PUSH PRN (08:55)
[2016-06-22] MEDS ORDERED: INSULIN DETEMIR 100 UNITS/ML VIAL SQ SCH (09:00)
[2016-06-22] MEDS ORDERED: predniSONE 50 MG TAB PO SCH (09:00)
[2016-06-22] MEDS ORDERED: amLODIPine BESYLATE 5 MG TAB PO SCH (14:30)
[2016-06-22] MEDS ORDERED: GETGO ROLLING W1 MI1 (14:32)
[2016-06-22] MEDS ORDERED: PERC10TA27 PO (14:37)
[2016-06-22] MEDS ORDERED: PRED10PA2 PO (14:37)
[2016-06-22] MEDS ORDERED: CARV12.52 PO (14:37)
[2016-06-22] MEDS ORDERED: BRIL90TA PO (14:37)
[2016-06-22] MEDS ORDERED: PANT40TA3 PO (14:37)
[2016-06-22] MEDS ORDERED: AMLO5 PO (14:37)
[2016-06-22] MEDS ORDERED: AMIO200T PO (14:37)
[2016-06-22] MEDS ORDERED: ASPI81TA11 PO (14:37)
[2016-06-22] MEDS ORDERED: LIPI80TA PO (14:37)
[2016-06-22] MEDS ORDERED: BUME1TAB PO (14:37)
[2016-06-22] MEDS ORDERED: POTA-163 PO (14:38)
[2016-06-22] MEDS ORDERED: LEVEMIR SQ (14:50)
--- NOTE | 2016-06-22 14:54 | HHI.DCPOC ---
Discharge Care Plan Diagnosis: (1) Acute respiratory failure (2) Myocardial infarction acute (3) CHF (congestive heart failure) (4) PNA (pneumonia) (5) TITO (acute kidney injury) (6) DM (diabetes mellitus), type 2, uncontrolled Goals to Promote Your Health * To prevent worsening of your condition and complications * To maintain your health at the optimal level Directions to Meet Your Goals Take your medications as prescribed Follow your dietary instruction Follow activity as directed Keep your appointments as scheduled Take your immunizations and boosters as scheduled If your symptoms worsen call your PCP, if no PCP go to Urgent Care Center or Emergency Room Smoking is Dangerous to Your Health. Avoid second hand smoke Call the 24-hour hour crisis hotline for domestic abuse at Spencer Dominguez DO Jun 22, 2016 14:54
--- NOTE | 2016-06-22 14:54 | HHI.DS ---
Discharge Summary Admission Date Jun 09, 2016 at 02:32 Discharge Date: Jun 22, 2016 Admitting Diagnosis Acute NV, CHF exacerbation, respiratory failure (1) Ventricular tachycardia ICD Code: I47.2 (2) Acute exacerbation of congestive heart failure ICD Code: I50.9 (3) TITO (acute kidney injury) ICD Code: N17.9 (4) Acute respiratory failure ICD Code: J96.00 (5) AV block, complete ICD Code: I44.2 (6) PNA (pneumonia) ICD Code: J18.9 (7) DM (diabetes mellitus), type 2, uncontrolled ICD Code: E11.65 (8) HTN (hypertension) ICD Code: I10 Procedures 06/09/16 Central line placement 06/09/16 cardiac catheterization 06/10/16 orotracheal intubation 06/14/16 AICD placement Brief History - From Admission 65 year old with past medical history is significant for coronary artery disease , hypertension, diabetes mellitus, history of congestive heart failure, peripheral vascular disease who was brought to the [facility] emergency department as a STEMI alert prior to arrival by ambulance services due to a left bundle branch block and shortness of breath with diaphoresis. Initial oxygen saturation was in the 60s, patient was very anxious. Chest x- ray showed pulmonary edema Initially placed on BiPAP with no significant improvement, and later was intubated and placed on mechanical ventilation. Patient ruled in for non-ST elevation NV with a troponin of 18. His blood sugar was in the 500s. Cardiology was consulted. Aspirin and IV heparin started, for cardiogenic shock patient was placed on dopamine CBC/BMP: 06/22/16 0451 06/22/16 0451 Significant Findings Laboratory Tests Test 06/20/16 06/21/16 06/22/16 05:55 04:40 04:51 White Blood Count 16.3 TH/MM3 14.7 TH/MM3 15.2 TH/MM3 (4.0-11.0) (4.0-11.0) (4.0-11.0) Red Blood Count 3.40 MIL/MM3 3.32 MIL/MM3 3.21 MIL/MM3 (4.50-5.90) (4.50-5.90) (4.50-5.90) Hemoglobin 10.5 GM/DL 10.2 GM/DL 10.0 GM/DL (13.0-17.0) (13.0-17.0) (13.0-17.0) Hematocrit 31.0 % 30.2 % 28.9 % (39.0-51.0) (39.0-51.0) (39.0-51.0) Chloride Level 109 MEQ/L (98-107) Blood Urea Nitrogen 43 MG/DL (7-18) 42 MG/DL (7-18) 49 MG/DL (7-18) Creatinine 1.62 MG/DL 1.62 MG/DL 1.67 MG/DL (0.60-1.30) (0.60-1.30) (0.60-1.30) Estimat Glomerular Filtration 43 ML/MIN (>89) 43 ML/MIN (>89) 41 ML/MIN (>89) Rate Random Glucose 133 MG/DL 128 MG/DL (74-106) (74-106) Imaging Last Impressions Chest X-Ray 06/17/16 0600 Signed Impressions: Service Date/Time: June 03:05 - CONCLUSION: Improved aeration. Porter Holm MD Chest CT 06/13/16 0000 Signed Impressions: Service Date/Time: Monday, June 13, 2016 16:26 - CONCLUSION: 1. Moderate bilateral pleural effusions with basilar dependent atelectasis and consolidation in the lungs. No adenopathy. Anterior portion of the lungs are relatively clear. 2. Anasarca with ascites in the upper abdomen. 3. Endotracheal tube, nasogastric tube and right central line in satisfactory position. 4. Severe coronary artery calcifications. Manuelito Lay MD PE at Discharge General: No acute distress, resting comfortably. Heent: NC, AT. Heart: Regular rate and rhythm. No murmur. Lungs: Breath sounds decreased in both bases. No wheezes, rales, or rhonchi. Breathing is nonlabored. Abdomen: Soft, nontender, nondistended. Extremities: No lower extremity edema. Neuro: No gross deficits. Psych: Mood and affect appropriate. Pt update on day of discharge The patient was sitting up in a chair. He was anxious to go home. He demonstrated that he could ambulate well with a walker. He had no acute complaints. Discussed with case management. Hospital Course CAD/ NV/ Acute respiratory failure Chest x-ray showed pulmonary edema Initially placed on BiPAP with no significant improvement, and later was intubated and placed on mechanical ventilation. Patient ruled in for non-ST elevation NV with a troponin of 18. His blood sugar was in the 500s. Cardiology was consulted. Aspirin and IV heparin were started, for cardiogenic shock patient was placed on dopamine. Repeat troponin came back at 39. Patient was started on an insulin infusion. Patient underwent cardiac catheterization and PCI with stent placement along with temporary transvenous pacemaker placement, and Impella placement. (PCI / JOSÉ LUIS to right coronary artery, PCI / JOSÉ LUIS to PDA). Patient was extubated but emergently reintubated for acute hypoxemic respiratory failure. He had intermittent third-degree heart block, requiring temporary pacing. We changed from dopamine to dobutamine as EF was only 25-30%. Bumex infusion was started. Patient received AICD/dual-chamber pacemaker implant. Started on amiodarone. Successfully extubated. He was continued on Duo nebs and oxygen as needed. Currently on room air. He received incentive spirometry. He worked with PT/OT. He will continue Brilinta, aspirin, Bumex. He will follow up with cardiology as an outpt. Diabetes mellitus Initially required an insulin drip. Currently on Levemir 25 units daily, 15 units HS. The pt will monitor his glucose closely at home and adjust his regimen as needed. Steroids will be weaned off. TITO The pt was followed by nephrology. He will continue Bumex upon discharge and will follow up with nephrology as an outpt. Pneumonia Sputum culture positive for MRSA. He completed a course of Zyvox 06/21/16. Pt Condition on Discharge: Stable Discharge Disposition: Disch w/ Home Health Serv Discharge Time: > 30 minutes Discharge Instructions DIET: Follow Instructions for: Diabetic Diet Activities you can perform: Weight Bearing as [place] Follow up Referrals: Cardiology - [address] Lya Nephrology - [address] Monreal PCP Follow-up - 1 Week New Orders: BASIC METABOLIC PROF - 3-5 Days New Medications: Aspirin (Aspirin EC) 81 Mg Tabdr 81 MG PO DAILY Heart #30 Ref 0 TAB Carvedilol (Carvedilol) 12.5 Mg Tab 12.5 MG PO BID #60 Ref 0 TAB Potassium Chloride ER (Potassium Chloride ER) 20 Meq Tab 20 MEQ PO DAILY Electrolyte Replacement #7 Ref 0 TAB Prednisone (48) 10 mg tab Dose Pack (Prednisone (48) 10 mg tab Dose Pack) 10 Mg Dspk 10 MG PO DIRECTED Inflammation #1 Ref 0 DSPK Walker Rolling/GetGo (Walker Rolling/GetGo) 1 Mis Mis 1 EA .ROUTE DIRECTED #1 EA Amiodarone (Amiodarone) 200 Mg Tab 200 MG PO Q12HR Heart #60 TAB Amlodipine (Norvasc) 5 Mg Tab 5 MG PO DAILY Blood Pressure Management #30 TAB Atorvastatin (Lipitor) 80 Mg Tab 80 MG PO DAILY Cholesterol Management #30 TAB Bumetanide (Bumetanide) 1 Mg Tab 1 MG PO BID@09,18 Fluid #60 TAB Insulin Detemir Inj (Levemir Inj) 1,000 unit/ 10 ML Vial 15 UNITS SQ DAILY Blood sugars will improve as steroids are removed. May discontinue twice daily insulin and return to daily insulin then. Blood Sugar Management #30 INJECTION Pantoprazole (Pantoprazole) 40 Mg Tab 40 MG PO DAILY Stomach #30 TAB Ticagrelor (Brilinta) 90 Mg Tab 90 MG PO BID Heart #60 TAB Continued Medications: Gabapentin (Gabapentin) 300 Mg Cap 300 MG PO TID #90 Ref 0 CAP Insulin Glargine Inj (Lantus Inj) 1,000 Unit/10 Ml Vial 5 UNITS SQ HS Blood Sugar Management Ref 0 VIAL Insulin Lispro (Human) Inj (Humalog Inj) 1,000 Unit/10 Ml Vial 5 UNITS SQ HS Blood Sugar Management #1 Ref 0 VIAL Oxycodone-Acetaminophen (Percocet) 10-325 mg Tab 1 TAB PO Q6H PRN PAIN #20 Ref 0 TAB (This prescription has been renewed) Discontinued Medications: Clopidogrel (Plavix) 75 Mg Tab 75 MG PO DAILY Blood Clot Prevention #30 Ref 0 TAB Lisinopril (Lisinopril) 10 Mg Tab 10 MG PO BID #30 Ref 0 TAB Pravastatin (Pravastatin) 80 Mg Tab 80 MG PO HS Cholesterol Management #30 Ref 0 TAB Spencer Dominguez DO Jun 22, 2016 14:54
--- NOTE | 2016-06-22 14:55 | HHI.FF ---
Face to Face Verification Diagnosis: (1) Myocardial infarction acute (2) CHF (congestive heart failure) (3) Acute respiratory failure (4) PNA (pneumonia) (5) TITO (acute kidney injury) (6) DM (diabetes mellitus), type 2, uncontrolled (7) HTN (hypertension) Physical Therapy Order: Evaluate and Treat, Improve ambulation, Strength and gait training Home Health Nursing Order: Medical education Signs/symptoms of disease process Diabetic education CHF education Medication education-adverse effect Wound care and dressing changes Nursing assessment with vital signs I have seen patient Keanu Peralta on 06/22/16. My clinical findings support the need for the requested home health care services because: Ltd mobility - disease progression Deconditioned w/ increased weakness I certify that my clinical findings support that this patient is homebound because: Unsteady gait/balance Unsafe to leave home unassisted Spencer Dominguez DO Jun 22, 2016 14:55
--- NOTE | 2016-07-06 18:45 | MP ---
cc: MITCH SHEN M.D. DATE OF SURGERY 07/06/16 PROCEDURE Dual-chamber defibrillator insertion. Mr. Peralta is a 65-year-old gentleman history of coronary artery disease, developed a complete AV block, ventricular tachycardia, four days post ND. The patient received lidocaine and defibrillatory shock. The patient has secondary prevention criteria, will undergo dual-chamber defibrillator insertion. The patient also will need AV pacing. The risks, the nature and the benefit of the procedure are clearly stated to him and to his family. The risks include pneumothorax, cardiac perforation, stroke, need for open heart surgery and even . They understand and agreed to proceed. PROCEDURE IN DETAIL After written informed consent was obtained, the patient was brought to the EP lab where he was prepped and draped in the usual sterile fashion. Conscious sedation was initiated and maintained throughout the procedure by anesthesiologist. Once sedation was verified, the left infraclavicular area was anesthetized with 2% Xylocaine. Using modified Seldinger technique, the left subclavian vein was cannulated on two occasions, two guidewire were advanced. Then using #11 scalpel, a 2-cm incision was made two fingerbreadth below the left clavicle. Dissection was then taken down to deep fascial layer using Bovie cautery and blunt dissection. Into the inferomedial direction, a device pocket was dissected. Then the wire was dissected into the pocket. A 2-0 Vicryl suture was placed around the wires to prevent back bleeding. At this point, over the lateral wire, a 9-Kosovan dilator and introducer was advanced. As dilator and wire were removed, an active fixation right ventricular pacing and sensing defibrillatory lead was advanced. After adequate pacing and sensing threshold obtained, the lead was secured in the pocket using #2 Ethibond suture. Then over the remaining wire, a 7-Kosovan dilator introducer was advanced. As dilator and wire were removed, an active fixation right atrial pacing and sensing lead was advanced. After adequate pacing and sensing threshold obtained, the lead was secured in the pocket using #2 Ethibond suture. At that point, the pocket was copiously irrigated using antibiotic solution. The lead was connected to the generator and placed into the pocket. I decided not to proceed with device testing because of the patient's condition. I did proceed with wound closure. The deep fascial layer was approximated using 2-0 Vicryl suture in a continuous fashion. The subcutaneous layer was approximated using 2-0 Vicryl suture in a continuous fashion. The subcuticular layer was approximated using 2-0 Vicryl suture in a continuous fashion. Dermabond adhesive was applied to the wound followed by a sterile pressure dressing. There was no complication. The patient tolerated procedure. Blood loss minimal. IMPLANTED DEFIBRILLATOR The implanted defibrillator generator is a [place] scientific model #umber 0296 serial #[id number]. The right atrial pacing sensing is a [place] [employer] model #7741-52, serial # [id number]. The right ventricular pacing sensing defibrillatory lead is a [place] [employer] model number D022, serial #[id number]. THRESHOLD The right atrial pacing threshold in bipolar mode was 0.84 at 0.5 milliseconds, lead impedance 590 ohms, AP at 5.5 mV. The right ventricle pacing in bipolar mode was 0.64 at 0.4 milliseconds, lead impedance 495 ohms, pacing R-wave was sensing at 21.5 mV. SETTING The device set at DDD 70. Upper rate limit is 130 beats per minute, defibrillatory portion for three zones, one zone for monitor between 145 and 165. Second zone for ventricular tachycardia between 165-250 beats per minute. Initial therapy consists of one burst of ATP, one ramp of 81%, 10 pause segmental followed by 21 then 31 and all subjective at 41 joule defibrillatory shock. Second zone for ventricular fibrillation above 250 beats per minute. First therapy at 31 and all subsequent shocks at 41 joule defibrillatory shock. CONCLUSION Successful defibrillator insertion, RECOMMENDATIONS The patient is going to be transferred to intensive care unit. Will be observed. Further management by the critical care team. MD MOHINDER Hicks/ /8:48 AM /6:33 PM
== END 2016-06-22 16:37 | disposition home health service (06) | DRG 215 ==
LOC: NEPC 01:06 → NEDA 02:32 → NEDH 06:33 → HCVR 15:50 → N03A 06-14 15:13 → HCIS 06-18 18:18
PROVIDERS: ADMIT Internal Medicine Critical Care Medicine; ATTEND Hospitalist
PROC: 02HA3RZ Insertion of Short-term External Heart Assist System into Heart, Percutaneous Approach (ICD-10-PCS; 2016-06-09)
PROC: 5A0221D Assistance with Cardiac Output using Impeller Pump, Continuous (ICD-10-PCS; 2016-06-09)
PROC: 5A1223Z Performance of Cardiac Pacing, Continuous (ICD-10-PCS; 2016-06-09)
PROC: 4A023N7 Measurement of Cardiac Sampling and Pressure, Left Heart, Percutaneous Approach (ICD-10-PCS; 2016-06-09)
PROC: B2111ZZ Fluoroscopy of Multiple Coronary Arteries using Low Osmolar Contrast (ICD-10-PCS; 2016-06-09)
PROC: 0BH17EZ Insertion of Endotracheal Airway into Trachea, Via Natural or Artificial Opening (ICD-10-PCS; 2016-06-09)
PROC: 5A09357 Assistance with Respiratory Ventilation, Less than 24 Consecutive Hours, Continuous Positive Airway Pressure (ICD-10-PCS; 2016-06-09)
PROC: 05H533Z Insertion of Infusion Device into Right Subclavian Vein, Percutaneous Approach (ICD-10-PCS; 2016-06-09)
PROC: 5A1945Z Respiratory Ventilation, 24-96 Consecutive Hours (ICD-10-PCS; 2016-06-09)
PROC: 027135Z Dilation of Coronary Artery, Two Arteries with Two Drug-eluting Intraluminal Devices, Percutaneous Approach (ICD-10-PCS; principal; 2016-06-09 11:00)
PROC: 5A1955Z Respiratory Ventilation, Greater than 96 Consecutive Hours (ICD-10-PCS; 2016-06-10)
PROC: 0BH17EZ Insertion of Endotracheal Airway into Trachea, Via Natural or Artificial Opening (ICD-10-PCS; 2016-06-10)
PROC: 02HK3KZ Insertion of Defibrillator Lead into Right Ventricle, Percutaneous Approach (ICD-10-PCS; 2016-06-14)
PROC: 02H63KZ Insertion of Defibrillator Lead into Right Atrium, Percutaneous Approach (ICD-10-PCS; 2016-06-14)
PROC: 0JH609Z Insertion of Cardiac Resynchronization Defibrillator Pulse Generator into Chest Subcutaneous Tissue and Fascia, Open Approach (ICD-10-PCS; 2016-06-14)
DX: I21.11 ST elevation (STEMI) myocardial infarction involving right coronary artery (principal); J96.01 Acute respiratory failure with hypoxia; N17.0 Acute kidney failure with tubular necrosis; I50.21 Acute systolic (congestive) heart failure; R57.0 Cardiogenic shock; J15.212 Pneumonia due to Methicillin resistant Staphylococcus aureus; I13.0 Hypertensive heart and chronic kidney disease with heart failure and stage 1 through stage 4 chronic kidney disease, or unspecified chronic kidney disease; I48.92 Unspecified atrial flutter; I44.2 Atrioventricular block, complete; I47.2 Ventricular tachycardia; I48.91 Unspecified atrial fibrillation; E11.51 Type 2 diabetes mellitus with diabetic peripheral angiopathy without gangrene; E11.65 Type 2 diabetes mellitus with hyperglycemia; I25.10 Atherosclerotic heart disease of native coronary artery without angina pectoris; I25.5 Ischemic cardiomyopathy; I25.82 Chronic total occlusion of coronary artery; I25.2 Old myocardial infarction; D64.9 Anemia, unspecified; N18.9 Chronic kidney disease, unspecified; E11.42 Type 2 diabetes mellitus with diabetic polyneuropathy; E11.22 Type 2 diabetes mellitus with diabetic chronic kidney disease; E03.9 Hypothyroidism, unspecified; Z95.5 Presence of coronary angioplasty implant and graft; Z79.4 Long term (current) use of insulin; Z87.891 Personal history of nicotine dependence
CPT/HCPCS: 31500; 33210; 33249; 33990; 36600; 51702; 71010; 71250; 76937; 80048; 80053; 80076; 81001; 82010; 82310; 82435; 82550; 82552; 82565; 82805; 82947; 82948; 83605; 83690; 83735; 83880; 84100; 84132; 84155; 84295; 84484; 84520; 85002; 85007; 85014; 85025; 85027; 85610; 85730; 86403; 87040; 87070; 87086; 87147; 87186; 87205; 87493; 87641; 93005; 93306; 93308; 93454; 94002; 94003; 94150; 94640; 94664; 94667; 94668; 96365; 96375; C1721; C1725; C1760; C1769; C1779; C1874; C1887; C1893; C1895; C9399; G0269; J0171; J0282; J0330; J0360; J0456; J0461; J0690; J0692; J0696; J1120; J1170; J1250; J1265; J1644; J1815; J1817; J1940; J2001; J2020; J2060; J2250; J2270; J2405; J2543; J2920; J2930; J3010; J3370; J3475; J3480; J7030; J7040; J7050; J7060; J7512; P9047; Q9967

== ENCOUNTER 2016-10-21 12:28 | Emergency (ER) | payer OTHER, MEDICARE ==
[~2016-10-21 12:28] MED LIST changes: +AMIO200T PO; +AMLO5 PO; +ASPI81TA11 PO; +BRIL90TA PO; +BUME1TAB PO; +CARV12.52 PO; -CLOP75 NG; -GABA300 PO; +GABA300C5 PO; +GETGO ROLLING W1 MI1; +HUMALOG SQ; -HUMSS SQ; -LANTUS2P SC; +LANTUS2P SQ; +LEVEMIR SQ; +LIPI80TA PO; -LISI10 PO; -MORP30 PO; +PANT40TA3 PO; +POTA-163 PO; -PRAV80 PO; +PRED10PA2 PO
[2016-10-21 12:30] VITALS: BP 109/56; PULSE 70; RESP 18; TEMP 98.2; O2SAT 98
--- NOTE | 2016-10-21 12:33 | PD ---
Physical Exam Time Seen by Provider: 12:32 Narrative 65yo M c/o left lower leg pain since 6pm yesterday. Pain is in calf. Denies hx of DVT. Denies anticoagulants. Patient seen in triage. VS reviewed. Awaiting bed placement. MDM Supervised Visit with ANA: Danii Carrion Oct 21, 2016 12:33
[2016-10-21] MEDS ORDERED: MORPHINE SULFATE 4 MG/ML INJ IV PUSH ONE (13:30)
[2016-10-21] MEDS ORDERED: ONDANSETRON HCL 4 MG/2 ML VIAL IV PUSH ONE (13:30)
[2016-10-21] MEDS ORDERED: SODIUM CHLORIDE 0.9% FLUSH 10 ML FLUSH IVF PRN (13:30)
--- NOTE | 2016-10-21 13:33 | PD ---
HPI Chief Complaint: Pain: Acute or Chronic Time Seen by Provider: 13:32 Travel History International Travel<30 days: No Contact w/Intl Traveler<30days: No Traveled to known affect area: No History of Present Illness HPI 65 YO male with PMH of CAD s/p bypass, AICD implantation, PAD s/p BLE stenting, CHF, DM presents to the ED for evaluation of 10/10 left calf pain. Onset at rest ~630p yesterday. Denies fever, chills, chest pain, shortness of breath, cough, abdominal pain, changes in bowel habits, dysuria. Primary care through the [facility] Past Medical History Anxiety: No Depression: No Cancer: No Cardiac Catheterization: Yes (X2) Cardiovascular Problems: Yes ([place] X 2) High Cholesterol: Yes Chest Pain: Yes Coronary Artery Disease: Yes Diabetes: Yes Patient Takes Glucophage: No Diminished Hearing: No Endocrine: Yes (HYPERPARATHYROIDISM) Genitourinary: Yes (ACUTE KIDNEY INJURY) Hypertension: Yes Immune Disorder: No Musculoskeletal: No Neurologic: No Psychiatric: No Reproductive: No Respiratory: No Integumentary: Yes (NECROTIC RIGHT FOOT) Myocardial Infarction: Yes Thyroid Disease: Yes Influenza Vaccination: No Past Surgical History Abdominal Surgery: Yes (HERNIA REPAIR) Appendectomy: Yes Cardiac Surgery: No Coronary Artery Bypass Graft: Yes (July 2016) Coronary Stent: Yes (X2) Ear Surgery: No Endocrine Surgery: No Eye Surgery: No Genitourinary Surgery: No Gynecologic Surgery: No Oral Surgery: No Thoracic Surgery: No Other Surgery: Yes (SVT CARDIOVERSION, STENT IN RIGHT LEG) Social History Alcohol Use: No Tobacco Use: No (quit 06/25) Substance Use: No Allergies-Medications (Allergen,Severity, Reaction): Coded Allergies: *MDRO Multi-Drug Resistant Organism (Verified Adverse Reaction, Unknown, ) MRSA (sputum)-06/09/16 Reported Meds & Prescriptions Reported Meds & Active Scripts Active Lortab (Hydrocodone-Acetaminophen) 5-325 Mg Tab 1-2 Tab PO Q6H PRN Levemir Inj (Insulin Detemir) 1,000 unit/ 10 ML Vial 15 Units SQ DAILY Blood sugars will improve as steroids are removed. May discontinue twice daily insulin and return to daily insulin then. Potassium Chloride ER (Potassium Chloride) 20 Meq Tab 20 Meq PO DAILY Brilinta (Ticagrelor) 90 Mg Tab 90 Mg PO BID Pantoprazole (Pantoprazole Sodium) 40 Mg Tab 40 Mg PO DAILY Carvedilol 12.5 Mg Tab 12.5 Mg PO BID Bumetanide 1 Mg Tab 1 Mg PO BID@,18 Lipitor (Atorvastatin Calcium) 80 Mg Tab 80 Mg PO DAILY Aspirin EC (Aspirin) 81 Mg Tabdr 81 Mg PO DAILY Norvasc (Amlodipine Besylate) 5 Mg Tab 5 Mg PO DAILY Amiodarone (Amiodarone HCl) 200 Mg Tab 200 Mg PO Q12HR Percocet (Oxycodone-Acetaminophen) 10-325 mg Tab 1 Tab PO Q6H PRN Reported Lantus Inj (Insulin Glargine) 1,000 Unit/10 Ml Vial 5 Units SQ HS Humalog Inj (Insulin Human Lispro) 1,000 Unit/10 Ml Vial 5 Units SQ HS Gabapentin 300 Mg Cap 300 Mg PO TID Review of Systems Except as stated in HPI: all other systems reviewed are Neg Physical Exam Narrative GENERAL: Well-nourished, well-developed male in no acute distress. SKIN: Focused skin assessment warm/dry. Is 1.5 cm ulcer on the posterior right heel. No sign of infection. HEAD: Normocephalic. EYES: No scleral icterus. No injection or drainage. NECK: Supple, trachea midline. No JVD or lymphadenopathy. CARDIOVASCULAR:Regular rate and rhythm without murmurs, gallops, or rubs. Dopplerable pulses in BLE. RESPIRATORY: Breath sounds clear and equal bilaterally. No accessory muscle use. GASTROINTESTINAL: Abdomen soft, non-tender, nondistended. MUSCULOSKELETAL: No cyanosis. 2+ pitting edema to the knees bilaterally, right greater than left. Hohmann sign positive on the left. BACK: Nontender without obvious deformity. No CVA tenderness. Data Data Last Documented VS Vital Signs Date Time Temp Pulse Resp B/P Pulse Ox O2 Delivery O2 Flow Rate FiO2 10/21/16 14:43 95 Room Air 10/21/16 12:30 98.2 70 18 109/56 Orders Complete Blood Count With Diff (10/21/16 13:24) Comprehensive Metabolic Panel (10/21/16 13:24) Prothrombin Time / Inr (Pt) (10/21/16 13:24) Act Partial Throm Time (Ptt) (10/21/16 13:24) Ecg Monitoring (10/21/16 13:24) Iv Access Insert/Monitor (10/21/16 13:24) Oximetry (10/21/16 13:24) Sodium Chloride 0.9% Flush (Ns Flush) (10/21/16 13:30) Us Leg Venous Doppler (10/21/16 13:24) Morphine Inj (Morphine Inj) (10/21/16 13:30) Ondansetron Inj (Zofran Inj) (10/21/16 13:30) Electrocardiogram (10/21/16 13:24) B-Type Natriuretic Peptide (10/21/16 13:24) Chest, Single Ap (10/21/16 13:24) Ckmb (Isoenzyme) Profile (10/21/16 13:55) Troponin I (10/21/16 13:55) Labs Laboratory Tests Test 10/21/16 13:55 White Blood Count 11.5 TH/MM3 Red Blood Count 3.08 MIL/MM3 Hemoglobin 8.9 GM/DL Hematocrit 27.1 % Mean Corpuscular Volume 88.1 FL Mean Corpuscular Hemoglobin 28.9 PG Mean Corpuscular Hemoglobin 32.8 % Concent Red Cell Distribution Width 17.0 % Platelet Count 203 TH/MM3 Mean Platelet Volume 9.7 FL Neutrophils (%) (Auto) 70.8 % Lymphocytes (%) (Auto) 18.7 % Monocytes (%) (Auto) 8.4 % Eosinophils (%) (Auto) 1.6 % Basophils (%) (Auto) 0.5 % Neutrophils # (Auto) 8.1 TH/MM3 Lymphocytes # (Auto) 2.1 TH/MM3 Monocytes # (Auto) 1.0 TH/MM3 Eosinophils # (Auto) 0.2 TH/MM3 Basophils # (Auto) 0.1 TH/MM3 CBC Comment DIFF FINAL Differential Comment Prothrombin Time 11.0 SEC Prothromb Time International 1.0 RATIO Ratio Activated Partial 30.6 SEC Thromboplast Time Sodium Level 139 MEQ/L Potassium Level 4.4 MEQ/L Chloride Level 109 MEQ/L Carbon Dioxide Level 21.4 MEQ/L Anion Gap 9 MEQ/L Blood Urea Nitrogen 30 MG/DL Creatinine 1.43 MG/DL Estimat Glomerular Filtration 49 ML/MIN Rate Random Glucose 302 MG/DL Calcium Level 8.4 MG/DL Total Bilirubin 0.4 MG/DL Aspartate Amino Transf 16 U/L (AST/SGOT) Alanine Aminotransferase 29 U/L (ALT/SGPT) Alkaline Phosphatase 117 U/L Total Creatine Kinase 94 U/L Troponin I 0.03 NG/ML B-Type Natriuretic Peptide 899 PG/ML Total Protein 6.4 GM/DL Albumin 2.8 GM/DL [facility] Medical Decision Making Medical Screen Exam Complete: Yes Emergency Medical Condition: Yes Differential Diagnosis DVT versus claudication versus ischemic PAD versus cellulitis versus musculoskeletal pain versus CHF exacerbation versus other Narrative Course 65 YO male with PMH of CAD s/p bypass, AICD implantation, PAD s/p BLE stenting, CHF, DM presents to the ED for evaluation of 1010 left calf pain. Onset at rest ~630p yesterday. Denies fever, chills, chest pain, shortness of breath, cough, abdominal pain, changes in bowel habits, dysuria. [facility] vitals reviewed. Physical exam reveals a nontoxic appearing white male in no acute distress. There is 2+ edema of the bilateral lower extremities right greater than left. The left leg is warm and well perfused. Homans sign positive on the left. Some left popliteal tenderness but this is minimal compared to the calf tenderness. IV established. Patient was administered 4 mg morphine, 4 mg Zofran IV. CBC: WBC 7.5, hemoglobin 8.9. Coags: INR 1.0 CMP: BUN 30, creatinine 1.43-- chronic per chart review. BNP: 899 EKG: Rate 70, paced rhythm, no ST changes. Reviewed by Dr. Barrett. CXR: No evidence of significant acute cardiopulmonary process per radiology read. LLE US: No evidence of DVT. I discussed the case with Dr. Barrett. We discussed the results of the workup with the patient. We recommended treatment of the leg pain with close follow- up with the primary care provider. Patient has are agreeable with this plan. Patient was walked tested around the emergency room, able to bear weight with no difficulties. He is provided a short course of Lortab 5 mg, instructed to follow up with the primary care tomorrow as discussed, return for worsening symptoms. He indicated understanding of the instructions and is agreeable to the care plan. The patient is stable and discharged home. Diagnosis Primary Impression: Pain of left calf Referrals: Primary Care Physician Patient Instructions: General Instructions, Leg Edema (ED), Leg Pain (ED) Additional Instructions: Rest, hydrate. Return to normal, gentle activities as tolerated. Take pain medications as prescribed. Do not drive while taking pain medications. [facility]. Return to the ED for worsening symptoms or any urgent or emergent medical condition. Med/Other Pt SpecificInfo: Prescription(s) given Scripts Hydrocodone-Acetaminophen (Lortab)5-325 Mg Tab1-2 Tab PO Q6H PRN (PAIN) #20 TAB Ref 0 Prov:Dean Barrett MD 10/21/16 Disposition: 01 DISCHARGE HOME Condition: Stable Anastasiia Toth Oct 21, 2016 13:33
[2016-10-21 14:11] LABS: AUTOMATED NEUTROPHIL # 8.1 TH/MM3 (1.8-7.7); BASOPHIL # 0.1 TH/MM3 (0-0.2); BASOPHIL % 0.5 % (0.0-2.0); EOSINOPHIL # 0.2 TH/MM3 (0-0.4); EOSINOPHIL % 1.6 % (0.0-4.0); HEMATOCRIT 27.1 % (39.0-51.0); HEMO FLAGS DIFF FINAL; LYMPH % 18.7 % (9.0-44.0); LYMPHOCYTE # 2.1 TH/MM3 (1.0-4.8); MEAN CELL VOLUME 88.1 FL (80.0-100.0); MEAN CORPUSCULAR HEMOGLOBIN 28.9 PG (27.0-34.0); MEAN CORPUSCULAR HGB CONC 32.8 % (32.0-36.0); MONO % 8.4 % (0.0-8.0); NEUT % 70.8 % (16.0-70.0); PLATELET COUNT 203 TH/MM3 (150-450); RED BLOOD COUNT 3.08 MIL/MM3 (4.50-5.90); WHITE BLOOD COUNT 11.5 TH/MM3 (4.0-11.0)
[2016-10-21 14:23] LABS: APTT (PATIENT) 30.6 SEC (24.3-30.1)
--- NOTE | 2016-10-21 14:27 | RADRPT ---
EXAM DATE/TIME: 10/21/2016 13:44 [facility] COMPARISON: CHEST SINGLE AP, June 17, 2016, 3:05. INDICATIONS : Shortness of breath. MEDICAL HISTORY : Cardiovascular disease. SURGICAL HISTORY : Pacemaker. CABG. ENCOUNTER: Initial ACUITY: 2 days PAIN SCORE: 0/10 LOCATION: Bilateral chest FINDINGS: Lungs are free of significant airspace disease or congestion. Heart is mildly enlarged. AICD devices in stable position. CONCLUSION: No evidence of significant acute cardiopulmonary process. Simeon Zazueta MD on October 21, 2016 at 14:23 Board Certified Radiologist. This report was verified electronically.
--- NOTE | 2016-10-21 14:28 | RADRPT ---
EXAM DATE/TIME: 10/21/2016 14:06 [facility] COMPARISON: No previous studies available for comparison. INDICATIONS : Left leg pain. MEDICAL HISTORY : Myocardial infarction. Hypercholesterolemia. Congestive heart failure. Thyr oid disease. CAD. Hypertension. Acute kidney injury. Diabetes. SURGICAL HISTORY : Appendectomy. CABG. Coronary stent. Hernia repair. ENCOUNTER: Initial ACUITY: 2 day PAIN SCORE: 7/10 LOCATION: Left leg. TECHNIQUE: Venous ultrasound of the leg was performed from the inguinal ligament to the proximal calf. Real-time, color Doppler and spectral tracing, compression and augmentation techniques were us ed. FINDINGS: There is normal compressibility of the deep venous system from the inguinal region to the proximal ca lf. No echogenic clot is seen in the lumen of the common femoral, femoral, popliteal, and posterior tibial veins. There is a normal response of the venous system to proximal and distal augmentation an d respiration. CONCLUSION: No evidence of DVT. Simeon Zazueta MD on October 21, 2016 at 14:26 Board Certified Radiologist. This report was verified electronically.
[2016-10-21 14:37] LABS: ALKALINE PHOSPHATASE 117 U/L (45-117); ALT (GPT) 29 U/L (12-78); ANION GAP 9 MEQ/L (5-15); AST (GOT) 16 U/L (15-37); BICARBONATE 21.4 MEQ/L (21.0-32.0); BLOOD UREA NITROGEN 30 MG/DL (7-18); CHLORIDE 109 MEQ/L (98-107); GLOMERULAR FILTRATION RATE 49 ML/MIN (>89); POTASSIUM 4.4 MEQ/L (3.5-5.1); SODIUM (NA) 139 MEQ/L (136-145); TOTAL BILIRUBIN ADULT 0.4 MG/DL (0.2-1.0)
[2016-10-21 14:40] LABS: CREATINE KINASE 94 U/L (39-308)
[2016-10-21 14:43] VITALS: O2SAT 95
--- NOTE | 2016-10-21 14:58 | PD ---
Data Data Last Documented VS Vital Signs Date Time Temp Pulse Resp B/P Pulse Ox O2 Delivery O2 Flow Rate FiO2 10/21/16 14:43 95 Room Air 10/21/16 12:30 98.2 70 18 109/56 Orders Complete Blood Count With Diff (10/21/16 13:24) Comprehensive Metabolic Panel (10/21/16 13:24) Prothrombin Time / Inr (Pt) (10/21/16 13:24) Act Partial Throm Time (Ptt) (10/21/16 13:24) Ecg Monitoring (10/21/16 13:24) Iv Access Insert/Monitor (10/21/16 13:24) Oximetry (10/21/16 13:24) Sodium Chloride 0.9% Flush (Ns Flush) (10/21/16 13:30) Us Leg Venous Doppler (10/21/16 13:24) Morphine Inj (Morphine Inj) (10/21/16 13:30) Ondansetron Inj (Zofran Inj) (10/21/16 13:30) Electrocardiogram (10/21/16 13:24) B-Type Natriuretic Peptide (10/21/16 13:24) Chest, Single Ap (10/21/16 13:24) Ckmb (Isoenzyme) Profile (10/21/16 13:55) Troponin I (10/21/16 13:55) Labs Laboratory Tests Test 10/21/16 13:55 White Blood Count 11.5 TH/MM3 Red Blood Count 3.08 MIL/MM3 Hemoglobin 8.9 GM/DL Hematocrit 27.1 % Mean Corpuscular Volume 88.1 FL Mean Corpuscular Hemoglobin 28.9 PG Mean Corpuscular Hemoglobin 32.8 % Concent Red Cell Distribution Width 17.0 % Platelet Count 203 TH/MM3 Mean Platelet Volume 9.7 FL Neutrophils (%) (Auto) 70.8 % Lymphocytes (%) (Auto) 18.7 % Monocytes (%) (Auto) 8.4 % Eosinophils (%) (Auto) 1.6 % Basophils (%) (Auto) 0.5 % Neutrophils # (Auto) 8.1 TH/MM3 Lymphocytes # (Auto) 2.1 TH/MM3 Monocytes # (Auto) 1.0 TH/MM3 Eosinophils # (Auto) 0.2 TH/MM3 Basophils # (Auto) 0.1 TH/MM3 CBC Comment DIFF FINAL Differential Comment Prothrombin Time 11.0 SEC Prothromb Time International 1.0 RATIO Ratio Activated Partial 30.6 SEC Thromboplast Time Sodium Level 139 MEQ/L Potassium Level 4.4 MEQ/L Chloride Level 109 MEQ/L Carbon Dioxide Level 21.4 MEQ/L Anion Gap 9 MEQ/L Blood Urea Nitrogen 30 MG/DL Creatinine 1.43 MG/DL Estimat Glomerular Filtration 49 ML/MIN Rate Random Glucose 302 MG/DL Calcium Level 8.4 MG/DL Total Bilirubin 0.4 MG/DL Aspartate Amino Transf 16 U/L (AST/SGOT) Alanine Aminotransferase 29 U/L (ALT/SGPT) Alkaline Phosphatase 117 U/L Total Creatine Kinase 94 U/L Troponin I 0.03 NG/ML B-Type Natriuretic Peptide 899 PG/ML Total Protein 6.4 GM/DL Albumin 2.8 GM/DL MDM Supervised Visit with ANA: Yes Narrative Course I, Dr. Barrett, have reviewed the advance practice practitioner's documentation and am in agreement, met with the patient face to face, made the diagnosis, and the medical decision making was done by me. *My assessment and Findings: Patient presents with left lower extremity pain, Homans sign negative, ultrasound DVT study was negative, patient does have a history of bilateral leg arterial bypasses, has signs of adequate perfusion, dopplerable DP pulses in both lower extremities, pulses are not palpable however the patient has brisk capillary refill and skin tone suggesting adequate perfusion. I think that at this point with his chronic kidney disease the risks of worsening kidney damage outweighs the benefits of CT angiogram lower extremities is a think that there is a low pretest probability for critical stenosis of an artery. Patient verbalized understanding and agreement, he is ambulatory in the emergency department, he appears stable for discharge recommend following up with primary care physician as soon as possible and discussed return to ED criteria. Diagnosis Primary Impression: Pain of left calf Scripts Hydrocodone-Acetaminophen (Lortab)5-325 Mg Tab1-2 Tab PO Q6H PRN (PAIN) #20 TAB Ref 0 Prov:Dean Barrett MD 10/21/16 Disposition: 01 DISCHARGE HOME Condition: Stable Dean Barrett MD Oct 21, 2016 14:58
[2016-10-21] MEDS ORDERED: HYDR-3533 PO (15:01)
--- NOTE | 2016-10-22 22:49 | EKG ---
Date Performed: 10/21/2016 Time Performed: 14:34:52 PTAGE: 65 years EKG: ELECTRONIC ATRIAL PACEMAKER ELECTRONIC VENTRICULAR PACEMAKER ABNORMAL RHYTHM ECG PREVIOUS TRACING : 06/14/2016 05.41 DOCTOR: Madeline Rodríguez Interpretating Date/Time 10/22/2016 22:46:56
== END 2016-10-21 15:42 | disposition home or self-care (01) ==
LOC: NEPC 12:28
DX: M79.662 Pain in left lower leg (principal); R06.02 Shortness of breath; I50.9 Heart failure, unspecified; E11.9 Type 2 diabetes mellitus without complications; I10 Essential (primary) hypertension; E78.00 Pure hypercholesterolemia, unspecified; Z95.1 Presence of aortocoronary bypass graft; Z95.810 Presence of automatic (implantable) cardiac defibrillator; I25.2 Old myocardial infarction; E21.3 Hyperparathyroidism, unspecified; Z79.4 Long term (current) use of insulin
CPT/HCPCS: 71010; 80053; 82550; 83880; 84484; 85025; 85610; 85730; 93005; 93971; 96374; 96375; 99285; J2270; J2405

== ENCOUNTER 2016-10-25 13:10 | Emergency (ER) | payer OTHER, MEDICARE ==
[~2016-10-25] VITALS: Ht 180.3 cm; Wt 100.0 kg
[~2016-10-25 13:10] MED LIST changes: -GETGO ROLLING W1 MI1; +HYDR-3533 PO; -PRED10PA2 PO
[2016-10-25 13:12] VITALS: BP 130/58; TEMP 97.7; O2SAT 95
[2016-10-25 13:27] VITALS: BP_SYST 129; BP_SYST 143; BP_DIAS 60; BP_DIAS 67; PULSE 70; RESP 18; O2SAT 97
[2016-10-25 13:29] VITALS: BP 143/67; PULSE 69; RESP 18; O2SAT 97
[2016-10-25] MEDS ORDERED: MORPHINE SULFATE 4 MG/ML INJ IV PUSH ONE ×3 (13:30→17:00)
[2016-10-25] MEDS ORDERED: ONDANSETRON HCL 4 MG/2 ML VIAL IV PUSH ONE (13:30)
[2016-10-25] MEDS ORDERED: FUROSEMIDE 40 MG/4 ML VIAL IV PUSH ONE (13:30)
[2016-10-25] MEDS ORDERED: SODIUM CHLORIDE 0.9% FLUSH 10 ML FLUSH IVF PRN (13:30)
--- NOTE | 2016-10-25 14:01 | RADRPT ---
EXAM DATE/TIME: 10/25/2016 13:33 [facility] COMPARISON: CHEST SINGLE AP, October 21, 2016, 13:44. INDICATIONS : Chest pain. MEDICAL HISTORY : Congestive heart failure. SURGICAL HISTORY : CABG. Pacemaker. ENCOUNTER: Initial ACUITY: 2 days PAIN SCORE: 2/10 LOCATION: Bilateral chest FINDINGS: The lungs are clear. The heart is minimally enlarged. Otherwise previous bypass are noted. Patient is evident. The pulmonary vascularity is normal. There is no evidence for infiltrate or failure. The portion of the bony skeleton visualized is unremarkable. CONCLUSION: Compensated cardiomegaly, pacer otherwise negative Nima Treadwell MD FACR on October 25, 2016 at 13:58 Board Certified Radiologist. This report was verified electronically.
--- NOTE | 2016-10-25 14:08 | PD ---
HPI Chief Complaint: Cardiac Complaint Time Seen by Provider: 14:04 Travel History International Travel<30 days: No Contact w/Intl Traveler<30days: No Traveled to known affect area: No History of Present Illness HPI 65-year-old male that presents to the ED for evaluation of lower leg swelling that has had started for last 2 days as well as shortness of breath. Patient states that he has a history of CHF and this feels somewhat similar. Per patient he took more Bumex yesterday to try to prevent him from coming here and unfortunately the swelling got worse. Per patient he was seen here last week for evaluation of pain of his and had an ultrasound that was negative for blood clots. At the time patient did have an elevated BNP but no other symptoms. Patient states that he has shortness of breath with exertion. Per patient this is been ongoing for the past 2 days. Per patient he also has orthopnea. Per patient his last ejection fracture showed that he had an ejection fracture of 20 -30%. He denies any chest discomfort. Per patient he does feel nauseous. No abdominal pain. No urinary or bowel movement issues. No fevers chills or sweats. Patient states that his only pain is to the right leg which is more swollen than usual and he has 6 out of 10 pain on it. PFSH Past Medical History Anxiety: No Depression: No Cancer: No Cardiac Catheterization: Yes (X2) Cardiovascular Problems: Yes High Cholesterol: Yes Chest Pain: Yes Coronary Artery Disease: Yes Diabetes: Yes Patient Takes Glucophage: No Diminished Hearing: No Endocrine: Yes (HYPERPARATHYROIDISM) Gastrointestinal Disorders: No Genitourinary: Yes (ACUTE KIDNEY INJURY) Hypertension: Yes Immune Disorder: No Implanted Vascular Access Dvce: No Musculoskeletal: No Neurologic: No Psychiatric: No Reproductive: No Respiratory: Yes Integumentary: Yes (NECROTIC RIGHT FOOT) Myocardial Infarction: Yes Thyroid Disease: Yes Past Surgical History Abdominal Surgery: Yes (HERNIA REPAIR) Appendectomy: Yes Cardiac Surgery: No Coronary Artery Bypass Graft: Yes (July 2016) Coronary Stent: Yes (X2) Ear Surgery: No Endocrine Surgery: No Eye Surgery: No Genitourinary Surgery: No Gynecologic Surgery: No Neurologic Surgery: No Oral Surgery: No Thoracic Surgery: No Other Surgery: Yes (SVT CARDIOVERSION, STENT IN RIGHT LEG) Social History Alcohol Use: No Tobacco Use: No (quit 06/25) Substance Use: No Allergies-Medications (Allergen,Severity, Reaction): Coded Allergies: *MDRO Multi-Drug Resistant Organism (Verified Adverse Reaction, Unknown, ) MRSA (sputum)-06/09/16 Reported Meds & Prescriptions Reported Meds & Active Scripts Active Lortab (Hydrocodone-Acetaminophen) 5-325 Mg Tab 1 Tab PO Q6H PRN Bumetanide 2 Mg Tab 2 Mg PO BID 7 Days Lortab (Hydrocodone-Acetaminophen) 5-325 Mg Tab 1-2 Tab PO Q6H PRN Levemir Inj (Insulin Detemir) 1,000 unit/ 10 ML Vial 15 Units SQ DAILY Blood sugars will improve as steroids are removed. May discontinue twice daily insulin and return to daily insulin then. Potassium Chloride ER (Potassium Chloride) 20 Meq Tab 20 Meq PO DAILY Brilinta (Ticagrelor) 90 Mg Tab 90 Mg PO BID Pantoprazole (Pantoprazole Sodium) 40 Mg Tab 40 Mg PO DAILY Carvedilol 12.5 Mg Tab 12.5 Mg PO BID Bumetanide 1 Mg Tab 1 Mg PO BID@,18 Lipitor (Atorvastatin Calcium) 80 Mg Tab 80 Mg PO DAILY Aspirin EC (Aspirin) 81 Mg Tabdr 81 Mg PO DAILY Norvasc (Amlodipine Besylate) 5 Mg Tab 5 Mg PO DAILY Amiodarone (Amiodarone HCl) 200 Mg Tab 200 Mg PO Q12HR Percocet (Oxycodone-Acetaminophen) 10-325 mg Tab 1 Tab PO Q6H PRN Reported Lantus Inj (Insulin Glargine) 1,000 Unit/10 Ml Vial 5 Units SQ HS Humalog Inj (Insulin Human Lispro) 1,000 Unit/10 Ml Vial 5 Units SQ HS Gabapentin 300 Mg Cap 300 Mg PO TID Review of Systems Except as stated in HPI: all other systems reviewed are Neg Physical Exam Narrative GENERAL: SKIN: Warm and dry. HEAD: Atraumatic. Normocephalic. EYES: Pupils equal and round. No scleral icterus. No injection or drainage. ENT: No nasal bleeding or discharge. Mucous membranes pink and moist. Tongue is midline. No uvula deviation. NECK: Trachea midline. No JVD. CARDIOVASCULAR: Regular rate and rhythm. No murmurs, S3, S4. RESPIRATORY: No accessory muscle use. Clear to auscultation. Breath sounds equal bilaterally. GASTROINTESTINAL: Abdomen soft, non-tender, nondistended. Hepatic and splenic margins not palpable. MUSCULOSKELETAL: Extremities without clubbing, cyanosis, or edema. No obvious deformities. Full range of motion of the upper and lower extremities bilaterally. 2+pulses bilaterally. Patient has 2+ pitting edema on the lower extremities bilaterally. Patient does have erythema and blistering noted on the anterior aspect of the right leg compared to the left which is more tender. NEUROLOGICAL: Awake and alert. No obvious cranial nerve deficits. Motor grossly within normal limits. Five out of 5 muscle strength in the arms and legs. Normal speech. PSYCHIATRIC: Appropriate mood and affect; insight and judgment normal. Data Data Last Documented VS Vital Signs Date Time Temp Pulse Resp B/P Pulse Ox O2 Delivery O2 Flow Rate FiO2 10/25/16 17:03 70 18 98 Room Air 10/25/16 16:26 117/57 10/25/16 13:12 97.7 Orders Electrocardiogram (10/25/16 13:21) B-Type Natriuretic Peptide (10/25/16 13:21) Ckmb (Isoenzyme) Profile (10/25/16 13:21) Complete Blood Count With Diff (10/25/16 13:21) Comprehensive Metabolic Panel (10/25/16 13:21) Magnesium (Mg) (10/25/16 13:21) Prothrombin Time / Inr (Pt) (10/25/16 13:21) Act Partial Throm Time (Ptt) (10/25/16 13:21) Troponin I (10/25/16 13:21) Chest, Single Ap (10/25/16 13:21) Ecg Monitoring (10/25/16 13:21) Bilateral Bp Monitoring (10/25/16 13:21) Iv Access Insert/Monitor (10/25/16 13:21) Oximetry (10/25/16 13:21) Oxygen Administration (10/25/16 13:21) Sodium Chloride 0.9% Flush (Ns Flush) (10/25/16 13:30) Furosemide Inj (Lasix Inj) (10/25/16 13:30) Morphine Inj (Morphine Inj) (10/25/16 13:30) Ondansetron Inj (Zofran Inj) (10/25/16 13:30) Us Leg Venous Doppler (10/25/16 ) Morphine Inj (Morphine Inj) (10/25/16 15:15) Morphine Inj (Morphine Inj) (10/25/16 17:00) Labs Laboratory Tests Test 10/25/16 13:54 White Blood Count 12.1 TH/MM3 Red Blood Count 3.29 MIL/MM3 Hemoglobin 9.6 GM/DL Hematocrit 28.6 % Mean Corpuscular Volume 87.1 FL Mean Corpuscular Hemoglobin 29.2 PG Mean Corpuscular Hemoglobin 33.5 % Concent Red Cell Distribution Width 17.4 % Platelet Count 292 TH/MM3 Mean Platelet Volume 9.7 FL Neutrophils (%) (Auto) 72.9 % Lymphocytes (%) (Auto) 18.5 % Monocytes (%) (Auto) 3.9 % Eosinophils (%) (Auto) 3.7 % Basophils (%) (Auto) 1.0 % Neutrophils # (Auto) 8.8 TH/MM3 Lymphocytes # (Auto) 2.2 TH/MM3 Monocytes # (Auto) 0.5 TH/MM3 Eosinophils # (Auto) 0.4 TH/MM3 Basophils # (Auto) 0.1 TH/MM3 CBC Comment DIFF FINAL Differential Comment Prothrombin Time 9.9 SEC Prothromb Time International 0.9 RATIO Ratio Activated Partial 27.0 SEC Thromboplast Time Sodium Level 138 MEQ/L Potassium Level 4.6 MEQ/L Chloride Level 108 MEQ/L Carbon Dioxide Level 22.9 MEQ/L Anion Gap 7 MEQ/L Blood Urea Nitrogen 38 MG/DL Creatinine 1.39 MG/DL Estimat Glomerular Filtration 51 ML/MIN Rate Random Glucose 296 MG/DL Calcium Level 8.3 MG/DL Magnesium Level 2.0 MG/DL Total Bilirubin 0.3 MG/DL Aspartate Amino Transf 11 U/L (AST/SGOT) Alanine Aminotransferase 23 U/L (ALT/SGPT) Alkaline Phosphatase 135 U/L Total Creatine Kinase 67 U/L Troponin I LESS THAN 0.02 NG/ML B-Type Natriuretic Peptide 363 PG/ML Total Protein 6.7 GM/DL Albumin 3.0 GM/DL [place] Medical Decision Making Medical Screen Exam Complete: Yes Emergency Medical Condition: Yes Medical Record Reviewed: Yes Interpretation(s) CBC & BMP Diagram 10/25/16 13:54 LFTs WNL troponin is negative CK negative EKG showed paced rhythm. Read by me and attending. No sign of ischemia. BNP improved from a week ago. In the 200s. Last Impressions Chest X-Ray 10/25/16 1321 Signed Impressions: Service Date/Time: Tuesday, October 25, 2016 13:33 - CONCLUSION: Compensated cardiomegaly, pacer otherwise negative Nima Treadwell MD FACR Lower Extremity Ultrasound 10/25/16 0000 Signed Impressions: Service Date/Time: Tuesday, October 25, 2016 15:45 - CONCLUSION: 1. The deep venous system from the right common femoral vein to the upper calf veins is patent without thrombus. 2. 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 Anthony Mills MD Differential Diagnosis CHF exacerbation versus pleural effusion versus cellulitis versus kidney disease versus ACS Narrative Course 65-year-old male that presents to the ED for evaluation of swelling on the legs and shortness of breath. Patient was properly examined and was found to have signs and symptoms which appear to be consistent with CHF exacerbation. Labs and imaging ordered. Labs and imaging show no sign of acute injury. Patient does have an abnormality on ultrasound and Dr. Soto actually came here and evaluated him as this is his patient and he states that nothing to worry about. My attending Dr. Gudino evaluated the patient with me and agrees with discharge. Patient was told discharge instructions. Patient will be to increase his Bumex to 2 mg twice a day with close follow-up with PCP. See ED for any worsening symptoms. Patient was sent home with Lortab. Patient agrees with this plan. Diagnosis Primary Impression: Pedal edema Additional Impression: Leg pain, right Patient Instructions: General Instructions Additional Instructions: Take 2 mg of Bumex twice a day for this week. Follow with your doctor this week. Take pain medication as needed. Ice or warm compresses as needed. See ED for any worsening symptoms. Med/Other Pt SpecificInfo: Prescription(s) given Scripts Hydrocodone-Acetaminophen (Lortab)5-325 Mg Tab1 Tab PO Q6H PRN (PAIN) #20 TAB Ref 0 Prov:ShahabMassiel 10/25/16 Bumetanide 2 Mg Tab2 Mg PO BID 7 Days Ref 0 Prov:Massiel Gudino DO 10/25/16 Disposition: 01 DISCHARGE HOME Condition: Stable Antolin Hendrix Oct 25, 2016 14:08
[2016-10-25 14:13] LABS: AUTOMATED NEUTROPHIL # 8.8 TH/MM3 (1.8-7.7); BASOPHIL # 0.1 TH/MM3 (0-0.2); EOSINOPHIL # 0.4 TH/MM3 (0-0.4); EOSINOPHIL % 3.7 % (0.0-4.0); HEMATOCRIT 28.6 % (39.0-51.0); HEMO FLAGS DIFF FINAL; LYMPH % 18.5 % (9.0-44.0); LYMPHOCYTE # 2.2 TH/MM3 (1.0-4.8); MEAN CELL VOLUME 87.1 FL (80.0-100.0); MEAN CORPUSCULAR HEMOGLOBIN 29.2 PG (27.0-34.0); MEAN CORPUSCULAR HGB CONC 33.5 % (32.0-36.0); MONO % 3.9 % (0.0-8.0); NEUT % 72.9 % (16.0-70.0); PLATELET COUNT 292 TH/MM3 (150-450); RED BLOOD COUNT 3.29 MIL/MM3 (4.50-5.90); RED CELL DISTRIBUTION WIDTH 17.4 % (11.6-17.2); WHITE BLOOD COUNT 12.1 TH/MM3 (4.0-11.0)
[2016-10-25 14:23] LABS: PROTHROMBIN TIME - PATIENT 9.9 SEC (9.8-11.6)
[2016-10-25 14:24] LABS: INTERNATIONAL NORMALIZED RATIO 0.9 RATIO
[2016-10-25 14:45] LABS: ALT (GPT) 23 U/L (12-78); ANION GAP 7 MEQ/L (5-15); BICARBONATE 22.9 MEQ/L (21.0-32.0); BLOOD UREA NITROGEN 38 MG/DL (7-18); CHLORIDE 108 MEQ/L (98-107); GLOMERULAR FILTRATION RATE 51 ML/MIN (>89); POTASSIUM 4.6 MEQ/L (3.5-5.1); SODIUM (NA) 138 MEQ/L (136-145)
[2016-10-25 14:46] LABS: AST (GOT) 11 U/L (15-37)
[2016-10-25 14:49] LABS: ALKALINE PHOSPHATASE 135 U/L (45-117); TOTAL BILIRUBIN ADULT 0.3 MG/DL (0.2-1.0)
[2016-10-25 14:51] LABS: CREATINE KINASE 67 U/L (39-308)
[2016-10-25 16:26] VITALS: BP 117/57; PULSE 68; RESP 18; O2SAT 97
--- NOTE | 2016-10-25 16:43 | RADRPT ---
EXAM DATE/TIME: 10/25/2016 15:45 [facility] COMPARISON: CTA RUNOFF W 3D RECON, December 02, 2013, 11:32. US LEG RIGHT VENOUS DOPPLER, May 21, 2015, 14:20. US LEG RIGHT VENOUS DOPPLER, July 24, 2015, 11:34. INDICATIONS : Right leg swelling. MEDICAL HISTORY : Myocardial infarction. Hypercholesterolemia. Hypertension. Thyroid disease. CAD. Acute kidney inju ry. Diabetes. Necrotic right foot. MRSA. CFH. SURGICAL HISTORY : Appendectomy. CABG. Coronary stent. Hernia repair. SVT cardioversion with right leg. ENCOUNTER: Initial ACUITY: 1 day PAIN SCORE: 6/10 LOCATION: Right leg. TECHNIQUE: Venous ultrasound of the leg was performed from the inguinal ligament to the proximal calf. Real-roopa e, color Doppler and spectral tracing, compression and augmentation techniques were used. FINDINGS: There is normal compressibility of the deep venous system from the inguinal region to the proximal ca lf. No echogenic clot is seen in the lumen of the common femoral, femoral, popliteal, and posterior tibial veins. There is a normal response of the venous system to proximal and distal augmentation an d respiration. There is superficial edema. There is a 2.4 cm area of vascular dilatation seen in the right groin likely related to an aneurysm. The patient apparently has had bypass surgeries. The technologist thought this was related to them ar terial system at the right groin. Extending inferiorly from this region is a thrombosed vessel. The t hrombosed vessel is in the region of the greater saphenous vein. The patient also appears to have an occluded graft seen in the right groin separate from this structure. CONCLUSION: 1. The deep venous system from the right common femoral vein to the upper calf veins is patent withou t thrombus. 2. 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 Anthony Mills MD on October 25, 2016 at 16:30 Board Certified Radiologist. This report was verified electronically.
[2016-10-25] MEDS ORDERED: HYDR-3533 PO (17:28)
[2016-10-25] MEDS ORDERED: BUME2TAB PO (17:28)
[2016-10-25 18:02] VITALS: BP 145/83; TEMP 98.3
--- NOTE | 2016-10-26 16:43 | EKG ---
Date Performed: 10/25/2016 Time Performed: 13:33:59 PTAGE: 65 years EKG: ELECTRONIC ATRIAL PACEMAKER ELECTRONIC VENTRICULAR PACEMAKER Since previous tracing, no sig nificant change noted ABNORMAL RHYTHM ECG PREVIOUS TRACING : 10/21/2016 14.34 DOCTOR: Naomi Elizondo Interpretating Date/Time 10/26/2016 17:15:53
== END 2016-10-25 18:03 | disposition home or self-care (01) ==
LOC: NEPC 13:10
DX: R60.0 Localized edema (principal); M79.604 Pain in right leg; R06.02 Shortness of breath; I50.9 Heart failure, unspecified; I10 Essential (primary) hypertension; E21.3 Hyperparathyroidism, unspecified; E78.00 Pure hypercholesterolemia, unspecified; E11.8 Type 2 diabetes mellitus with unspecified complications; Z79.4 Long term (current) use of insulin; I51.7 Cardiomegaly; I25.2 Old myocardial infarction; Z95.1 Presence of aortocoronary bypass graft
CPT/HCPCS: 71010; 80053; 82550; 83735; 83880; 84484; 85025; 85610; 85730; 93005; 93971; 96374; 96375; 96376; 99285; J1940; J2270; J2405